=== PATIENT | female | born 1930 | race Caucasian/White ===

== ENCOUNTER 2017-02-27 14:27 | Inpatient (IN) ==
[2017-02-27] MEDS ORDERED: methylPREDNISolone 125 MG/2 ML VIAL IVP ONE (14:55)
[2017-02-27] MEDS ORDERED: Ipratropium/Albuterol Neb 3 ML IH ONE (14:55)
[2017-02-27 15:09] LABS: Basophils % 0.5 %; Eosinophils % 0.2 %; Hematocrit 31.2 % (35.3-44.9); Hemoglobin 10.2 g/dL (11.5-15.4); Immature Granulocytes % 0.3 % (0-4); Lymphocytes # 0.8 K/mcL (0.6-4.6); Lymphocytes % 11.9 %; Mean Corpuscular HGB Conc 32.7 g/dL (31.6-35.5); Mean Corpuscular Hemoglobin 30.6 pg (28.0-33.3); Mean Corpuscular Volume 93.7 fL (83.0-100.0); Mean Platelet Volume 9.6 fL (9.4-12.4); Monocytes # 0.7 K/mcL (0.0-1.3); Monocytes % 10.8 %; Platelet Count 156 K/mcL (140-400); Red Blood Count 3.33 M/mcL (3.82-4.97); Segmented Neutrophils % 76.3 %
[2017-02-27 15:20] LABS: Calcium 8.2 mg/dL (8.6-10.8); Potassium 3.8 mEq/L (3.5-4.5)
--- NOTE | 2017-02-27 15:27 | Emergency Department Note ---
Disposition Clinical Impression: Acute exacerbation of chronic obstructive airways disease, Atypical chest pain , Elevated troponin COPD (chronic obstructive pulmonary disease) Qualifiers: COPD type: unspecified COPD Qualified Code(s): J44.9 - Chronic obstructive pulmonary disease, unspecified Chest pain Qualifiers: Chest pain type: unspecified Qualified Code(s): R07.9 - Chest pain, unspecified Disposition: Admitted As Inpatient Condition: Fair Time of Disposition: 19:29 SOB HPI - General Chief Complaint: ED Shortness of Breath/Dyspnea Stated Complaint: cough CHF Time Seen by Provider: 02/27/17 14:39 Source: patient, family Mode of arrival: ambulatory Limitations: no limitations Nursing Notes Reviewed: Yes Vital Signs Reviewed: Yes - History of Present Illness 86-year-old female presents here to the department from the urgent care for shortness of breath. Patient states this difficulty in breathing started a couple days ago and has slowly increased. She does have history of COPD but is not on home oxygen. She has never had be intubated for this. She does have nebulizers as well as inhalers at home with that she has not been using she has been so weak. Patient states she has had no fevers is during this time of breathing. patient says that she has had a cough and is producing some sputum. Says it is a clear sputum but actually has been a few times of yellow. Patient said she did have one episode where she coughed up blood because after long coughing attack and was only one episode has since gone away. This was a couple days ago.. Patient states that having any chest pain. She does have a cardiac history where she has had multiple cardiac catheters as well as an an atrial fibrillation with a pacemaker. Patient otherwise is having no complaints including nausea or vomiting, pain, headache, neck pain, blurry vision, back pain, abdominal pain, pain or tingling of the arms or legs, generalized numbness. No changes in bowel movements or pain with urination. Patient states she has not been on a long car rides or plane rides she has never had a blood clot has not noticed any swelling in any of her legs. - Related Data Home Medications Medication Instructions Recorded Confirmed Arformoterol Tartrate [Brovana] 15 mcg IH BID 12/13/14 11/04/16 Aspirin Enteric Coated [Aspirin EC] 81 mg PO DAILY 12/13/14 11/04/16 Atorvastatin [Lipitor] 20 mg PO HS 12/13/14 11/04/16 Duloxetine [Cymbalta] 60 mg PO DAILY 12/13/14 11/04/16 Furosemide [Lasix] 20 mg PO DAILY 12/13/14 11/04/16 Insulin ASPART [NovoLOG] 0 units SQ TIDAC 12/13/14 11/04/16 Insulin Glargine,Hum.rec.anlog 37 units SQ HS 12/13/14 11/04/16 [Lantus Solostar] Metoprolol XL (24 HR) Succ [Toprol 50 mg PO DAILY 12/25/14 11/04/16 XL] Budesonide Neb [Pulmicort Neb] 0.5 mg IH BID 05/03/15 11/04/16 Cholecalciferol (Vitamin D3) 1,000 unit PO DAILY 05/03/15 11/04/16 [Vitamin D3] Loratadine [Claritin] 10 mg PO DAILY 05/03/15 11/04/16 Colver-3/Dha/Epa/Fish Oil [Fish Oil 1 cap PO DAILY 05/03/15 11/04/16 1,000 mg Softgel] Omeprazole [PriLOSEC] 40 mg PO DAILY 05/03/15 11/04/16 Latanoprost 1 drop BOTH EYES HS 11/26/15 11/04/16 Saline Nasal [place] [[place] Nasal 1 spray NS Q4H PRN 11/26/15 11/04/16 Norton] Ferrous Sulfate [Iron] 650 mg PO DAILY 01/25/16 11/04/16 Tramadol HCl [Ultram] 50 mg PO TID PRN 04/20/16 11/04/16 Ascorbate Calcium [Vitamin C] 500 mg PO DAILY 11/04/16 11/04/16 Diclofenac Sodium [Voltaren] 1 appl TP QID PRN 11/04/16 11/04/16 Ipratropium/Albuterol Neb [Duoneb] 3 ml IH TID PRN 11/04/16 11/04/16 amLODIPine [Norvasc] 5 mg PO DAILY 11/04/16 11/04/16 Previous Rx's Medication Instructions Recorded Ranolazine [Ranexa] 500 mg PO BID #60 tab.er.12h 11/26/15 Lisinopril 2.5 mg PO DAILY #30 tablet 11/07/16 Lisinopril [Zestril] 2.5 mg PO DAILY tab 11/07/16 Allergies Allergy/AdvReac Type Severity Reaction Status Date / Time isosorbide [From Imdur] Allergy Unknown See Verified 02/27/17 14:36 Comments gabapentin Allergy Hallucinati Verified 02/27/17 14:36 ng Hydralazine Allergy See Verified 02/27/17 14:36 Comments propranolol [From Inderal LA] Allergy Hallucinati Verified 02/27/17 14:36 ng alprazolam [From Xanax] AdvReac See Verified 02/27/17 14:36 Comments fentanyl AdvReac See Verified 02/27/17 14:36 Comments Review of Systems: 10 point review of systems done and negative unless otherwise stated in history of present illness. All systems ED: reviewed and negative except as stated. Review of Systems: As Per HPI Past Medical History - Past Medical History Attestation: Yes The following information was validated with the patient. Medical history: Reports: atrial fibrillation, CHF, coronary artery disease, CVA , diabetes, hyperlipidemia, hypertension, renal disease Surgical history: Reports: angioplasty/stent, carotid endarterectomy, cholecystectomy, pacemaker/AICD, other Psychiatric history: Reports: anxiety - Social History Smoking Status: Never smoker Smokeless Tobacco Status: No Alcohol use: Reports: none Drug use: Reports: none Physical Exam - General Limitations: no limitations General appearance: alert, in no apparent distress - Head Head exam: atraumatic, normocephalic, normal inspection - Eye Eye exam: Present: normal appearance, PERRL, EOMI - ENT ENT exam: normal exam, normal oropharynx, mucous membranes moist - Neck Neck exam: Present: normal inspection, full ROM, trachea midline - Chest Chest inspection: Present: normal inspection, symmetric chest wall rise - Expanded Respiratory Exam Location: wheezes: Left, Right, Upper, Lower, rhonchi: Left, Right, Upper, Lower , decreased breath sounds: Left, Right, Lower - Cardiovascular Cardiovascular exam: Present: regular rate, normal rhythm, normal heart sounds - Abdominal Exam Abdominal exam: Present: soft, Non-Tender, normal bowel sounds. Absent: tenderness, distention, guarding, rebound, rigidity - Extremities Exam Extremities exam: Present: normal inspection, full ROM. Absent: tenderness, pedal edema - Expanded Lower Extremity Exam Neurovascular/Tendon exam: Present: normal capillary refill. Absent: pulse deficit, motor deficit, sensory deficit, tendon deficit - Back Exam Back exam: Present: normal inspection, full ROM. Absent: tenderness, CVA tenderness (R), CVA tenderness (L) - Neurological Exam Neurological exam: Present: alert, oriented X3 - Skin Skin exam: Present: warm, dry, intact, normal color Course Course Narrative: 86-year-old female presents the ED with shortness of breath does have history of COPD. We will not do chest x-rays was done in urgent care. We will get an EKG as well as basic labs including BMP, CBC, lactate. We will give patient IV Solu-Medrol as well as double duo nebs as one DuoNeb was already given a urgent care. Patient is okay with this plan. Most likely disposition is admission due to patient being hypoxic as she was 80% on room air while here and is now on 4 L of oxygen. - Reevaluation(s) Reevaluation #1: Patient reevaluated that she is breathing better at this time. She had an elevated troponin. We did get a second EKG at this time also give her aspirin. Patient took it this plan. Patient also has an elevated BNP but due to her poor renal function we cannot do a CTA. We will talk with the hospitalist about getting a VQ scan. Time: 15:44 Reevaluation #2: Patient reevaluated she is still having a hard time breathing she is actually on 4 L of oxygen and is still only satting in the low 90s. Due to her having history of COPD and increasing work of breathing and worry about hyper-carboxy we felt that patient going on BiPAP would be beneficial. Spoke with patient and family and they both agree. So we will place patient on BiPAP at this time. Time: 16:10 Vital Signs Temperature 97.6 F 02/27/17 14:31 Pulse Rate 96 02/27/17 14:31 Respiratory Rate 26 02/27/17 14:31 Blood Pressure 110/67 02/27/17 14:31 O2 Sat by Pulse Oximetry 90 02/27/17 14:31 Temperature 97.6 F 02/27/17 14:31 Pulse Rate 88 02/27/17 17:19 Respiratory Rate 21 02/27/17 17:19 Blood Pressure 102/50 02/27/17 17:19 O2 Sat by Pulse Oximetry 97 02/27/17 17:19 Oxygen Delivery Oxygen Delivery Bipap Shortness of Breath/Dyspnea - [facility] Narrative Medical decision making narrative: 86-year-old female presents to emergency department complaining of chest pain as well as shortness of breath. She says the chest pain is more a burning sensation. It is worse when she has exertion. Patient does have cardiac history or set multiple stents last one in 1998 last normal stress test was 2013. When she first came in and we treated her as a COPD exacerbation gave her Solu-Medrol and 2 DuoNeb treatments as she already had 1 prior to arrival in urgent care. Chest x-ray is done by urgent care which did not show any acute abnormalities. Her any pulmonary effusions. Patient was hypoxic at 88% on room air when she arrived. Did immediately place her on 4 L of oxygen. She is somewhat hard time breathing that were worried about hyper-carboxy a suicide place patient on BiPAP. Her work of breathing decreased after that. She did really well on this. We did get labs back which showed a normal CBC but patient did have an elevated troponin as well as a BNP. Due to the elevated troponin and BNP we felt that Favio Hobbs was possible she did have one episode of hemoptysis that occurred after a coughing fit but then since went away. Her creatinine was elevated so we are unable to do a CTA of her chest. We ordered a VQ scan. VQ showed low likelihood of there being a pulmonary embolism. We did do 2 EKGs one after the positive troponin and one upon arrival. Multiple face for the exact same showing no acute findings. The elevated troponin could be due to heart strain. We did give patient aspirin and offered her nitroglycerin but patient said because she is not having bad chest pain this time she declined having it. At this time we felt patient needed to be admitted to the hospitalist service for hypoxia, elevated troponin, mild chest pain, COPD exacerbation. Spoke with the patient and she agrees with this plan. Patient is being admitted to the hospital was. I spoke with Nikita Foreman who agreed to admit the patient to their service. Patient is now admitted to their service in stable condition. [facility] 02/27/17 15:57 IMPRESSION: 1. Low probability for pulmonary embolism. 2. Clumped activity in the central airways could be related to poor inspiratory effort and/or airways disease. D/ / Amaury Sutton MD / Amaury Sutton MD Interpreting Provider: Amaury Sutton MD - Medical Records Medical records reviewed: Yes I reviewed the patient's medical records. - Lab Data Lab results reviewed: Yes I reviewed the patient's lab results. Result diagrams: 02/27/17 15:01 02/27/17 15:01 Lab Results 02/27/17 02/27/17 02/27/17 Range/Units 15:01 15:01 15:01 WBC 6.6 (4.3-11.1) K/mcL RBC 3.33 L (3.82-4.97) M/mcL Hgb 10.2 L (11.5-15.4) g/dL Hct 31.2 L (35.3-44.9) % MCV 93.7 (83.0-100.0) fL MCH 30.6 (28.0-33.3) pg MCHC 32.7 (31.6-35.5) g/dL RDW 14.0 (11.5-14.5) % Plt Count 156 (140-400) K/mcL MPV 9.6 (9.4-12.4) fL Immature Gran % 0.3 (0-4) % Seg Neutrophils % 76.3 % Lymphocytes % 11.9 % Monocytes % 10.8 % Eosinophils % 0.2 % Basophils % 0.5 % Neutrophils # 5.0 (1.6-8.9) K/mcL Lymphocytes # 0.8 (0.6-4.6) K/mcL Monocytes # 0.7 (0.0-1.3) K/mcL Eosinophils # 0.0 (0.0-0.6) K/mcL Basophils # 0.0 (0.0-0.2) K/mcL Sodium 132 L (136-145) mEq/L Potassium 3.8 (3.5-4.5) mEq/L Chloride 98 (98-109) mEq/L Carbon Dioxide 24 (19-29) mEq/L BUN 26 H (7-20) mg/dL Creatinine 1.50 H (0.57-1.11) mg/dL Est GFR ( Amer) 40 L (> 60) Est GFR (Non-Af Amer) 33 L (> 60) BUN/Creatinine Ratio 17 (6-26) Glucose 193 H (70-99) mg/dL POC Glucose (58-89) Calculated Osmolality 284 (280-300) Lactic Acid 1.5 (0.5-2.2) mmol/L Calcium 8.2 L (8.6-10.8) mg/dL Troponin I (0-0.03) ng/mL B-Natriuretic Peptide (0-100) pg/mL 02/27/17 02/27/17 02/27/17 Range/Units 15:01 15:01 18:37 WBC (4.3-11.1) K/mcL RBC (3.82-4.97) M/mcL Hgb (11.5-15.4) g/dL Hct (35.3-44.9) % MCV (83.0-100.0) fL MCH (28.0-33.3) pg MCHC (31.6-35.5) g/dL RDW (11.5-14.5) % Plt Count (140-400) K/mcL MPV (9.4-12.4) fL Immature Gran % (0-4) % Seg Neutrophils % % Lymphocytes % % Monocytes % % Eosinophils % % Basophils % % Neutrophils # (1.6-8.9) K/mcL Lymphocytes # (0.6-4.6) K/mcL Monocytes # (0.0-1.3) K/mcL Eosinophils # (0.0-0.6) K/mcL Basophils # (0.0-0.2) K/mcL Sodium (136-145) mEq/L Potassium (3.5-4.5) mEq/L Chloride (98-109) mEq/L Carbon Dioxide (19-29) mEq/L BUN (7-20) mg/dL Creatinine (0.57-1.11) mg/dL Est GFR ( Amer) (> 60) Est GFR (Non-Af Amer) (> 60) BUN/Creatinine Ratio (6-26) Glucose (70-99) mg/dL POC Glucose 242 H (58-89) Calculated Osmolality (280-300) Lactic Acid (0.5-2.2) mmol/L Calcium (8.6-10.8) mg/dL Troponin I 0.09 H* (0-0.03) ng/mL B-Natriuretic Peptide 169 H (0-100) pg/mL - Radiology Data Radiology results reviewed: Yes I reviewed the patient's radiology results. - EKG Data EKG attestation: Yes I reviewed and interpreted this EKG. EKG results narrative: EKG #1 done at 1507 0 myself and attending shows normal sinus rhythm with a first-degree AV block at a rate of 86, ME interval 235, QRS 83, QTC 410 with a normal axis. There is no acute ST changes, no acute T-wave abnormalities, no signs of heart strain or hypertrophy, no signs of any other heart boxes in the first-degree, no signs of WPW/Brugada syndrome. There is no old EKG to compare this time. EKG #2 done at 1605 and reviewed by myself and attending shows normal sinus rhythm at a rate of 90, ME interval 206, QRS 89, QTC 410 with a normal axis. There is no acute ST changes, no acute T-wave abnormalities, no signs of any heart strain or hypertrophy, no signs of any heart block, no signs of WPW/ Brugada syndrome. Attestation Statement - Attestation Attestation: I, Nigel Gutierrez, examined this patient and my medical decision-making was reviewed with the EXCHANGE FLOOR MANAGER/PA/Advanced Practice Nurse/Resident Physician. I agree with the documented findings, disposition and treatment plan as described except to the extent set forth below. 86-year-old female presents emergency Department with concerns of increased dyspnea. Patient does not generally wear oxygen at home however she has required 4 L of oxygen nasal cannula to remain above 92%. Patient reports a cough that is productive of yellow white sputum. Patient denies fever, chest pain, abdominal pain, diarrhea, vomiting. Patient had elevated troponin at 0.09. Initial EKG showed normal sinus rhythm with rate of 86 with first-degree AV block without evidence of STEMI. Repeat EKG showed normal sinus rhythm with rate of 90 with first-degree AV block and again without evidence of STEMI. VQ scan showed low likelihood of PE. Chest x-ray did not show acute infiltrate. Patient is afebrile. Patient placed on BiPAP for control of respiratory distress. She improved significantly with BiPAP. She now felt comfortable to be admitted to the hospital for further care and evaluation of COPD exacerbation versus acute CHF exacerbation. The high probability of a clinically significant, sudden or life threatening deterioration of the cardiovascular and respiratory system(s) required my full and direct attention, intervention and personal management. The aggregate critical care time was 45 minutes. This time is in addition to time spent performing reported procedures but includes the following: x Data Review and interpretation x Patient assessment and monitoring of vital signs x Documentation x Medication orders and management
[2017-02-27] MEDS ORDERED: Aspirin 81 MG TAB.CHEW PO ONE (15:42)
[2017-02-27] MEDS ORDERED: Insulin Regular, Human 100 UNIT/ML SQ ONE (18:51)
[2017-02-27] MEDS ORDERED: Acetaminophen 325 MG TABLET PO PRN (20:31)
[2017-02-27] MEDS ORDERED: *HR* HYDROcodone/Acet 5/325 mg TABLET PO PRN (20:31)
[2017-02-27] MEDS ORDERED: Ondansetron 4 MG/2 ML VIAL IVP PRN (20:31)
[2017-02-27] MEDS ORDERED: Naloxone 0.4 MG/ML INJ IVP PRN (20:31)
[2017-02-27] MEDS ORDERED: Saline Nasal Spray 44 ML BOTTLE NS PRN (20:41)
[2017-02-27] MEDS ORDERED: (Diclofenac Sodium [Voltaren] 1 APPL) TP PRN (20:41)
[2017-02-27] MEDS ORDERED: Dextrose Gel 15 GM PO PRN ×2 (20:45)
[2017-02-27] MEDS ORDERED: *HR* Dextrose 50 % in Water (Syg) 50 ML SYRINGE IVP PRN (20:45)
[2017-02-27] MEDS ORDERED: D5% in Water 1,000 ML IVC PRN (20:45)
--- NOTE | 2017-02-27 20:54 | Internal Med History&Physical ---
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 reports she experiences several times a year. Concern was for possible PE so VQ scan ordered d/t pts. current renal dysfunction. VQ Scan showed low probability for pulmonary embolism and clumped activity in the central airways which could be related to poor inspiratory effort and/or airways disease. Possibility of bronchitis based on pts. hx and current sx. Supplemental O2 with titration and SPO2 monitoring. Continue patient's inhalers. DuoNeb every 4 scheduled. Solu-Medrol 40 mg every 8. Falls/safety precautions. Will treat empirically w/IVPB ceftriaxone 1,000 mg daily for bronchitis coverage. Culturelle BID PO. Pt. discussed w/Dr. Orosco who agrees w/plan of care. Pt. is at high risk for further morbidity based on current respiratory distress and sx , bronchitis, troponin of 0.09, and hx/risk factors. Inpatient. (2) Dyspnea Current visit: Yes Status: Acute Acute SOB and dyspnea r/t current acute exacerbation of COPD w/possible bronchitis based on pts hx of similar sx. Supplemental O2 with titration and SPO2 monitoring. Continue patient's inhalers. DuoNeb every 4 scheduled. Solu- Medrol 40 mg every 8. Falls/safety precautions. Will treat empirically w/IVPB ceftriaxone 1,000 mg daily for bronchitis coverage. Culturelle BID PO. Qualifiers: Dyspnea type: shortness of breath Qualified Code(s): R06.02 - Shortness of breath (3) Atypical chest pain Current visit: Yes Status: Acute Pt. reports acute chest pain that worsens with cough most likely d/t current acute exacerbation of COPD and cough. Pt. denies CP when not coughing. Initial troponin 0.09 which is likely demand ischemia. Will trend trops x2. Continuous cardiac telemetry. Nitroglycerin PRN. Echocardiogram ordered. Will consider cardiology consult if troponins increasing and/or abnormal echocardiogram results. Will begin heparin drip if subsequent troponins are increasing. (4) Weakness Current visit: Yes Status: Acute Acute weakness r/t current SOB, dyspnea, and acute exacerbation of COPD. Falls/ safety precautions. (5) Electrolyte imbalance Current visit: Yes Status: Acute Acute hyponatremia and hypocalcemia on admission. Sodium chloride PO tablet and calcium carbonate 1,000 mg PO QID. Potassium currently 3.8. Monitor f/u labs and correct imbalances as needed. (6) HTN (hypertension) Current visit: Yes Status: Chronic Hx of chronic HTN. Monitor pt. and VS. Continue pts. Norvasc and metoprolol. Qualifiers: Hypertension type: essential hypertension Qualified Code(s): I10 - Essential (primary) hypertension (7) HLD (hyperlipidemia) Current visit: Yes Status: Chronic Hx of chronic HLD. Lipid panel in a.m. labs. Continue patient's Lipitor. Qualifiers: Hyperlipidemia type: pure hypercholesterolemia Qualified Code(s): E78.00 - Pure hypercholesterolemia, unspecified; E78.0 - Pure hypercholesterolemia (8) CHF (congestive heart failure) Current visit: Yes Status: Chronic Hx of chronic diastolic CHF. Stable. Continuous cardiac telemetry. Echocardiogram ordered. Qualifiers: Congestive heart failure type: diastolic Congestive heart failure chronicity: chronic Qualified Code(s): I50.32 - Chronic diastolic (congestive ) heart failure (9) CAD (coronary artery disease) Current visit: Yes Status: Chronic Hx of chronic CAD and angioplasty/stents x2 in 1998. Patient has history of atrial fibrillation, CHF, hypertension, and hyperlipidemia. Continuous cardiac telemetry. Will continue pts. aspirin therapy, Norvasc, Lipitor, metoprolol, and Ranexa. Qualifiers: Coronary Disease-Associated Artery/Lesion type: [place] artery [place] vs. transplanted heart: [place] heart Associated angina: angina presence unspecified Qualified Code(s): I25.10 - Atherosclerotic heart disease of [place] coronary artery without angina pectoris (10) CKD (chronic kidney disease) stage 3, GFR 30-59 ml/min Current visit: Yes Status: Chronic Hx of CKD. Current creatinine 1.5 and GFR 33. Will use IV fluids judiciously avoid nephrotoxins. Monitor f/u labs. (11) Control of atrial fibrillation with pacemaker Current visit: Yes Status: Chronic Hx of atrial fibrillation controlled w/pacemaker. Stable. Last EKG shows pt. in sinus rhythm with sinus arrhythmia and nonspecific T-wave abnormality. Repeat EKG. (12) Diabetes mellitus Current visit: Yes Status: Chronic Hx of chronic diabetes controlled with insulin. Will continue patient's insulin at bedtime and administer low-dose correction sliding scale insulin w/ hypoglycemic protocol. A1c in a.m. labs. BG checks ACHS. Qualifiers: Diabetes mellitus type: type 2 Diabetes mellitus complication status: with unspecified complications Diabetes mellitus long-term insulin use: unspecified long-term insulin use status Qualified Code(s): E11.8 - Type 2 diabetes mellitus with unspecified complications (13) Chronic anemia Current visit: Yes Status: Chronic Hx of chronic anemia. Current Hgb is 10.2 and Hct is 31.2 which is slightly below pts. recent baseline. Pt. denies unusual bleeding. Fecal hemoccult ordered. H/H in a.m. labs. Will continue pts. iron supplementation. Monitor pt. and f/u labs. (14) DVT prophylaxis Current visit: Yes Status: Acute Heparin 5,000 units SQ Q8 for DVT prophylaxis. Monitor pt. for signs of bleeding. Internal Medicine - H&P: HPI Chief complaint: SOB/Dyspnea/Cough Admitted From: Emergency Dept Plans for Post Hospital Care: Home History of present illness: Ms. Cuellar is a 86 year old female with medical hx of fibrillation, CHF, COPD, previous CVA, diabetes controlled with insulin, check HLD, HTN, renal disease, angioplasty/stent x2 in 1998, hx of carotid endartectomy, and pacemaker/AICD presents from the ED w/cheif complaint of SOB, dyspnea, and cough for the past three days. Pt. states that she has not slet in three days d/t cough and reports nausea, vomiting, dizziness, chest and abdominal pain made worse w/ coughing, and weakness as well. Patient denies recent illness, fever, chills, headache, changes in vision, numbness, tingling, diarrhea, constipation, unusual bleeding, pre-syncope, or syncope. Past Med Surg Social Fam HX - Past Medical History Source: patient, old records reviewed, obtained from family Medical history: atrial fibrillation, CHF, coronary artery disease, CVA, diabetes (Insulin-dependent), hyperlipidemia, hypertension, renal disease Psychiatric history: anxiety - Past Surgical History Surgical History: angioplasty/stent (x2), carotid endarterectomy, cholecystectomy, pacemaker/AICD, other - Social History Smoking Status: Never smoker Smokeless Tobacco Status: No Alcohol use: none Drug use: none Current living situation: Home Activity Level: Uses cane/walker Recent Out of Country Travel Within the Last 8 Weeks: No Exposure or Possible Exposure to Illness During Travel: No - Family History Mother Race: Family Member Ethnicity: Non- Living Status: Age at : 62 Cause of : Lung cancer Hx Family Cancer: Yes (Lung) Father Race: Family Member Ethnicity: Non- Living Status: Age at : 85 Cause of : Stroke Hx Family Cardiac Disorders: Yes (Stroke) Hx Family Endocrine Disorder: Yes (DM) Sister Race: Family Member Ethnicity: Non- Living Status: Age at : 55 Cause of : CAD Hx Family Cardiac Disorders: Yes (CAD) Hx Family Cancer: Yes (Breast) Hx Family Endocrine Disorder: Yes (DM) Internal Medicine - H&P: Meds Arformoterol Tartrate [Brovana] 15 mcg IH BID 12/13/14 [History] Aspirin Enteric Coated [Aspirin EC] 81 mg PO DAILY 12/13/14 [History] Atorvastatin [Lipitor] 20 mg PO HS 12/13/14 [History] Duloxetine [Cymbalta] 60 mg PO DAILY 12/13/14 [History] Furosemide [Lasix] 20 mg PO BID 12/13/14 [History] Insulin ASPART [NovoLOG] 0 units SQ TIDAC 12/13/14 [History] Insulin Glargine,Hum.rec.anlog [Lantus Solostar] 37 units SQ HS 12/13/14 [ History] Metoprolol XL (24 HR) Succ [Toprol XL] 50 mg PO DAILY 12/25/14 [History] Budesonide Neb [Pulmicort Neb] 0.5 mg IH BID 05/03/15 [History] Cholecalciferol (Vitamin D3) [Vitamin D3] 1,000 unit PO DAILY 05/03/15 [History] Loratadine [Claritin] 10 mg PO DAILY 05/03/15 [History] [place]-3/Dha/Epa/Fish Oil [Fish Oil 1,000 mg Softgel] 1 cap PO DAILY 05/03/15 [ History] Omeprazole [PriLOSEC] 40 mg PO DAILY 05/03/15 [History] Latanoprost 1 drop BOTH EYES HS 11/26/15 [History] Ranolazine [Ranexa] 500 mg PO BID #60 tab.er.12h 11/26/15 [Rx] Saline Nasal [place] [[place] Nasal [place]] 1 spray NS Q4H PRN 11/26/15 [History] Ferrous Sulfate [Iron] 325 mg PO DAILY 01/25/16 [History] Tramadol HCl [Ultram] 50 mg PO TID PRN 04/20/16 [History] Ascorbate Calcium [Vitamin C] 500 mg PO DAILY 11/04/16 [History] Diclofenac Sodium [Voltaren] 1 appl TP QID PRN 11/04/16 [History] Ipratropium/Albuterol Neb [Duoneb] 3 ml IH TID PRN 11/04/16 [History] amLODIPine [Norvasc] 5 mg PO DAILY 11/04/16 [History] Magnesium Oxide [Magnesium] 400 mg PO DAILY 02/27/17 [History] 3 Allergy/AdvReac Type Severity Reaction Status Date / Time isosorbide [From Imdur] Allergy Unknown See Verified 02/27/17 14:36 Comments gabapentin Allergy Hallucinati Verified 02/27/17 14:36 ng Hydralazine Allergy See Verified 02/27/17 14:36 Comments propranolol [From Inderal LA] Allergy Hallucinati Verified 02/27/17 14:36 ng alprazolam [From Xanax] AdvReac See Verified 02/27/17 14:36 Comments fentanyl AdvReac See Verified 02/27/17 14:36 Comments All Systems PM: A 10-system review of systems was performed and is negative for pertinent findings except as documented above in the HPI. - Constitutional Constitutional: as per HPI, fatigue, weakness, no chills, no fever(s), no night sweats - EENT Eyes: no change in vision, no discharge, no pain, no photophobia Ears: no ear discharge, no ear pain, no tinnitus Nose, mouth and throat: no dysphagia, no nasal discharge, no neck pain, no sore throat - Breasts Breasts: as per HPI - Cardiovascular Cardiovascular ROS IM: as per HPI, chest pain (Made worse w/coughing), dyspnea, dyspnea on exertion, no diaphoresis, no lightheadedness, no palpitations, no syncope - Respiratory Respiratory: as per HPI, cough, dyspnea, dyspnea on exertion, pain with cough - Gastrointestinal Gastrointestinal: nausea, vomiting, no abdominal pain, no diarrhea, no hematemesis, no hematochezia, no melena - Genitourinary Genitourinary: no change in urinary stream, no dysuria, no flank pain, no hematuria Menstruation: as per HPI - Musculoskeletal Musculoskeletal ROS IM: as per HPI, no numbness, no tingling - Integumentary Integumentary IM: no rash, no unusual bruising - Neurological Neurological ROS: as per HPI, dizziness, no confusion, no convulsions, no focal weakness, no numbness, no tingling, no tremor(s) - Psychiatric Psychiatric: as per HPI, anxiety - Endocrine Endocrine IM: as per HPI, fatigue - Hematologic/Lymphatic Hematologic/Lymphatic: no easy bruising - Allergic/Immunologic Allergic/Immunologic: as per HPI - Constitutional Vitals: Temp Pulse Resp BP Pulse Ox 97.5 F L 78 16 114/68 92 02/27/17 20:23 02/27/17 20:23 02/27/17 20:23 02/27/17 20:23 02/27/17 20:23 General appearance: Present: cooperative, mild distress, pleasant, obese, answers questions appropriately - Head Head exam: Present: atraumatic, normocephalic - Eye Eye exam: Present: PERRL, conjuntiva pink, sclera anicteric Pupils: Present: PERRL - ENT ENT exam: Present: normal exam - Neck Neck exam general surgery: Present: normal inspection, supple, trachea midline. Absent: lymphadenopathy - Respiratory Respiratory exam: Present: accessory muscle use, respiratory distress, rhonchi. Absent: rales, wheezes - Cardiovascular Cardiovascular exam: Present: RRR, +S1, +S2. Absent: diastolic murmur, gallop, rubs, systolic murmur - GI/Abdominal GI/Abdominal exam: Present: normal bowel sounds, soft, no peritoneal signs. Absent: distended, tenderness - Rectal Rectal exam: Present: deferred - Additional comments: exam deferred. - Extremities Exam Extremities exam: Present: warm, radial pulses palpable and symmetrical. Absent : calf tenderness, cyanotic, pedal edema - Back Exam Back exam: Present: normal inspection - Neurological Exam Neurological exam: Present: CN II-XII intact, oriented X3, no focal deficits. Absent: pronater drift, facial droop, speech deficit - Psychiatric Psychiatric exam: Present: normal affect, normal mood - Skin Skin exam: Present: dry, intact Internal Med - H&P Results - Labs CBC & Chem 7: 02/27/17 15:01 02/27/17 15:01 - EKG Data EKG shows normal: sinus rhythm - EKG Data EKG comments: 02/27/17 21:02 EKG dated 02/27/17 15:07 shows sinus rhythm with first-degree AV block with occasional supraventricular premature complexes, nonspecific T-wave abnormality , abnormal ECG. EKG dated 02/27/17 16:05 shows sinus rhythm with sinus arrhythmia, nonspecific T -wave abnormality, borderline ECG. - Diagnostic Studies Other Images Additional comments: Impressions EXAMINATION: NUCLEAR MEDICINE VENTILATION PERFUSION SCAN 02/27/2017 TECHNIQUE: 34.7 mCi aerosolized Tc99m DTPA was administered via mask prior to planar imaging of the lungs in multiple projections. Then, 6.4 mCi of Tc99m MAA was administered intravenously prior to planar imaging of the lungs in similar projections. COMPARISON: Chest radiograph 02/27/2017 HISTORY: ORDERING SYSTEM PROVIDED HISTORY: Elevated trop, elevated BNP cant do CTA Worsening shortness of breath over 2 days. Elevated troponin and BNP. Initial evaluation. FINDINGS: PERFUSION: A few patchy small moderate perfusion defects, most prominent in the anterior segment of the left upper lobe. VENTILATION: Ventilation defects matching those seen on perfusion images. Clumped activity in the central airways. Ingested activity in the oral cavity and/or pharynx. CHEST RADIOGRAPH: Interstitial pulmonary edema. Bibasilar atelectasis. Suspicion for trace bilateral effusions. Mild cardiomegaly. Left subclavian dual chamber pacemaker with intact leads. NM/NM pul vent and perfuse IMPRESSION: 1. Low probability for pulmonary embolism. 2. Clumped activity in the central airways could be related to poor inspiratory effort and/or airways disease. D/ / Amaury Sutton MD / Amaury Sutton MD Interpreting Provider: Amaury Sutton MD <Michael Del Cid - Last Filed: 02/27/17 22:52> Date of Encounter: 02/27/17 Internal Medicine - H&P: HPI History of present illness: Ms. Cuellar is a 86 year old female All Systems PM: A 10-system review of systems was performed and is negative for pertinent findings except as documented above in the HPI. - Constitutional Vitals: Temp Pulse Resp BP Pulse Ox 97.5 F L 78 18 114/68 92 02/27/17 20:23 02/27/17 20:23 02/27/17 21:10 02/27/17 20:23 02/27/17 21:10 Internal Med - H&P Results - Labs CBC & Chem 7: 02/27/17 15:01 02/27/17 15:01 Labs: Cardiac Enzymes 02/27/17 Range/Units 21:17 Troponin I 0.06 H* (0-0.03) ng/mL - Attending Attestation I examined this patient and my medical decision-making was reviewed with the Resident Physician. I agree with the documented findings, disposition and treatment plan as described except to the extent set forth below. I have seen and examined the patient. Patient is a 86-year-old female with past medical history of atrial fibrillation, CHF, coronary artery disease, CVA, diabetes, hyperlipidemia, hypertension and COPD. Patient presents to ED complaining of shortness of breath. Initial workup in the ED is significant for slightly elevated troponin likely due to demand ischemia. VQ scan is low probability for PE. Chest x-ray shows probable edema. Patient is being admitted for acute exacerbation of COPD. She will need DuoNeb breathing treatment, IV steroids, O2 via NC and empiric antibiotics. Patient is hard of hearing, and her daughter is present at bedside. Patient and daughter have been explained about her condition and plan of care in detail. They understood and agreed. No unanswered questions. CODE STATUS as per patient and daughter DO NOT RESUSCITATE and DO NOT INTUBATE status. Heart rate 78, blood pressure 114/68, O2 sat 92% on 2 L nasal cannula. Heart S1 and S2 positive. Lungs bilateral good air entry and bilateral wheezing. Abdomen soft nontender.
[2017-02-27] MEDS ORDERED: Insulin LISPRO 300 UNITS/3 ML VIAL SQ SCH (21:00)
[2017-02-27] MEDS: Budesonide Neb 0.5 MG/2 ML IH SCH (21:07)
[2017-02-27] MEDS: Ipratropium/Albuterol Neb 3 ML IH SCH (21:08)
[2017-02-27] MEDS: cefTRIAXone 1,000 MG in Water for inj. (sterile) 10 ML IVPB SCH (21:57)
[2017-02-27] MEDS: GuaiFENesin/Dextromethorphan TABLET PO SCH (21:57)
[2017-02-27] MEDS: Ranolazine 500 MG TAB.ER.12H PO SCH (21:57)
[2017-02-27] MEDS: Furosemide 20 MG TABLET PO SCH (21:57)
[2017-02-27] MEDS ORDERED: Insulin DETEMIR 100 UNIT/ML X5UNITS SQ SCH (22:30)
[2017-02-27] MEDS: MethylPREDNISolone 40 MG/ML VIAL IVP SCH (23:47)
[2017-02-27] MEDS: *HR* Heparin 5,000 UNIT/ML VIAL SQ SCH (23:49)
[2017-02-27] MEDS: Latanoprost 2.5 ML BOTTLE BOTH EYES SCH (23:50)
[2017-02-28] MEDS: Ipratropium/Albuterol Neb 3 ML IH SCH ×7 (00:01→23:40)
[2017-02-28] MEDS: Albuterol 2.5 MG/3 ML NEBULIZER IH SCH ×2 (00:04→10:13)
[2017-02-28 03:17] LABS: Basophils % 0.4 %; Hematocrit 31.1 % (35.3-44.9); Hemoglobin 10.4 g/dL (11.5-15.4); Immature Granulocytes % 0.2 % (0-4); Lymphocytes # 0.2 K/mcL (0.6-4.6); Lymphocytes % 3.9 %; Mean Corpuscular HGB Conc 33.4 g/dL (31.6-35.5); Mean Corpuscular Hemoglobin 30.6 pg (28.0-33.3); Mean Corpuscular Volume 91.5 fL (83.0-100.0); Monocytes # 0.1 K/mcL (0.0-1.3); Monocytes % 1.3 %; Platelet Count 153 K/mcL (140-400); Red Cell Distribution Width 13.7 % (11.5-14.5); Segmented Neutrophils % 94.2 %
[2017-02-28 03:22] LABS: INR 1.1; Prothrombin Time 11.3 Seconds (9.4-12.1)
[2017-02-28 03:24] LABS: Activated Partial Thrombo Time 24.7 Seconds (26.0-36.0)
[2017-02-28 03:25] LABS: Hemoglobin A1C 7.2 %
[2017-02-28 03:31] LABS: Albumin 2.8 g/dL (3.5-5.0); Albumin/Globulin Ratio 0.8 (1.1-2.2); Bilirubin,Total 0.3 mg/dL (0.2-1.2); Chol/HDL Ratio 3.1 (0-4.9); Globulin 3.5 g/dL (2.4-3.5); Magnesium 1.7 mg/dL (1.6-2.6); Potassium 4.2 mEq/L (3.5-4.5); Total Protein 6.3 g/dL (6.0-8.3)
[2017-02-28] MEDS: Furosemide 20 MG TABLET PO SCH (09:27)
[2017-02-28] MEDS: MethylPREDNISolone 40 MG/ML VIAL IVP SCH ×2 (09:27→18:11)
[2017-02-28] MEDS: Cholecalciferol (D-3) 1,000 UNIT TABLET PO SCH (09:27)
[2017-02-28] MEDS: Magnesium Oxide 400 MG TABLET PO SCH (09:27)
[2017-02-28] MEDS: Ranolazine 500 MG TAB.ER.12H PO SCH ×2 (09:27→21:02)
[2017-02-28] MEDS: Loratadine 10 MG TABLET PO SCH (09:27)
[2017-02-28] MEDS: Metoprolol XL (24 HR) Succ 50 MG TAB.ER.24H PO SCH (09:28)
[2017-02-28] MEDS: amLODIPine 5 MG TABLET PO SCH (09:28)
[2017-02-28] MEDS: *HR* Heparin 5,000 UNIT/ML VIAL SQ SCH ×2 (09:28→18:12)
[2017-02-28] MEDS: Aspirin Enteric Coated 81 MG Tablet PO SCH (09:28)
[2017-02-28] MEDS: GuaiFENesin/Dextromethorphan TABLET PO SCH ×2 (09:28→21:02)
[2017-02-28] MEDS: Lactobacillus 1 EACH CAP.SPRINK PO SCH ×2 (09:28→21:02)
[2017-02-28] MEDS: Insulin LISPRO 300 UNITS/3 ML VIAL SQ SCH ×4 (09:28→21:22)
[2017-02-28] MEDS: Budesonide Neb 0.5 MG/2 ML IH SCH ×2 (10:13→20:09)
[2017-02-28] MEDS ORDERED: Albuterol 2.5 MG/3 ML NEBULIZER IH PRN (11:10)
[2017-02-28] MEDS ORDERED: INSULIN HUMAN REGULAR IV ONE (13:32)
[2017-02-28] MEDS ORDERED: SODIUM CHLORIDE 0.9% IV ONE (13:32)
--- NOTE | 2017-02-28 15:39 | Electrocardiograph Report ---
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
--- NOTE | 2017-02-28 15:40 | Electrocardiograph Report ---
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
--- NOTE | 2017-02-28 15:42 | Internal Med Progress Note ---
<Lux Pickering - Last Filed: 02/28/17 15:56> Date of Encounter: 02/28/17 Time of Encounter: 09:45 - Assessment and plan (1) Acute exacerbation of chronic obstructive airways disease Current Visit: Yes Status: Acute Assessment and plan: Patient presented with shortness of breath, dyspnea, cough. VQ scan showed low probability of pulmonary embolism. Chest x-ray demonstrated the presence of pulmonary edema. Plan: -SupplementalO2 via NC, SPO2 monitoring -IV ceftriaxone 1000 mg daily for bronchitis coverage. -Lasix 20 mg IV twice a day, monitor kidney function. (2) Atypical chest pain Current Visit: Yes Status: Acute Assessment and plan: Patient presented with pain that was exacerbated by cough. Likely due to COPD exacerbation. Initial troponin 0.09, likely due to demand ischemia. Troponin trending down; last troponin level was 0.05. Patient complained of some lower sternal chest pain exacerbated by coughing this morning. Plan: -Continuous cardiac telemetry. -Nitroglycerin when necessary. (3) CAD (coronary artery disease) Current Visit: Yes Status: Chronic Assessment and plan: Patient has a known history of chronic CAD and angioplasty/stents 2 in 1998. Known history of atrial fibrillation, CHF, hypertension, hyperlipidemia. Plan: -Aspirin 81 mg -Norvasc 5mg PO daily -Lipitor 20 mg PO HS -Metoprolol 50 mg PO daily -Continuous cardiac telemetry Qualifiers: Coronary Disease-Associated Artery/Lesion type: [place] artery [place] vs. transplanted heart: [place] heart Associated angina: angina presence unspecified Qualified Code(s): I25.10 - Atherosclerotic heart disease of [place] coronary artery without angina pectoris (4) CHF (congestive heart failure) Current Visit: Yes Status: Chronic Assessment and plan: Chest x-ray demonstrated the presence of pulmonary. Lasix 20 mg IV twice a day. Qualifiers: Congestive heart failure type: diastolic Congestive heart failure chronicity: chronic Qualified Code(s): I50.32 - Chronic diastolic (congestive ) heart failure (5) Diabetes mellitus Current Visit: Yes Status: Chronic Assessment and plan: History of chronic diabetes mellitus. Patient normally takes insulin at home. Patient's home insulin was continued; had elevated glucose this morning at 442. Plan: -14 units regular insulin IV. 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 Patient states that she has a mild cough and some mild chest pain on lower sternum. Patient denies having any fever or chills. Glucose elevated today at 442. We will change Solu- Medrol from 40 mg every 8-40 mg every 12. 14 units regular insulin IV. - Constitutional Vitals: Temp Pulse Resp BP Pulse Ox 97.7 F 93 17 130/78 95 02/28/17 11:01 02/28/17 11:01 02/28/17 11:01 02/28/17 11:01 02/28/17 11:01 General appearance: Present: cooperative, mild distress, pleasant, obese, answers questions appropriately - Head Head exam: Present: atraumatic, normocephalic - Eye Eye exam: Present: PERRL, conjuntiva pink, sclera anicteric Pupils: Present: PERRL - Neck Neck exam general surgery: Present: supple, trachea midline. Absent: lymphadenopathy - Respiratory Respiratory exam: Present: decreased breath sounds, prolonged expiratory phase, wheezes. Absent: accessory muscle use, rales, rhonchi - Cardiovascular Cardiovascular exam: Present: +S1, +S2. Absent: diastolic murmur, gallop, rubs , systolic murmur - Skin Skin exam: Present: dry, intact Internal Medicine: Result - Labs CBC & Chem 7: 02/28/17 02:38 02/28/17 02:38 Labs: Short CBC 02/28/17 Range/Units 02:38 WBC 5.4 (4.3-11.1) K/mcL Hgb 10.4 L (11.5-15.4) g/dL Hct 31.1 L (35.3-44.9) % Plt Count 153 (140-400) K/mcL Neutrophils # 5.0 (1.6-8.9) K/mcL BMP 02/28/17 02:38 Sodium 135 L Potassium 4.2 Chloride 101 Carbon Dioxide 23 BUN 33 H Creatinine 1.59 H Glucose 442 H Calcium 8.0 L Cardiac Enzymes 02/27/17 02/28/17 Range/Units 21:17 02:38 Troponin I 0.06 H* 0.05 H* (0-0.03) ng/mL Liver Function 02/28/17 Range/Units 02:38 Total Bilirubin 0.3 (0.2-1.2) mg/dL AST 31 (5-34) Units/L ALT 20 (0-55) Units/L Alkaline Phosphatase 56 (38-126) Units/L Albumin 2.8 L (3.5-5.0) g/dL - ABG Interpretation ABG results: PT/INR, D-dimer PT 11.3 Seconds (9.4-12.1) 02/28/17 02:38 - Impressions Impressions Echocardiogram 02/28/17 20:03 Impressions: LVEF 55%. Mild left ventricular diastolic dysfunction. Probably mild to moderate increased LV wall thickness. Normal right ventricular structure and function. Mild mitral regurgitation. Mild tricuspid regurgitation. No pulmonary hypertension. Left Ventricular Wall Motion: Rest Echo Findings All wall segments showed normal motion. Findings: Study Quality * Technically adequate exam. ECG Findings * Normal sinus rhythm. Left Ventricle * LVEF 55%. * Mild left ventricular diastolic dysfunction. * LV PLAX measurements could not be well obtained - visually appears mild to moderate increase in wall thickness. Right Ventricle * Normal right ventricular structure and function. Left Atrium * Moderate-severely dilated left atrium. Right Atrium * Normal right atrial size. Aortic Valve * No aortic regurgitation. * Trileaflet aortic valve. * Normal aortic valve structure. * No aortic stenosis. Mitral Valve * Normal mitral valve structure. * No mitral stenosis. * Mild mitral annular calcification * Mild mitral regurgitation. Tricuspid Valve * Tricuspid valve not well visualized. * Mild tricuspid regurgitation. * Estimated RA pressure is 3 mmHg. * Estimated RVSP is 28 mmHg. * No pulmonary hypertension. Pulmonic Valve * Pulmonic valve is not well visualized. * No pulmonic stenosis. * No pulmonic regurgitation. Pulmonary Artery * Pulmonary artery not well visualized. Aorta * Not well visualized. Pericardium * There is no pericardial effusion present. Interatrial Septum * No evidence of PFO by color Doppler. IVC * Normal IVC dimensions and inspiratory collapse. Device lead * A device lead was visualized in the right atrium and right ventricle. Consult Discharge Plan - Plan Referrals: Hilario Steele MD [Primary Care Provider] - <Ventura Degroot - Last Filed: 02/28/17 19:48> Date of Encounter: 02/28/17 - Constitutional Vitals: Temp Pulse Resp BP Pulse Ox 97.9 F 82 16 105/61 99 02/28/17 17:01 02/28/17 17:01 02/28/17 17:01 02/28/17 17:01 02/28/17 17:01 Internal Medicine: Result - Labs CBC & Chem 7: 02/28/17 02:38 02/28/17 02:38 Labs: Short CBC 02/28/17 Range/Units 02:38 WBC 5.4 (4.3-11.1) K/mcL Hgb 10.4 L (11.5-15.4) g/dL Hct 31.1 L (35.3-44.9) % Plt Count 153 (140-400) K/mcL Neutrophils # 5.0 (1.6-8.9) K/mcL BMP 02/28/17 02:38 Sodium 135 L Potassium 4.2 Chloride 101 Carbon Dioxide 23 BUN 33 H Creatinine 1.59 H Glucose 442 H Calcium 8.0 L Cardiac Enzymes 02/27/17 02/28/17 Range/Units 21:17 02:38 Troponin I 0.06 H* 0.05 H* (0-0.03) ng/mL Liver Function 02/28/17 Range/Units 02:38 Total Bilirubin 0.3 (0.2-1.2) mg/dL AST 31 (5-34) Units/L ALT 20 (0-55) Units/L Alkaline Phosphatase 56 (38-126) Units/L Albumin 2.8 L (3.5-5.0) g/dL - ABG Interpretation ABG results: PT/INR, D-dimer PT 11.3 Seconds (9.4-12.1) 02/28/17 02:38 - Impressions Impressions Echocardiogram 02/28/17 20:03 Impressions: LVEF 55%. Mild left ventricular diastolic dysfunction. Probably mild to moderate increased LV wall thickness. Normal right ventricular structure and function. Mild mitral regurgitation. Mild tricuspid regurgitation. No pulmonary hypertension. Left Ventricular Wall Motion: Rest Echo Findings All wall segments showed normal motion. Findings: Study Quality * Technically adequate exam. ECG Findings * Normal sinus rhythm. Left Ventricle * LVEF 55%. * Mild left ventricular diastolic dysfunction. * LV PLAX measurements could not be well obtained - visually appears mild to moderate increase in wall thickness. Right Ventricle * Normal right ventricular structure and function. Left Atrium * Moderate-severely dilated left atrium. Right Atrium * Normal right atrial size. Aortic Valve * No aortic regurgitation. * Trileaflet aortic valve. * Normal aortic valve structure. * No aortic stenosis. Mitral Valve * Normal mitral valve structure. * No mitral stenosis. * Mild mitral annular calcification * Mild mitral regurgitation. Tricuspid Valve * Tricuspid valve not well visualized. * Mild tricuspid regurgitation. * Estimated RA pressure is 3 mmHg. * Estimated RVSP is 28 mmHg. * No pulmonary hypertension. Pulmonic Valve * Pulmonic valve is not well visualized. * No pulmonic stenosis. * No pulmonic regurgitation. Pulmonary Artery * Pulmonary artery not well visualized. Aorta * Not well visualized. Pericardium * There is no pericardial effusion present. Interatrial Septum * No evidence of PFO by color Doppler. IVC * Normal IVC dimensions and inspiratory collapse. Device lead * A device lead was visualized in the right atrium and right ventricle. - Attending Attestation I conducted a face to face diagnostic evaluation of this patient and my medical decision-making was reviewed with the Resident Physician, Dr. Lux Pickering. I agree with the documented findings, disposition and treatment plan as described except to the extent set forth below: Patient's blood glucoses over 400. She has not IV steroids. We will give 1 dose of 14 units of IV insulin and recheck blood glucose and 1 hour.
[2017-02-28] MEDS ORDERED: Furosemide 20 MG TABLET PO SCH (17:00)
[2017-02-28] MEDS: Furosemide 20 MG/2 ML VIAL IVP SCH (18:12)
[2017-02-28] MEDS ORDERED: Insulin Human Regular 100 UNIT in 0.9 % Sodium Chloride 100 ML IVC SCH (19:15)
[2017-02-28] MEDS: Insulin DETEMIR 100 UNIT/ML X5UNITS SQ SCH (21:02)
[2017-02-28] MEDS: cefTRIAXone 1,000 MG in Water for inj. (sterile) 10 ML IVPB SCH (21:03)
[2017-02-28] MEDS: Latanoprost 2.5 ML BOTTLE BOTH EYES SCH (21:05)
[2017-03-01] MEDS: *HR* Heparin 5,000 UNIT/ML VIAL SQ SCH ×3 (01:07→17:44)
[2017-03-01] MEDS: Ipratropium/Albuterol Neb 3 ML IH SCH ×6 (03:58→23:52)
[2017-03-01] MEDS: MethylPREDNISolone 40 MG/ML VIAL IVP SCH ×2 (05:33→17:45)
[2017-03-01 06:15] LABS: Hematocrit 30.5 % (35.3-44.9); Hemoglobin 10.1 g/dL (11.5-15.4); Immature Granulocytes % 0.7 % (0-4); Lymphocytes # 0.6 K/mcL (0.6-4.6); Mean Corpuscular HGB Conc 33.1 g/dL (31.6-35.5); Mean Corpuscular Hemoglobin 30.1 pg (28.0-33.3); Mean Platelet Volume 10.3 fL (9.4-12.4); Monocytes # 0.6 K/mcL (0.0-1.3); Monocytes % 4.8 %; Platelet Count 175 K/mcL (140-400); Red Blood Count 3.35 M/mcL (3.82-4.97); Red Cell Distribution Width 13.5 % (11.5-14.5); Segmented Neutrophils % 89.5 %
[2017-03-01 06:16] LABS: Neutrophils # 10.7 K/mcL (1.6-8.9)
[2017-03-01 06:34] LABS: Albumin 2.8 g/dL (3.5-5.0); Albumin/Globulin Ratio 0.9 (1.1-2.2); Bilirubin,Total 0.2 mg/dL (0.2-1.2); Calcium 8.5 mg/dL (8.6-10.8); Globulin 3.2 g/dL (2.4-3.5); Potassium 4.1 mEq/L (3.5-4.5)
[2017-03-01] MEDS: Budesonide Neb 0.5 MG/2 ML IH SCH ×2 (07:31→20:52)
[2017-03-01] MEDS: Aspirin Enteric Coated 81 MG Tablet PO SCH (08:23)
[2017-03-01] MEDS: Metoprolol XL (24 HR) Succ 50 MG TAB.ER.24H PO SCH (08:23)
[2017-03-01] MEDS: Ranolazine 500 MG TAB.ER.12H PO SCH ×2 (08:23→21:47)
[2017-03-01] MEDS: Insulin LISPRO 300 UNITS/3 ML VIAL SQ SCH ×4 (08:24→21:48)
[2017-03-01] MEDS: Furosemide 20 MG/2 ML VIAL IVP SCH ×2 (08:24→17:42)
[2017-03-01] MEDS: Lactobacillus 1 EACH CAP.SPRINK PO SCH ×2 (08:24→21:47)
[2017-03-01] MEDS: amLODIPine 5 MG TABLET PO SCH (08:24)
[2017-03-01] MEDS: Loratadine 10 MG TABLET PO SCH (08:24)
[2017-03-01] MEDS: Cholecalciferol (D-3) 1,000 UNIT TABLET PO SCH (08:24)
[2017-03-01] MEDS: Magnesium Oxide 400 MG TABLET PO SCH (08:38)
[2017-03-01] MEDS: GuaiFENesin/Dextromethorphan TABLET PO SCH ×2 (08:39→21:50)
[2017-03-01] MEDS: Insulin DETEMIR 100 UNIT/ML X5UNITS SQ SCH ×2 (08:40→21:50)
[2017-03-01] MEDS ORDERED: Insulin DETEMIR 100 UNIT/ML X5UNITS SQ ONE (10:43)
--- NOTE | 2017-03-01 12:59 | Internal Med Progress Note ---
Date of Encounter: 03/01/17 Time of Encounter: 08:00 - Assessment and plan (1) Atypical chest pain Current Visit: Yes Status: Acute Assessment and plan: Patient presented with pain that was exacerbated by cough. Likely due to COPD exacerbation. Initial troponin 0.09, likely due to demand ischemia. Troponin trending down; last troponin level was 0.05. -Continuous cardiac telemetry. -Nitroglycerin when necessary. (2) Acute exacerbation of chronic obstructive airways disease Current Visit: Yes Status: Acute Assessment and plan: Patient presented with shortness of breath, dyspnea, cough. VQ scan showed low probability of pulmonary embolism. Chest x-ray demonstrated the presence of pulmonary edema. Plan: -SupplementalO2 via NC, SPO2 monitoring -IV ceftriaxone 1000 mg daily for bronchitis coverage. - IV solumedrol 40 mg Q12 hours (3) HTN (hypertension) Current Visit: Yes Status: Chronic Assessment and plan: BP stable. c/w norvasc, toprol xl Qualifiers: Hypertension type: essential hypertension Qualified Code(s): I10 - Essential (primary) hypertension (4) CHF (congestive heart failure) Current Visit: Yes Status: Chronic Assessment and plan: Recieved IV lasix yesterday. She does not seem to be in volume overload for me. Will check CXR. stop IV lasix with worsening kidney function Qualifiers: Congestive heart failure type: diastolic Congestive heart failure chronicity: chronic Qualified Code(s): I50.32 - Chronic diastolic (congestive ) heart failure (5) CAD (coronary artery disease) Current Visit: Yes Status: Chronic Assessment and plan: Patient has a known history of chronic CAD and angioplasty/stents 2 in 1998. Known history of atrial fibrillation, CHF, hypertension, hyperlipidemia. Plan: -Aspirin 81 mg -Norvasc 5mg PO daily -Lipitor 20 mg PO HS -Metoprolol 50 mg PO daily - Ranexa -Continuous cardiac telemetry Qualifiers: Coronary Disease-Associated Artery/Lesion type: [place] artery [place] vs. transplanted heart: [place] heart Associated angina: angina presence unspecified Qualified Code(s): I25.10 - Atherosclerotic heart disease of [place] coronary artery without angina pectoris (6) Diabetes mellitus Current Visit: Yes Status: Chronic Assessment and plan: Give an extra 10 units of levemir this morning. Increase basal insulin to 30 units BID. c/w SSI. c/w accuchecks. 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 check renal US. avoid nephrotoxins for now. repeat labs in am. Consider nephrology consult if continues to worsen. Creatinin was 1.06 back in October (8) DVT prophylaxis Current Visit: Yes Status: Acute Assessment and plan: heparin SQ - Subjective Interval history: The patient is morning is still on 2 L of oxygen. She says she feels a little bit better. She still has a mild cough. Denies any chest pain. - Constitutional Vitals: Temp Pulse Resp BP Pulse Ox 97.9 F 78 16 120/69 96 03/01/17 12:09 03/01/17 12:09 03/01/17 12:09 03/01/17 12:03/01/17 12:25 General appearance: Present: cooperative, mild distress, pleasant, obese, answers questions appropriately Exam: GEN: NAD CVS: RRR. S1, S2, No m/r/g RESP: diminshed ABD: Soft, NT, ND, +BS EXT: No edema. 2+ DP. No rashes NEURO: Nonfocal Internal Medicine: Result - Labs CBC & Chem 7: 03/01/17 05:11 03/01/17 05:11 Labs: Short CBC 03/01/17 Range/Units 05:11 WBC 12.0 H D (4.3-11.1) K/mcL Hgb 10.1 L (11.5-15.4) g/dL Hct 30.5 L (35.3-44.9) % Plt Count 175 (140-400) K/mcL Neutrophils # 10.7 H (1.6-8.9) K/mcL BMP 03/01/17 05:11 Sodium 136 Potassium 4.1 Chloride 103 Carbon Dioxide 24 BUN 42 H Creatinine 1.67 H Glucose 302 H Calcium 8.5 L Liver Function 03/01/17 Range/Units 05:11 Total Bilirubin 0.2 (0.2-1.2) mg/dL AST 46 H (5-34) Units/L ALT 23 (0-55) Units/L Alkaline Phosphatase 51 (38-126) Units/L Albumin 2.8 L (3.5-5.0) g/dL - ABG Interpretation ABG results: PT/INR, D-dimer PT 11.3 Seconds (9.4-12.1) 02/28/17 02:38 - Impressions Impressions Chest X-Ray 03/01/17 10:55 IMPRESSION: 1. No acute cardiopulmonary disease. 2. Cardiomegaly. D/ / 03/01/2017 11:38:23 Rona Gould MD / [email or web address] Interpreting Provider: Rona Gould MD Consult Discharge Plan - Plan Referrals: Hilario Steele MD [Primary Care Provider] -
[2017-03-01] MEDS: cefTRIAXone 1,000 MG in Water for inj. (sterile) 10 ML IVPB SCH (21:47)
[2017-03-01] MEDS: Latanoprost 2.5 ML BOTTLE BOTH EYES SCH (21:48)
[2017-03-02] MEDS: *HR* Heparin 5,000 UNIT/ML VIAL SQ SCH ×3 (00:34→17:24)
[2017-03-02] MEDS: Ipratropium/Albuterol Neb 3 ML IH SCH ×5 (04:32→20:02)
[2017-03-02 05:56] LABS: Basophils % 0.1 %; Hematocrit 32.4 % (35.3-44.9); Hemoglobin 10.6 g/dL (11.5-15.4); Immature Granulocytes % 1.4 % (0-4); Lymphocytes # 0.7 K/mcL (0.6-4.6); Lymphocytes % 6.5 %; Mean Corpuscular HGB Conc 32.7 g/dL (31.6-35.5); Mean Corpuscular Volume 91.8 fL (83.0-100.0); Mean Platelet Volume 10.2 fL (9.4-12.4); Monocytes # 0.6 K/mcL (0.0-1.3); Monocytes % 5.8 %; Neutrophils # 9.3 K/mcL (1.6-8.9); Platelet Count 188 K/mcL (140-400); Red Blood Count 3.53 M/mcL (3.82-4.97); Red Cell Distribution Width 13.6 % (11.5-14.5); Segmented Neutrophils % 86.2 %
[2017-03-02 06:10] LABS: Albumin 2.7 g/dL (3.5-5.0); Albumin/Globulin Ratio 0.8 (1.1-2.2); Bilirubin,Total 0.3 mg/dL (0.2-1.2); Calcium 8.3 mg/dL (8.6-10.8); Globulin 3.4 g/dL (2.4-3.5); Potassium 3.8 mEq/L (3.5-4.5); Total Protein 6.1 g/dL (6.0-8.3)
[2017-03-02] MEDS: MethylPREDNISolone 40 MG/ML VIAL IVP SCH (06:31)
[2017-03-02] MEDS: Budesonide Neb 0.5 MG/2 ML IH SCH ×2 (07:45→20:02)
[2017-03-02] MEDS: Loratadine 10 MG TABLET PO SCH (10:48)
[2017-03-02] MEDS: Lactobacillus 1 EACH CAP.SPRINK PO SCH ×2 (10:48→20:53)
[2017-03-02] MEDS: amLODIPine 5 MG TABLET PO SCH (10:48)
[2017-03-02] MEDS: Aspirin Enteric Coated 81 MG Tablet PO SCH (10:48)
[2017-03-02] MEDS: GuaiFENesin/Dextromethorphan TABLET PO SCH ×2 (10:48→20:53)
[2017-03-02] MEDS: Cholecalciferol (D-3) 1,000 UNIT TABLET PO SCH (10:48)
[2017-03-02] MEDS: Metoprolol XL (24 HR) Succ 50 MG TAB.ER.24H PO SCH (10:48)
[2017-03-02] MEDS: Insulin LISPRO 300 UNITS/3 ML VIAL SQ SCH ×4 (10:49→21:36)
[2017-03-02] MEDS: Ranolazine 500 MG TAB.ER.12H PO SCH ×2 (10:49→20:53)
[2017-03-02] MEDS: Magnesium Oxide 400 MG TABLET PO SCH (10:49)
[2017-03-02] MEDS: Insulin DETEMIR 100 UNIT/ML X5UNITS SQ SCH ×2 (10:52→20:54)
[2017-03-02] MEDS: predniSONE 20 MG TABLET PO SCH (10:52)
--- NOTE | 2017-03-02 15:25 | Internal Med Progress Note ---
Date of Encounter: 03/02/17 Time of Encounter: 11:35 - Assessment and plan (1) Acute exacerbation of chronic obstructive airways disease Current Visit: Yes Status: Acute Assessment and plan: Clinically getting better. Begin to taper steroids. We will taper steroids. Continue bronchodilators. O2 supplementation. (2) Atypical chest pain Current Visit: Yes Status: Resolved Assessment and plan: Patient not having any chest pain at this time. (3) CAD (coronary artery disease) Current Visit: Yes Status: Chronic Assessment and plan: Continue metoprolol, aspirin and statin. Qualifiers: Coronary Disease-Associated Artery/Lesion type: [place] artery [place] vs. transplanted heart: [place] heart Associated angina: angina presence unspecified Qualified Code(s): I25.10 - Atherosclerotic heart disease of [place] coronary artery without angina pectoris (4) CHF (congestive heart failure) Current Visit: Yes Status: Acute Assessment and plan: Patient treated for acute on chronic congestive heart failure. Symptoms have now improved. Will transition to oral Lasix. Follow renal function closely. Qualifiers: Congestive heart failure type: diastolic Congestive heart failure chronicity: acute on chronic Qualified Code(s): I50.33 - Acute on chronic diastolic (congestive) heart failure (5) CKD (chronic kidney disease) stage 3, GFR 30-59 ml/min Current Visit: Yes Status: Chronic Assessment and plan: With acute kidney injury. Will follow renal function closely. (6) HTN (hypertension) Current Visit: Yes Status: Chronic Qualifiers: Hypertension type: essential hypertension Qualified Code(s): I10 - Essential (primary) hypertension (7) ABEBE (acute kidney injury) Current Visit: Yes Status: Acute Assessment and plan: Creatinine 1.67 today. Stable. Changing Lasix to by mouth. Will follow renal function closely. (8) DVT prophylaxis Current Visit: Yes Status: Acute Assessment and plan: Continue subcutaneous heparin - Subjective Interval history: Patient is awake and alert. Feels better today. Her breathing is much improved. Swelling in her lower extremities has come down - Constitutional Vitals: Temp Pulse Resp BP Pulse Ox 97.6 F 84 22 140/77 90 03/02/17 11:19 03/02/17 11:19 03/02/17 11:19 03/02/17 11:19 03/02/17 11:19 General appearance: Present: cooperative, mild distress, pleasant, obese, answers questions appropriately - Neck Neck exam general surgery: Present: supple, trachea midline. Absent: lymphadenopathy - Respiratory Respiratory exam: Present: CTAB. Absent: accessory muscle use, rales, rhonchi, wheezes - Cardiovascular Cardiovascular exam: Present: RRR, +S1, +S2. Absent: diastolic murmur, gallop, rubs, systolic murmur - GI/Abdominal GI/Abdominal exam: Present: normal bowel sounds, soft, no peritoneal signs. Absent: distended, tenderness - Extremities Exam Extremities exam: Present: warm, radial pulses palpable and symmetrical. Absent : calf tenderness, cyanotic, pedal edema - Neurological Exam Neurological exam: Present: alert, oriented X3, no focal deficits. Absent: facial droop, speech deficit - Skin Skin exam: Present: dry, intact Internal Medicine: Result - Labs CBC & Chem 7: 03/02/17 05:40 03/02/17 05:40 Labs: Short CBC 03/02/17 Range/Units 05:40 WBC 10.8 (4.3-11.1) K/mcL Hgb 10.6 L (11.5-15.4) g/dL Hct 32.4 L (35.3-44.9) % Plt Count 188 (140-400) K/mcL Neutrophils # 9.3 H (1.6-8.9) K/mcL BMP 03/02/17 05:40 Sodium 140 Potassium 3.8 Chloride 103 Carbon Dioxide 24 BUN 44 H Creatinine 1.67 H Glucose 297 H Calcium 8.3 L Liver Function 03/02/17 Range/Units 05:40 Total Bilirubin 0.3 (0.2-1.2) mg/dL AST 43 H (5-34) Units/L ALT 28 (0-55) Units/L Alkaline Phosphatase 52 (38-126) Units/L Albumin 2.7 L (3.5-5.0) g/dL - ABG Interpretation ABG results: PT/INR, D-dimer PT 11.3 Seconds (9.4-12.1) 02/28/17 02:38 Consult Discharge Plan - Plan Referrals: Hilario Steele MD [Primary Care Provider] - 03/09/17 1:00 pm (Please follow up as schedule...)
[2017-03-02] MEDS: cefTRIAXone 1,000 MG in Water for inj. (sterile) 10 ML IVPB SCH (20:52)
[2017-03-02] MEDS: Latanoprost 2.5 ML BOTTLE BOTH EYES SCH (20:54)
[2017-03-03] MEDS: Ipratropium/Albuterol Neb 3 ML IH SCH ×7 (00:42→23:13)
[2017-03-03] MEDS: *HR* Heparin 5,000 UNIT/ML VIAL SQ SCH ×3 (01:06→17:48)
[2017-03-03 07:33] LABS: Basophils % 0.1 %; Hematocrit 32.5 % (35.3-44.9); Hemoglobin 10.6 g/dL (11.5-15.4); Immature Granulocytes % 1.6 % (0-4); Lymphocytes # 1.1 K/mcL (0.6-4.6); Lymphocytes % 12.5 %; Mean Corpuscular HGB Conc 32.6 g/dL (31.6-35.5); Mean Corpuscular Hemoglobin 29.8 pg (28.0-33.3); Mean Corpuscular Volume 91.3 fL (83.0-100.0); Mean Platelet Volume 10.3 fL (9.4-12.4); Monocytes # 0.8 K/mcL (0.0-1.3); Monocytes % 8.7 %; Neutrophils # 6.7 K/mcL (1.6-8.9); Platelet Count 190 K/mcL (140-400); Red Blood Count 3.56 M/mcL (3.82-4.97); Red Cell Distribution Width 13.4 % (11.5-14.5); Segmented Neutrophils % 77.1 %
[2017-03-03 07:46] LABS: Calcium 8.4 mg/dL (8.6-10.8); Potassium 3.8 mEq/L (3.5-4.5)
[2017-03-03] MEDS: Budesonide Neb 0.5 MG/2 ML IH SCH ×2 (07:54→20:21)
[2017-03-03] MEDS: Aspirin Enteric Coated 81 MG Tablet PO SCH (10:48)
[2017-03-03] MEDS: Metoprolol XL (24 HR) Succ 50 MG TAB.ER.24H PO SCH (10:48)
[2017-03-03] MEDS: GuaiFENesin/Dextromethorphan TABLET PO SCH ×2 (10:48→20:43)
[2017-03-03] MEDS: Magnesium Oxide 400 MG TABLET PO SCH (10:49)
[2017-03-03] MEDS: predniSONE 20 MG TABLET PO SCH (10:49)
[2017-03-03] MEDS: Loratadine 10 MG TABLET PO SCH (10:49)
[2017-03-03] MEDS: Cholecalciferol (D-3) 1,000 UNIT TABLET PO SCH (10:49)
[2017-03-03] MEDS: Lactobacillus 1 EACH CAP.SPRINK PO SCH ×2 (10:50→20:44)
[2017-03-03] MEDS: Ranolazine 500 MG TAB.ER.12H PO SCH (10:50)
[2017-03-03] MEDS: amLODIPine 5 MG TABLET PO SCH (10:50)
[2017-03-03] MEDS: Insulin LISPRO 300 UNITS/3 ML VIAL SQ SCH ×3 (12:29→20:43)
[2017-03-03] MEDS ORDERED: amLODIPine 5 MG TABLET PO SCH (16:36)
--- NOTE | 2017-03-03 16:36 | Internal Med Progress Note ---
Date of Encounter: 03/03/17 Time of Encounter: 11:15 - Assessment and plan (1) Acute exacerbation of chronic obstructive airways disease Current Visit: Yes Status: Acute Assessment and plan: Continue current management with oral prednisone and bronchodilators. Clinically getting better. (2) Atypical chest pain Current Visit: Yes Status: Resolved (3) CAD (coronary artery disease) Current Visit: Yes Status: Chronic Assessment and plan: Continue aspirin, statin and beta ash. Patient apparently does not take Ranexa. We will stop this medication. Qualifiers: Coronary Disease-Associated Artery/Lesion type: [place] artery [place] vs. transplanted heart: [place] heart Associated angina: angina presence unspecified Qualified Code(s): I25.10 - Atherosclerotic heart disease of [place] coronary artery without angina pectoris (4) CHF (congestive heart failure) Current Visit: Yes Status: Acute Assessment and plan: Acute symptoms have resolved. Continue oral Lasix Qualifiers: Congestive heart failure type: diastolic Congestive heart failure chronicity: acute on chronic Qualified Code(s): I50.33 - Acute on chronic diastolic (congestive) heart failure (5) CKD (chronic kidney disease) stage 3, GFR 30-59 ml/min Current Visit: Yes Status: Chronic Assessment and plan: Renal function has returned to baseline. (6) HTN (hypertension) Current Visit: Yes Status: Chronic Assessment and plan: Blood pressure is well controlled at this time. Qualifiers: Hypertension type: essential hypertension Qualified Code(s): I10 - Essential (primary) hypertension (7) ABEBE (acute kidney injury) Current Visit: Yes Status: Resolved (8) DVT prophylaxis Current Visit: Yes Status: Acute Assessment and plan: Continue subcutaneous heparin - Subjective Interval history: Patient continues to do well. Denies any new complaints at this time. Her breathing has improved. Lower extremity swelling has also improved. No chest pain. - Constitutional Vitals: Temp Pulse Resp BP Pulse Ox 97.7 F 80 16 135/68 94 03/03/17 11:56 03/03/17 11:56 03/03/17 15:30 03/03/17 11:56 03/03/17 15:30 General appearance: Present: cooperative, pleasant, no acute distress, obese, answers questions appropriately - Respiratory Respiratory exam: Present: CTAB. Absent: accessory muscle use, rales, rhonchi, wheezes - Cardiovascular Cardiovascular exam: Present: RRR, +S1, +S2. Absent: diastolic murmur, gallop, rubs, systolic murmur - GI/Abdominal GI/Abdominal exam: Present: normal bowel sounds, soft, no peritoneal signs. Absent: distended, tenderness - Extremities Exam Extremities exam: Present: warm, radial pulses palpable and symmetrical. Absent : calf tenderness, cyanotic, pedal edema Internal Medicine: Result - Labs CBC & Chem 7: 03/03/17 06:48 03/03/17 06:48 Labs: Short CBC 03/03/17 Range/Units 06:48 WBC 8.7 (4.3-11.1) K/mcL Hgb 10.6 L (11.5-15.4) g/dL Hct 32.5 L (35.3-44.9) % Plt Count 190 (140-400) K/mcL Neutrophils # 6.7 (1.6-8.9) K/mcL BMP 03/03/17 06:48 Sodium 142 Potassium 3.8 Chloride 106 Carbon Dioxide 27 BUN 37 H Creatinine 1.15 H Glucose 90 Calcium 8.4 L - ABG Interpretation ABG results: PT/INR, D-dimer PT 11.3 Seconds (9.4-12.1) 02/28/17 02:38 Consult Discharge Plan - Plan Referrals: Hilario Steele MD [Primary Care Provider] - 03/09/17 1:00 pm (Please follow up as schedule...)
[2017-03-03] MEDS: Insulin DETEMIR 100 UNIT/ML X5UNITS SQ SCH ×2 (17:47→20:43)
[2017-03-03] MEDS: cefTRIAXone 1,000 MG in Water for inj. (sterile) 10 ML IVPB SCH (20:44)
[2017-03-03] MEDS: Latanoprost 2.5 ML BOTTLE BOTH EYES SCH (20:54)
[2017-03-04] MEDS: *HR* Heparin 5,000 UNIT/ML VIAL SQ SCH ×2 (00:44→08:28)
[2017-03-04] MEDS: Ipratropium/Albuterol Neb 3 ML IH SCH ×3 (03:34→11:30)
[2017-03-04] MEDS: Budesonide Neb 0.5 MG/2 ML IH SCH (07:57)
[2017-03-04] MEDS: Insulin LISPRO 300 UNITS/3 ML VIAL SQ SCH ×2 (08:26→12:53)
[2017-03-04] MEDS: predniSONE 20 MG TABLET PO SCH (08:26)
[2017-03-04] MEDS: Lactobacillus 1 EACH CAP.SPRINK PO SCH (08:26)
[2017-03-04] MEDS: Aspirin Enteric Coated 81 MG Tablet PO SCH (08:27)
[2017-03-04] MEDS: Cholecalciferol (D-3) 1,000 UNIT TABLET PO SCH (08:27)
[2017-03-04] MEDS: Loratadine 10 MG TABLET PO SCH (08:27)
[2017-03-04] MEDS: Magnesium Oxide 400 MG TABLET PO SCH (08:27)
[2017-03-04] MEDS: GuaiFENesin/Dextromethorphan TABLET PO SCH (08:34)
[2017-03-04] MEDS: Insulin DETEMIR 100 UNIT/ML X5UNITS SQ SCH (08:38)
[2017-03-04] MEDS ORDERED: Furosemide 40 MG TABLET PO SCH (09:00)
[2017-03-04 12:01] VITALS: BP 138/76
--- NOTE | 2017-03-04 12:22 | Discharge Summary ---
Date of Encounter: 03/04/17 Time of Encounter: 12:16 - Discharge Diagnosis (1) Acute exacerbation of chronic obstructive airways disease Priority: Primary Status: Acute (2) Atypical chest pain Priority: Secondary Status: Resolved (3) CAD (coronary artery disease) Priority: Secondary Status: Chronic Qualifiers: Coronary Disease-Associated Artery/Lesion type: cheesh-na artery Hoh vs. transplanted heart: cheesh-na heart Associated angina: angina presence unspecified Qualified Code(s): I25.10 - Atherosclerotic heart disease of cheesh-na coronary artery without angina pectoris (4) CHF (congestive heart failure) Priority: Secondary Status: Acute Qualifiers: Congestive heart failure type: diastolic Congestive heart failure chronicity: acute on chronic Qualified Code(s): I50.33 - Acute on chronic diastolic (congestive) heart failure (5) CKD (chronic kidney disease) stage 3, GFR 30-59 ml/min Priority: Secondary Status: Chronic (6) HTN (hypertension) Priority: Secondary Status: Chronic Qualifiers: Hypertension type: essential hypertension Qualified Code(s): I10 - Essential (primary) hypertension (7) ABEBE (acute kidney injury) Priority: Secondary Status: Resolved (8) DVT prophylaxis Priority: Secondary Status: Acute - Discharge Medications Prescriptions: Furosemide [Lasix] 40 mg PO DAILY #30 tablet predniSONE [PredniSONE] 10 mg PO DAILY 10 Days tablet Home Medications: Arformoterol Tartrate [Brovana] 15 mcg IH BID 12/13/14 [History] Aspirin Enteric Coated [Aspirin EC] 81 mg PO DAILY 12/13/14 [History] Atorvastatin [Lipitor] 20 mg PO HS 12/13/14 [History] Duloxetine [Cymbalta] 60 mg PO DAILY 12/13/14 [History] Insulin ASPART [NovoLOG] 0 units SQ TIDAC 12/13/14 [History] Insulin Glargine,Hum.rec.anlog [Lantus Solostar] 37 units SQ HS 12/13/14 [ History] Metoprolol XL (24 HR) Succ [Toprol XL] 50 mg PO DAILY 12/25/14 [History] Budesonide Neb [Pulmicort Neb] 0.5 mg IH BID 05/03/15 [History] Cholecalciferol (Vitamin D3) [Vitamin D3] 1,000 unit PO DAILY 05/03/15 [History] Loratadine [Claritin] 10 mg PO DAILY 05/03/15 [History] [place]-3/Dha/Epa/Fish Oil [Fish Oil 1,000 mg Softgel] 1 cap PO DAILY 05/03/15 [ History] Omeprazole [PriLOSEC] 40 mg PO DAILY 05/03/15 [History] Latanoprost 1 drop BOTH EYES HS 11/26/15 [History] Ferrous Sulfate [Iron] 325 mg PO DAILY 01/25/16 [History] Tramadol HCl [Ultram] 50 mg PO TID PRN 04/20/16 [History] Ascorbate Calcium [Vitamin C] 500 mg PO DAILY 11/04/16 [History] Diclofenac Sodium [Voltaren] 1 appl TP QID PRN 11/04/16 [History] Ipratropium/Albuterol Neb [Duoneb] 3 ml IH TID PRN 11/04/16 [History] Magnesium Oxide [Magnesium] 400 mg PO DAILY 02/27/17 [History] Baclofen 20 mg PO Q6H 02/28/17 [History] Furosemide [Lasix] 40 mg PO DAILY #30 tablet 03/04/17 [Rx] amLODIPine [Norvasc] 2.5 mg PO DAILY tablet 03/04/17 [Rx] predniSONE [PredniSONE] 5 mg PO DAILY #0 03/04/17 [Rx] predniSONE [PredniSONE] 10 mg PO DAILY 10 Days tablet 03/04/17 [Rx] Allergies/Adverse Reactions: 3 Allergy/AdvReac Type Severity Reaction Status Date / Time isosorbide [From Imdur] Allergy Unknown See Verified 02/27/17 14:36 Comments gabapentin Allergy Hallucinati Verified 02/27/17 14:36 ng Hydralazine Allergy See Verified 02/27/17 14:36 Comments propranolol [From Inderal LA] Allergy Hallucinati Verified 02/27/17 14:36 ng alprazolam [From Xanax] AdvReac See Verified 02/27/17 14:36 Comments fentanyl AdvReac See Verified 02/27/17 14:36 Comments Procedures/tests Complete & Pending: Procedures Performed prior 72 hours Category Date Time Status retroperitoneal ultrasound - limited [US Exams 03/01/17 13:00 Completed retroperitoneal limited] [US] Routine Date of admission: 02/27/17 20:31 Primary care physician: Hilario Steele MD Discharging clinician: Eulalio Regan Anticipated date of discharge: 03/04/17 - Patient Status Disposition: Transfer SNF Condition: Good Functional capacity at discharge: uses cane/walker Overall status at discharge: patient is progressing back to baseline - Discharge Instructions Instructions: Chest Pain (DC), Chronic Obstructive Pulmonary Disease (DC) Follow Up With: Hilario Steele MD [Primary Care Provider] - 03/09/17 1:00 pm (Please follow up as schedule...) - Diet and Activity Activity: increase activity as tolerated Diet: low fat, low cholesterol, low salt diet, other (Fluid restriction to 1.8L/ 24 hrs) Hospital course: Ms. Cuellar is a 86 year old female patient with a history of atrial fibrillation , congestive heart failure, COPD, diabetes, hypertension and prior CVA who was hospitalized here after presenting to the ER with complaints of cough along with nausea or vomiting chest and abdominal pain which was becoming worse with coughing. She was diagnosed with acute COPD exacerbation and was treated with bronchodilators and intravenous steroids. She was also diagnosed with congestive heart failure and was treated with intravenous Lasix. With these treatment plans, patient's condition improved. Her chest pain PA to be related to her coughing and was pleuritic in nature. It has now improved. Patient's kidney function worsened with the use of intravenous Lasix and so Lasix was held. Her renal function has now returned to baseline and patient may resume taking oral Lasix. She was evaluated by physical therapy and recommended placement of skilled rehabilitation. She has now been accepted to skilled rehabilitation facility and will be discharged today. Patient has completed 5 days of antibiotic therapy for her COPD and does not require any further antibiotics. She will be discharged on a steroid taper. - Time Spent with Patient Total time spent providing and/or coordinating discharge services: Greater than 30 minutes (40 min) - Constitutional Vitals: Temp Pulse Resp BP Pulse Ox 97.6 F 83 16 138/76 90 03/04/17 12:00 03/04/17 12:00 03/04/17 12:00 03/04/17 12:00 03/04/17 12:00 General appearance: Present: cooperative, pleasant, no acute distress, obese, answers questions appropriately - Neck Neck exam general surgery: Present: supple, trachea midline. Absent: lymphadenopathy - Respiratory Respiratory exam: Present: prolonged expiratory phase. Absent: accessory muscle use, rales, rhonchi, wheezes - Cardiovascular Cardiovascular exam: Present: RRR, +S1, +S2. Absent: diastolic murmur, gallop, rubs, systolic murmur - GI/Abdominal GI/Abdominal exam: Present: normal bowel sounds, soft, no peritoneal signs. Absent: distended, tenderness - Extremities Exam Extremities exam: Present: warm, radial pulses palpable and symmetrical. Absent : calf tenderness, cyanotic, pedal edema
--- NOTE | 2017-03-04 12:35 | Physician Discharge Referral ---
[facility] Referral Info Provider in Charge after Transfer: PCP Institutional Level of Care: Skilled - Diagnosis (1) Acute exacerbation of chronic obstructive airways disease Priority: Primary Status: Acute (2) Atypical chest pain Priority: Secondary Status: Resolved (3) CAD (coronary artery disease) Priority: Secondary Status: Chronic (4) CHF (congestive heart failure) Priority: Secondary Status: Acute (5) CKD (chronic kidney disease) stage 3, GFR 30-59 ml/min Priority: Secondary Status: Chronic (6) HTN (hypertension) Priority: Secondary Status: Chronic (7) ABEBE (acute kidney injury) Priority: Secondary Status: Resolved (8) DVT prophylaxis Priority: Secondary Status: Acute Prognosis: Fair Aware of Diagnosis: Patient, Family Aware of Prognosis: Patient, Family - Transfer Medications Prescriptions: Furosemide [Lasix] 40 mg PO DAILY #30 tablet predniSONE [PredniSONE] 10 mg PO DAILY 10 Days tablet Home Medications: Arformoterol Tartrate [Brovana] 15 mcg IH BID 12/13/14 [History] Aspirin Enteric Coated [Aspirin EC] 81 mg PO DAILY 12/13/14 [History] Atorvastatin [Lipitor] 20 mg PO HS 12/13/14 [History] Duloxetine [Cymbalta] 60 mg PO DAILY 12/13/14 [History] Insulin ASPART [NovoLOG] 0 units SQ TIDAC 12/13/14 [History] Insulin Glargine,Hum.rec.anlog [Lantus Solostar] 37 units SQ HS 12/13/14 [ History] Metoprolol XL (24 HR) Succ [Toprol XL] 50 mg PO DAILY 12/25/14 [History] Budesonide Neb [Pulmicort Neb] 0.5 mg IH BID 05/03/15 [History] Cholecalciferol (Vitamin D3) [Vitamin D3] 1,000 unit PO DAILY 05/03/15 [History] Loratadine [Claritin] 10 mg PO DAILY 05/03/15 [History] [place]-3/Dha/Epa/Fish Oil [Fish Oil 1,000 mg Softgel] 1 cap PO DAILY 05/03/15 [ History] Omeprazole [PriLOSEC] 40 mg PO DAILY 05/03/15 [History] Latanoprost 1 drop BOTH EYES HS 11/26/15 [History] Ferrous Sulfate [Iron] 325 mg PO DAILY 01/25/16 [History] Tramadol HCl [Ultram] 50 mg PO TID PRN 04/20/16 [History] Ascorbate Calcium [Vitamin C] 500 mg PO DAILY 11/04/16 [History] Diclofenac Sodium [Voltaren] 1 appl TP QID PRN 11/04/16 [History] Ipratropium/Albuterol Neb [Duoneb] 3 ml IH TID PRN 11/04/16 [History] Magnesium Oxide [Magnesium] 400 mg PO DAILY 02/27/17 [History] Baclofen 20 mg PO Q6H 02/28/17 [History] Furosemide [Lasix] 40 mg PO DAILY #30 tablet 03/04/17 [Rx] amLODIPine [Norvasc] 2.5 mg PO DAILY tablet 03/04/17 [Rx] predniSONE [PredniSONE] 5 mg PO DAILY #0 03/04/17 [Rx] predniSONE [PredniSONE] 10 mg PO DAILY 10 Days tablet 03/04/17 [Rx] Allergies/Adverse Reactions: 3 Allergy/AdvReac Type Severity Reaction Status Date / Time isosorbide [From Imdur] Allergy Unknown See Verified 02/27/17 14:36 Comments gabapentin Allergy Hallucinati Verified 02/27/17 14:36 ng Hydralazine Allergy See Verified 02/27/17 14:36 Comments propranolol [From Inderal LA] Allergy Hallucinati Verified 02/27/17 14:36 ng alprazolam [From Xanax] AdvReac See Verified 02/27/17 14:36 Comments fentanyl AdvReac See Verified 02/27/17 14:36 Comments - Respiratory Orders Smoking Cessation: Smoking cessation has been advised. For more information, call the [place] Tobacco Quit Line at 7-043-GDOG-NOW. - Ancillary Orders May consult with Dentist, Second Chef, Caddymaster PRN - Advance Directives Code Status: DNR-Arrest/Don't Intubate - Mobility Orders Ambulate (per PT) - Rehabiliation Orders Rehab Potential: Good Rehab Orders: Evaluation for Physical Therapy, Evaluation for Occupational Therapy - Diet Orders No Added Salt (DESTINI), Cardiac (Fluid restriction to 1.8L/24 hrs) CERTIFICATION: I certify that the transfer of the above named patient to an Extended Care Facility is necessary for the continuing treatment of the diagnosis listed. The above information is true and accurate reflection of patient's current condition. Confidential - Redisclosure prohibited without a patient's written consent.
[2017-03-04] MEDS ORDERED: Insulin DETEMIR 100 UNIT/ML X5UNITS SQ SCH (21:00)
== END 2017-03-04 15:02 | DRG 190 ==
LOC: 2ANU 14:27 → EMEROO 14:27 → 2ANU 20:00 → SUATTDRO 20:31
PROVIDERS: ADMIT Hospitalist; ATTEND Internal Medicine

== ENCOUNTER 2017-03-07 09:12 | Inpatient (IN) ==
[2017-03-07] MEDS ORDERED: 0.9 % Sodium Chloride 1,000 ML IVC ONE (09:18)
--- NOTE | 2017-03-07 09:20 | Emergency Department Note ---
Disposition Clinical Impression: Hypoxia, Elevated troponin Altered mental status Qualifiers: Altered mental status type: unspecified Qualified Code(s): R41.82 - Altered mental status, unspecified Leukocytosis Qualifiers: Leukocytosis type: unspecified Qualified Code(s): D72.829 - Elevated white blood cell count, unspecified Disposition: Admitted As Inpatient Condition: Fair Referrals: Hilario Steele MD [Primary Care Provider] - Forms: ED Satisfaction Letter Altered Mental Status HPI - General Chief Complaint: ED Altered Mental Status Stated Complaint: AMS Time Seen by Provider: 03/07/17 09:15 Source: family, EMS Mode of arrival: EMS Limitations: altered mental status Nursing Notes Reviewed: Yes Vital Signs Reviewed: Yes - History of Present Illness HPI Narrative: 86-year-old female prior history of congestive heart failure, COPD, CVA, recent admission for pneumonia with discharge to [facility] who presents from said [facility] facility with a chief complaint of altered mental status. Patient is unable to provide history and history is obtained from EMS staff as well as family. They report she was recently placed at the [facility] facility after an inpatient stay for pneumonia. Reports she was at her baseline last on Tuesday evening. States she is usually ambulatory, interactive and alert. Reports that she has had decreased responsiveness since that time. I do not whether she has had fevers at the facility. She does arrive with paperwork confirming she is DNR [facility] DNI. Family states that she has been like this before. They report her stroke was right sided without speech involvement. She has no sequela from her prior infarct. She is usually ambulatory and lives alone at home and is able to take care of herself. Family does report that she was placed on muscle relaxants at the nursing facility every 6 hours and that was stopped yesterday without improvement in her mental status. complaint: altered mental status Onset (ago): day(s) Timing confirmed by: family member, other Consistency of Symptoms: unknown Context: other - Related Data Home Medications Medication Instructions Recorded Confirmed Arformoterol Tartrate [Brovana] 15 mcg IH BID 12/13/14 03/07/17 Aspirin Enteric Coated [Aspirin EC] 81 mg PO DAILY 12/13/14 03/07/17 Atorvastatin [Lipitor] 20 mg PO HS 12/13/14 03/07/17 Duloxetine [Cymbalta] 60 mg PO DAILY 12/13/14 03/07/17 Insulin ASPART [NovoLOG] 0 units SQ TIDAC 12/13/14 03/07/17 Insulin Glargine,Hum.rec.anlog 37 units SQ HS 12/13/14 03/07/17 [Lantus Solostar] Metoprolol XL (24 HR) Succ [Toprol 50 mg PO DAILY 12/25/14 03/07/17 XL] Budesonide Neb [Pulmicort Neb] 0.5 mg IH BID 05/03/15 03/07/17 Cholecalciferol (Vitamin D3) 1,000 unit PO DAILY 05/03/15 03/07/17 [Vitamin D3] Loratadine [Claritin] 10 mg PO DAILY 05/03/15 03/07/17 Hester-3/Dha/Epa/Fish Oil [Fish Oil 1 cap PO DAILY 05/03/15 03/07/17 1,000 mg Softgel] Omeprazole [PriLOSEC] 40 mg PO DAILY 05/03/15 03/07/17 Latanoprost 1 drop BOTH EYES HS 11/26/15 03/07/17 Ferrous Sulfate [Iron] 325 mg PO DAILY 01/25/16 03/07/17 Ascorbate Calcium [Vitamin C] 500 mg PO DAILY 11/04/16 03/07/17 Diclofenac Sodium [Voltaren] 1 appl TP QID PRN 11/04/16 03/07/17 Ipratropium/Albuterol Neb [Duoneb] 3 ml IH TID PRN 11/04/16 03/07/17 Magnesium Oxide [Magnesium] 400 mg PO DAILY 02/27/17 03/07/17 Previous Rx's Medication Instructions Recorded Furosemide [Lasix] 40 mg PO DAILY #30 tablet 03/04/17 amLODIPine [Norvasc] 2.5 mg PO DAILY tablet 03/04/17 predniSONE [PredniSONE] 5 mg PO DAILY #0 03/04/17 predniSONE [PredniSONE] 10 mg PO DAILY 10 Days tablet 03/04/17 Allergies Allergy/AdvReac Type Severity Reaction Status Date / Time isosorbide [From Imdur] Allergy Unknown See Verified 02/27/17 14:36 Comments gabapentin Allergy Hallucinati Verified 02/27/17 14:36 ng Hydralazine Allergy See Verified 02/27/17 14:36 Comments propranolol [From Inderal LA] Allergy Hallucinati Verified 02/27/17 14:36 ng alprazolam [From Xanax] AdvReac See Verified 02/27/17 14:36 Comments fentanyl AdvReac See Verified 02/27/17 14:36 Comments Limitations: ROS unobtainable due to patients medical condition Past Medical History - Past Medical History Attestation: Yes The following information was validated with the patient. Source: obtained from family Medical history: Reports: atrial fibrillation, CHF, coronary artery disease, CVA , diabetes (Insulin-dependent), hyperlipidemia, hypertension, renal disease Surgical history: Reports: angioplasty/stent (x2), carotid endarterectomy, cholecystectomy, pacemaker/AICD, other Psychiatric history: Reports: anxiety - Social History Smoking Status: Never smoker Smokeless Tobacco Status: No Alcohol use: Reports: none Drug use: Reports: none Physical Exam - General Limitations: altered mental status General appearance: alert, other - Head Head exam: atraumatic, normocephalic, normal inspection - Eye Eye exam: Present: normal appearance - ENT ENT exam: normal exam - Neck Neck exam: Present: normal inspection - Chest Chest inspection: Present: normal inspection, symmetric chest wall rise - Respiratory Respiratory exam: Present: other (Diminished breath sounds bilaterally) - Cardiovascular Cardiovascular exam: Present: regular rate, normal rhythm, normal heart sounds - Abdominal Exam Abdominal exam: Present: soft, Non-Tender. Absent: distention, rigidity - Extremities Exam Extremities exam: Present: normal inspection - Expanded Upper Extremity Exam Shoulder exam: Present: normal inspection Arm exam: Present: normal inspection Elbow exam: Present: normal inspection Forearm/Wrist exam: Present: normal inspection Hand exam: Present: normal inspection - Expanded Lower Extremity Exam Hip/Pelvis exam: Present: normal inspection Upper leg exam: Present: normal inspection Knee exam: Present: normal inspection Lower leg exam: Present: normal inspection Ankle exam: Present: normal inspection Foot/toe exam: Present: normal inspection - Neurological Exam Neurological exam: Present: alert, other (Unable to fully assess due to patient compliance and interaction. She is alert and opens her eyes spontaneously. Currently aphasic. Will not follow commands.) - Skin Skin exam: Present: warm Course Course Narrative: Patient seen and examined at time of arrival. She demonstrates hypoxia here at 88% with an appropriate waveform with family reporting no oxygen requirement at the nursing facility aside from as needed. Her heart rate is also greater than 90 and she is tachypneic into the 40s. Patient meet sirs criteria with sepsis as a concern given her recent infection and inpatient treatment. We will obtain a CT scan of her head for altered mental status as well as an EKG, chest x-ray as well as labs including lactate and blood cultures. Given her history of congestive heart failure we will obtain a chest x-ray for evaluation prior to fluid administration as she is currently hemodynamically stable. - Reevaluation(s) Reevaluation #1: Updated family on imaging and labs. Agreeable with being admitted to the hospital. We will discuss with the hospitalist for admission. Reevaluation #2: Updated family on request by hospitalist for CT scan and ABG. Patient is actually more alert at this time and is able to interact. Vital Signs Temperature 98.3 F 03/07/17 09:15 Pulse Rate 88 03/07/17 09:15 Respiratory Rate 44 03/07/17 09:15 Blood Pressure 114/83 03/07/17 09:15 O2 Sat by Pulse Oximetry 92 03/07/17 09:15 Temperature 98.3 F 03/07/17 09:15 Pulse Rate 96 03/07/17 10:30 Respiratory Rate 34 03/07/17 10:30 Blood Pressure 141/93 03/07/17 10:30 O2 Sat by Pulse Oximetry 95 03/07/17 10:30 Oxygen Delivery Oxygen Delivery Oximizer Altered Mental Status - MDM Narrative Medical decision making narrative: 46-year-old female presents to the ER due to altered mental status. Family reports recent hospitalization for CHF as well as COPD and pneumonia. She was sent to [facility] for [facility]. She presented a phasic not following commands. She was also noted to be hypoxic on room air which is not her baseline. Her EKG here demonstrates no acute findings. Chest x-ray was a poor study without respiratory effort. She does have a leukocytosis whether or not this is from her recent steroids or infectious etiology is unclear at this time. Mild elevation of troponin of 0.06 without ischemic findings of her EKG in the setting of renal dysfunction. Given her cough, leukocytosis and recent admission we did cover the patient with healthcare associated pneumonia antibiotics including vancomycin, Zosyn and Levaquin. Case discussed with the hospitalist who requested to have additional testing of the CT scan of her chest as well as ABG performed. At the time of this dictation CT of the chest report is pending. Patient evaluated by the hospitalist service in the emergency department and orders placed. Patient admitted to the hospitalist service for further care and management. - Lab Data Lab results reviewed: Yes I reviewed the patient's lab results. Result diagrams: 03/07/17 09:36 03/07/17 09:36 Lab Results 03/07/17 03/07/17 03/07/17 Range/Units 09:21 09:36 09:36 WBC 15.2 H D (4.3-11.1) K/mcL RBC 4.21 (3.82-4.97) M/mcL Hgb 12.7 D (11.5-15.4) g/dL Hct 38.4 (35.3-44.9) % MCV 91.2 (83.0-100.0) fL MCH 30.2 (28.0-33.3) pg MCHC 33.1 (31.6-35.5) g/dL RDW 13.7 (11.5-14.5) % Plt Count 291 D (140-400) K/mcL MPV 9.8 (9.4-12.4) fL Immature Gran % 1.6 (0-4) % Seg Neutrophils % 70.5 % Lymphocytes % 21.5 % Monocytes % 6.0 % Eosinophils % 0.1 % Basophils % 0.3 % Neutrophils # 10.7 H (1.6-8.9) K/mcL Lymphocytes # 3.3 (0.6-4.6) K/mcL Monocytes # 0.9 (0.0-1.3) K/mcL Eosinophils # 0.0 (0.0-0.6) K/mcL Basophils # 0.1 (0.0-0.2) K/mcL PT 10.6 (9.4-12.1) Seconds INR 1.0 APTT 20.0 L (26.0-36.0) Seconds Sodium (136-145) mEq/L Potassium (3.5-4.5) mEq/L Chloride (98-109) mEq/L Carbon Dioxide (19-29) mEq/L BUN (7-20) mg/dL Creatinine (0.57-1.11) mg/dL Est GFR ( Amer) (> 60) Est GFR (Non-Af Amer) (> 60) BUN/Creatinine Ratio (6-26) Glucose (70-99) mg/dL POC Glucose 154 H (58-89) Calculated Osmolality (280-300) Lactic Acid (0.5-2.2) mmol/L Calcium (8.6-10.8) mg/dL Total Bilirubin (0.2-1.2) mg/dL Direct Bilirubin (0.0-0.5) mg/dL Indirect Bilirubin (0.0-1.2) mg/dL AST (5-34) Units/L ALT (0-55) Units/L Alkaline Phosphatase (38-126) Units/L Ammonia (18-72) mcmol/L Troponin I (0-0.03) ng/mL B-Natriuretic Peptide (0-100) pg/mL Serum Total Protein (6.0-8.3) g/dL Albumin (3.5-5.0) g/dL Globulin (2.4-3.5) g/dL Albumin/Globulin Ratio (1.1-2.2) TSH (0.350-4.840) mcIU/mL Urine Color (Yellow) Urine Clarity (Clear) Urine pH (5.0-8.0) pH Units Ur Specific [place] (1.010-1.025) Urine Protein (Neg-Trace) mg/dL Urine Glucose (UA) (Normal) mg/dL Urine Ketones (Negative) mg/dL Urine Blood (Negative) Urine Nitrite (Negative) Urine Bilirubin (Negative) Urine Urobilinogen (Normal) mg/dL Ur Leukocyte Esterase (Negative) Urine Microscopic RBC (0-3) per hpf Urine Microscopic WBC (0-3) per hpf Ur Squamous Epith Cells (None-Few) per lpf Urine Bacteria (None-Few) per hpf Hyaline Casts (None-Few) per lpf Ur Culture Indicated? (NO) Urine Opiates Screen (Oopsse=285) ng/mL Ur Barbiturates Screen (Veowus=960) ng/mL Ur Phencyclidine Scrn (Cutoff=25) ng/mL Ur Amphetamines Screen (Zrvxgv=4051) ng/mL U Benzodiazepines Scrn (Gsjugc=943) ng/mL Urine Cocaine Screen (Cutoff= 300) ng/mL U Marijuana (THC) Screen (Cutoff = 50) ng/mL 03/07/17 03/07/17 03/07/17 Range/Units 09:36 09:36 09:36 WBC (4.3-11.1) K/mcL RBC (3.82-4.97) M/mcL Hgb (11.5-15.4) g/dL Hct (35.3-44.9) % MCV (83.0-100.0) fL MCH (28.0-33.3) pg MCHC (31.6-35.5) g/dL RDW (11.5-14.5) % Plt Count (140-400) K/mcL MPV (9.4-12.4) fL Immature Gran % (0-4) % Seg Neutrophils % % Lymphocytes % % Monocytes % % Eosinophils % % Basophils % % Neutrophils # (1.6-8.9) K/mcL Lymphocytes # (0.6-4.6) K/mcL Monocytes # (0.0-1.3) K/mcL Eosinophils # (0.0-0.6) K/mcL Basophils # (0.0-0.2) K/mcL PT (9.4-12.1) Seconds INR APTT (26.0-36.0) Seconds Sodium 144 (136-145) mEq/L Potassium 3.4 L (3.5-4.5) mEq/L Chloride 104 (98-109) mEq/L Carbon Dioxide 29 (19-29) mEq/L BUN 36 H (7-20) mg/dL Creatinine 1.33 H (0.57-1.11) mg/dL Est GFR ( Amer) 46 L (> 60) Est GFR (Non-Af Amer) 38 L (> 60) BUN/Creatinine Ratio 27 H (6-26) Glucose 135 H (70-99) mg/dL POC Glucose (58-89) Calculated Osmolality 308 H (280-300) Lactic Acid (0.5-2.2) mmol/L Calcium 9.3 (8.6-10.8) mg/dL Total Bilirubin 0.7 (0.2-1.2) mg/dL Direct Bilirubin 0.3 (0.0-0.5) mg/dL Indirect Bilirubin 0.4 (0.0-1.2) mg/dL AST 19 (5-34) Units/L ALT 31 (0-55) Units/L Alkaline Phosphatase 59 (38-126) Units/L Ammonia 20 (18-72) mcmol/L Troponin I 0.06 H* (0-0.03) ng/mL B-Natriuretic Peptide (0-100) pg/mL Serum Total Protein 7.0 (6.0-8.3) g/dL Albumin 3.1 L (3.5-5.0) g/dL Globulin 3.9 H (2.4-3.5) g/dL Albumin/Globulin Ratio 0.8 L (1.1-2.2) TSH 2.373 (0.350-4.840) mcIU/mL Urine Color (Yellow) Urine Clarity (Clear) Urine pH (5.0-8.0) pH Units Ur Specific [place] (1.010-1.025) Urine Protein (Neg-Trace) mg/dL Urine Glucose (UA) (Normal) mg/dL Urine Ketones (Negative) mg/dL Urine Blood (Negative) Urine Nitrite (Negative) Urine Bilirubin (Negative) Urine Urobilinogen (Normal) mg/dL Ur Leukocyte Esterase (Negative) Urine Microscopic RBC (0-3) per hpf Urine Microscopic WBC (0-3) per hpf Ur Squamous Epith Cells (None-Few) per lpf Urine Bacteria (None-Few) per hpf Hyaline Casts (None-Few) per lpf Ur Culture Indicated? (NO) Urine Opiates Screen (Imqsoe=230) ng/mL Ur Barbiturates Screen (Kxmbpz=291) ng/mL Ur Phencyclidine Scrn (Cutoff=25) ng/mL Ur Amphetamines Screen (Poklwp=0502) ng/mL U Benzodiazepines Scrn (Fuhvjk=529) ng/mL Urine Cocaine Screen (Cutoff= 300) ng/mL U Marijuana (THC) Screen (Cutoff = 50) ng/mL 03/07/17 03/07/17 03/07/17 Range/Units 09:36 09:36 10:10 WBC (4.3-11.1) K/mcL RBC (3.82-4.97) M/mcL Hgb (11.5-15.4) g/dL Hct (35.3-44.9) % MCV (83.0-100.0) fL MCH (28.0-33.3) pg MCHC (31.6-35.5) g/dL RDW (11.5-14.5) % Plt Count (140-400) K/mcL MPV (9.4-12.4) fL Immature Gran % (0-4) % Seg Neutrophils % % Lymphocytes % % Monocytes % % Eosinophils % % Basophils % % Neutrophils # (1.6-8.9) K/mcL Lymphocytes # (0.6-4.6) K/mcL Monocytes # (0.0-1.3) K/mcL Eosinophils # (0.0-0.6) K/mcL Basophils # (0.0-0.2) K/mcL PT (9.4-12.1) Seconds INR APTT (26.0-36.0) Seconds Sodium (136-145) mEq/L Potassium (3.5-4.5) mEq/L Chloride (98-109) mEq/L Carbon Dioxide (19-29) mEq/L BUN (7-20) mg/dL Creatinine (0.57-1.11) mg/dL Est GFR ( Amer) (> 60) Est GFR (Non-Af Amer) (> 60) BUN/Creatinine Ratio (6-26) Glucose (70-99) mg/dL POC Glucose (58-89) Calculated Osmolality (280-300) Lactic Acid 2.0 (0.5-2.2) mmol/L Calcium (8.6-10.8) mg/dL Total Bilirubin (0.2-1.2) mg/dL Direct Bilirubin (0.0-0.5) mg/dL Indirect Bilirubin (0.0-1.2) mg/dL AST (5-34) Units/L ALT (0-55) Units/L Alkaline Phosphatase (38-126) Units/L Ammonia (18-72) mcmol/L Troponin I (0-0.03) ng/mL B-Natriuretic Peptide 68 (0-100) pg/mL Serum Total Protein (6.0-8.3) g/dL Albumin (3.5-5.0) g/dL Globulin (2.4-3.5) g/dL Albumin/Globulin Ratio (1.1-2.2) TSH (0.350-4.840) mcIU/mL Urine Color Yellow (Yellow) Urine Clarity Clear (Clear) Urine pH 6.0 (5.0-8.0) pH Units Ur Specific [place] 1.023 (1.010-1.025) Urine Protein Negative (Neg-Trace) mg/dL Urine Glucose (UA) 250 H (Normal) mg/dL Urine Ketones Negative (Negative) mg/dL Urine Blood Negative (Negative) Urine Nitrite Negative (Negative) Urine Bilirubin Negative (Negative) Urine Urobilinogen Normal (Normal) mg/dL Ur Leukocyte Esterase Trace H (Negative) Urine Microscopic RBC 0-3 (0-3) per hpf Urine Microscopic WBC 5-15 H (0-3) per hpf Ur Squamous Epith Cells Many H (None-Few) per lpf Urine Bacteria None Seen (None-Few) per hpf Hyaline Casts Few (None-Few) per lpf Ur Culture Indicated? NO (NO) Urine Opiates Screen (Iswkes=087) ng/mL Ur Barbiturates Screen (Xwphbu=628) ng/mL Ur Phencyclidine Scrn (Cutoff=25) ng/mL Ur Amphetamines Screen (Ckytwa=5300) ng/mL U Benzodiazepines Scrn (Mvnfty=559) ng/mL Urine Cocaine Screen (Cutoff= 300) ng/mL U Marijuana (THC) Screen (Cutoff = 50) ng/mL 03/07/17 Range/Units 10:10 WBC (4.3-11.1) K/mcL RBC (3.82-4.97) M/mcL Hgb (11.5-15.4) g/dL Hct (35.3-44.9) % MCV (83.0-100.0) fL MCH (28.0-33.3) pg MCHC (31.6-35.5) g/dL RDW (11.5-14.5) % Plt Count (140-400) K/mcL MPV (9.4-12.4) fL Immature Gran % (0-4) % Seg Neutrophils % % Lymphocytes % % Monocytes % % Eosinophils % % Basophils % % Neutrophils # (1.6-8.9) K/mcL Lymphocytes # (0.6-4.6) K/mcL Monocytes # (0.0-1.3) K/mcL Eosinophils # (0.0-0.6) K/mcL Basophils # (0.0-0.2) K/mcL PT (9.4-12.1) Seconds INR APTT (26.0-36.0) Seconds Sodium (136-145) mEq/L Potassium (3.5-4.5) mEq/L Chloride (98-109) mEq/L Carbon Dioxide (19-29) mEq/L BUN (7-20) mg/dL Creatinine (0.57-1.11) mg/dL Est GFR ( Amer) (> 60) Est GFR (Non-Af Amer) (> 60) BUN/Creatinine Ratio (6-26) Glucose (70-99) mg/dL POC Glucose (58-89) Calculated Osmolality (280-300) Lactic Acid (0.5-2.2) mmol/L Calcium (8.6-10.8) mg/dL Total Bilirubin (0.2-1.2) mg/dL Direct Bilirubin (0.0-0.5) mg/dL Indirect Bilirubin (0.0-1.2) mg/dL AST (5-34) Units/L ALT (0-55) Units/L Alkaline Phosphatase (38-126) Units/L Ammonia (18-72) mcmol/L Troponin I (0-0.03) ng/mL B-Natriuretic Peptide (0-100) pg/mL Serum Total Protein (6.0-8.3) g/dL Albumin (3.5-5.0) g/dL Globulin (2.4-3.5) g/dL Albumin/Globulin Ratio (1.1-2.2) TSH (0.350-4.840) mcIU/mL Urine Color (Yellow) Urine Clarity (Clear) Urine pH (5.0-8.0) pH Units Ur Specific [place] (1.010-1.025) Urine Protein (Neg-Trace) mg/dL Urine Glucose (UA) (Normal) mg/dL Urine Ketones (Negative) mg/dL Urine Blood (Negative) Urine Nitrite (Negative) Urine Bilirubin (Negative) Urine Urobilinogen (Normal) mg/dL Ur Leukocyte Esterase (Negative) Urine Microscopic RBC (0-3) per hpf Urine Microscopic WBC (0-3) per hpf Ur Squamous Epith Cells (None-Few) per lpf Urine Bacteria (None-Few) per hpf Hyaline Casts (None-Few) per lpf Ur Culture Indicated? (NO) Urine Opiates Screen Negative (Jcrgtx=114) ng/mL Ur Barbiturates Screen Negative (Ujjipm=013) ng/mL Ur Phencyclidine Scrn Negative (Cutoff=25) ng/mL Ur Amphetamines Screen Negative (Zunbwg=7214) ng/mL U Benzodiazepines Scrn Negative (Gbzzeq=014) ng/mL Urine Cocaine Screen Negative (Cutoff= 300) ng/mL U Marijuana (THC) Screen Negative (Cutoff = 50) ng/mL - Radiology Data Radiology results reviewed: Yes I reviewed the patient's radiology results. Chest X-Ray 03/07/17 09:18 IMPRESSION: 1. Minimal prominence of the central pulmonary vasculature, which may be related to low lung volumes. 2. Minimally enlarged cardiac silhouette. 3. Otherwise, no convincing acute cardiopulmonary abnormality. D/ / Sammy Porter MD / Sammy Porter MD Interpreting Provider: Sammy Porter MD Head CT 03/07/17 09:18 IMPRESSION: No acute intracranial abnormality. Stable chronic small vessel white matter ischemic changes. Remote left basal ganglia lacunar infarcts. D/ / 03/07/2017 10:19:18 Tyrese Maria MD / aron Interpreting Provider: Tyrese Maria MD - EKG Data EKG attestation: Yes I reviewed and interpreted this EKG. EKG results narrative: EKG demonstrates sinus tachycardia with a rate of 100 bpm with PACs. Normal axis. Normal intervals. Normal R-wave progression. No gross ST elevations or depressions. No acute ischemic findings. TPA Checklist - LKW: 3-4.5 hrs Add. Warnings/Precautions Patient/family understanding: The patient/family members have been counseled and understood the risk, benefit , and alternatives of treatment. S.B.A.R. - S.B.A.R. Situation: Demographics, MOA Background: Presenting Complaint, Relevant PMH, Meds, & Allergies Assessment: Vital Signs, Course and respsone to treatment, Exam Concerns, Patient/Family Expectation, Pertinant Lab Results Recommendation: Barrier(s) to disposition, Recommendation based on pending studies, treatments, or consults S.B.A.R. Report Given to: Dr. Hines
[2017-03-07 09:48] LABS: Basophils # 0.1 K/mcL (0.0-0.2); Basophils % 0.3 %; Eosinophils % 0.1 %; Hematocrit 38.4 % (35.3-44.9); Hemoglobin 12.7 g/dL (11.5-15.4); Immature Granulocytes % 1.6 % (0-4); Lymphocytes # 3.3 K/mcL (0.6-4.6); Lymphocytes % 21.5 %; Mean Corpuscular HGB Conc 33.1 g/dL (31.6-35.5); Mean Corpuscular Hemoglobin 30.2 pg (28.0-33.3); Mean Corpuscular Volume 91.2 fL (83.0-100.0); Mean Platelet Volume 9.8 fL (9.4-12.4); Monocytes # 0.9 K/mcL (0.0-1.3); Neutrophils # 10.7 K/mcL (1.6-8.9); Platelet Count 291 K/mcL (140-400); Red Blood Count 4.21 M/mcL (3.82-4.97); Red Cell Distribution Width 13.7 % (11.5-14.5); Segmented Neutrophils % 70.5 %
[2017-03-07 10:03] LABS: Albumin 3.1 g/dL (3.5-5.0); Albumin/Globulin Ratio 0.8 (1.1-2.2); Bilirubin,Direct 0.3 mg/dL (0.0-0.5); Bilirubin,Indirect 0.4 mg/dL (0.0-1.2); Bilirubin,Total 0.7 mg/dL (0.2-1.2); Calcium 9.3 mg/dL (8.6-10.8); Globulin 3.9 g/dL (2.4-3.5); Potassium 3.4 mEq/L (3.5-4.5)
[2017-03-07 10:08] LABS: Prothrombin Time 10.6 Seconds (9.4-12.1)
[2017-03-07 10:24] LABS: Bilirubin,Urine Negative (Negative); Blood,Urine Negative (Negative); Clarity,Urine Clear (Clear); Color,Urine Yellow (Yellow); Glucose,Urine (UA) 250 mg/dL (Normal); Ketones,Urine Negative (Negative); Leukocyte Esterase,Urine Trace (Negative); Nitrite,Urine Negative (Negative); Protein,Urine Negative (Neg-Trace); Specific Gravity,Urine 1.023 (1.010-1.025); Urobilinogen,Urine Normal (Normal)
[2017-03-07 10:24] LABS: Thyroid Stimulating Hormone 2.373 mcIU/mL (0.350-4.840)
[2017-03-07 10:26] LABS: Bacteria,Urine None Seen per hpf (None-Few); Hyaline Casts,Urine Few per lpf (None-Few); RBC,Urine 0-3 per hpf (0-3); Squamous Epithelial Cell,Urine Many per lpf (None-Few)
[2017-03-07 10:31] LABS: Amphetamine Screen,Urine Negative ng/mL (Cutoff=1000); Barbiturate Screen,Urine Negative ng/mL (Cutoff=200); Benzodiazepines Screen,Urine Negative ng/mL (Cutoff=200); Cannabinoid Screen,Urine Negative ng/mL (Cutoff = 50); Cocaine Screen,Urine Negative ng/mL (Cutoff= 300); Opiate Screen,Urine Negative ng/mL (Cutoff=300); Phencyclidine Screen,Urine Negative ng/mL (Cutoff=25)
[2017-03-07] MEDS ORDERED: Piperacillin/Tazobactam 3.375 GM in Water for inj. (sterile) 20 ML IVP ONE (10:46)
[2017-03-07] MEDS ORDERED: Levofloxacin 750 MG/150 ML 750 MG/150 ML BAG IVPB ONE (10:46)
[2017-03-07] MEDS ORDERED: Vancomycin 1,000 MG in D5% in Water 250 ML IVPB ONE (10:46)
--- NOTE | 2017-03-07 10:52 | Emergency Department Note ---
START Narrative - START START: I examined this patient and my medical decision-making was reviewed with the Resident Physician. I agree with the documented findings, disposition and treatment plan as described except to the extent set forth below. 86 yo F who presents with ams pt had recent admission for pneumonia last week. now seems to be worsening where she is altered. having dyspnea and hypoxia. elevated wbc count today with ams ct head neg ua neg will start empiric antibioitcs for hospital acquired infection critical care time of 35 min spent in medical resusication and management
[2017-03-07] MEDS ORDERED: Acetaminophen 325 MG TABLET PO PRN (12:31)
[2017-03-07] MEDS ORDERED: Ondansetron 4 MG/2 ML VIAL IVP PRN (12:31)
[2017-03-07] MEDS ORDERED: Naloxone 0.4 MG/ML INJ IVP PRN (12:31)
[2017-03-07] MEDS ORDERED: (Diclofenac Sodium [Voltaren] 1 APPL) TP PRN (14:02)
[2017-03-07 14:03] LABS: Hemoglobin A1C 7.8 %
[2017-03-07] MEDS ORDERED: Dextrose Gel 15 GM/37.5 ML TUBE PO PRN ×2 (14:05)
[2017-03-07] MEDS ORDERED: D5% in Water 1,000 ML IVC PRN (14:05)
[2017-03-07] MEDS ORDERED: *HR* Dextrose 50 % in Water (Syg) 50 ML SYRINGE IVP PRN (14:05)
--- NOTE | 2017-03-07 14:23 | Internal Med History&Physical ---
<Nikita Foreman - Last Filed: 03/07/17 17:35> Date of Encounter: 03/07/17 Time of Encounter: 11:30 Assessment and Plan (1) Sepsis Current visit: Yes Status: Acute Pt. presents with sepsis criteria of WBC of 15.2, HR of 101, RR of 34, and suspected unresolved pneumonia from previous admission and discharge one week ago. On exam, pts. lungs have bilateral inspiratory and expiratory wheezes in all lobes on auscultation. Blood cultures x2 ordered. U/A not indicative for UTI. HCAP tx d/t recent admission and discharge to SNF. Pt. was given IV fluids in the ED as well as IVPB levaquin, Zosyn, and vancomycin. Will d/c levaquin and administer IV PB Zosyn 3.375 gm Q8 and vancomycin w/pharmacy dosing for infection coverage. Pt. is currently afebrile and lactic acid is 2.0. Will repeat lactic acid. Will adjust abx coverage based on culture results. Continuous cardiac telemetry due to patient's current tachycardia. Supplemental O2 with titration of SPO2 monitoring. DuoNebs every 6 scheduled. Pt. and f/u labs to be monitored closely. Pt. discussed w/Dr. Hines who agrees w/plan of care. Pt. is at high risk for increased infection and further morbidity based on current sepsis criteria, unresolved infection, elevated troponin, AMS, and hx. Inpatient. Qualifiers: Sepsis type: sepsis due to unspecified organism Qualified Code(s): A41.9 - Sepsis, unspecified organism (2) Altered mental status Current visit: Yes Status: Acute Acute AMS that pts. daughter states began at SNF on Tuesday and worsened. Prior to this, daughter states her mother was ambulatory, interactive, alert, living alone at home, and able to take care of herself. D-dimer today is 15, 031. Bilateral venous Dopplers of LEs and VQ scan ordered stat to r/o PE/DVTs. CT of the head/brain today without contrast shows stable chronic small vessel white matter ischemic changes and remote left basal ganglia lacunar infarcts. MRI is not possible d/t pts. pacemaker. Neurology consult ordered. Neuro checks Q1HR. Dysphagia screen. NPO until AMS resolves and dysphagia screen passed. Trejo catheter ordered d/t pts. non-responsive condition. Monitor pt. closely. Qualifiers: Altered mental status type: unspecified Qualified Code(s): R41.82 - Altered mental status, unspecified (3) Elevated d-dimer Current visit: Yes Status: Acute Acutely elevated D-dimer of 15,031 on admission. Pt. has hx of CVA in 1998 and only takes daily aspirin for anti-coagulation. Venous Dopplers of bilateral LEs to r/o DVTs. VQ scan to r/o PE d/t pts. current renal dysfunction. Risks associated w/CTA and dye on pts. renal function discussed w/daughter who wishes to first start w/VQ scan. Pt. on supplemental O2 w/titration, SpO2 monitoring, and continuous cardiac telemetry. (4) Hypokalemia Current visit: Yes Status: Acute Acute hypokalemia w/potassium of 3.4 on admission. IVPB potassium 40 mEq. Monitor f/u labs. Continuous cardiac telemetry. (5) Elevated troponin Current visit: Yes Status: Acute Acutely elevated troponin of 0.06 on admission most likely d/t demand ischemia r /t current tachypnea and tachycardia from infection/sepsis. Pt. is non- responsive verbally and unable to confirm/deny current chest pain. Will trend troponin x2. Continuous cardiac telemetry. (6) History of CVA (cerebrovascular accident) Current visit: Yes Status: Resolved Hx of CVA in 1998. Pts. daughter reports no residual effects of CVA. Resolved. (7) CAD (coronary artery disease) Current visit: Yes Status: Chronic Hx of chronic CAD and angioplasty/stents 2 in 1998. Patient has history of atrial fibrillation, CHF, HTN, and HLD. Continuous cardiac telemetry. Will continue patient's aspirin therapy, Norvasc, Lipitor, metoprolol, and Ranexa. Qualifiers: Coronary Disease-Associated Artery/Lesion type: unspecified vessel or lesion type [place] vs. transplanted heart: [place] heart Associated angina: with unspecified angina Qualified Code(s): I25.119 - Atherosclerotic heart disease of [place] coronary artery with unspecified angina pectoris (8) CKD (chronic kidney disease) stage 3, GFR 30-59 ml/min Current visit: Yes Status: Chronic Hx of CKD. Current creatinine 1.33 and GFR is 38. Will use IV fluids judiciously and avoid nephrotoxins. Monitor follow-up labs. (9) Diabetes mellitus Current visit: Yes Status: Chronic Hx of chronic diabetes controlled w/insulin. Will continue patient's insulin at bedtime and administer low-dose correction sliding scale insulin with hypoglycemic protocol. A1c in a.m. labs. BG checks before meals and at bedtime. Qualifiers: Diabetes mellitus type: type 2 Diabetes mellitus complication status: with unspecified complications Diabetes mellitus detention insulin use: unspecified detention insulin use status Qualified Code(s): E11.8 - Type 2 diabetes mellitus with unspecified complications (10) Diastolic CHF Current visit: Yes Status: Chronic Hx of diastolic CHF. Stable. BNP 58 on admission. Continuous cardiac telemetry. Qualifiers: Congestive heart failure chronicity: chronic Qualified Code(s): I50.32 - Chronic diastolic (congestive) heart failure (11) HLD (hyperlipidemia) Current visit: Yes Status: Chronic Hx of chronic HLD. Lipid panel in a.m. labs. Continue pts. Lipitor. Qualifiers: Hyperlipidemia type: pure hypercholesterolemia Qualified Code(s): E78.00 - Pure hypercholesterolemia, unspecified; E78.0 - Pure hypercholesterolemia (12) HTN (hypertension) Current visit: Yes Status: Chronic Hx of chronic HTN. Monitor pt. and VS. Continue pts. Norvasc and metoprolol. Qualifiers: Hypertension type: essential hypertension Qualified Code(s): I10 - Essential (primary) hypertension (13) DVT prophylaxis Current visit: Yes Status: Acute Bilateral SCDs on LEs for DVT prophylaxis. Internal Medicine - H&P: HPI Chief complaint: AMS Admitted From: Emergency Dept Plans for Post Hospital Care: Transfer Intermediate Facility History of present illness: Ms. Cuellar is a 86 year old female with medical hx of atrial fibrillation, CHF, CAD, CVA in 1998, diabetes with insulin dependency, HLD, HTN, and renal disease presents from the ED with chief complaint of altered mental status. Patient is non-responsive verbally to her daughter provides information and states patient was discharged [facility] last week and sent to SNF on Tuesday from pneumonia dx. Daughter reports her mother was lucid and her normal self on Tuesday but mental status began to change on Tuesday and Tuesday patient was nonresponsive. Daughter states patient is usually ambulatory, interactive, alert, lives alone at home, and is able to care for herself. Daughter denies pt. had fever, chills, nausea, vomiting, chest pain, changes in vision, unusual bleeding, dizziness, pre-syncope, or syncope at SNF. Past Med Surg Social Fam HX - Past Medical History Source: old records reviewed, obtained from family Medical history: atrial fibrillation, CHF, coronary artery disease, CVA, diabetes (Insulin-dependent), hyperlipidemia, hypertension, renal disease Psychiatric history: anxiety - Past Surgical History Surgical History: angioplasty/stent (x2), carotid endarterectomy, cholecystectomy, pacemaker/AICD, other - Social History Smoking Status: Never smoker Smokeless Tobacco Status: No Alcohol use: none Drug use: none Current living situation: Home - Independent Activity Level: Independent ambulation, Uses cane/walker Recent Out of Country Travel Within the Last 8 Weeks: No Exposure or Possible Exposure to Illness During Travel: No - Family History Father Race: Family Member Ethnicity: Non- Living Status: Age at : 85 Cause of : Stroke Hx Family Cardiac Disorders: Yes (Stroke) Hx Family Endocrine Disorder: Yes (DM) Hx Family Neurologic Disorders: Yes (CVA) Sister Race: Family Member Ethnicity: Non- Living Status: Age at : 55 Cause of : CAD Hx Family Cardiac Disorders: Yes (CAD) Hx Family Cancer: Yes (Breast) Hx Family Endocrine Disorder: Yes (DM) Mother Race: Family Member Ethnicity: Non- Living Status: Age at : 62 Cause of : Lung cancer Hx Family Cancer: Yes (Lung) Internal Medicine - H&P: Meds Arformoterol Tartrate [Brovana] 15 mcg IH BID 12/13/14 [History] Aspirin Enteric Coated [Aspirin EC] 81 mg PO DAILY 12/13/14 [History] Atorvastatin [Lipitor] 20 mg PO HS 12/13/14 [History] Duloxetine [Cymbalta] 60 mg PO DAILY 12/13/14 [History] Insulin ASPART [NovoLOG] 0 units SQ TIDAC 12/13/14 [History] Insulin Glargine,Hum.rec.anlog [Lantus Solostar] 37 units SQ HS 12/13/14 [ History] Metoprolol XL (24 HR) Succ [Toprol XL] 50 mg PO DAILY 12/25/14 [History] Budesonide Neb [Pulmicort Neb] 0.5 mg IH BID 05/03/15 [History] Cholecalciferol (Vitamin D3) [Vitamin D3] 1,000 unit PO DAILY 05/03/15 [History] Loratadine [Claritin] 10 mg PO DAILY 05/03/15 [History] Clay-3/Dha/Epa/Fish Oil [Fish Oil 1,000 mg Softgel] 1 cap PO DAILY 05/03/15 [ History] Omeprazole [PriLOSEC] 40 mg PO DAILY 05/03/15 [History] Latanoprost 1 drop BOTH EYES HS 11/26/15 [History] Ferrous Sulfate [Iron] 325 mg PO DAILY 01/25/16 [History] Ascorbate Calcium [Vitamin C] 500 mg PO DAILY 11/04/16 [History] Diclofenac Sodium [Voltaren] 1 appl TP QID PRN 11/04/16 [History] Ipratropium/Albuterol Neb [Duoneb] 3 ml IH TID PRN 11/04/16 [History] Magnesium Oxide [Magnesium] 400 mg PO DAILY 02/27/17 [History] Furosemide [Lasix] 40 mg PO DAILY #30 tablet 03/04/17 [Rx] amLODIPine [Norvasc] 2.5 mg PO DAILY tablet 03/04/17 [Rx] predniSONE [PredniSONE] 5 mg PO DAILY #0 03/04/17 [Rx] predniSONE [PredniSONE] 10 mg PO DAILY 10 Days tablet 03/04/17 [Rx] 3 Allergy/AdvReac Type Severity Reaction Status Date / Time isosorbide [From Imdur] Allergy Unknown See Verified 02/27/17 14:36 Comments gabapentin Allergy Hallucinati Verified 02/27/17 14:36 ng Hydralazine Allergy See Verified 02/27/17 14:36 Comments propranolol [From Inderal LA] Allergy Hallucinati Verified 02/27/17 14:36 ng alprazolam [From Xanax] AdvReac See Verified 02/27/17 14:36 Comments fentanyl AdvReac See Verified 02/27/17 14:36 Comments ROS unobtainable: due to mental status All Systems PM: A 10-system review of systems was performed and is negative for pertinent findings except as documented above in the HPI. - Constitutional Vitals: Temp Pulse Resp BP Pulse Ox 98.3 F 93 31 117/75 94 03/07/17 09:15 03/07/17 13:06 03/07/17 13:06 03/07/17 13:06 03/07/17 13:06 General appearance: Present: A&O X 0 - Head Head exam: Present: atraumatic, normocephalic - Eye Eye exam: Present: PERRL, conjuntiva pink, sclera anicteric Pupils: Present: PERRL - ENT ENT exam: Present: normal exam - Neck Neck exam general surgery: Present: normal inspection, supple, trachea midline - Respiratory Respiratory exam: Present: wheezes (Bilateral inspiratory and expiratory all lobes), tachypnea - Cardiovascular Cardiovascular exam: Present: tachycardia - GI/Abdominal GI/Abdominal exam: Present: normal bowel sounds, soft, no peritoneal signs. Absent: distended, tenderness - Rectal Rectal exam: Present: deferred - Additional comments: exam deferred. - Extremities Exam Extremities exam: Present: warm, radial pulses palpable and symmetrical. Absent : calf tenderness, cyanotic, pedal edema - Neurological Exam Neurological exam: Present: altered - Skin Skin exam: Present: dry, intact Internal Med - H&P Results - Labs CBC & Chem 7: 03/07/17 09:36 03/07/17 09:36 Labs: Short CBC 03/07/17 Range/Units 09:36 WBC 15.2 H D (4.3-11.1) K/mcL Hgb 12.7 D (11.5-15.4) g/dL Hct 38.4 (35.3-44.9) % Plt Count 291 D (140-400) K/mcL Neutrophils # 10.7 H (1.6-8.9) K/mcL BMP 03/07/17 09:36 Sodium 144 Potassium 3.4 L Chloride 104 Carbon Dioxide 29 BUN 36 H Creatinine 1.33 H Glucose 135 H Calcium 9.3 Cardiac Enzymes 03/07/17 Range/Units 09:36 Troponin I 0.06 H* (0-0.03) ng/mL Liver Function 03/07/17 Range/Units 09:36 Total Bilirubin 0.7 (0.2-1.2) mg/dL Direct Bilirubin 0.3 (0.0-0.5) mg/dL AST 19 (5-34) Units/L ALT 31 (0-55) Units/L Alkaline Phosphatase 59 (38-126) Units/L Albumin 3.1 L (3.5-5.0) g/dL Urine 03/07/17 Range/Units 10:10 Urine Color Yellow (Yellow) Urine Clarity Clear (Clear) Urine pH 6.0 (5.0-8.0) pH Units Ur Specific Walker 1.023 (1.010-1.025) Urine Protein Negative (Neg-Trace) mg/dL Urine Glucose (UA) 250 H (Normal) mg/dL - EKG Data EKG shows normal: sinus rhythm Rate: tachycardia - EKG Data Prior EKG available for review: yes Interpretation IM: suggestive of ischemia EKG comments: 03/07/17 14:46 EKG dated 02/27/17 shows sinus rhythm with sinus arrhythmia and nonspecific T- wave abnormality. EKG dated 03/07/17 shows sinus tachycardia with frequent supraventricular premature complexes and moderate T-wave abnormality. Consider lateral ischemia. - Impressions ITS Impressions Chest X-Ray 03/07/17 09:18 IMPRESSION: 1. Minimal prominence of the central pulmonary vasculature, which may be related to low lung volumes. 2. Minimally enlarged cardiac silhouette. 3. Otherwise, no convincing acute cardiopulmonary abnormality. D/ / Sammy Porter MD / Sammy Porter MD Interpreting Provider: Sammy Porter MD Head CT 03/07/17 09:18 IMPRESSION: No acute intracranial abnormality. Stable chronic small vessel white matter ischemic changes. Remote left basal ganglia lacunar infarcts. D/ / 03/07/2017 10:19:18 Tyrese Maria MD / aron Interpreting Provider: Tyrese Maria MD Chest CT 03/07/17 11:09 IMPRESSION: Limited by motion artifacts. Airspace opacities at the bilateral posterior lung bases, may be related to atelectasis versus pneumonia. Incidental 3 mm nonobstructive calculus at the interpolar region of the right kidney. D/ / Doug Mehta MD / Doug Mehta MD Interpreting Provider: Doug Mehta MD - Diagnostic Studies Chest x-ray Additional comments: Impressions Chest X-Ray 03/07/17 09:18 IMPRESSION: 1. Minimal prominence of the central pulmonary vasculature, which may be related to low lung volumes. 2. Minimally enlarged cardiac silhouette. 3. Otherwise, no convincing acute cardiopulmonary abnormality. D/ / Sammy Porter MD / Sammy Porter MD Interpreting Provider: Sammy Porter MD CT scan - head Additional comments: Impressions Head CT 03/07/17 09:18 IMPRESSION: No acute intracranial abnormality. Stable chronic small vessel white matter ischemic changes. Remote left basal ganglia lacunar infarcts. D/ / 03/07/2017 10:19:18 Tyrese Maria MD / aron Interpreting Provider: Tyrese Maria MD CT scan - chest Additional comments: Impressions Chest CT 03/07/17 11:09 IMPRESSION: Limited by motion artifacts. Airspace opacities at the bilateral posterior lung bases, may be related to atelectasis versus pneumonia. Incidental 3 mm nonobstructive calculus at the interpolar region of the right kidney. D/ / Doug Mehta MD / Doug Mehta MD Interpreting Provider: Doug Mehta MD <Cassandra Hines - Last Filed: 03/07/17 18:56> Date of Encounter: 03/07/17 Internal Medicine - H&P: HPI History of present illness: Ms. Cuellar is a 86 year old female All Systems PM: A 10-system review of systems was performed and is negative for pertinent findings except as documented above in the HPI. - Constitutional Vitals: Temp Pulse Resp BP Pulse Ox 99.4 F 89 18 119/75 96 03/07/17 17:27 03/07/17 17:27 03/07/17 17:27 03/07/17 17:27 03/07/17 17:27 Internal Med - H&P Results - Labs CBC & Chem 7: 03/07/17 09:36 03/07/17 09:36
[2017-03-07] MEDS ORDERED: Vancomycin 1,000 MG in D5% in Water 250 ML IVPB SCH (15:00)
[2017-03-07] MEDS ORDERED: Acetaminophen IV 1,000 MG/100 ML INFUS..BTL IVPB ONE (16:15)
--- NOTE | 2017-03-07 17:27 | Electrocardiograph Report ---
[address] [place], [place] [address] Test Date: 2017-03-07 Pat Name: Bouchra Cuellar Department: 104 Room: [id number] Gender: F [employer]ter: : [id number] Requested By: Bart Mendes Order Number: [id number] Reading MD: Niurka Brown Measurements Intervals [place] Rate: 100 P: 52 MO: 189 QRS: -2 QRSD: 95 T: 125 QT: 337 QTc: 394 Interpretive Statements SINUS RHYTHM WITH SUPRAVENTRICULAR PREMATURE COMPLEXES MODERATE T-WAVE ABNORMALITY, CONSIDER LATERAL ISCHEMIA Electronically Signed On 03-07-2017 17:25:54 EST by Niurka Brown
[2017-03-07] MEDS: Insulin LISPRO 300 UNITS/3 ML VIAL SQ SCH ×2 (17:53→21:15)
[2017-03-07] MEDS ORDERED: 0.9 % Sodium Chloride 500 ML ONE (17:57)
[2017-03-07 18:54] LABS: ABG Base Excess 3 mEq/L (-2 to 3); ABG HCO3 26 mEq/L (21-27); ABG Oxygen Saturation 93 % (95-98); ABG PCO2 30 mmHg (35-45); ABG PH 7.53 pH Units (7.32-7.45); ABG PO2 58 mmHg (85-104); ABG TCO2 26 mEq/L (20-26)
[2017-03-07] MEDS: Insulin DETEMIR 100 UNIT/ML X5UNITS SQ SCH (21:16)
[2017-03-07] MEDS: ARFORMOTEROL TARTRATE 15 MCG IH SCH (21:16)
[2017-03-07] MEDS: Latanoprost 2.5 ML BOTTLE BOTH EYES SCH (21:16)
[2017-03-07] MEDS: Budesonide Neb 0.5 MG/2 ML IH SCH (22:21)
[2017-03-08] MEDS ORDERED: Naloxone 0.4 MG/ML INJ IVP PRN (02:04)
[2017-03-08] MEDS: Ipratropium/Albuterol Neb 3 ML IH PRN (02:43)
[2017-03-08] MEDS ORDERED: 0.9 % Sodium Chloride 1,000 ML IVC ONE ×2 (02:50→02:52)
[2017-03-08] MEDS: 0.9 % Sodium Chloride 1,000 ML IVC SCH ×2 (02:53→11:47)
[2017-03-08 04:18] LABS: Basophils % 0.1 %; Eosinophils % 0.1 %; Hematocrit 34.7 % (35.3-44.9); Hemoglobin 11.3 g/dL (11.5-15.4); Immature Granulocytes % 1.4 % (0-4); Lymphocytes # 1.9 K/mcL (0.6-4.6); Lymphocytes % 12.1 %; Mean Corpuscular HGB Conc 32.6 g/dL (31.6-35.5); Mean Corpuscular Hemoglobin 30.5 pg (28.0-33.3); Mean Corpuscular Volume 93.5 fL (83.0-100.0); Mean Platelet Volume 9.7 fL (9.4-12.4); Monocytes # 0.9 K/mcL (0.0-1.3); Monocytes % 5.9 %; Neutrophils # 12.7 K/mcL (1.6-8.9); Nucleated Red Blood Cells 0.1 /100 WBC (0); Platelet Count 175 K/mcL (140-400); Red Blood Count 3.71 M/mcL (3.82-4.97); Red Cell Distribution Width 14.1 % (11.5-14.5); Segmented Neutrophils % 80.4 %
[2017-03-08 04:25] LABS: INR 1.2; Prothrombin Time 12.8 Seconds (9.4-12.1)
[2017-03-08 04:31] LABS: Albumin 2.6 g/dL (3.5-5.0); Albumin/Globulin Ratio 0.9 (1.1-2.2); Bilirubin,Total 0.8 mg/dL (0.2-1.2); Calcium 8.3 mg/dL (8.6-10.8); Chol/HDL Ratio 4.3 (0-4.9); Globulin 2.9 g/dL (2.4-3.5); Potassium 4.1 mEq/L (3.5-4.5)
[2017-03-08 04:32] LABS: Total Protein 5.5 g/dL (6.0-8.3)
[2017-03-08 04:54] LABS: Magnesium 1.6 mg/dL (1.6-2.6)
[2017-03-08] MEDS: Budesonide Neb 0.5 MG/2 ML IH SCH ×2 (08:18→22:06)
[2017-03-08] MEDS: Insulin LISPRO 300 UNITS/3 ML VIAL SQ SCH ×4 (08:19→22:40)
[2017-03-08] MEDS ORDERED: predniSONE 10 MG TABLET PO SCH (09:00)
[2017-03-08] MEDS ORDERED: Piperacillin/Tazobactam 3.375 GM/200 ML BAG IVPB SCH (09:00)
[2017-03-08] MEDS ORDERED: Aspirin Enteric Coated 81 MG Tablet PO SCH (09:00)
[2017-03-08] MEDS ORDERED: predniSONE 5 MG TABLET PO SCH (09:00)
--- NOTE | 2017-03-08 10:44 | Neurology - Consult Note ---
<Syeda Valiente - Last Filed: 03/08/17 13:26> Date of Encounter: 03/08/17 Time of Encounter: 10:37 Assessment and Plan (1) Altered mental status Current Visit: Yes Status: Acute Admitted from SNF, recently discharged last week after treatment for COPD/CHF exacerbation and pneumonia Head CT: small vessel ischemic changes, chronic left basal ganglia and lacunar infarcts, no acute abnormality. Chest CT: opacities in bilateral posterior lung bases: atalectasis vs. pneumonia. MRI head could no be done due to pacemaker. GCS: 11 Of note, patient's daughter states that she had been on warfarin for Afib, but this was recently stopped by PCP due to Anemia. Etiology unclear at this time. possibilities include sepsis vs. ischemic stroke vs. post ictal state..etc. Plan: Etiology likely secondary to sepsis, but will rule out other underlying causes. carotid duplex pending check B12, folate, RPR levels. EEG pending may be worthwhile to repeat CT head in a few days. high likelihood of stroke in setting of paroxysmal Afib- off coumadin Qualifiers: Altered mental status type: unspecified Qualified Code(s): R41.82 - Altered mental status, unspecified (2) Sepsis Current Visit: Yes Status: Acute management per primary team. Qualifiers: Sepsis type: sepsis due to unspecified organism Qualified Code(s): A41.9 - Sepsis, unspecified organism History of Present Illness Chief complaint: altered mental status HPI: Ms. 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 patient arrived to the ED on Tuesday with chief complaint of altered mental status. History was provided by her daughter in law Adia, who was in the room. Patient was recently discharged from the hospital last week after being treated for COPD exacerbation/pneumonia and acute CHF. Afterwards, she was sent to SNF for rehab. Her altered menbtation started on Tuesday. Patient appeared confused and was completely non verbal. On Tuesday, patient was unresponsive and was brought to the emergency room. Per daughter in law, patient is normally ambulatory, fully takes care of herself and lives alone at home. she normally needs no help with ADLs. Family member reports no episodes of bowel or bladder incontinence, no seizure like activity, no facial drooping or slurred speech. There is no history of illicit drug use. Past Med Surg Social Fam HX - Past Medical History Medical history: atrial fibrillation, CHF, coronary artery disease, CVA, diabetes, hyperlipidemia, hypertension, renal disease Psychiatric history: anxiety - Past Surgical History Surgical History: angioplasty/stent, carotid endarterectomy, cholecystectomy, pacemaker/AICD, other - Social History Smoking Status: Never smoker Smokeless Tobacco Status: No Alcohol use: none Drug use: none - Family History Father Race: Family Member Ethnicity: Non- Living Status: Age at : 84 Cause of : CVA Hx Family Cardiac Disorders: Yes Hx Family Endocrine Disorder: Yes Hx Family Neurologic Disorders: Yes Hx Family Medical Disorders: Yes Sister Race: Family Member Ethnicity: Non- Living Status: Age at : 55 Cause of : CAD Hx Family Cardiac Disorders: Yes (CAD) Hx Family Cancer: Yes (Breast) Hx Family Endocrine Disorder: Yes (DM) Mother Race: Family Member Ethnicity: Non- Living Status: Age at : 62 Cause of : Lung cancer Hx Family Cancer: Yes (Lung) Medications and Allergies Arformoterol Tartrate [Brovana] 15 mcg IH BID 12/13/14 [History] Aspirin Enteric Coated [Aspirin EC] 81 mg PO DAILY 12/13/14 [History] Atorvastatin [Lipitor] 20 mg PO HS 12/13/14 [History] Duloxetine [Cymbalta] 60 mg PO DAILY 12/13/14 [History] Insulin ASPART [NovoLOG] 0 units SQ TIDAC 12/13/14 [History] Insulin Glargine,Hum.rec.anlog [Lantus Solostar] 37 units SQ HS 12/13/14 [ History] Metoprolol XL (24 HR) Succ [Toprol XL] 50 mg PO DAILY 12/25/14 [History] Budesonide Neb [Pulmicort Neb] 0.5 mg IH BID 05/03/15 [History] Cholecalciferol (Vitamin D3) [Vitamin D3] 1,000 unit PO DAILY 05/03/15 [History] Loratadine [Claritin] 10 mg PO DAILY 05/03/15 [History] Mingus-3/Dha/Epa/Fish Oil [Fish Oil 1,000 mg Softgel] 1 cap PO DAILY 05/03/15 [ History] Omeprazole [PriLOSEC] 40 mg PO DAILY 05/03/15 [History] Latanoprost 1 drop BOTH EYES HS 11/26/15 [History] Ferrous Sulfate [Iron] 325 mg PO DAILY 01/25/16 [History] Ascorbate Calcium [Vitamin C] 500 mg PO DAILY 11/04/16 [History] Diclofenac Sodium [Voltaren] 1 appl TP QID PRN 11/04/16 [History] Ipratropium/Albuterol Neb [Duoneb] 3 ml IH TID PRN 11/04/16 [History] Magnesium Oxide [Magnesium] 400 mg PO DAILY 02/27/17 [History] Furosemide [Lasix] 40 mg PO DAILY #30 tablet 03/04/17 [Rx] amLODIPine [Norvasc] 2.5 mg PO DAILY tablet 03/04/17 [Rx] predniSONE [PredniSONE] 5 mg PO DAILY #0 03/04/17 [Rx] predniSONE [PredniSONE] 10 mg PO DAILY 10 Days tablet 03/04/17 [Rx] 3 Allergy/AdvReac Type Severity Reaction Status Date / Time isosorbide [From Imdur] Allergy Unknown See Verified 02/27/17 14:36 Comments gabapentin Allergy Hallucinati Verified 02/27/17 14:36 ng Hydralazine Allergy See Verified 02/27/17 14:36 Comments propranolol [From Inderal LA] Allergy Hallucinati Verified 02/27/17 14:36 ng alprazolam [From Xanax] AdvReac See Verified 02/27/17 14:36 Comments fentanyl AdvReac See Verified 02/27/17 14:36 Comments Baclofen AdvReac Unresponsiv Uncoded 03/08/17 11:52 e ROS unobtainable: due to mental status All Systems: A 10-system review of systems was performed and is negative for pertinent findings except as documented above in the HPI. Physical Examination - Vital Signs Vital Signs: Initial Vital Signs Temp Pulse Resp BP Pulse Ox 98.3 F 88 44 114/83 92 03/07/17 09:15 03/07/17 09:15 03/07/17 09:15 03/07/17 09:15 03/07/17 09:15 - Constitutional General appearance: acutely ill, other (non responsive. Alert. does not follow commands. ) - Neurologic Detailed motor examination: other (motor function could not be assessed. ) Mental Status Examination: alert, opens eyes to voice, makes eye contact, grimmacing Cranial nerve examination: PERRL Results - Laboratory Findings CBC and BMP: 03/08/17 04:04 03/08/17 04:04 Abnormal lab findings: Abnormal lab results WBC 15.8 K/mcL (4.3-11.1) H 03/08/17 04:04 RBC 3.71 M/mcL (3.82-4.97) L 03/08/17 04:04 Hgb 11.3 g/dL (11.5-15.4) L 03/08/17 04:04 Hct 34.7 % (35.3-44.9) L 03/08/17 04:04 Neutrophils # 12.7 K/mcL (1.6-8.9) H 03/08/17 04:04 Nucleated RBCs/100 WBC 0.1 /100 WBC (0) H 03/08/17 04:04 PT 12.8 Seconds (9.4-12.1) H 03/08/17 04:04 APTT 20.0 Seconds (26.0-36.0) L 03/07/17 09:36 D-Dimer [id number] ng/mLFEU (0-500) H 03/07/17 15:09 ABG pH 7.53 pH Units (7.32-7.45) H 03/07/17 18:44 ABG pCO2 30 mmHg (35-45) L 03/07/17 18:44 ABG pO2 58 mmHg (85-104) L 03/07/17 18:44 ABG O2 Saturation 93 % (95-98) L 03/07/17 18:44 Chloride 110 mEq/L (98-109) H 03/08/17 04:04 BUN 35 mg/dL (7-20) H 03/08/17 04:04 Creatinine 1.38 mg/dL (0.57-1.11) H 03/08/17 04:04 Est GFR ( Amer) 44 (> 60) L 03/08/17 04:04 Est GFR (Non-Af Amer) 36 (> 60) L 03/08/17 04:04 Glucose 103 mg/dL (70-99) H 03/08/17 04:04 POC Glucose 118 (58-89) H 03/08/17 07:49 Hemoglobin A1c 7.8 % (-5.6) H 03/07/17 13:00 Calcium 8.3 mg/dL (8.6-10.8) L 03/08/17 04:04 Troponin I 0.05 ng/mL (0-0.03) H* 03/07/17 21:27 Serum Total Protein 5.5 g/dL (6.0-8.3) L D 03/08/17 04:04 Albumin 2.6 g/dL (3.5-5.0) L 03/08/17 04:04 Albumin/Globulin Ratio 0.9 (1.1-2.2) L 03/08/17 04:04 Triglycerides 253 mg/dL (< 150) H 03/08/17 04:04 VLDL Cholesterol, Calc 51 mg/dL (< 31) H 03/08/17 04:04 Urine Glucose (UA) 250 mg/dL (Normal) H 03/07/17 10:10 Ur Leukocyte Esterase Trace (Negative) H 03/07/17 10:10 Urine Microscopic WBC 5-15 per hpf (0-3) H 03/07/17 10:10 Ur Squamous Epith Cells Many per lpf (None-Few) H 03/07/17 10:10 Consult Discharge Plan - Plan Referrals: Hilario Steele MD [Primary Care Provider] - <Amaury Millard - Last Filed: 03/08/17 15:48> Date of Encounter: 03/08/17 Assessment and Plan (1) Altered mental status Current Visit: Yes Status: Acute I agree with the assessment as stated above. Her primary concern would be metabolic encephalopathy perhaps associated with sepsis relative to the UTI. However, I am concerned about the possibility of psychogenic factors as her EEG was normal. She is also cognizant enough to not allow her outstretched arm to fall onto her face. If this is indeed due to sepsis I would expect that her mental status should improve as her infection improves. I will reassess her tomorrowI will reevaluate tomorrow. Othe neuro w/u pending. Family reports that this happened a few years again and she improved after several days. I see no evidence if [employer] infection or inflammation. Not compelled to perform LP. Qualifiers: Altered mental status type: unspecified Qualified Code(s): R41.82 - Altered mental status, unspecified History of Present Illness HPI: The chart was reviewed, the patient was seen and examined independently. The case was discussed with Dr. Valiente. I agree with Dr. Valienet' assessment as stated above. CT scan of the head reveals chronic periventricular deep white matter changes. No evidence of neoplasm or hemorrhage are present. I did repeat her EEG and it was normal. ROS unobtainable: due to mental status All Systems: A 10-system review of systems was performed and is negative for pertinent findings except as documented above in the HPI. Physical Examination - Vital Signs Vital Signs: Initial Vital Signs Temp Pulse Resp BP Pulse Ox 98.3 F 88 44 114/83 92 03/07/17 09:15 03/07/17 09:15 03/07/17 09:15 03/07/17 09:15 03/07/17 09:15 - Exam Exam: Neurologic examination finds the following. Mental status- she is awake, she does make eye contact, however she does not follow commands. She will not allow her own arm to fall and strike herself in the face on either side. She does withdraw both feet to noxious stimulation. Cranial nerves-pupils are equal and reactive to light, extraocular motility is intact. There is no facial asymmetry. I am not able to assess her speech is for now she is not speaking. Motor exam-she has normal tone of both upper and lower extremities. She will not allow either outstretched upper extremity to fall and strike herself in the face. She withdrawals either foot to noxious stimuli. There are no involuntary movements or atrophy identified. Sensory exam is difficult to assess completely and is confused patient, however she does withdraw all 4 extremities to noxious stim. DTR's, no long tract signs identified. No Babinski, no clonus. - Constitutional General appearance: acutely ill, other - Neurologic Detailed motor examination: other Results - Laboratory Findings CBC and BMP: 03/08/17 04:04 03/08/17 04:04 Abnormal lab findings: Abnormal lab results WBC 15.8 K/mcL (4.3-11.1) H 03/08/17 04:04 RBC 3.71 M/mcL (3.82-4.97) L 03/08/17 04:04 Hgb 11.3 g/dL (11.5-15.4) L 03/08/17 04:04 Hct 34.7 % (35.3-44.9) L 03/08/17 04:04 Neutrophils # 12.7 K/mcL (1.6-8.9) H 03/08/17 04:04 Nucleated RBCs/100 WBC 0.1 /100 WBC (0) H 03/08/17 04:04 PT 12.8 Seconds (9.4-12.1) H 03/08/17 04:04 APTT 20.0 Seconds (26.0-36.0) L 03/07/17 09:36 D-Dimer [id number] ng/mLFEU (0-500) H 03/07/17 15:09 ABG pH 7.53 pH Units (7.32-7.45) H 03/07/17 18:44 ABG pCO2 30 mmHg (35-45) L 03/07/17 18:44 ABG pO2 58 mmHg (85-104) L 03/07/17 18:44 ABG O2 Saturation 93 % (95-98) L 03/07/17 18:44 Chloride 110 mEq/L (98-109) H 03/08/17 04:04 BUN 35 mg/dL (7-20) H 03/08/17 04:04 Creatinine 1.38 mg/dL (0.57-1.11) H 03/08/17 04:04 Est GFR ( Amer) 44 (> 60) L 03/08/17 04:04 Est GFR (Non-Af Amer) 36 (> 60) L 03/08/17 04:04 Glucose 103 mg/dL (70-99) H 03/08/17 04:04 POC Glucose 118 (58-89) H 03/08/17 07:49 Hemoglobin A1c 7.8 % (-5.6) H 03/07/17 13:00 Calcium 8.3 mg/dL (8.6-10.8) L 03/08/17 04:04 Troponin I 0.05 ng/mL (0-0.03) H* 03/07/17 21:27 Serum Total Protein 5.5 g/dL (6.0-8.3) L D 03/08/17 04:04 Albumin 2.6 g/dL (3.5-5.0) L 03/08/17 04:04 Albumin/Globulin Ratio 0.9 (1.1-2.2) L 03/08/17 04:04 Triglycerides 253 mg/dL (< 150) H 03/08/17 04:04 VLDL Cholesterol, Calc 51 mg/dL (< 31) H 03/08/17 04:04 Urine Glucose (UA) 250 mg/dL (Normal) H 03/07/17 10:10 Ur Leukocyte Esterase Trace (Negative) H 03/07/17 10:10 Urine Microscopic WBC 5-15 per hpf (0-3) H 03/07/17 10:10 Ur Squamous Epith Cells Many per lpf (None-Few) H 03/07/17 10:10
[2017-03-08] MEDS ORDERED: Acetaminophen 650 MG RECTAL SUPP RC PRN (15:06)
[2017-03-08] MEDS ORDERED: *HR* Metoprolol 5 MG/5 ML VIAL IVP PRN (15:08)
--- NOTE | 2017-03-08 15:10 | EEG/EMG/Oth Biometrics Report ---
EEG Procedure Report Date of procedure: 03/08/17 EEG Procedure: Routine EEG Procedure Note: This is a report of a 21 channel bipolar and referential montage EEG recorded on a patient with decreased levels of responsiveness. A posterior dominant rhythm of 10 Hz moderate voltage alpha frequencies identified symmetrically and posterior head regions. This rhythm attenuates symmetrically with eye opening. Hyperventilation is not performed during recording. There is no sleep architecture identified during the study. Photic stimulation is performed and does not produce a driving response. The EKG rhythm strip reveals sinus tachycardia at 104 beats per minute. Impressions: This EEG recording is within normal limits. There is no evidence of epileptiform activity identified during the study. Comment: Sinus tachycardia at 140 bpm's identified. A normal EEG does not preclude the diagnosis of seizure or epilepsy. If the clinical suspicion for seizure activity is high, serial EEGs or perhaps a prolonged recording may increase the yield. Please correlate clinically.
[2017-03-08] MEDS: Loratadine 10 MG TABLET PO SCH (15:40)
[2017-03-08] MEDS: Cholecalciferol (D-3) 1,000 UNIT TABLET PO SCH (15:41)
[2017-03-08] MEDS: Metoprolol XL (24 HR) Succ 50 MG TAB.ER.24H PO SCH (15:41)
[2017-03-08] MEDS: Magnesium Oxide 400 MG TABLET PO SCH (15:41)
[2017-03-08] MEDS: amLODIPine 5 MG TABLET PO SCH (15:41)
[2017-03-08] MEDS: ARFORMOTEROL TARTRATE 15 MCG IH SCH ×2 (15:41→22:33)
[2017-03-08] MEDS ORDERED: Heparin 25,000 UNIT/500 ML D5W 25,000 UNIT/500 ML BAG IVC SCH ×2 (16:00→17:30)
[2017-03-08] MEDS ORDERED: *HR* Heparin 5,000 UNIT/ML VIAL IVP PRN ×2 (17:16)
[2017-03-08] MEDS ORDERED: *HR* Heparin 5,000 UNIT/ML VIAL IVP ONE (17:16)
[2017-03-08 17:53] LABS: INR 1.2; Prothrombin Time 12.5 Seconds (9.4-12.1)
[2017-03-08] MEDS: Vancomycin 1,000 MG in D5% in Water 250 ML IVPB SCH (17:53)
[2017-03-08 17:55] LABS: Activated Partial Thrombo Time 23.3 Seconds (26.0-36.0)
[2017-03-08] MEDS: Piperacillin/Tazobactam 3.375 GM/200 ML BAG IVPB SCH (18:00)
[2017-03-08] MEDS ORDERED: *HR* Heparin 5,000 UNIT/ML VIAL SQ SCH (18:00)
[2017-03-08 18:02] LABS: Hematocrit 33.9 % (35.3-44.9); Mean Corpuscular HGB Conc 32.4 g/dL (31.6-35.5); Mean Corpuscular Hemoglobin 30.6 pg (28.0-33.3); Mean Corpuscular Volume 94.2 fL (83.0-100.0); Mean Platelet Volume 9.9 fL (9.4-12.4); Platelet Count 160 K/mcL (140-400); Red Cell Distribution Width 14.1 % (11.5-14.5)
--- NOTE | 2017-03-08 18:55 | Internal Med Progress Note ---
Date of Encounter: 03/08/17 Time of Encounter: 11:00 - Assessment and plan (1) Confusion Current Visit: No Status: Acute Assessment and plan: -Suspect secondary to medication versus infection -Neurology consulted and appreciate recommendations (2) Pneumonia Current Visit: No Status: Acute Assessment and plan: -Continue treatment with IV vancomycin and IV Zosyn Qualifiers: Pneumonia type: due to unspecified organism Laterality: left Lung location: lower lobe of lung Qualified Code(s): J18.1 - Lobar pneumonia, unspecified organism (3) Elevated d-dimer Current Visit: No Status: Ruled-out Assessment and plan: -Concerns for PE so therapeutic heparin started -Will VQ scan patient when stable/oriented - Subjective Interval history: Patient not responding to questions this morning She is febrile with leukocytosis. Therapeutic heparin started today with concerns for PE - Constitutional Vitals: Temp Pulse Resp BP Pulse Ox 100.1 F H 100 19 162/89 96 03/08/17 18:46 03/08/17 18:46 03/08/17 18:46 03/08/17 18:46 03/08/17 18:46 General appearance: Present: A&O X 0 Internal Medicine: Result - Labs CBC & Chem 7: 03/08/17 17:40 03/08/17 04:04 Labs: Short CBC 03/08/17 03/08/17 Range/Units 04:04 17:40 WBC 15.8 H 16.1 H (4.3-11.1) K/mcL Hgb 11.3 L 11.0 L (11.5-15.4) g/dL Hct 34.7 L 33.9 L (35.3-44.9) % Plt Count 175 160 (140-400) K/mcL Neutrophils # 12.7 H (1.6-8.9) K/mcL BMP 03/08/17 04:04 Sodium 141 Potassium 4.1 Chloride 110 H Carbon Dioxide 20 BUN 35 H Creatinine 1.38 H Glucose 103 H Calcium 8.3 L Cardiac Enzymes 03/07/17 Range/Units 21:27 Troponin I 0.05 H* (0-0.03) ng/mL Liver Function 03/08/17 Range/Units 04:04 Total Bilirubin 0.8 (0.2-1.2) mg/dL AST 17 (5-34) Units/L ALT 19 (0-55) Units/L Alkaline Phosphatase 50 (38-126) Units/L Albumin 2.6 L (3.5-5.0) g/dL - ABG Interpretation ABG results: ABG ABG pH 7.53 pH Units (7.32-7.45) H 03/07/17 18:44 ABG pCO2 30 mmHg (35-45) L 03/07/17 18:44 ABG pO2 58 mmHg (85-104) L 03/07/17 18:44 ABG O2 Saturation 93 % (95-98) L 03/07/17 18:44 PT/INR, D-dimer PT 12.5 Seconds (9.4-12.1) H 03/08/17 17:40 D-Dimer [id number] ng/mLFEU (0-500) H 03/07/17 15:09 Consult Discharge Plan - Plan Referrals: Hilario Steele MD [Primary Care Provider] -
[2017-03-08] MEDS: Insulin DETEMIR 100 UNIT/ML X5UNITS SQ SCH (22:33)
[2017-03-08] MEDS: Latanoprost 2.5 ML BOTTLE BOTH EYES SCH (22:34)
[2017-03-09 00:24] LABS: Basophils % 0.1 %; Eosinophils % 0.1 %; Hematocrit 32.5 % (35.3-44.9); Hemoglobin 10.7 g/dL (11.5-15.4); Immature Granulocytes % 1.4 % (0-4); Lymphocytes # 1.4 K/mcL (0.6-4.6); Lymphocytes % 9.3 %; Mean Corpuscular HGB Conc 32.9 g/dL (31.6-35.5); Mean Corpuscular Hemoglobin 31.3 pg (28.0-33.3); Mean Platelet Volume 9.8 fL (9.4-12.4); Monocytes # 0.6 K/mcL (0.0-1.3); Monocytes % 4.1 %; Neutrophils # 12.6 K/mcL (1.6-8.9); Platelet Count 158 K/mcL (140-400); Red Blood Count 3.42 M/mcL (3.82-4.97); Red Cell Distribution Width 14.1 % (11.5-14.5)
[2017-03-09 00:40] LABS: Albumin 2.9 g/dL (3.5-5.7); Albumin/Globulin Ratio 1.2 (1.1-2.2); Calcium 7.9 mg/dL (8.6-10.3); Globulin 2.4 g/dL (2.4-3.5); Total Protein 5.3 g/dL (6.4-8.9)
[2017-03-09 01:05] LABS: Activated Partial Thrombo Time 140.8 Seconds (26.0-36.0); Heparin anti-factor XA UFH 1.27 IU/mL (0.30-0.70)
[2017-03-09] MEDS: Piperacillin/Tazobactam 3.375 GM/200 ML BAG IVPB SCH ×3 (02:47→17:40)
[2017-03-09 03:50] LABS: Folate 20.4 ng/mL (3.0-16.0)
[2017-03-09] MEDS: Budesonide Neb 0.5 MG/2 ML IH SCH ×2 (08:05→22:13)
[2017-03-09] MEDS: 0.9 % Sodium Chloride 1,000 ML IVC SCH (08:38)
[2017-03-09] MEDS: Insulin LISPRO 300 UNITS/3 ML VIAL SQ SCH ×4 (08:40→20:51)
--- NOTE | 2017-03-09 09:26 | Neurology Progress Note ---
<Syeda Valiente - Last Filed: 03/09/17 15:58> Date of Encounter: 03/09/17 Time of Encounter: 09:24 Assessment and Plan (1) Altered mental status Current Visit: Yes Status: Acute Admitted from SNF, recently discharged last week after treatment for COPD/CHF exacerbation and pneumonia Head CT: small vessel ischemic changes, chronic left basal ganglia and lacunar infarcts, no acute abnormality. Chest CT: opacities in bilateral posterior lung bases: atalectasis vs. pneumonia. MRI head could no be done due to pacemaker. Of note, patient's daughter states that she had been on warfarin for Afib, but this was stopped by PCP due to Anemia. B12: 612, folate 20.4 EEG within normal limits carotid duplex: non stenotic plaque in Right ICA, left side within normal limits. Plan: Etiology likely secondary to sepsis vs. ischemic stroke due to Afib and recent stopping of anticoagulation-patient is significantly improved today, is more verbal, but not fully back to baseline. RPR pending Consult to speech for both swallow eval and speech therapy. Qualifiers: Altered mental status type: unspecified Qualified Code(s): R41.82 - Altered mental status, unspecified (2) Sepsis Current Visit: Yes Status: Acute management per primary team. Qualifiers: Sepsis type: sepsis due to unspecified organism Qualified Code(s): A41.9 - Sepsis, unspecified organism Subjective Principal diagnosis: altered mental status Interval history: 86 F evaluated at bedside. patient is more alert today. she states that she cannot hear well and that her hair is a mess. patient is doing better today compared to yesterday. she is alert and oriented x2, appears in no acute distress Objective - Constitutional Vitals: Temp Pulse Resp BP Pulse Ox 97.6 F 97 18 142/86 96 03/09/17 07:19 03/09/17 07:19 03/09/17 08:07 03/09/17 07:19 03/09/17 08:07 General appearance: Present: disheveled, A&O X 2, no acute distress. Absent: answers questions appropriately - Head Head exam: Present: atraumatic, normocephalic - Eye Eye exam: Present: PERRL Pupils: Present: PERRL - Extremities Exam Extremities exam: Absent: cyanotic, pedal edema, tenderness - Neurological Exam Sensorimotor examination: Absent: seizure, fasciculations, hemiparesis, rigidity Motor Examination: Present: other Sensation intact: Present: intact Reflexes: Patella: 2+, Achilles: 2+ Mental Status Examination: Present: awake, alert, oriented to person, oriented to place, opens eyes to voice, opens eyes to noxious stimulation, makes eye contact, follows simple commands, grimmacing Cranial nerve examination: Present: PERRL Results - Laboratory Findings CBC and BMP: 03/09/17 00:16 03/09/17 00:16 Abnormal lab findings: Abnormal lab results WBC 14.8 K/mcL (4.3-11.1) H 03/09/17 00:16 RBC 3.42 M/mcL (3.82-4.97) L 03/09/17 00:16 Hgb 10.7 g/dL (11.5-15.4) L 03/09/17 00:16 Hct 32.5 % (35.3-44.9) L 03/09/17 00:16 Neutrophils # 12.6 K/mcL (1.6-8.9) H 03/09/17 00:16 Nucleated RBCs/100 WBC 0.1 /100 WBC (0) H 03/08/17 04:04 PT 12.5 Seconds (9.4-12.1) H 03/08/17 17:40 APTT 52.6 Seconds (26.0-36.0) H D 03/09/17 07:45 D-Dimer 27697 ng/mLFEU (0-500) H 03/07/17 15:09 Heparin Anti-Xa, Unfract 1.27 IU/mL (0.30-0.70) H* 03/09/17 00:16 ABG pH 7.53 pH Units (7.32-7.45) H 03/07/17 18:44 ABG pCO2 30 mmHg (35-45) L 03/07/17 18:44 ABG pO2 58 mmHg (85-104) L 03/07/17 18:44 ABG O2 Saturation 93 % (95-98) L 03/07/17 18:44 Chloride 110 mEq/L (98-107) H 03/09/17 00:16 Carbon Dioxide 19 mEq/L (23-29) L 03/09/17 00:16 BUN 28 mg/dL (8-23) H 03/09/17 00:16 Creatinine 1.24 mg/dL (0.60-1.20) H 03/09/17 00:16 Est GFR ( Amer) 50 (> 60) L 03/09/17 00:16 Est GFR (Non-Af Amer) 41 (> 60) L 03/09/17 00:16 Glucose 232 mg/dL (70-105) H 03/09/17 00:16 POC Glucose 217 (58-89) H 03/08/17 20:31 Hemoglobin A1c 7.8 % (-5.6) H 03/07/17 13:00 Calculated Osmolality 301 (280-300) H 03/09/17 00:16 Calcium 7.9 mg/dL (8.6-10.3) L 03/09/17 00:16 AST 12 Units/L (13-39) L 03/09/17 00:16 Troponin I 0.05 ng/mL (0-0.03) H* 03/07/17 21:27 Serum Total Protein 5.3 g/dL (6.4-8.9) L 03/09/17 00:16 Albumin 2.9 g/dL (3.5-5.7) L 03/09/17 00:16 Triglycerides 253 mg/dL (< 150) H 03/08/17 04:04 VLDL Cholesterol, Calc 51 mg/dL (< 31) H 03/08/17 04:04 Folate 20.4 ng/mL (3.0-16.0) H 03/09/17 00:16 Urine Glucose (UA) 250 mg/dL (Normal) H 03/07/17 10:10 Ur Leukocyte Esterase Trace (Negative) H 03/07/17 10:10 Urine Microscopic WBC 5-15 per hpf (0-3) H 03/07/17 10:10 Ur Squamous Epith Cells Many per lpf (None-Few) H 03/07/17 10:10 Consult Discharge Plan - Plan Referrals: Hilario Steele MD [Primary Care Provider] - <Amaury Millard - Last Filed: 03/09/17 17:25> Date of Encounter: 03/09/17 Assessment and Plan (1) Altered mental status Current Visit: Yes Status: Acute I agree with the assessment as stated above. CT scan of the head is pending. May consider repeating EEG in the morning if her mental status remains altered. The waxing and waning nature of her mental status changes points toward a metabolic etiology. Qualifiers: Qualified Code(s): R41.82 - Altered mental status, unspecified Subjective Interval history: Chart reviewed patient was seen and examined independently. Since the above encounter, patient went into A. fib with RVR and was transferred to the intensive care unit. She now has a CPAP mask on, she is awake but not following commands. Her eyes are open. CT scan of the head has been ordered and I will repeat an EEG. Perhaps she is encephalopathic due to underlying infectious process. Her neck is supple. We will check another CT to rule out the possibility of infarcts since she cannot have an MRI. Objective - Constitutional Vitals: Temp Pulse Resp BP Pulse Ox 98.0 F 130 31 105/78 100 03/09/17 17:00 03/09/17 17:00 03/09/17 17:00 03/09/17 17:00 03/09/17 17:00 - Neurological Exam Motor Examination: Present: other (Equal tone of the upper and lower extremities bilaterally. No involuntary movements are identified.) Mental Status Examination: Present: awake, alert, oriented to person, oriented to place, does not follow commands Results - Laboratory Findings CBC and BMP: 03/09/17 00:16 03/09/17 00:16 Abnormal lab findings: Abnormal lab results WBC 14.8 K/mcL (4.3-11.1) H 03/09/17 00:16 RBC 3.42 M/mcL (3.82-4.97) L 03/09/17 00:16 Hgb 10.7 g/dL (11.5-15.4) L 03/09/17 00:16 Hct 32.5 % (35.3-44.9) L 03/09/17 00:16 Neutrophils # 12.6 K/mcL (1.6-8.9) H 03/09/17 00:16 Nucleated RBCs/100 WBC 0.1 /100 WBC (0) H 03/08/17 04:04 PT 12.5 Seconds (9.4-12.1) H 03/08/17 17:40 APTT 85.3 Seconds (26.0-36.0) H D 03/09/17 14:36 D-Dimer 98162 ng/mLFEU (0-500) H 03/07/17 15:09 Heparin Anti-Xa, Unfract 1.27 IU/mL (0.30-0.70) H* 03/09/17 00:16 ABG pCO2 28 mmHg (35-45) L 03/09/17 16:31 ABG pO2 70 mmHg (85-104) L 03/09/17 16:31 ABG HCO3 19 mEq/L (21-27) L 03/09/17 16:31 ABG Base Excess -5 mEq/L (-2 to 3) L 03/09/17 16:31 Chloride 110 mEq/L (98-107) H 03/09/17 00:16 Carbon Dioxide 19 mEq/L (23-29) L 03/09/17 00:16 BUN 28 mg/dL (8-23) H 03/09/17 00:16 Creatinine 1.24 mg/dL (0.60-1.20) H 03/09/17 00:16 Est GFR ( Amer) 50 (> 60) L 03/09/17 00:16 Est GFR (Non-Af Amer) 41 (> 60) L 03/09/17 00:16 Glucose 232 mg/dL (70-105) H 03/09/17 00:16 POC Glucose 281 (58-89) H 03/09/17 16:53 Hemoglobin A1c 7.8 % (-5.6) H 03/07/17 13:00 Calculated Osmolality 301 (280-300) H 03/09/17 00:16 Calcium 7.9 mg/dL (8.6-10.3) L 03/09/17 00:16 AST 12 Units/L (13-39) L 03/09/17 00:16 Troponin I 0.04 ng/mL (< 0.04) H* 03/09/17 15:48 Serum Total Protein 5.3 g/dL (6.4-8.9) L 03/09/17 00:16 Albumin 2.9 g/dL (3.5-5.7) L 03/09/17 00:16 Triglycerides 253 mg/dL (< 150) H 03/08/17 04:04 VLDL Cholesterol, Calc 51 mg/dL (< 31) H 03/08/17 04:04 Folate 20.4 ng/mL (3.0-16.0) H 03/09/17 00:16 Urine Glucose (UA) 250 mg/dL (Normal) H 03/07/17 10:10 Ur Leukocyte Esterase Trace (Negative) H 03/07/17 10:10 Urine Microscopic WBC 5-15 per hpf (0-3) H 03/07/17 10:10 Ur Squamous Epith Cells Many per lpf (None-Few) H 03/07/17 10:10 T.pallidum Ab Interpret POSITIVE (NEGATIVE) A 03/09/17 00:16
[2017-03-09] MEDS ORDERED: 0.9 % Sodium Chloride 1,000 ML IVC SCH (10:30)
[2017-03-09] MEDS: Cholecalciferol (D-3) 1,000 UNIT TABLET PO SCH (13:54)
[2017-03-09] MEDS: amLODIPine 5 MG TABLET PO SCH (13:54)
[2017-03-09] MEDS: Loratadine 10 MG TABLET PO SCH (13:54)
[2017-03-09] MEDS: Magnesium Oxide 400 MG TABLET PO SCH (13:54)
[2017-03-09] MEDS: Metoprolol XL (24 HR) Succ 50 MG TAB.ER.24H PO SCH (13:54)
[2017-03-09] MEDS: ARFORMOTEROL TARTRATE 15 MCG IH SCH (13:55)
[2017-03-09] MEDS ORDERED: 0.9 % Sodium Chloride 500 ML ONE (15:42)
[2017-03-09] MEDS ORDERED: dilTIAZem HCl 100 MG in D5% in Water 50 ML IVC SCH (15:45)
[2017-03-09] MEDS ORDERED: 0.9 % Sodium Chloride 500 ML IVC ONE (15:55)
--- NOTE | 2017-03-09 16:30 | Pulmonology Consult Note ---
<Frank Sahu - Last Filed: 03/09/17 17:56> Date of Encounter: 03/09/17 Time of Encounter: 16:28 Assessment and Plan (1) Atrial fibrillation with RVR Current Visit: Yes Status: Acute Pt with hx of paroxsymal a fib on ASA only per chart review Pt was in NSR earlier today. Pt had a large bowel movement became diaphroetic, had chest pain, and felt weak. Pt went into a fib c RVR. Pt became borderline hypotensive Pt given fluid bolus Pt transferred to the ICU for further management. Pt started on Amiodarone drip Pt started on CPAP to remove fluid over load from lungs Likely went into a fib c rvr 2/2 valsalva + Fluid over load, + Sepsis Repeat trop 0.04 down from 0.05 earlier in admission Plan: Continue amiodarone drip continue CPAP Stop Heparin Drip for possible central line placement. (2) Sepsis Current Visit: Yes Status: Acute Pt met sepsis criteria on admission based on WBC 15.2, tachypnea, AMS Pt with suspected pneumonia based on CT chest CXR 03/07: "1. Minimal prominence of the central pulmonary vasculature, which may be related to low lung volumes. 2. Minimally enlarged cardiac silhouette. 3. Otherwise, no convincing acute cardiopulmonary abnormality." CXR 03/09: No acute disease CT Chest: "Airspace opacities at the bilateral posterior lung bases, may be related to atelectasis versus pneumonia." Got IV vanc, zosyn, levaquin in ED Pt currently on Vanc and Zosyn Plan: Continue Vanc and Zosyn continue to follow cultures continue to monitor Qualifiers: Sepsis type: sepsis due to unspecified organism Qualified Code(s): A41.9 - Sepsis, unspecified organism (3) Pneumonia Current Visit: No Status: Acute Pt with suspected pneumonia based on CT chest CXR 03/07: "1. Minimal prominence of the central pulmonary vasculature, which may be related to low lung volumes. 2. Minimally enlarged cardiac silhouette. 3. Otherwise, no convincing acute cardiopulmonary abnormality." CXR 03/09: No acute disease CT Chest: "Airspace opacities at the bilateral posterior lung bases, may be related to atelectasis versus pneumonia." Got IV vanc, zosyn, levaquin in ED Pt currently on Vanc and Zosyn Plan: Continue Vanc and Zosyn continue to follow cultures continue to monitor Qualifiers: Pneumonia type: due to unspecified organism Laterality: left Lung location: lower lobe of lung Qualified Code(s): J18.1 - Lobar pneumonia, unspecified organism (4) Altered mental status Current Visit: Yes Status: Acute Acute onset of AMS on Tuesday CT of head showed "Stable chronic small vessel white matter ischemic changes. Remote left basal ganglia lacunar infarcts. 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 There is no evidence of epileptiform activity identified during the study." Neurology is on board Would expect acute stroke as cause of intial AMS to have manifested on CT since performed >24hrs after sxs onset for initial AMS Likely 2/2 to Sepsis 2/2 to pneumonia, worsened by a fib c RVR Worsened AMS today likely 2/2 to a fib c rvr Plan: Continue to treat Pneumonia/Sepsis as above Continue to treat A fib c RVR as above Will recheck Non contrast CT head/Brain to rule out bleed/new stroke. Qualifiers: Altered mental status type: unspecified Qualified Code(s): R41.82 - Altered mental status, unspecified (5) Diastolic CHF Current Visit: Yes Status: Chronic Hx of Diastolic CHF BNP 58 Plan: Continue tele Qualifiers: Congestive heart failure chronicity: chronic Qualified Code(s): I50.32 - Chronic diastolic (congestive) heart failure (6) Diabetes mellitus Current Visit: Yes Status: Chronic Hx of Insulin controlled DM A1C:7.8 (8.2 in March, 7.2 a week ago) Plan: Continue home bedtime insulin Continue low dose sliding scale Continue accuchecks Qualifiers: Diabetes mellitus type: type 2 Diabetes mellitus complication status: with unspecified complications Diabetes mellitus alf insulin use: unspecified alf insulin use status Qualified Code(s): E11.8 - Type 2 diabetes mellitus with unspecified complications (7) CKD (chronic kidney disease) stage 3, GFR 30-59 ml/min Current Visit: Yes Status: Chronic Hx of CKD Cr 1.33 on admission, Cr today is 1.24 Baseline Cr is ~ 1.2 Plan: Continue to monitor avoid nephrotoxins where possible careful use of IV fluids (8) HTN (hypertension) Current Visit: Yes Status: Chronic Pt on home Norvasc and Metoprolol Plan: Hold for now due to hypotension 2/2 to afib c RVR Qualifiers: Hypertension type: essential hypertension Qualified Code(s): I10 - Essential (primary) hypertension (9) HLD (hyperlipidemia) Current Visit: Yes Status: Chronic Pt has Hx of HLD Lipid panel: Cholesterol 187, LDL 93, VLDL 51, HDL 43, Triglycerides 253 Plan: Continue pts home lipitor Qualifiers: Hyperlipidemia type: pure hypercholesterolemia Qualified Code(s): E78.00 - Pure hypercholesterolemia, unspecified; E78.0 - Pure hypercholesterolemia (10) CAD (coronary artery disease) Current Visit: No Status: Chronic Hx of CAD with 2 stents, CHF, HTN, HLD Pt on continuous Cardiac tele Plan: Continue home ASA, Norvasc, Lipitor, Meoprolol, and Ranexa Qualifiers: Coronary Disease-Associated Artery/Lesion type: [place] artery [place] vs. transplanted heart: [place] heart Associated angina: angina presence unspecified Qualified Code(s): I25.10 - Atherosclerotic heart disease of [place] coronary artery without angina pectoris (11) Elevated d-dimer Current Visit: Yes Status: Acute D-Dimer 15,031 Pt only only on ASA at home. Pt has prior Hx of Stroke in 1998 with no residual deficits No DVTs on doppler exam, Superficial L lesser saphenous vein Patient started on Heparin Drip for concerns for PE Primary team were waiting for patient to be stable prior to V/Q scan Plan: Stop Heparin Drip initiate SCDs (12) DVT prophylaxis Current Visit: Yes Status: Acute Currently on Heparin Drip Plan: Stop Drip for possible placement of Central Line Initiate SCDs History of Present Illness Consult date: 03/09/17 Reason for consult: pneumonia, other (A fib c RVR, Hypotension) Chief complaint: A fib c RVR, Hypotension, AMS History of present illness: 86 F cPMHx of a fib, dCHF, CAD, HTN, HLD, CKD, DM who presented to the Hospital 03/07 for AMS which began one day prior at SNF(Pt was previously hospitalized at [facility] for COPD exacerbation per family). Patient had negative head CT at that time but was unable to get an MRI due to pacemaker. Patient had normal EEG. Being treated for Sepsis secondary to PNA. Pt on Vanc and Zosyn. Pt also had an elevated d-Dimer of 15,000 and was on a heparin drip. Patient had an episode of a fib c RVR with worsening mental status and hypotension that prompted transfer to the ICU. Heparin drip was d/cd due to concern for need of possible central line. Patient was started on amiodarone drip after amiodarone bolus. Patients mentation and BP have improved. Holding BP meds. Past Med Surg Social Fam HX - Past Medical History Medical history: atrial fibrillation, CHF, coronary artery disease, CVA, diabetes, hyperlipidemia, hypertension, renal disease Psychiatric history: anxiety - Past Surgical History Surgical History: angioplasty/stent, carotid endarterectomy, cholecystectomy, pacemaker/AICD, other - Social History Smoking Status: Never smoker Smokeless Tobacco Status: No Alcohol use: none Drug use: none - Family History Father Race: Family Member Ethnicity: Non- Living Status: Age at : 86 Cause of : CVA Hx Family Cardiac Disorders: Yes Hx Family Endocrine Disorder: Yes Hx Family Neurologic Disorders: Yes Hx Family Medical Disorders: Yes Sister Race: Family Member Ethnicity: Non- Living Status: Age at : 55 Cause of : CAD Hx Family Cardiac Disorders: Yes (CAD) Hx Family Cancer: Yes (Breast) Hx Family Endocrine Disorder: Yes (DM) Mother Race: Family Member Ethnicity: Non- Living Status: Age at : 62 Cause of : Lung cancer Hx Family Cancer: Yes (Lung) Medications and Allergies Arformoterol Tartrate [Brovana] 15 mcg IH BID 12/13/14 [History] Aspirin Enteric Coated [Aspirin EC] 81 mg PO DAILY 12/13/14 [History] Atorvastatin [Lipitor] 20 mg PO HS 12/13/14 [History] Duloxetine [Cymbalta] 60 mg PO DAILY 12/13/14 [History] Insulin ASPART [NovoLOG] 0 units SQ TIDAC 12/13/14 [History] Insulin Glargine,Hum.rec.anlog [Lantus Solostar] 37 units SQ HS 12/13/14 [ History] Metoprolol XL (24 HR) Succ [Toprol XL] 50 mg PO DAILY 12/25/14 [History] Budesonide Neb [Pulmicort Neb] 0.5 mg IH BID 05/03/15 [History] Cholecalciferol (Vitamin D3) [Vitamin D3] 1,000 unit PO DAILY 05/03/15 [History] Loratadine [Claritin] 10 mg PO DAILY 05/03/15 [History] Winifrede-3/Dha/Epa/Fish Oil [Fish Oil 1,000 mg Softgel] 1 cap PO DAILY 05/03/15 [ History] Omeprazole [PriLOSEC] 40 mg PO DAILY 05/03/15 [History] Latanoprost 1 drop BOTH EYES HS 11/26/15 [History] Ferrous Sulfate [Iron] 325 mg PO DAILY 01/25/16 [History] Ascorbate Calcium [Vitamin C] 500 mg PO DAILY 11/04/16 [History] Diclofenac Sodium [Voltaren] 1 appl TP QID PRN 11/04/16 [History] Ipratropium/Albuterol Neb [Duoneb] 3 ml IH TID PRN 11/04/16 [History] Magnesium Oxide [Magnesium] 400 mg PO DAILY 02/27/17 [History] Furosemide [Lasix] 40 mg PO DAILY #30 tablet 03/04/17 [Rx] amLODIPine [Norvasc] 2.5 mg PO DAILY tablet 03/04/17 [Rx] predniSONE [PredniSONE] 5 mg PO DAILY #0 03/04/17 [Rx] predniSONE [PredniSONE] 10 mg PO DAILY 10 Days tablet 03/04/17 [Rx] 3 Allergy/AdvReac Type Severity Reaction Status Date / Time isosorbide [From Imdur] Allergy Unknown See Verified 02/27/17 14:36 Comments gabapentin Allergy Hallucinati Verified 02/27/17 14:36 ng Hydralazine Allergy See Verified 02/27/17 14:36 Comments propranolol [From Inderal LA] Allergy Hallucinati Verified 02/27/17 14:36 ng alprazolam [From Xanax] AdvReac See Verified 02/27/17 14:36 Comments fentanyl AdvReac See Verified 02/27/17 14:36 Comments Baclofen AdvReac Unresponsiv Uncoded 03/08/17 11:52 e All Systems: A 10-system review of systems was performed and is negative for pertinent findings except as documented above in the HPI. Physical Examination Vital Signs: Vital Signs, Last 4 Hours Temp Pulse Resp BP Pulse Ox 03/09/17 16:01 130 22 106/64 97 03/09/17 15:33 97.6 F 102 97 General appearance: lethargic Effort: mildly labored Auscultation: bilateral: rales (Crackles) Cardiovascular: irregular rhythm, other (Tachycardia) Gastrointestinal: normoactive bowel sounds, non-distended Extremities: no cyanosis unable to assess due to mental status Results - Laboratory Findings CBC and BMP: 03/09/17 00:16 03/09/17 00:16 ABG ABG pH 7.53 pH Units (7.32-7.45) H 03/07/17 18:44 ABG pCO2 30 mmHg (35-45) L 03/07/17 18:44 ABG pO2 58 mmHg (85-104) L 03/07/17 18:44 ABG O2 Saturation 93 % (95-98) L 03/07/17 18:44 PT/INR, D-dimer PT 12.5 Seconds (9.4-12.1) H 03/08/17 17:40 D-Dimer 81583 ng/mLFEU (0-500) H 03/07/17 15:09 Abnormal lab findings: Abnormal lab results WBC 14.8 K/mcL (4.3-11.1) H 03/09/17 00:16 RBC 3.42 M/mcL (3.82-4.97) L 03/09/17 00:16 Hgb 10.7 g/dL (11.5-15.4) L 03/09/17 00:16 Hct 32.5 % (35.3-44.9) L 03/09/17 00:16 Neutrophils # 12.6 K/mcL (1.6-8.9) H 03/09/17 00:16 Nucleated RBCs/100 WBC 0.1 /100 WBC (0) H 03/08/17 04:04 PT 12.5 Seconds (9.4-12.1) H 03/08/17 17:40 APTT 85.3 Seconds (26.0-36.0) H D 03/09/17 14:36 D-Dimer 61660 ng/mLFEU (0-500) H 03/07/17 15:09 Heparin Anti-Xa, Unfract 1.27 IU/mL (0.30-0.70) H* 03/09/17 00:16 ABG pH 7.53 pH Units (7.32-7.45) H 03/07/17 18:44 ABG pCO2 30 mmHg (35-45) L 03/07/17 18:44 ABG pO2 58 mmHg (85-104) L 03/07/17 18:44 ABG O2 Saturation 93 % (95-98) L 03/07/17 18:44 Chloride 110 mEq/L (98-107) H 03/09/17 00:16 Carbon Dioxide 19 mEq/L (23-29) L 03/09/17 00:16 BUN 28 mg/dL (8-23) H 03/09/17 00:16 Creatinine 1.24 mg/dL (0.60-1.20) H 03/09/17 00:16 Est GFR ( Amer) 50 (> 60) L 03/09/17 00:16 Est GFR (Non-Af Amer) 41 (> 60) L 03/09/17 00:16 Glucose 232 mg/dL (70-105) H 03/09/17 00:16 POC Glucose 217 (58-89) H 03/08/17 20:31 Hemoglobin A1c 7.8 % (-5.6) H 03/07/17 13:00 Calculated Osmolality 301 (280-300) H 03/09/17 00:16 Calcium 7.9 mg/dL (8.6-10.3) L 03/09/17 00:16 AST 12 Units/L (13-39) L 03/09/17 00:16 Troponin I 0.05 ng/mL (0-0.03) H* 03/07/17 21:27 Serum Total Protein 5.3 g/dL (6.4-8.9) L 03/09/17 00:16 Albumin 2.9 g/dL (3.5-5.7) L 03/09/17 00:16 Triglycerides 253 mg/dL (< 150) H 03/08/17 04:04 VLDL Cholesterol, Calc 51 mg/dL (< 31) H 03/08/17 04:04 Folate 20.4 ng/mL (3.0-16.0) H 03/09/17 00:16 Urine Glucose (UA) 250 mg/dL (Normal) H 03/07/17 10:10 Ur Leukocyte Esterase Trace (Negative) H 03/07/17 10:10 Urine Microscopic WBC 5-15 per hpf (0-3) H 03/07/17 10:10 Ur Squamous Epith Cells Many per lpf (None-Few) H 03/07/17 10:10 T.pallidum Ab Interpret POSITIVE (NEGATIVE) A 03/09/17 00:16 - Microbiology Findings Microbiology Findings: Microbiology, Last 48 Hours 03/08/17 07:29 Streptococcus pneumoniae Antigen (M - Final Urine,[place] 03/08/17 07:29 Legionella Antigen - Final Urine,[place] - Clinical Findings Intake & Output: Intake & Output 03/09/17 03/09/17 03/09/17 07:59 15:59 23:59 Intake Total 624 / 624 249.6 / 249.6 Output Total 450 / 450 Balance 174 / 174 249.6 / 249.6 Weight 83.3 kg 83.3 kg Consult Discharge Plan - Plan Referrals: Hilario Steele MD [Primary Care Provider] - <Thalia Estevez - Last Filed: 03/09/17 19:41> Date of Encounter: 03/09/17 All Systems: A 10-system review of systems was performed and is negative for pertinent findings except as documented above in the HPI. Physical Examination Vital Signs: Vital Signs, Last 4 Hours Temp Pulse Resp BP Pulse Ox 03/09/17 18:12 27 95 03/09/17 18:00 93 25 110/68 95 03/09/17 17:00 98.0 F 130 31 105/78 100 03/09/17 16:46 33 106/64 99 03/09/17 16:01 130 22 106/64 97 03/09/17 15:33 97.6 F 102 97 Results - Laboratory Findings CBC and BMP: 03/09/17 00:16 03/09/17 00:16 ABG ABG pH 7.44 pH Units (7.32-7.45) 03/09/17 16:31 ABG pCO2 28 mmHg (35-45) L 03/09/17 16:31 ABG pO2 70 mmHg (85-104) L 03/09/17 16:31 ABG O2 Saturation 95 % (95-98) 03/09/17 16:31 PT/INR, D-dimer PT 12.5 Seconds (9.4-12.1) H 03/08/17 17:40 D-Dimer 31838 ng/mLFEU (0-500) H 03/07/17 15:09 Abnormal lab findings: Abnormal lab results WBC 14.8 K/mcL (4.3-11.1) H 03/09/17 00:16 RBC 3.42 M/mcL (3.82-4.97) L 03/09/17 00:16 Hgb 10.7 g/dL (11.5-15.4) L 03/09/17 00:16 Hct 32.5 % (35.3-44.9) L 03/09/17 00:16 Neutrophils # 12.6 K/mcL (1.6-8.9) H 03/09/17 00:16 Nucleated RBCs/100 WBC 0.1 /100 WBC (0) H 03/08/17 04:04 PT 12.5 Seconds (9.4-12.1) H 03/08/17 17:40 APTT 85.3 Seconds (26.0-36.0) H D 03/09/17 14:36 D-Dimer 75834 ng/mLFEU (0-500) H 03/07/17 15:09 Heparin Anti-Xa, Unfract 1.27 IU/mL (0.30-0.70) H* 03/09/17 00:16 ABG pCO2 28 mmHg (35-45) L 03/09/17 16:31 ABG pO2 70 mmHg (85-104) L 03/09/17 16:31 ABG HCO3 19 mEq/L (21-27) L 03/09/17 16:31 ABG Base Excess -5 mEq/L (-2 to 3) L 03/09/17 16:31 Chloride 110 mEq/L (98-107) H 03/09/17 00:16 Carbon Dioxide 19 mEq/L (23-29) L 03/09/17 00:16 BUN 28 mg/dL (8-23) H 03/09/17 00:16 Creatinine 1.24 mg/dL (0.60-1.20) H 03/09/17 00:16 Est GFR ( Amer) 50 (> 60) L 03/09/17 00:16 Est GFR (Non-Af Amer) 41 (> 60) L 03/09/17 00:16 Glucose 232 mg/dL (70-105) H 03/09/17 00:16 POC Glucose 281 (58-89) H 03/09/17 16:53 Hemoglobin A1c 7.8 % (-5.6) H 03/07/17 13:00 Calculated Osmolality 301 (280-300) H 03/09/17 00:16 Calcium 7.9 mg/dL (8.6-10.3) L 03/09/17 00:16 AST 12 Units/L (13-39) L 03/09/17 00:16 Troponin I 0.04 ng/mL (< 0.04) H* 03/09/17 15:48 Serum Total Protein 5.3 g/dL (6.4-8.9) L 03/09/17 00:16 Albumin 2.9 g/dL (3.5-5.7) L 03/09/17 00:16 Triglycerides 253 mg/dL (< 150) H 03/08/17 04:04 VLDL Cholesterol, Calc 51 mg/dL (< 31) H 03/08/17 04:04 Folate 20.4 ng/mL (3.0-16.0) H 03/09/17 00:16 Urine Glucose (UA) 250 mg/dL (Normal) H 03/07/17 10:10 Ur Leukocyte Esterase Trace (Negative) H 03/07/17 10:10 Urine Microscopic WBC 5-15 per hpf (0-3) H 03/07/17 10:10 Ur Squamous Epith Cells Many per lpf (None-Few) H 03/07/17 10:10 T.pallidum Ab Interpret POSITIVE (NEGATIVE) A 03/09/17 00:16 - Microbiology Findings Microbiology Findings: Microbiology, Last 48 Hours 03/08/17 07:29 Streptococcus pneumoniae Antigen (M - Final Urine,[place] 03/08/17 07:29 Legionella Antigen - Final Urine,[place] - Clinical Findings Intake & Output: Intake & Output 03/09/17 03/09/17 03/09/17 07:59 15:59 23:59 Intake Total 624 / 624 449.6 / 449.6 Output Total 450 / 450 300 / 300 Balance 174 / 174 449.6 / 449.6 -300 / -300 Weight 83.3 kg 83.3 kg - Attending Attestation I saw the patient with the resident agree with History and Physical exam findings. 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 Neurology following before transferring to ICU there was acute mental status changes concern for any bleed as patient was on therapeutic heparin drip NECK : No JVD appreciated Pulmonary : Patient has hypoxic respiratory failure , patient PH is little alkalotic most likely driven by metabolic acidosis , CXR today increased pulmonary vascular congestion and the CT scan which was done earlier during this admission showed bilateral bibasilar air space disease , will put her on CPAP which will help in getting rid of extravascular lung water since we cannot diurese because of borderline pressures will continue broad spectrum antibiotics.Doubt this is PE will hold off heparin for now .Will get ECHO to look for RV strain , when stable will get V/Q scan atleast will get perfusion imaging . Cardiac : A fib with RVR causing this border line pressure will change cardizem to amiodarone if the rate controlled probably the blood pressure stabilize , now the MAP is greater than 65 if stable will try diuresis Nutrition/GI: Patient is NPO PPI prophylaxis Renal : Labs and output reviewed ID : Cultures to continue with broad spectrum antibiotics to look for other sources will do CT abdomen and pelvis Heme onc : No acute issues Disposition : Remain critically ill Code status:[id number] Family/POA: Daughter and Son Spent 35 minutes of Critical care time in medical decision making to maintain vital organ function.
[2017-03-09 16:34] LABS: ABG Base Excess -5 mEq/L (-2 to 3); ABG HCO3 19 mEq/L (21-27); ABG Oxygen Saturation 95 % (95-98); ABG PCO2 28 mmHg (35-45); ABG PH 7.44 pH Units (7.32-7.45); ABG PO2 70 mmHg (85-104); ABG TCO2 20 mEq/L (20-26)
[2017-03-09] MEDS ORDERED: Amiodarone Premix 150 MG/100 ML BAG IVPB ONE (16:50)
[2017-03-09] MEDS ORDERED: Amiodarone Premix 360 MG/200 ML BAG IVC ONE (16:58)
--- NOTE | 2017-03-09 17:17 | Internal Med Progress Note ---
Date of Encounter: 03/09/17 Time of Encounter: 15:00 - Assessment and plan (1) Hypotension Current Visit: Yes Status: Acute Assessment and plan: After patient had a bowel movement she reported not feeling well and reported of chest pressure. Patient was noted to be hypotensive. Patient was given a total of 1 L bolus which improved her blood pressures Qualifiers: Hypotension type: unspecified hypotension type Qualified Code(s): I95.9 - Hypotension, unspecified (2) Atrial fibrillation with RVR Current Visit: Yes Status: Acute Assessment and plan: After patient had a bowel movement she reported not feeling well and reported of chest pressure. Patient was noted to be hypotensive and developed atrial fibrillation with RVR and stat EKG. Patient was given a bolus of Cardizem and started on Cardizem drip for rate control. (3) Confusion Current Visit: No Status: Acute Assessment and plan: -Suspect secondary to medication versus infection; CVA cannot be ruled out. -Neurology consult with recommendations for EEG which was within normal limits; carotid duplex: non stenotic plaque in Right ICA, left side within normal limits. -Neurology following and appreciate any further recommendations (4) Pneumonia Current Visit: No Status: Acute Assessment and plan: -CT of the chest showed airspace opacities at the bilateral posterior lung bases , may be related to atelectasis versus pneumonia. -Continue treatment with IV vancomycin and IV Zosyn Qualifiers: Pneumonia type: due to unspecified organism Laterality: left Lung location: lower lobe of lung Qualified Code(s): J18.1 - Lobar pneumonia, unspecified organism (5) Elevated d-dimer Current Visit: No Status: Ruled-out Assessment and plan: [place] [id number] [place] -Concerns for PE so therapeutic heparin started -Will VQ scan patient when stable/oriented (6) DVT prophylaxis Current Visit: Yes Status: Acute Assessment and plan: On heparin drip - Subjective Interval history: Patient minimally responded to questions this morning. Since vital signs this morning were stable and leukocytosis did improve but did have a low-grade temp of 100.3 overnight. However, this afternoon was called back to patient's bedside for evaluation due to deterioration of patient's condition. After patient had a bowel movement she reported not feeling well and reported of chest pressure. Patient was noted to be hypotensive and developed atrial fibrillation with RVR and stat EKG. Patient was given a total of 1 L bolus which improved her blood pressures and she was given a bolus of Cardizem and started on Cardizem drip for rate control. She was temporarily placed on BiPAP and then placed back on supplemental oxygen in which she attain good oxygen saturation. Chest x-ray and labs were ordered. Discussed with service liaison representative except the patient in the ICU for closer monitoring. - Constitutional Vitals: Temp Pulse Resp BP Pulse Ox 97.6 F 130 33 106/64 99 03/09/17 15:33 03/09/17 16:01 03/09/17 16:46 03/09/17 16:46 03/09/17 16:46 General appearance: Present: A&O X 0, A&O X 1, severe distress - Respiratory Respiratory exam: Present: rales (Crackles auscultated bilaterally) - Cardiovascular Cardiovascular exam: Present: tachycardia Internal Medicine: Result - Labs CBC & Chem 7: 03/09/17 00:16 03/09/17 00:16 Labs: Short CBC 03/08/17 03/09/17 Range/Units 17:40 00:16 WBC 16.1 H 14.8 H (4.3-11.1) K/mcL Hgb 11.0 L 10.7 L (11.5-15.4) g/dL Hct 33.9 L 32.5 L (35.3-44.9) % Plt Count 160 158 (140-400) K/mcL Neutrophils # 12.6 H (1.6-8.9) K/mcL BMP 03/09/17 00:16 Sodium 139 Potassium 4.0 Chloride 110 H Carbon Dioxide 19 L BUN 28 H Creatinine 1.24 H Glucose 232 H Calcium 7.9 L Cardiac Enzymes 03/09/17 Range/Units 15:48 Troponin I 0.04 H* (< 0.04) ng/mL Liver Function 03/09/17 Range/Units 00:16 Total Bilirubin 1.0 (0.3-1.0) mg/dL AST 12 L (13-39) Units/L ALT 15 (7-52) Units/L Alkaline Phosphatase 47 (34-104) Units/L Albumin 2.9 L (3.5-5.7) g/dL - ABG Interpretation ABG results: ABG ABG pH 7.44 pH Units (7.32-7.45) 12/20/17 16:31 ABG pCO2 28 mmHg (35-45) L 03/09/17 16:31 ABG pO2 70 mmHg (85-104) L 03/09/17 16:31 ABG O2 Saturation 95 % (95-98) 03/09/17 16:31 PT/INR, D-dimer PT 12.5 Seconds (9.4-12.1) H 03/08/17 17:40 D-Dimer 22492 ng/mLFEU (0-500) H 03/07/17 15:09 - Impressions Impressions Chest X-Ray 03/09/17 16:11 IMPRESSION: No acute process. D/ / Oleksandr Koch MD / Oleksandr Koch MD Interpreting Provider: Oleksandr Koch MD Consult Discharge Plan - Plan Referrals: Hilario Steele MD [Primary Care Provider] -
--- NOTE | 2017-03-09 17:30 | Event Note ---
Date of Encounter: 03/09/17 Time of Encounter: 15:00 I spent greater than 30 minutes managing this patient excluding procedures for hypotension requiring fluid resuscitation and atrial fibrillation with RVR requiring IV titrated medication.
[2017-03-09] MEDS: Vancomycin 1,000 MG in D5% in Water 250 ML IVPB SCH (17:37)
[2017-03-09] MEDS: Latanoprost 2.5 ML BOTTLE BOTH EYES SCH (21:53)
[2017-03-09] MEDS: Insulin DETEMIR 100 UNIT/ML X5UNITS SQ SCH (21:55)
[2017-03-09] MEDS: Amiodarone Premix 360 MG/200 ML BAG IVC SCH (23:56)
[2017-03-10] MEDS ORDERED: Albumin 25% 25gram/100mL 25 GM/100 ML IV.SOLN IVPB ONE (00:34)
--- NOTE | 2017-03-10 00:34 | Event Note ---
Date of Encounter: 03/10/17 Time of Encounter: 00:30 I received a call regarding the patient's CT scan abdomen and pelvis, CAT scan reviewed, discussed with surgery team asset protection greeter, recommended to continue IV antibiotic. He will come and evaluate patient next morning. CT scan result shows just possible infected hematoma. Check H&H every 8 hour, close monitoring of H&H, discontinue aspirin, close monitoring of INR. In view of her hypoalbuminemia and hypotension with added albumin
[2017-03-10] MEDS: Piperacillin/Tazobactam 3.375 GM/200 ML BAG IVPB SCH ×3 (02:11→17:46)
[2017-03-10 04:42] LABS: Basophils % 0.1 %; Eosinophils % 0.2 %; Hematocrit 21.1 % (35.3-44.9); Immature Granulocytes % 1.1 % (0-4); Lymphocytes # 1.4 K/mcL (0.6-4.6); Lymphocytes % 10.4 %; Mean Corpuscular HGB Conc 32.2 g/dL (31.6-35.5); Mean Corpuscular Hemoglobin 30.9 pg (28.0-33.3); Mean Corpuscular Volume 95.9 fL (83.0-100.0); Mean Platelet Volume 10.6 fL (9.4-12.4); Monocytes # 0.6 K/mcL (0.0-1.3); Monocytes % 4.7 %; Neutrophils # 11.1 K/mcL (1.6-8.9); Platelet Count 129 K/mcL (140-400); Red Cell Distribution Width 14.1 % (11.5-14.5); Segmented Neutrophils % 83.5 %
[2017-03-10 04:43] LABS: Hematocrit 20.8 % (35.3-44.9); Hemoglobin 6.7 g/dL (11.5-15.4)
[2017-03-10 04:53] LABS: Hemoglobin 6.8 g/dL (11.5-15.4)
[2017-03-10 04:58] LABS: Magnesium 2.1 mg/dL (1.6-2.6); Phosphorous 2.9 mg/dL (2.7-4.5)
[2017-03-10 05:09] LABS: Albumin 2.9 g/dL (3.5-5.7); Albumin/Globulin Ratio 1.5 (1.1-2.2); Bilirubin,Total 0.5 mg/dL (0.3-1.0); Calcium 7.9 mg/dL (8.6-10.3); Potassium 3.7 mEq/L (3.5-5.1); Total Protein 4.9 g/dL (6.4-8.9)
[2017-03-10 05:45] LABS: INR 1.1; Prothrombin Time 12.1 Seconds (9.4-12.1)
[2017-03-10 06:02] LABS: Activated Partial Thrombo Time 21.1 Seconds (26.0-36.0)
[2017-03-10 06:08] LABS: Calcium 7.9 mg/dL (8.6-10.3); Potassium 3.5 mEq/L (3.5-5.1)
[2017-03-10] MEDS ORDERED: 0.9 % Sodium Chloride 250 ML ONE (06:33)
--- NOTE | 2017-03-10 08:05 | Neurology Progress Note ---
Date of Encounter: 03/10/17 Time of Encounter: 08:03 Assessment and Plan (1) Altered mental status Current Visit: Yes Status: Acute Suspect metabolic encephalopathy associated with anemia/sepsis. At this juncture not able to identify a primary neurologic etiology for mental status changes. No evidence of vascular or infectious process involving the brain. No focal or lateralized deficits on her examination. We will follow peripherally. Qualifiers: Altered mental status type: unspecified Qualified Code(s): R41.82 - Altered mental status, unspecified Subjective Principal diagnosis: altered mental status Interval history: Chart was reviewed, the patient was seen and examined. The events of last night are noted. CT scan of the abdomen reveals possible infected hematoma. However clinically from a neurologic perspective she is improved today. She is making eye contact she is following some commands, and she is attempting to speak. She answers some questions appropriately however not all. She is requesting for us to call her daughter Rosibel. Objective - Constitutional Vitals: Temp Pulse Resp BP Pulse Ox 97.0 F L 68 23 120/58 99 03/10/17 07:05 03/10/17 07:05 03/10/17 07:05 03/10/17 07:05 03/10/17 07:05 General appearance: Present: disheveled, A&O X 2, no acute distress. Absent: answers questions appropriately - Neurological Exam Sensorimotor examination: Absent: seizure, fasciculations, hemiparesis, rigidity Motor Examination: Present: other (Equal tone of the upper and lower extremities bilaterally. No involuntary movements are identified.) Sensation intact: Present: intact Mental Status Examination: Present: awake, drowsy, opens eyes to voice, makes eye contact Cranial nerve examination: Present: PERRL, EOMI Results - Laboratory Findings CBC and BMP: 03/10/17 04:20 03/10/17 05:20 Abnormal lab findings: Abnormal lab results WBC 13.2 K/mcL (4.3-11.1) H 03/10/17 04:20 RBC 2.20 M/mcL (3.82-4.97) L 03/10/17 04:20 Hgb 6.8 g/dL (11.5-15.4) L D 03/10/17 04:20 Hct 21.1 % (35.3-44.9) L 03/10/17 04:20 Plt Count 129 K/mcL (140-400) L 03/10/17 04:20 Neutrophils # 11.1 K/mcL (1.6-8.9) H 03/10/17 04:20 Nucleated RBCs/100 WBC 0.1 /100 WBC (0) H 03/08/17 04:04 APTT 21.1 Seconds (26.0-36.0) L D 03/10/17 05:20 D-Dimer [id number] ng/mLFEU (0-500) H 03/07/17 15:09 Heparin Anti-Xa, Unfract 1.27 IU/mL (0.30-0.70) H* 03/09/17 00:16 ABG pCO2 28 mmHg (35-45) L 03/09/17 16:31 ABG pO2 70 mmHg (85-104) L 03/09/17 16:31 ABG HCO3 19 mEq/L (21-27) L 03/09/17 16:31 ABG Base Excess -5 mEq/L (-2 to 3) L 03/09/17 16:31 Chloride 110 mEq/L (98-107) H 03/10/17 05:20 BUN 30 mg/dL (8-23) H 03/10/17 05:20 Creatinine 1.28 mg/dL (0.60-1.20) H 03/10/17 05:20 Est GFR ( Amer) 48 (> 60) L 03/10/17 05:20 Est GFR (Non-Af Amer) 40 (> 60) L 03/10/17 05:20 Glucose 235 mg/dL (70-105) H 03/10/17 05:20 POC Glucose 125 (58-89) H 03/10/17 07:45 Hemoglobin A1c 7.8 % (-5.6) H 03/07/17 13:00 Calculated Osmolality 310 (280-300) H 03/10/17 05:20 Calcium 7.9 mg/dL (8.6-10.3) L 03/10/17 05:20 AST 8 Units/L (13-39) L 03/10/17 04:20 Alkaline Phosphatase 33 Units/L (34-104) L 03/10/17 04:20 Troponin I 0.04 ng/mL (< 0.04) H* 03/09/17 15:48 Serum Total Protein 4.9 g/dL (6.4-8.9) L 03/10/17 04:20 Albumin 2.9 g/dL (3.5-5.7) L 03/10/17 04:20 Globulin 2.0 g/dL (2.4-3.5) L 03/10/17 04:20 Triglycerides 253 mg/dL (< 150) H 03/08/17 04:04 VLDL Cholesterol, Calc 51 mg/dL (< 31) H 03/08/17 04:04 Folate 20.4 ng/mL (3.0-16.0) H 03/09/17 00:16 Urine Glucose (UA) 250 mg/dL (Normal) H 03/07/17 10:10 Ur Leukocyte Esterase Trace (Negative) H 03/07/17 10:10 Urine Microscopic WBC 5-15 per hpf (0-3) H 03/07/17 10:10 Ur Squamous Epith Cells Many per lpf (None-Few) H 03/07/17 10:10 T.pallidum Ab Interpret POSITIVE (NEGATIVE) A 03/09/17 00:16 Consult Discharge Plan - Plan Referrals: Hilario Steele MD [Primary Care Provider] -
[2017-03-10] MEDS: Ipratropium/Albuterol Neb 3 ML IH PRN (08:17)
[2017-03-10] MEDS: Budesonide Neb 0.5 MG/2 ML IH SCH ×2 (08:17→21:35)
[2017-03-10] MEDS: Insulin LISPRO 300 UNITS/3 ML VIAL SQ SCH ×4 (08:36→19:33)
[2017-03-10] MEDS: Loratadine 10 MG TABLET PO SCH (08:37)
[2017-03-10] MEDS: Aspirin 81 MG TAB.CHEW PO SCH (08:37)
[2017-03-10] MEDS: Magnesium Oxide 400 MG TABLET PO SCH (08:38)
[2017-03-10] MEDS: Cholecalciferol (D-3) 1,000 UNIT TABLET PO SCH (08:38)
--- NOTE | 2017-03-10 08:40 | Electrocardiograph Report ---
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
[2017-03-10] MEDS ORDERED: Aminoglycoside Consult 1 EACH MC ONE (10:23)
--- NOTE | 2017-03-10 11:02 | Pulmonology Progress Note ---
<MieshafrancFrank - Last Filed: 03/10/17 11:00> Date of Encounter: 03/10/17 Time of Encounter: 11:01 Assessment and Plan (1) Atrial fibrillation with RVR Current Visit: Yes Status: Acute Pt with hx of paroxsymal a fib on ASA only per chart review Pt was in NSR earlier today. Pt had a large bowel movement became diaphroetic, had chest pain, and felt weak. Pt went into a fib c RVR. Pt became borderline hypotensive Pt given fluid bolus Pt transferred to the ICU for further management. Pt started on Amiodarone drip Pt started on CPAP to remove fluid over load from lungs Likely went into a fib c rvr 2/2 anemia, + valsalva + Fluid over load, + Sepsis Repeat trop 0.04 down from 0.05 earlier in admission Patient currently rate controlled and hemodynamically stable Plan: Continue amiodarone drip transition to PO tomorrow continue CPAP (2) Anemia Current Visit: Yes Status: Acute Acute on chronic anemia. Chronic likely iron deficiency with acute being blood loss Pt's Hgb 6.8 This morning, repeat 6.7 2 Units of PRBC ordered and currently transfusing Normocytic CT abd shows: Rectus abdominus hematoma Secondary to acute blood loss into Rectus abdominus hematoma which spreads into pelvic space Plan: Hold anticoagulation continue to transfuse blood monitor H/H Qualifiers: Anemia type: other cause Other causes of anemia: acute posthemorrhagic Qualified Code(s): D62 - Acute posthemorrhagic anemia (3) Hematoma of rectus sheath Current Visit: Yes Status: Acute CT abd/Pelvis shows: "1. Hyperdense fluid collection within the rectus muscle on the right, presumably a rectus hematoma. Given the patient's history of sepsis, infected hematoma remains in the differential. 2. There is extension of this hematoma into the retropubic space, creating an intrapelvic complex fluid collection measuring up to 9.8 cm. Presumably this represents an additional hematoma. An infected hematoma does remain in the differential." Plan: Continue to hold anticoagulation continue to transfuse PRBCs monitor H/H If patient does not improve consider IR consult to tap hematoma for culture. Qualifiers: Encounter type: initial encounter Qualified Code(s): S30.1XXA - Contusion of abdominal wall, initial encounter (4) Sepsis Current Visit: Yes Status: Acute Pt met sepsis criteria on admission based on WBC 15.2, tachypnea, AMS Pt with suspected pneumonia based on CT chest CXR 03/07: "1. Minimal prominence of the central pulmonary vasculature, which may be related to low lung volumes. 2. Minimally enlarged cardiac silhouette. 3. Otherwise, no convincing acute cardiopulmonary abnormality." CXR 03/09: No acute disease CT Chest: "Airspace opacities at the bilateral posterior lung bases, may be related to atelectasis versus pneumonia." Got IV vanc, zosyn, levaquin in ED Pt currently on Vanc and Zosyn CT abd showed Rectus hematoma that due to sepsis hx cannot rule out infected hematoma. WBCs trending down to 13.2 from 14.8 yesterday, patient's mental status improved. Plan: Continue Vanc and Zosyn continue to follow cultures continue to monitor consider IR consult if patient does not improve or decompensates Qualifiers: Sepsis type: sepsis due to unspecified organism Qualified Code(s): A41.9 - Sepsis, unspecified organism (5) Pneumonia Current Visit: No Status: Acute Pt with suspected pneumonia based on CT chest CXR 03/07: "1. Minimal prominence of the central pulmonary vasculature, which may be related to low lung volumes. 2. Minimally enlarged cardiac silhouette. 3. Otherwise, no convincing acute cardiopulmonary abnormality." CXR 03/09: No acute disease CT Chest: "Airspace opacities at the bilateral posterior lung bases, may be related to atelectasis versus pneumonia." Got IV vanc, zosyn, levaquin in ED Pt currently on Vanc and Zosyn Legionella and s. Pneumonia urine anitgens negative Bcx NGTD Plan: Continue Vanc and Zosyn continue to follow cultures continue to monitor Qualifiers: Pneumonia type: due to unspecified organism Laterality: bilateral Lung location: lower lobe of lung Qualified Code(s): J18.9 - Pneumonia, unspecified organism (6) Altered mental status Current Visit: Yes Status: Acute Acute onset of AMS on Tuesday CT of head showed "Stable chronic small vessel white matter ischemic changes. Remote left basal ganglia lacunar infarcts. 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 There is no evidence of epileptiform activity identified during the study." Neurology is on board Would expect acute stroke as cause of intial AMS to have manifested on CT since performed >24hrs after sxs onset for initial AMS Likely 2/2 to Sepsis 2/2 to pneumonia, worsened by a fib c RVR Worsened AMS yesterday likely 2/2 to a fib c rvr, and anemia repeat CT head showed no acute process Mental status improved today Plan: Continue to treat Pneumonia/Sepsis as above Continue to treat A fib c RVR as above continue to treat anemia Qualifiers: Altered mental status type: unspecified Qualified Code(s): R41.82 - Altered mental status, unspecified (7) Diastolic CHF Current Visit: Yes Status: Chronic Hx of Diastolic CHF BNP 58 Plan: Continue tele Qualifiers: Congestive heart failure chronicity: chronic Qualified Code(s): I50.32 - Chronic diastolic (congestive) heart failure (8) Diabetes mellitus Current Visit: Yes Status: Chronic Hx of Insulin controlled DM A1C:7.8 (8.2 in March, 7.2 a week ago) Plan: Continue home bedtime insulin Continue low dose sliding scale Continue accuchecks Qualifiers: Diabetes mellitus type: type 2 Diabetes mellitus complication status: with unspecified complications Diabetes mellitus penitentiary insulin use: unspecified penitentiary insulin use status Qualified Code(s): E11.8 - Type 2 diabetes mellitus with unspecified complications (9) CKD (chronic kidney disease) stage 3, GFR 30-59 ml/min Current Visit: Yes Status: Chronic Hx of CKD Cr 1.33 on admission, Cr today is 1.28 Baseline Cr is ~ 1.2 Plan: Continue to monitor avoid nephrotoxins where possible careful use of IV fluids (10) HTN (hypertension) Current Visit: Yes Status: Chronic Pt on home Norvasc and Metoprolol Plan: Hold for now due to hypotension 2/2 to afib c RVR Qualifiers: Hypertension type: essential hypertension Qualified Code(s): I10 - Essential (primary) hypertension (11) HLD (hyperlipidemia) Current Visit: Yes Status: Chronic Pt has Hx of HLD Lipid panel: Cholesterol 187, LDL 93, VLDL 51, HDL 43, Triglycerides 253 Plan: Continue pts home lipitor Qualifiers: Hyperlipidemia type: pure hypercholesterolemia Qualified Code(s): E78.00 - Pure hypercholesterolemia, unspecified; E78.0 - Pure hypercholesterolemia (12) CAD (coronary artery disease) Current Visit: No Status: Chronic Hx of CAD with 2 stents, CHF, HTN, HLD Pt on continuous Cardiac tele Pt on home ASA, Norvasc, Lipitor, Meoprolol, and Ranexa Plan: Continue lipitor, metoprolol, and ASA Qualifiers: Coronary Disease-Associated Artery/Lesion type: [place] artery [place] vs. transplanted heart: [place] heart Associated angina: angina presence unspecified Qualified Code(s): I25.10 - Atherosclerotic heart disease of [place] coronary artery without angina pectoris (13) Elevated d-dimer Current Visit: Yes Status: Acute D-Dimer 15,031 Pt only only on ASA at home. Pt has prior Hx of Stroke in 1998 with no residual deficits No DVTs on doppler exam, Superficial L lesser saphenous vein Patient started on Heparin Drip for concerns for PE Primary team were waiting for patient to be stable prior to V/Q scan Heparin Drip stopped Continue to hold due to Anemia, Hematoma Plan: Continue to hold anticoagulation Once stable tomorrow perform V/Q scan (14) DVT prophylaxis Current Visit: Yes Status: Acute SCDS Plan: continue SCDs Subjective Principal diagnosis: altered mental status Interval history: 86 F cPMHx of a fib, dCHF, CAD, HTN, HLD, CKD, DM Transferred to ICU from floor for hypotension, hypoxia 2/2 a fib c RVR. Patient had heparin drip stopped upon transfer. Checked CT abd which showed Rectus hematoma. Pt found to be anemic this morning. Transfusing 2 units PRBC. Patient's mentation and breathing are much improved. Patient is rate controlled on amiodarone drip. Objective PUL Vital signs: Last Vital Signs Temp 98.4 F 03/10/17 10:00 Pulse 68 03/10/17 10:00 Resp 20 03/10/17 10:00 BP 127/62 03/10/17 10:00 Pulse Ox 96 03/10/17 10:00 General appearance: other (improved mentation, verbal, follows commands) Eyes: nonicteric ENT: oropharynx moist Neck: supple Effort: normal Auscultation: left: rales (crackles) Cardiovascular: regular rate and rhythm Gastrointestinal: normoactive bowel sounds Extremities: no cyanosis Results - Laboratory Findings CBC and BMP: 03/10/17 04:20 03/10/17 05:20 ABG ABG pH 7.44 pH Units (7.32-7.45) 03/09/17 16:31 ABG pCO2 28 mmHg (35-45) L 03/09/17 16:31 ABG pO2 70 mmHg (85-104) L 03/09/17 16:31 ABG O2 Saturation 95 % (95-98) 03/09/17 16:31 PT/INR, D-dimer PT 12.1 Seconds (9.4-12.1) 03/10/17 05:20 D-Dimer [id number] ng/mLFEU (0-500) H 03/07/17 15:09 Abnormal lab findings: Abnormal lab results WBC 13.2 K/mcL (4.3-11.1) H 03/10/17 04:20 RBC 2.20 M/mcL (3.82-4.97) L 03/10/17 04:20 Hgb 6.8 g/dL (11.5-15.4) L D 03/10/17 04:20 Hct 21.1 % (35.3-44.9) L 03/10/17 04:20 Plt Count 129 K/mcL (140-400) L 03/10/17 04:20 Neutrophils # 11.1 K/mcL (1.6-8.9) H 03/10/17 04:20 Nucleated RBCs/100 WBC 0.1 /100 WBC (0) H 03/08/17 04:04 APTT 21.1 Seconds (26.0-36.0) L D 03/10/17 05:20 D-Dimer [id number] ng/mLFEU (0-500) H 03/07/17 15:09 Heparin Anti-Xa, Unfract 1.27 IU/mL (0.30-0.70) H* 03/09/17 00:16 ABG pCO2 28 mmHg (35-45) L 03/09/17 16:31 ABG pO2 70 mmHg (85-104) L 03/09/17 16:31 ABG HCO3 19 mEq/L (21-27) L 03/09/17 16:31 ABG Base Excess -5 mEq/L (-2 to 3) L 03/09/17 16:31 Chloride 110 mEq/L (98-107) H 03/10/17 05:20 BUN 30 mg/dL (8-23) H 03/10/17 05:20 Creatinine 1.28 mg/dL (0.60-1.20) H 03/10/17 05:20 Est GFR ( Amer) 48 (> 60) L 03/10/17 05:20 Est GFR (Non-Af Amer) 40 (> 60) L 03/10/17 05:20 Glucose 235 mg/dL (70-105) H 03/10/17 05:20 POC Glucose 125 (58-89) H 03/10/17 07:45 Hemoglobin A1c 7.8 % (-5.6) H 03/07/17 13:00 Calculated Osmolality 310 (280-300) H 03/10/17 05:20 Calcium 7.9 mg/dL (8.6-10.3) L 03/10/17 05:20 AST 8 Units/L (13-39) L 03/10/17 04:20 Alkaline Phosphatase 33 Units/L (34-104) L 03/10/17 04:20 Troponin I 0.04 ng/mL (< 0.04) H* 03/09/17 15:48 Serum Total Protein 4.9 g/dL (6.4-8.9) L 03/10/17 04:20 Albumin 2.9 g/dL (3.5-5.7) L 03/10/17 04:20 Globulin 2.0 g/dL (2.4-3.5) L 03/10/17 04:20 Triglycerides 253 mg/dL (< 150) H 03/08/17 04:04 VLDL Cholesterol, Calc 51 mg/dL (< 31) H 03/08/17 04:04 Folate 20.4 ng/mL (3.0-16.0) H 03/09/17 00:16 Urine Glucose (UA) 250 mg/dL (Normal) H 03/07/17 10:10 Ur Leukocyte Esterase Trace (Negative) H 03/07/17 10:10 Urine Microscopic WBC 5-15 per hpf (0-3) H 03/07/17 10:10 Ur Squamous Epith Cells Many per lpf (None-Few) H 03/07/17 10:10 T.pallidum Ab Interpret POSITIVE (NEGATIVE) A 03/09/17 00:16 - Microbiology Findings Microbiology Findings: Microbiology, Last 48 Hours 03/08/17 07:29 Streptococcus pneumoniae Antigen (M - Final Urine,[place] 03/08/17 07:29 Legionella Antigen - Final Urine,[place] - Clinical Findings Intake & Output: Intake & Output 03/09/17 03/10/17 03/10/17 23:59 07:59 15:59 Intake Total 750 / 750 300 / 300 360 / 360 Output Total 425 / 425 175 / 175 100 / 100 Balance 325 / 325 125 / 125 260 / 260 Weight 79.5 kg Consult Discharge Plan - Plan Referrals: Hilario Steele MD [Primary Care Provider] - <Thalia Estevez - Last Filed: 03/10/17 22:47> Date of Encounter: 03/10/17 Objective PUL Vital signs: Last Vital Signs Temp 99.2 F 03/10/17 19:30 Pulse 75 03/10/17 22:00 Resp 24 03/10/17 22:00 BP 145/71 03/10/17 22:00 Pulse Ox 95 03/10/17 22:00 Results - Laboratory Findings CBC and BMP: 03/10/17 16:27 03/10/17 05:20 ABG ABG pH 7.44 pH Units (7.32-7.45) 03/09/17 16:31 ABG pCO2 28 mmHg (35-45) L 03/09/17 16:31 ABG pO2 70 mmHg (85-104) L 03/09/17 16:31 ABG O2 Saturation 95 % (95-98) 03/09/17 16:31 PT/INR, D-dimer PT 12.1 Seconds (9.4-12.1) 03/10/17 05:20 D-Dimer 52966 ng/mLFEU (0-500) H 03/07/17 15:09 Abnormal lab findings: Abnormal lab results WBC 13.2 K/mcL (4.3-11.1) H 03/10/17 04:20 RBC 2.20 M/mcL (3.82-4.97) L 03/10/17 04:20 Hgb 8.5 g/dL (11.5-15.4) L D 03/10/17 16:27 Hct 26.0 % (35.3-44.9) L 03/10/17 16:27 Plt Count 129 K/mcL (140-400) L 03/10/17 04:20 Neutrophils # 11.1 K/mcL (1.6-8.9) H 03/10/17 04:20 Nucleated RBCs/100 WBC 0.1 /100 WBC (0) H 03/08/17 04:04 APTT 21.1 Seconds (26.0-36.0) L D 03/10/17 05:20 D-Dimer [id number] ng/mLFEU (0-500) H 03/07/17 15:09 Heparin Anti-Xa, Unfract 1.27 IU/mL (0.30-0.70) H* 03/09/17 00:16 ABG pCO2 28 mmHg (35-45) L 03/09/17 16:31 ABG pO2 70 mmHg (85-104) L 03/09/17 16:31 ABG HCO3 19 mEq/L (21-27) L 03/09/17 16:31 ABG Base Excess -5 mEq/L (-2 to 3) L 03/09/17 16:31 Chloride 110 mEq/L (98-107) H 03/10/17 05:20 BUN 30 mg/dL (8-23) H 03/10/17 05:20 Creatinine 1.28 mg/dL (0.60-1.20) H 03/10/17 05:20 Est GFR ( Amer) 48 (> 60) L 03/10/17 05:20 Est GFR (Non-Af Amer) 40 (> 60) L 03/10/17 05:20 Glucose 235 mg/dL (70-105) H 03/10/17 05:20 POC Glucose 124 (58-89) H 03/10/17 19:28 Hemoglobin A1c 7.8 % (-5.6) H 03/07/17 13:00 Calculated Osmolality 310 (280-300) H 03/10/17 05:20 Calcium 7.9 mg/dL (8.6-10.3) L 03/10/17 05:20 AST 8 Units/L (13-39) L 03/10/17 04:20 Alkaline Phosphatase 33 Units/L (34-104) L 03/10/17 04:20 Troponin I 0.04 ng/mL (< 0.04) H* 03/09/17 15:48 Serum Total Protein 4.9 g/dL (6.4-8.9) L 03/10/17 04:20 Albumin 2.9 g/dL (3.5-5.7) L 03/10/17 04:20 Globulin 2.0 g/dL (2.4-3.5) L 03/10/17 04:20 Triglycerides 253 mg/dL (< 150) H 03/08/17 04:04 VLDL Cholesterol, Calc 51 mg/dL (< 31) H 03/08/17 04:04 Folate 20.4 ng/mL (3.0-16.0) H 03/09/17 00:16 Urine Glucose (UA) 250 mg/dL (Normal) H 03/07/17 10:10 Ur Leukocyte Esterase Trace (Negative) H 03/07/17 10:10 Urine Microscopic WBC 5-15 per hpf (0-3) H 03/07/17 10:10 Ur Squamous Epith Cells Many per lpf (None-Few) H 03/07/17 10:10 T.pallidum Ab Interpret POSITIVE (NEGATIVE) A 03/09/17 00:16 - Clinical Findings Intake & Output: Intake & Output 03/10/17 03/10/17 03/10/17 07:59 15:59 23:59 Intake Total 300 / 300 1120 / 1120 250 / 250 Output Total 175 / 175 540 / 540 210 / 210 Balance 125 / 125 580 / 580 40 / 40 Weight 79.5 kg - Attending Attestation I saw the patient with the resident agree with History and Physical exam findings. Labs and Radiology were reviewed Patient is on CPAP for fluid overload PICTURE COPYIST: Patient is sleeping on CPAP but she wakes up had some meaningful conversation during the morning hours much better than yesterday. NECK : No JVD appreciated Pulmonary : Patient has hypoxic respiratory failure , patient V/Q mismatch is due to fluid overload and bibasilar pneumonia /atelectasis will continue CPAP as needed .Low likelihood of PE heparin drip was stopped before the CT abdomen and pelvis Cardiac : A fib with RVR rate controlled with amiodarone still NPO so will transition to beta blockers if she is hemodynamically stable Nutrition/GI: Patient is NPO PPI prophylaxis , CT abdomen and pelvis showed rectal sheath hematoma with extension to the pelvis the hematoma got liquefied concerning for possible infection of the hematoma , Surgery was consulted recommended IR guided drainage , CT guided aspiration was send for microbiological work up Renal : Labs and output reviewed ID : Cultures to continue with broad spectrum antibiotics , CT guided aspiration of rectus sheath hematoma sample sent for gram stain and microbiology Heme onc : No acute issues Disposition : Remain critically ill Code status:[id number] Family/POA: Daughter and Son updated . Spent 35 minutes critical care time in medical decision making in maintaining the vital organ function and prevention of further decline.
[2017-03-10] MEDS: Amiodarone Premix 360 MG/200 ML BAG IVC SCH ×2 (11:09→23:09)
[2017-03-10] MEDS: Pantoprazole 40 MG VIAL IVP SCH (11:11)
--- NOTE | 2017-03-10 12:52 | General Surgery Consult Note ---
Date of Encounter: 03/10/17 Time of Encounter: 12:41 History of Present Illness Consult date: 03/10/17 Requesting physician: Catalino Gonzalez History of present illness: Called to see patient for CT abd/pelvis showing evidence of a right rectus abdominal hematoma measuring up to 8.2 x 2.4 x 12.2 cm. Extension of that hemorrhage into the retropubic space is described creating an intrapelvic collection measuring up to 9.8 x 6.0 x 7.8 cm. There is a fluid fluid level consistent with a hematoma that is beginning to liquefy. Additional findings include marketed mural thickening of the urinary bladder. The radiologist's interpretation describes a hematoma involving the right rectus abdominis with extension into the pelvis however due to a history of sepsis and infected hematoma is mentioned within the differential. I have reviewed the films with [facility] and discussed with Dr Casper Hernandez, Intervention Radiology. Percutaneous placement of a catheter is possible for both decompression as well as cultures. A consult to Interventional Radiology has been placed for this purpose. The patient is extremely hard of hearing, and barely responsive on my presentation the bedside. Medical history includes: Prior CVA, CAD status post angioplasty and stents 2 in 1998; diabetes, atrial fibrillation, CHF, hypertension, hyperlipidemia. Review of records do not indicate anticoagulation however following her admission she was placed on IV heparin when the patient developed RVR in addition to her chronic atrial fibrillation. There is a recorded APTT of 140.8, 03/09/17. The heparin has been discontinued and it appears that The recent CT findings are due to this hypercoagulable state. It does not appear that the patient will require surgical intervention, however , I will follow along with you pending results of the percutaneous drainage completed by Interventional Radiology. Past Med Surg Social Fam HX - Past Medical History Medical history: atrial fibrillation, CHF, coronary artery disease, CVA, diabetes, hyperlipidemia, hypertension, renal disease Psychiatric history: anxiety - Past Surgical History Surgical History: angioplasty/stent, carotid endarterectomy, cholecystectomy, pacemaker/AICD, other - Social History Smoking Status: Never smoker Smokeless Tobacco Status: No Alcohol use: none Drug use: none - Family History Father Race: Family Member Ethnicity: Non- Living Status: Age at : 84 Cause of : CVA Hx Family Cardiac Disorders: Yes Hx Family Endocrine Disorder: Yes Hx Family Neurologic Disorders: Yes Hx Family Medical Disorders: Yes Sister Race: Family Member Ethnicity: Non- Living Status: Age at : 55 Cause of : CAD Hx Family Cardiac Disorders: Yes (CAD) Hx Family Cancer: Yes (Breast) Hx Family Endocrine Disorder: Yes (DM) Mother Race: Family Member Ethnicity: Non- Living Status: Age at : 62 Cause of : Lung cancer Hx Family Cancer: Yes (Lung) Medications and Allergies Arformoterol Tartrate [Brovana] 15 mcg IH BID 12/13/14 [History] Aspirin Enteric Coated [Aspirin EC] 81 mg PO DAILY 12/13/14 [History] Atorvastatin [Lipitor] 20 mg PO HS 12/13/14 [History] Duloxetine [Cymbalta] 60 mg PO DAILY 12/13/14 [History] Insulin ASPART [NovoLOG] 0 units SQ TIDAC 12/13/14 [History] Insulin Glargine,Hum.rec.anlog [Lantus Solostar] 37 units SQ HS 12/13/14 [ History] Metoprolol XL (24 HR) Succ [Toprol XL] 50 mg PO DAILY 12/25/14 [History] Budesonide Neb [Pulmicort Neb] 0.5 mg IH BID 05/03/15 [History] Cholecalciferol (Vitamin D3) [Vitamin D3] 1,000 unit PO DAILY 05/03/15 [History] Loratadine [Claritin] 10 mg PO DAILY 05/03/15 [History] [place]-3/Dha/Epa/Fish Oil [Fish Oil 1,000 mg Softgel] 1 cap PO DAILY 05/03/15 [ History] Omeprazole [PriLOSEC] 40 mg PO DAILY 05/03/15 [History] Latanoprost 1 drop BOTH EYES HS 11/26/15 [History] Ferrous Sulfate [Iron] 325 mg PO DAILY 01/25/16 [History] Ascorbate Calcium [Vitamin C] 500 mg PO DAILY 11/04/16 [History] Diclofenac Sodium [Voltaren] 1 appl TP QID PRN 11/04/16 [History] Ipratropium/Albuterol Neb [Duoneb] 3 ml IH TID PRN 11/04/16 [History] Magnesium Oxide [Magnesium] 400 mg PO DAILY 02/27/17 [History] Furosemide [Lasix] 40 mg PO DAILY #30 tablet 03/04/17 [Rx] amLODIPine [Norvasc] 2.5 mg PO DAILY tablet 03/04/17 [Rx] predniSONE [PredniSONE] 5 mg PO DAILY #0 03/04/17 [Rx] predniSONE [PredniSONE] 10 mg PO DAILY 10 Days tablet 03/04/17 [Rx] 3 Allergy/AdvReac Type Severity Reaction Status Date / Time isosorbide [From Imdur] Allergy Unknown See Verified 02/27/17 14:36 Comments gabapentin Allergy Hallucinati Verified 02/27/17 14:36 ng Hydralazine Allergy See Verified 02/27/17 14:36 Comments propranolol [From Inderal LA] Allergy Hallucinati Verified 02/27/17 14:36 ng alprazolam [From Xanax] AdvReac See Verified 02/27/17 14:36 Comments fentanyl AdvReac See Verified 02/27/17 14:36 Comments Baclofen AdvReac Unresponsiv Uncoded 03/08/17 11:52 e Review of Systems All systems PM: A 10-system review of systems was performed and is negative for pertinent findings except as documented above in the HPI. General Surgery Exam Initial Vital Signs Temp Pulse Resp BP Pulse Ox 98.3 F 88 44 114/83 92 03/07/17 09:15 03/07/17 09:15 03/07/17 09:15 03/07/17 09:15 03/07/17 09:15 Exam Initial Vital Signs Temp Pulse Resp BP Pulse Ox 98.3 F 88 44 114/83 92 03/07/17 09:15 03/07/17 09:15 03/07/17 09:15 03/07/17 09:15 03/07/17 09:15 Results - Labs 03/10/17 04:20 03/10/17 05:20 Abnormal lab results WBC 13.2 K/mcL (4.3-11.1) H 03/10/17 04:20 RBC 2.20 M/mcL (3.82-4.97) L 03/10/17 04:20 Hgb 6.8 g/dL (11.5-15.4) L D 03/10/17 04:20 Hct 21.1 % (35.3-44.9) L 03/10/17 04:20 Plt Count 129 K/mcL (140-400) L 03/10/17 04:20 Neutrophils # 11.1 K/mcL (1.6-8.9) H 03/10/17 04:20 Nucleated RBCs/100 WBC 0.1 /100 WBC (0) H 03/08/17 04:04 APTT 21.1 Seconds (26.0-36.0) L D 03/10/17 05:20 D-Dimer [id number] ng/mLFEU (0-500) H 03/07/17 15:09 Heparin Anti-Xa, Unfract 1.27 IU/mL (0.30-0.70) H* 03/09/17 00:16 ABG pCO2 28 mmHg (35-45) L 03/09/17 16:31 ABG pO2 70 mmHg (85-104) L 03/09/17 16:31 ABG HCO3 19 mEq/L (21-27) L 03/09/17 16:31 ABG Base Excess -5 mEq/L (-2 to 3) L 03/09/17 16:31 Chloride 110 mEq/L (98-107) H 03/10/17 05:20 BUN 30 mg/dL (8-23) H 03/10/17 05:20 Creatinine 1.28 mg/dL (0.60-1.20) H 03/10/17 05:20 Est GFR ( Amer) 48 (> 60) L 03/10/17 05:20 Est GFR (Non-Af Amer) 40 (> 60) L 03/10/17 05:20 Glucose 235 mg/dL (70-105) H 03/10/17 05:20 POC Glucose 112 (58-89) H 03/10/17 11:17 Hemoglobin A1c 7.8 % (-5.6) H 03/07/17 13:00 Calculated Osmolality 310 (280-300) H 03/10/17 05:20 Calcium 7.9 mg/dL (8.6-10.3) L 03/10/17 05:20 AST 8 Units/L (13-39) L 03/10/17 04:20 Alkaline Phosphatase 33 Units/L (34-104) L 03/10/17 04:20 Troponin I 0.04 ng/mL (< 0.04) H* 03/09/17 15:48 Serum Total Protein 4.9 g/dL (6.4-8.9) L 03/10/17 04:20 Albumin 2.9 g/dL (3.5-5.7) L 03/10/17 04:20 Globulin 2.0 g/dL (2.4-3.5) L 03/10/17 04:20 Triglycerides 253 mg/dL (< 150) H 03/08/17 04:04 VLDL Cholesterol, Calc 51 mg/dL (< 31) H 03/08/17 04:04 Folate 20.4 ng/mL (3.0-16.0) H 03/09/17 00:16 Urine Glucose (UA) 250 mg/dL (Normal) H 03/07/17 10:10 Ur Leukocyte Esterase Trace (Negative) H 03/07/17 10:10 Urine Microscopic WBC 5-15 per hpf (0-3) H 03/07/17 10:10 Ur Squamous Epith Cells Many per lpf (None-Few) H 03/07/17 10:10 T.pallidum Ab Interpret POSITIVE (NEGATIVE) A 03/09/17 00:16 Diabetes panel 03/10/17 03/10/17 Range/Units 04:20 05:20 Sodium 143 143 (136-145) mEq/L Potassium 3.7 3.5 (3.5-5.1) mEq/L Chloride 111 H 110 H (98-107) mEq/L Carbon Dioxide 23 24 (23-29) mEq/L BUN 30 H 30 H (8-23) mg/dL Creatinine 1.28 H 1.28 H (0.60-1.20) mg/dL Glucose 230 H 235 H (70-105) mg/dL Calcium 7.9 L 7.9 L (8.6-10.3) mg/dL AST 8 L (13-39) Units/L ALT 10 (7-52) Units/L Alkaline Phosphatase 33 L (34-104) Units/L Albumin 2.9 L (3.5-5.7) g/dL Calcium panel 03/10/17 03/10/17 03/10/17 Range/Units 04:20 04:20 05:20 Calcium 7.9 L 7.9 L (8.6-10.3) mg/dL Phosphorus 2.9 (2.7-4.5) mg/dL Albumin 2.9 L (3.5-5.7) g/dL Pituitary panel 03/10/17 03/10/17 Range/Units 04:20 05:20 Sodium 143 143 (136-145) mEq/L Potassium 3.7 3.5 (3.5-5.1) mEq/L Chloride 111 H 110 H (98-107) mEq/L Carbon Dioxide 23 24 (23-29) mEq/L BUN 30 H 30 H (8-23) mg/dL Creatinine 1.28 H 1.28 H (0.60-1.20) mg/dL Glucose 230 H 235 H (70-105) mg/dL Calcium 7.9 L 7.9 L (8.6-10.3) mg/dL Adrenal panel 03/10/17 03/10/17 Range/Units 04:20 05:20 Sodium 143 143 (136-145) mEq/L Potassium 3.7 3.5 (3.5-5.1) mEq/L Chloride 111 H 110 H (98-107) mEq/L Carbon Dioxide 23 24 (23-29) mEq/L BUN 30 H 30 H (8-23) mg/dL Creatinine 1.28 H 1.28 H (0.60-1.20) mg/dL Glucose 230 H 235 H (70-105) mg/dL Calcium 7.9 L 7.9 L (8.6-10.3) mg/dL Total Bilirubin 0.5 (0.3-1.0) mg/dL AST 8 L (13-39) Units/L ALT 10 (7-52) Units/L Alkaline Phosphatase 33 L (34-104) Units/L Albumin 2.9 L (3.5-5.7) g/dL All other labs normal. Consult Discharge Plan - Plan Referrals: Hilario Steele MD [Primary Care Provider] -
[2017-03-10 16:58] LABS: Hemoglobin 8.5 g/dL (11.5-15.4)
[2017-03-10] MEDS: Vancomycin 1,000 MG in D5% in Water 250 ML IVPB SCH (17:00)
[2017-03-10] MEDS: Insulin DETEMIR 100 UNIT/ML X5UNITS SQ SCH (19:40)
[2017-03-10] MEDS: Latanoprost 2.5 ML BOTTLE BOTH EYES SCH (19:41)
[2017-03-11] MEDS: Piperacillin/Tazobactam 3.375 GM/200 ML BAG IVPB SCH ×3 (00:16→17:16)
[2017-03-11 04:18] LABS: Basophils % 0.1 %; Eosinophils # 0.1 K/mcL (0.0-0.6); Eosinophils % 0.9 %; Hematocrit 23.5 % (35.3-44.9); Hemoglobin 7.8 g/dL (11.5-15.4); Immature Granulocytes % 1.1 % (0-4); Lymphocytes # 1.2 K/mcL (0.6-4.6); Lymphocytes % 11.1 %; Mean Corpuscular HGB Conc 33.2 g/dL (31.6-35.5); Mean Corpuscular Hemoglobin 30.4 pg (28.0-33.3); Mean Corpuscular Volume 91.4 fL (83.0-100.0); Monocytes # 0.8 K/mcL (0.0-1.3); Monocytes % 7.4 %; Neutrophils # 8.8 K/mcL (1.6-8.9); Platelet Count 127 K/mcL (140-400); Red Blood Count 2.57 M/mcL (3.82-4.97); Red Cell Distribution Width 15.8 % (11.5-14.5); Segmented Neutrophils % 79.4 %
[2017-03-11 04:37] LABS: Alanine Aminotransferase 8 Units/L (7-52); Albumin 2.8 g/dL (3.5-5.7); Albumin/Globulin Ratio 1.3 (1.1-2.2); Alkaline Phosphatase 35 Units/L (34-104); Aspartate Amino Transferase 9 Units/L (13-39); BUN/Creatinine Ratio 19 (6-26); Bilirubin,Total 0.7 mg/dL (0.3-1.0); Blood Urea Nitrogen 20 mg/dL (8-23); Calcium 7.9 mg/dL (8.6-10.3); Carbon Dioxide 24 mEq/L (23-29); Chloride 113 mEq/L (98-107); Globulin 2.1 g/dL (2.4-3.5); Glucose 76 mg/dL (70-105); Osmolality,Calculated 295 (280-300); Potassium 3.2 mEq/L (3.5-5.1); Sodium 142 mEq/L (136-145); Total Protein 4.9 g/dL (6.4-8.9); eGFR For African Americans > 60 (> 60); eGFR For Non-African Americans 50 (> 60)
[2017-03-11] MEDS: Insulin LISPRO 300 UNITS/3 ML VIAL SQ SCH ×4 (08:30→22:41)
[2017-03-11 08:44] LABS: INR 1.1; Prothrombin Time 11.6 Seconds (9.4-12.1)
[2017-03-11 08:47] LABS: Activated Partial Thrombo Time 22.9 Seconds (26.0-36.0)
--- NOTE | 2017-03-11 09:00 | Pulmonology Progress Note ---
Date of Encounter: 03/11/17 Time of Encounter: 08:45 Assessment and Plan (1) Altered mental status Current Visit: Yes Status: Acute The altered mental status she had during ICU stay most likely due to acute blood loss anemia , so far neurological work up is negative patient cannot tolerate MRI because of pacemaker. Qualifiers: Altered mental status type: unspecified Qualified Code(s): R41.82 - Altered mental status, unspecified (2) Pneumonia Current Visit: No Status: Acute Will continue the broad spectrum antibiotics will descalate the antibiotics Qualifiers: Pneumonia type: due to unspecified organism Laterality: bilateral Lung location: lower lobe of lung Qualified Code(s): J18.9 - Pneumonia, unspecified organism (3) Hematoma of rectus sheath Current Visit: Yes Status: Acute Patient has a drain , IR put the drain yesterday overnight 200 ml of old blood came out repeat H and H stable coagulation within normal limits Qualifiers: Encounter type: initial encounter Qualified Code(s): S30.1XXA - Contusion of abdominal wall, initial encounter (4) Diastolic CHF Current Visit: Yes Status: Chronic CPAP on and off will hold off diuresis since the background of bleeding if she gets fluid overload can give lasix. Qualifiers: Congestive heart failure chronicity: chronic Qualified Code(s): I50.32 - Chronic diastolic (congestive) heart failure (5) Sepsis Current Visit: Yes Status: Acute Cultures are negative so far , the hematoma from the rectus sheath doesnt have any micro-organisms will continue descalate with antibiotics . Qualifiers: Sepsis type: sepsis due to unspecified organism Qualified Code(s): A41.9 - Sepsis, unspecified organism (6) Atrial fibrillation Current Visit: No Status: Chronic controlled with Amiodarone drip to change to PO amiodarone 200 mg BID Qualifiers: Atrial fibrillation type: paroxysmal Qualified Code(s): I48.0 - Paroxysmal atrial fibrillation Subjective Principal diagnosis: altered mental status Interval history: Patient is more alert today , denies any pulmonary symptoms , her abdominal pain is lot better , no acute events overnight. Objective PUL Vital signs: Last Vital Signs Temp 97.8 F 03/11/17 08:00 Pulse 75 03/11/17 08:08 Resp 20 03/11/17 07:00 BP 128/60 03/11/17 07:00 Pulse Ox 97 03/11/17 07:00 Auscultation: bilateral: other (bilateral bibasilar crackles) Cardiovascular: irregular rhythm other (A X 3 ) Results - Laboratory Findings CBC and BMP: 03/11/17 12:47 03/11/17 04:10 ABG ABG pH 7.44 pH Units (7.32-7.45) 03/09/17 16:31 ABG pCO2 28 mmHg (35-45) L 03/09/17 16:31 ABG pO2 70 mmHg (85-104) L 03/09/17 16:31 ABG O2 Saturation 95 % (95-98) 03/09/17 16:31 PT/INR, D-dimer PT 11.6 Seconds (9.4-12.1) 03/11/17 08:05 D-Dimer [id number] ng/mLFEU (0-500) H 03/07/17 15:09 Abnormal lab findings: Abnormal lab results RBC 2.57 M/mcL (3.82-4.97) L 03/11/17 04:10 Hgb 7.8 g/dL (11.5-15.4) L 03/11/17 04:10 Hct 23.5 % (35.3-44.9) L 03/11/17 04:10 RDW 15.8 % (11.5-14.5) H 03/11/17 04:10 Plt Count 127 K/mcL (140-400) L 03/11/17 04:10 Nucleated RBCs/100 WBC 0.1 /100 WBC (0) H 03/08/17 04:04 APTT 22.9 Seconds (26.0-36.0) L 03/11/17 08:05 D-Dimer [id number] ng/mLFEU (0-500) H 03/07/17 15:09 Heparin Anti-Xa, Unfract 1.27 IU/mL (0.30-0.70) H* 03/09/17 00:16 ABG pCO2 28 mmHg (35-45) L 03/09/17 16:31 ABG pO2 70 mmHg (85-104) L 03/09/17 16:31 ABG HCO3 19 mEq/L (21-27) L 03/09/17 16:31 ABG Base Excess -5 mEq/L (-2 to 3) L 03/09/17 16:31 Potassium 3.2 mEq/L (3.5-5.1) L 03/11/17 04:10 Chloride 113 mEq/L (98-107) H 03/11/17 04:10 Est GFR (Non-Af Amer) 50 (> 60) L 03/11/17 04:10 Hemoglobin A1c 7.8 % (-5.6) H 03/07/17 13:00 Calcium 7.9 mg/dL (8.6-10.3) L 03/11/17 04:10 AST 9 Units/L (13-39) L 03/11/17 04:10 Troponin I 0.04 ng/mL (< 0.04) H* 03/09/17 15:48 Serum Total Protein 4.9 g/dL (6.4-8.9) L 03/11/17 04:10 Albumin 2.8 g/dL (3.5-5.7) L 03/11/17 04:10 Globulin 2.1 g/dL (2.4-3.5) L 03/11/17 04:10 Triglycerides 253 mg/dL (< 150) H 03/08/17 04:04 VLDL Cholesterol, Calc 51 mg/dL (< 31) H 03/08/17 04:04 Folate 20.4 ng/mL (3.0-16.0) H 03/09/17 00:16 Urine Glucose (UA) 250 mg/dL (Normal) H 03/07/17 10:10 Ur Leukocyte Esterase Trace (Negative) H 03/07/17 10:10 Urine Microscopic WBC 5-15 per hpf (0-3) H 03/07/17 10:10 Ur Squamous Epith Cells Many per lpf (None-Few) H 03/07/17 10:10 T.pallidum Ab Interpret POSITIVE (NEGATIVE) A 03/09/17 00:16 - Clinical Findings Intake & Output: Intake & Output 03/10/17 03/11/17 03/11/17 23:59 07:59 15:59 Intake Total 650 / 650 Output Total 250 / 250 180 / 180 205 / 205 Balance 400 / 400 -180 / -180 -205 / -205 Weight 81.9 kg Consult Discharge Plan - Plan Referrals: Hilario Steele MD [Primary Care Provider] -
[2017-03-11] MEDS: Aspirin 81 MG TAB.CHEW PO SCH (09:15)
[2017-03-11] MEDS: Cholecalciferol (D-3) 1,000 UNIT TABLET PO SCH (09:15)
[2017-03-11] MEDS: Loratadine 10 MG TABLET PO SCH (09:15)
[2017-03-11] MEDS: Pantoprazole 40 MG VIAL IVP SCH (09:15)
[2017-03-11] MEDS: Magnesium Oxide 400 MG TABLET PO SCH (09:15)
[2017-03-11] MEDS: Budesonide Neb 0.5 MG/2 ML IH SCH ×2 (09:51→21:26)
[2017-03-11] MEDS: Ipratropium/Albuterol Neb 3 ML IH PRN (09:52)
[2017-03-11] MEDS: Amiodarone Premix 360 MG/200 ML BAG IVC SCH (11:37)
[2017-03-11 12:55] LABS: Hematocrit 25.6 % (35.3-44.9); Hemoglobin 8.5 g/dL (11.5-15.4)
[2017-03-11] MEDS ORDERED: *HR* Amiodarone 200 MG TABLET PO SCH (13:45)
[2017-03-11] MEDS ORDERED: *HR* Metoprolol 5 MG/5 ML VIAL IVP PRN (14:18)
[2017-03-11] MEDS ORDERED: Naloxone 0.4 MG/ML INJ IVP PRN (14:18)
[2017-03-11] MEDS ORDERED: D5% in Water 1,000 ML IVC PRN (14:18)
[2017-03-11] MEDS ORDERED: *HR* Dextrose 50 % in Water (Syg) 50 ML SYRINGE IVP PRN (14:18)
[2017-03-11] MEDS ORDERED: Ondansetron 4 MG/2 ML VIAL IVP PRN (14:18)
[2017-03-11] MEDS ORDERED: Dextrose Gel 15 GM/37.5 ML TUBE PO PRN ×2 (14:18)
[2017-03-11] MEDS ORDERED: Ipratropium/Albuterol Neb 3 ML IH PRN (14:18)
[2017-03-11] MEDS ORDERED: Acetaminophen 650 MG RECTAL SUPP RC PRN (14:18)
[2017-03-11 14:25] LABS: RPR NON REACTIVE (Non Reactive)
[2017-03-11] MEDS ORDERED: Insulin DETEMIR 100 UNIT/ML X5UNITS SQ SCH (21:00)
[2017-03-11] MEDS: *HR* Amiodarone 200 MG TABLET PO SCH (22:14)
[2017-03-11] MEDS: Latanoprost 2.5 ML BOTTLE BOTH EYES SCH (22:42)
[2017-03-11] MEDS: Insulin DETEMIR 100 UNIT/ML X5UNITS SQ SCH (22:43)
[2017-03-12] MEDS: Piperacillin/Tazobactam 3.375 GM/200 ML BAG IVPB SCH ×3 (01:58→19:18)
[2017-03-12 04:05] LABS: Basophils % 0.1 %; Eosinophils # 0.1 K/mcL (0.0-0.6); Eosinophils % 0.8 %; Hematocrit 22.4 % (35.3-44.9); Hemoglobin 7.4 g/dL (11.5-15.4); Immature Granulocytes % 0.7 % (0-4); Immature Platelets 2.6 % (1.1-6.1); Lymphocytes # 1.1 K/mcL (0.6-4.6); Lymphocytes % 12.7 %; Mean Corpuscular Hemoglobin 30.5 pg (28.0-33.3); Mean Corpuscular Volume 92.2 fL (83.0-100.0); Mean Platelet Volume 9.8 fL (9.4-12.4); Monocytes # 0.6 K/mcL (0.0-1.3); Monocytes % 7.1 %; Neutrophils # 6.6 K/mcL (1.6-8.9); Platelet Count 139 K/mcL (140-400); Red Blood Count 2.43 M/mcL (3.82-4.97); Red Cell Distribution Width 15.7 % (11.5-14.5); Segmented Neutrophils % 78.6 %
[2017-03-12 04:26] LABS: Alanine Aminotransferase 8 Units/L (7-52); Albumin 2.7 g/dL (3.5-5.7); Albumin/Globulin Ratio 1.2 (1.1-2.2); Alkaline Phosphatase 34 Units/L (34-104); Aspartate Amino Transferase 8 Units/L (13-39); BUN/Creatinine Ratio 19 (6-26); Bilirubin,Total 0.9 mg/dL (0.3-1.0); Blood Urea Nitrogen 18 mg/dL (8-23); Carbon Dioxide 25 mEq/L (23-29); Chloride 113 mEq/L (98-107); Globulin 2.3 g/dL (2.4-3.5); Glucose 161 mg/dL (70-105); Osmolality,Calculated 301 (280-300); Potassium 3.5 mEq/L (3.5-5.1); Sodium 143 mEq/L (136-145); eGFR For African Americans > 60 (> 60); eGFR For Non-African Americans 56 (> 60)
[2017-03-12] MEDS: Insulin LISPRO 300 UNITS/3 ML VIAL SQ SCH ×4 (09:11→20:59)
[2017-03-12] MEDS: Magnesium Oxide 400 MG TABLET PO SCH (09:22)
[2017-03-12] MEDS: Cholecalciferol (D-3) 1,000 UNIT TABLET PO SCH (09:22)
[2017-03-12] MEDS: *HR* Amiodarone 200 MG TABLET PO SCH ×2 (09:22→20:57)
[2017-03-12] MEDS: Loratadine 10 MG TABLET PO SCH (09:23)
[2017-03-12] MEDS: Aspirin 81 MG TAB.CHEW PO SCH (09:23)
[2017-03-12] MEDS: Pantoprazole 40 MG VIAL IVP SCH (09:23)
[2017-03-12] MEDS: Budesonide Neb 0.5 MG/2 ML IH SCH ×2 (11:21→21:48)
--- NOTE | 2017-03-12 16:35 | Internal Med Progress Note ---
Date of Encounter: 03/12/17 Time of Encounter: 11:00 - Assessment and plan (1) Confusion Current Visit: No Status: Acute Assessment and plan: -Neurological workup has been negative and no further recommendations from neurology. -Sepsis has resolved and infection now controlled as patient's leukocytosis has resolved and no longer with fever -Daughter reports some improvement in cognition but could not appreciate on exam -Continue to monitor. (2) Pneumonia Current Visit: No Status: Acute Assessment and plan: -CT of the chest showed airspace opacities at the bilateral posterior lung bases , may be related to atelectasis versus pneumonia. -Leukocytosis has resolved and patient now afebrile -Continue IV Zosyn Qualifiers: Pneumonia type: due to unspecified organism Laterality: bilateral Lung location: lower lobe of lung Qualified Code(s): J18.9 - Pneumonia, unspecified organism (3) Atrial fibrillation with RVR Current Visit: Yes Status: Acute Assessment and plan: -Heart rate not controlled on amiodarone. -Continue current management. (4) Hematoma of rectus sheath Current Visit: Yes Status: Acute Assessment and plan: -S/p IR placement of drain with over 200 ml of old blood drained Qualifiers: Encounter type: initial encounter Qualified Code(s): S30.1XXA - Contusion of abdominal wall, initial encounter - Subjective Interval history: Daughter who is at patient's bedside reports that patient is slightly improving in her mentation. On examination, could not appreciate improvement in cognitive function. Vital signs are stable and patient's leukocytosis has resolved and is afebrile. - Constitutional Vitals: Temp Pulse Resp BP Pulse Ox 97.6 F 93 14 148/78 98 03/12/17 15:16 03/12/17 15:16 03/12/17 15:16 03/12/17 15:16 03/12/17 15:16 General appearance: Present: A&O X 0, A&O X 1, no acute distress, severe distress - Respiratory Respiratory exam: Present: CTAB. Absent: accessory muscle use, rales, rhonchi, wheezes - Cardiovascular Cardiovascular exam: Present: RRR, +S1, +S2. Absent: diastolic murmur, gallop, rubs, systolic murmur Internal Medicine: Result - Labs CBC & Chem 7: 03/12/17 03:55 03/12/17 03:55 Labs: Short CBC 03/12/17 Range/Units 03:55 WBC 8.4 (4.3-11.1) K/mcL Hgb 7.4 L (11.5-15.4) g/dL Hct 22.4 L (35.3-44.9) % Plt Count 139 L (140-400) K/mcL Neutrophils # 6.6 (1.6-8.9) K/mcL BMP 03/12/17 03:55 Sodium 143 Potassium 3.5 Chloride 113 H Carbon Dioxide 25 BUN 18 Creatinine 0.95 Glucose 161 H Calcium 8.0 L Liver Function 03/12/17 Range/Units 03:55 Total Bilirubin 0.9 (0.3-1.0) mg/dL AST 8 L (13-39) Units/L ALT 8 (7-52) Units/L Alkaline Phosphatase 34 (34-104) Units/L Albumin 2.7 L (3.5-5.7) g/dL - ABG Interpretation ABG results: ABG ABG pH 7.44 pH Units (7.32-7.45) 03/09/17 16:31 ABG pCO2 28 mmHg (35-45) L 03/09/17 16:31 ABG pO2 70 mmHg (85-104) L 03/09/17 16:31 ABG O2 Saturation 95 % (95-98) 03/09/17 16:31 PT/INR, D-dimer PT 11.6 Seconds (9.4-12.1) 03/11/17 08:05 D-Dimer [id number] ng/mLFEU (0-500) H 03/07/17 15:09 Consult Discharge Plan - Plan Referrals: Hilario Steele MD [Primary Care Provider] -
[2017-03-12] MEDS: Insulin DETEMIR 100 UNIT/ML X5UNITS SQ SCH (20:57)
[2017-03-12] MEDS: Latanoprost 2.5 ML BOTTLE BOTH EYES SCH (21:17)
[2017-03-13] MEDS: Piperacillin/Tazobactam 3.375 GM/200 ML BAG IVPB SCH ×3 (02:22→16:37)
[2017-03-13] MEDS: *HR* Amiodarone 200 MG TABLET PO SCH ×2 (09:55→21:30)
[2017-03-13] MEDS: Insulin LISPRO 300 UNITS/3 ML VIAL SQ SCH ×4 (09:55→21:29)
[2017-03-13] MEDS: Magnesium Oxide 400 MG TABLET PO SCH (09:55)
[2017-03-13] MEDS: Cholecalciferol (D-3) 1,000 UNIT TABLET PO SCH (09:55)
[2017-03-13] MEDS: Aspirin 81 MG TAB.CHEW PO SCH (09:55)
[2017-03-13] MEDS: Pantoprazole 40 MG VIAL IVP SCH (09:55)
[2017-03-13] MEDS: Loratadine 10 MG TABLET PO SCH (09:55)
[2017-03-13] MEDS: Budesonide Neb 0.5 MG/2 ML IH SCH ×2 (10:55→22:06)
[2017-03-13] MEDS: Nystatin SUSP 5 ML UD.LIQ BC SCH ×4 (12:17→21:30)
--- NOTE | 2017-03-13 14:15 | Internal Med Progress Note ---
Date of Encounter: 03/13/17 Time of Encounter: 09:00 - Assessment and plan (1) Confusion Current Visit: No Status: Acute Assessment and plan: -The first time since admission, patient is alert and interacting with myself and daughter and requesting food. -Neurological workup has been negative, including EEG, and no further recommendations from neurology. -Sepsis has resolved and infection now controlled as patient's leukocytosis has resolved and no longer with fever -Continue to monitor. (2) Pneumonia Current Visit: No Status: Acute Assessment and plan: -CT of the chest showed airspace opacities at the bilateral posterior lung bases , may be related to atelectasis versus pneumonia. -Leukocytosis has resolved and patient now afebrile -Continue IV Zosyn Qualifiers: Pneumonia type: due to unspecified organism Laterality: bilateral Lung location: lower lobe of lung Qualified Code(s): J18.9 - Pneumonia, unspecified organism (3) Sepsis Current Visit: Yes Status: Resolved Assessment and plan: -Resolved Qualifiers: Sepsis type: sepsis due to unspecified organism Qualified Code(s): A41.9 - Sepsis, unspecified organism (4) Hematoma of rectus sheath Current Visit: Yes Status: Acute Assessment and plan: -S/p IR placement of drain with over 200 ml of old blood drained -There is continuous drainage this morning -Will keep drain in place for now Qualifiers: Encounter type: initial encounter Qualified Code(s): S30.1XXA - Contusion of abdominal wall, initial encounter (5) Atrial fibrillation with RVR Current Visit: Yes Status: Acute Assessment and plan: -Heart rate not controlled on amiodarone. -Continue current management. (6) Anemia Current Visit: Yes Status: Acute Assessment and plan: -Patient with acute on chronic anemia -Continue to monitor hemoglobin Qualifiers: Anemia type: other cause Other causes of anemia: acute posthemorrhagic Qualified Code(s): D62 - Acute posthemorrhagic anemia (7) Diastolic heart failure Current Visit: No Status: Acute Assessment and plan: -Stable; patient euvolemic Qualifiers: Heart failure chronicity: acute Qualified Code(s): I50.31 - Acute diastolic (congestive) heart failure (8) CAD (coronary artery disease) Current Visit: No Status: Chronic Assessment and plan: -Stable; continue beta ash and statin Qualifiers: Coronary Disease-Associated Artery/Lesion type: [place] artery [place] vs. transplanted heart: [place] heart Associated angina: angina presence unspecified Qualified Code(s): I25.10 - Atherosclerotic heart disease of [place] coronary artery without angina pectoris (9) CKD (chronic kidney disease) stage 3, GFR 30-59 ml/min Current Visit: No Status: Chronic Assessment and plan: -Creatinine now within normal limits. -Continue to monitor. (10) Diabetes mellitus Current Visit: Yes Status: Chronic Assessment and plan: -Glucose controlled; continue current management Qualifiers: Diabetes mellitus type: type 2 Diabetes mellitus complication status: with unspecified complications Diabetes mellitus [employer] insulin use: unspecified fci insulin use status Qualified Code(s): E11.8 - Type 2 diabetes mellitus with unspecified complications (11) HTN (hypertension) Current Visit: Yes Status: Chronic Assessment and plan: -Controlled; continue beta ash Qualifiers: Hypertension type: essential hypertension Qualified Code(s): I10 - Essential (primary) hypertension - Subjective Interval history: Patient is alert this morning and talking with daughter and myself on exam. This is the best patient has looked clinically since admission. She is also requesting food - Constitutional Vitals: Temp Pulse Resp BP Pulse Ox 97.9 F 103 18 133/78 97 03/13/17 11:09 03/13/17 11:09 03/13/17 11:09 03/13/17 11:09 03/13/17 11:09 General appearance: Present: A&O X 0, A&O X 1, no acute distress, severe distress - Respiratory Respiratory exam: Present: CTAB. Absent: accessory muscle use, rales, rhonchi, wheezes - Cardiovascular Cardiovascular exam: Present: RRR, +S1, +S2. Absent: diastolic murmur, gallop, rubs, systolic murmur Internal Medicine: Result - Labs CBC & Chem 7: 03/12/17 03:55 03/12/17 03:55 - ABG Interpretation ABG results: ABG ABG pH 7.44 pH Units (7.32-7.45) 03/09/17 16:31 ABG pCO2 28 mmHg (35-45) L 03/09/17 16:31 ABG pO2 70 mmHg (85-104) L 03/09/17 16:31 ABG O2 Saturation 95 % (95-98) 03/09/17 16:31 PT/INR, D-dimer PT 11.6 Seconds (9.4-12.1) 03/11/17 08:05 D-Dimer [id number] ng/mLFEU (0-500) H 03/07/17 15:09 Consult Discharge Plan - Plan Referrals: Hilario Steele MD [Primary Care Provider] -
[2017-03-13] MEDS: Latanoprost 2.5 ML BOTTLE BOTH EYES SCH (21:32)
[2017-03-13] MEDS: Insulin DETEMIR 100 UNIT/ML X5UNITS SQ SCH (21:33)
[2017-03-14] MEDS: Piperacillin/Tazobactam 3.375 GM/200 ML BAG IVPB SCH ×3 (01:03→18:24)
[2017-03-14] MEDS: Acetaminophen 325 MG TABLET PO PRN ×2 (04:32→21:03)
[2017-03-14 04:43] LABS: Basophils % 0.1 %; Eosinophils # 0.1 K/mcL (0.0-0.6); Eosinophils % 0.8 %; Hematocrit 23.4 % (35.3-44.9); Hemoglobin 7.6 g/dL (11.5-15.4); Immature Granulocytes % 0.9 % (0-4); Immature Platelets 2.6 % (1.1-6.1); Lymphocytes # 0.9 K/mcL (0.6-4.6); Mean Corpuscular HGB Conc 32.5 g/dL (31.6-35.5); Mean Corpuscular Hemoglobin 30.3 pg (28.0-33.3); Mean Corpuscular Volume 93.2 fL (83.0-100.0); Mean Platelet Volume 9.9 fL (9.4-12.4); Monocytes # 0.5 K/mcL (0.0-1.3); Monocytes % 5.2 %; Neutrophils # 8.5 K/mcL (1.6-8.9); Platelet Count 184 K/mcL (140-400); Red Blood Count 2.51 M/mcL (3.82-4.97); Red Cell Distribution Width 14.5 % (11.5-14.5)
[2017-03-14 04:54] LABS: BUN/Creatinine Ratio 13 (6-26); Blood Urea Nitrogen 13 mg/dL (8-23); Calcium 8.1 mg/dL (8.6-10.3); Carbon Dioxide 26 mEq/L (23-29); Chloride 109 mEq/L (98-107); Glucose 162 mg/dL (70-105); Osmolality,Calculated 296 (280-300); Potassium 3.4 mEq/L (3.5-5.1); Sodium 141 mEq/L (136-145); eGFR For African Americans > 60 (> 60); eGFR For Non-African Americans 52 (> 60)
[2017-03-14] MEDS: Pantoprazole 40 MG VIAL IVP SCH (09:45)
[2017-03-14] MEDS: Nystatin SUSP 5 ML UD.LIQ BC SCH ×4 (09:45→21:00)
[2017-03-14] MEDS: Cholecalciferol (D-3) 1,000 UNIT TABLET PO SCH (09:45)
[2017-03-14] MEDS: Aspirin 81 MG TAB.CHEW PO SCH (09:46)
[2017-03-14] MEDS: *HR* Amiodarone 200 MG TABLET PO SCH ×2 (09:46→21:03)
[2017-03-14] MEDS: Insulin LISPRO 300 UNITS/3 ML VIAL SQ SCH ×4 (09:46→21:04)
[2017-03-14] MEDS: Magnesium Oxide 400 MG TABLET PO SCH (09:46)
[2017-03-14] MEDS: Loratadine 10 MG TABLET PO SCH (09:46)
[2017-03-14] MEDS: Budesonide Neb 0.5 MG/2 ML IH SCH ×2 (10:30→22:21)
--- NOTE | 2017-03-14 15:51 | Internal Med Progress Note ---
Date of Encounter: 03/14/17 Time of Encounter: 10:00 - Assessment and plan (1) Confusion Current Visit: No Status: Resolved Assessment and plan: -Patient continues to be more alert this morning and interactive. -Neurological workup has been negative, including EEG, and no further recommendations from neurology. -Sepsis has resolved and infection now controlled as patient's leukocytosis has resolved and no longer with fever -Continue to monitor. (2) Pneumonia Current Visit: No Status: Acute Assessment and plan: -CT of the chest showed airspace opacities at the bilateral posterior lung bases , may be related to atelectasis versus pneumonia. -Leukocytosis has resolved and patient now afebrile -Continue IV Zosyn Qualifiers: Pneumonia type: due to unspecified organism Laterality: bilateral Lung location: lower lobe of lung Qualified Code(s): J18.9 - Pneumonia, unspecified organism (3) Sepsis Current Visit: Yes Status: Resolved Assessment and plan: -Resolved Qualifiers: Sepsis type: sepsis due to unspecified organism Qualified Code(s): A41.9 - Sepsis, unspecified organism (4) Hematoma of rectus sheath Current Visit: Yes Status: Acute Assessment and plan: -S/p IR placement of drain with over 200 ml of old blood drained; no growth in fluid cultures -There had been continuous drainage this morning -Will keep drain in place for now Qualifiers: Encounter type: initial encounter Qualified Code(s): S30.1XXA - Contusion of abdominal wall, initial encounter (5) Atrial fibrillation with RVR Current Visit: Yes Status: Acute Assessment and plan: -Heart rate not controlled on amiodarone. -Continue current management. (6) Anemia Current Visit: Yes Status: Acute Assessment and plan: -Patient with acute on chronic anemia -Continue to monitor hemoglobin Qualifiers: Anemia type: other cause Other causes of anemia: acute posthemorrhagic Qualified Code(s): D62 - Acute posthemorrhagic anemia (7) Diastolic heart failure Current Visit: No Status: Acute Assessment and plan: -Stable; patient euvolemic Qualifiers: Heart failure chronicity: acute Qualified Code(s): I50.31 - Acute diastolic (congestive) heart failure (8) CAD (coronary artery disease) Current Visit: No Status: Chronic Assessment and plan: -Stable; continue beta ash and statin Qualifiers: Coronary Disease-Associated Artery/Lesion type: [place] artery [place] vs. transplanted heart: [place] heart Associated angina: angina presence unspecified Qualified Code(s): I25.10 - Atherosclerotic heart disease of [place] coronary artery without angina pectoris (9) CKD (chronic kidney disease) stage 3, GFR 30-59 ml/min Current Visit: No Status: Chronic Assessment and plan: -Creatinine now within normal limits. -Continue to monitor. 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 Continue current management with IV Zosyn for PNA; sepsis has resolved Will likely need physical therapy for evaluation for placement at SNF for rehabilitation - Constitutional Vitals: Temp Pulse Resp BP Pulse Ox 98.3 F 97 14 150/79 92 03/14/17 14:58 03/14/17 14:58 03/14/17 14:58 03/14/17 14:58 03/14/17 14:58 General appearance: Present: A&O X 0, A&O X 1, A&O X 3, no acute distress, severe distress - Respiratory Respiratory exam: Present: CTAB. Absent: accessory muscle use, rales, rhonchi, wheezes Internal Medicine: Result - Labs CBC & Chem 7: 03/14/17 04:13 03/14/17 04:13 Labs: Short CBC 03/14/17 Range/Units 04:13 WBC 10.1 (4.3-11.1) K/mcL Hgb 7.6 L (11.5-15.4) g/dL Hct 23.4 L (35.3-44.9) % Plt Count 184 (140-400) K/mcL Neutrophils # 8.5 (1.6-8.9) K/mcL BMP 03/14/17 04:13 Sodium 141 Potassium 3.4 L Chloride 109 H Carbon Dioxide 26 BUN 13 Creatinine 1.01 Glucose 162 H Calcium 8.1 L - ABG Interpretation ABG results: ABG ABG pH 7.44 pH Units (7.32-7.45) 03/09/17 16:31 ABG pCO2 28 mmHg (35-45) L 03/09/17 16:31 ABG pO2 70 mmHg (85-104) L 03/09/17 16:31 ABG O2 Saturation 95 % (95-98) 03/09/17 16:31 PT/INR, D-dimer PT 11.6 Seconds (9.4-12.1) 03/11/17 08:05 D-Dimer [id number] ng/mLFEU (0-500) H 03/07/17 15:09 Consult Discharge Plan - Plan Referrals: Hilario Steele MD [Primary Care Provider] -
[2017-03-14] MEDS ORDERED: Ipratropium/Albuterol Neb 3 ML IH ONE (18:09)
[2017-03-14] MEDS ORDERED: *HR* Morphine 2 MG/ML SYRINGE IVP PRN (20:05)
[2017-03-14] MEDS ORDERED: Nitroglycerin 0.4 MG TAB.SUBL SL PRN (20:05)
[2017-03-14 20:59] LABS: Basophils % 0.1 %; Eosinophils % 0.4 %; Hematocrit 25.3 % (35.3-44.9); Hemoglobin 8.2 g/dL (11.5-15.4); Immature Granulocytes % 0.7 % (0-4); Immature Platelets 2.6 % (1.1-6.1); Lymphocytes % 8.9 %; Mean Corpuscular HGB Conc 32.4 g/dL (31.6-35.5); Mean Corpuscular Hemoglobin 30.5 pg (28.0-33.3); Mean Corpuscular Volume 94.1 fL (83.0-100.0); Mean Platelet Volume 9.7 fL (9.4-12.4); Monocytes # 0.4 K/mcL (0.0-1.3); Monocytes % 3.8 %; Neutrophils # 9.4 K/mcL (1.6-8.9); Platelet Count 215 K/mcL (140-400); Red Blood Count 2.69 M/mcL (3.82-4.97); Red Cell Distribution Width 14.6 % (11.5-14.5); Segmented Neutrophils % 86.1 %
[2017-03-14] MEDS: Insulin DETEMIR 100 UNIT/ML X5UNITS SQ SCH (21:03)
[2017-03-14] MEDS: Latanoprost 2.5 ML BOTTLE BOTH EYES SCH (21:04)
[2017-03-14 21:12] LABS: BUN/Creatinine Ratio 14 (6-26); Blood Urea Nitrogen 14 mg/dL (8-23); Calcium 8.3 mg/dL (8.6-10.3); Carbon Dioxide 25 mEq/L (23-29); Chloride 107 mEq/L (98-107); Glucose 191 mg/dL (70-105); Osmolality,Calculated 294 (280-300); Potassium 3.2 mEq/L (3.5-5.1); Sodium 139 mEq/L (136-145); eGFR For African Americans > 60 (> 60); eGFR For Non-African Americans 54 (> 60)
[2017-03-14 21:42] LABS: ABG Base Excess 1 mEq/L (-2 to 3); ABG HCO3 24 mEq/L (21-27); ABG Oxygen Saturation 95 % (95-98); ABG PCO2 32 mmHg (35-45); ABG PH 7.48 pH Units (7.32-7.45); ABG PO2 68 mmHg (85-104); ABG TCO2 25 mEq/L (20-26)
[2017-03-15] MEDS: Piperacillin/Tazobactam 3.375 GM/200 ML BAG IVPB SCH ×3 (01:58→17:56)
[2017-03-15] MEDS: Nystatin SUSP 5 ML UD.LIQ BC SCH ×4 (08:49→20:38)
[2017-03-15] MEDS: Loratadine 10 MG TABLET PO SCH (08:49)
[2017-03-15] MEDS: Insulin LISPRO 300 UNITS/3 ML VIAL SQ SCH ×4 (08:49→20:39)
[2017-03-15] MEDS: Pantoprazole 40 MG VIAL IVP SCH (08:49)
[2017-03-15] MEDS: Cholecalciferol (D-3) 1,000 UNIT TABLET PO SCH (08:49)
[2017-03-15] MEDS: *HR* Amiodarone 200 MG TABLET PO SCH ×2 (08:50→20:37)
[2017-03-15] MEDS: Magnesium Oxide 400 MG TABLET PO SCH (08:50)
[2017-03-15] MEDS: Aspirin 81 MG TAB.CHEW PO SCH (08:50)
[2017-03-15 09:11] LABS: RPR NON REACTIVE (Non Reactive)
[2017-03-15] MEDS: Budesonide Neb 0.5 MG/2 ML IH SCH ×2 (11:21→21:38)
--- NOTE | 2017-03-15 16:36 | Internal Med Progress Note ---
Date of Encounter: 03/15/17 Time of Encounter: 16:32 - Assessment and plan (1) Sepsis Current Visit: Yes Status: Resolved Assessment and plan: still has low grade temp added Vanco to current abx Zosyn cont close monitoring no need of IV fluids Qualifiers: Sepsis type: sepsis due to unspecified organism Qualified Code(s): A41.9 - Sepsis, unspecified organism (2) Pneumonia Current Visit: No Status: Acute Assessment and plan: CT of the chest showed airspace opacities at the bilateral posterior lung bases , may be related to atelectasis versus pneumonia mostly bacterial PNA + also possible aspiration PNA too Still having fever spikes cont Zosyn and added Vancomycin high risk for aspiration may get benefit with video swallow eval..will talk to Speech Qualifiers: Pneumonia type: due to unspecified organism Laterality: bilateral Lung location: lower lobe of lung Qualified Code(s): J18.9 - Pneumonia, unspecified organism (3) Acute respiratory failure with hypoxia Current Visit: Yes Status: Acute Assessment and plan: due to pneumonia cont O2 + Bronchodilators ordered chest PT Also started her on low dose steroids (4) Diastolic CHF Current Visit: Yes Status: Chronic Assessment and plan: not in exacerbation resumed home meds Qualifiers: Congestive heart failure chronicity: chronic Qualified Code(s): I50.32 - Chronic diastolic (congestive) heart failure (5) Altered mental status Current Visit: Yes Status: Acute Assessment and plan: acute delirium due to acute toxic encephaloapthy cont close monitoring cont broad spec abx Qualifiers: Altered mental status type: unspecified Qualified Code(s): R41.82 - Altered mental status, unspecified (6) Atrial fibrillation with RVR Current Visit: Yes Status: Acute Assessment and plan: fairly controlled cont Amiodarone also resumed home med Metoprolol (7) Hematoma of rectus sheath Current Visit: Yes Status: Acute Assessment and plan: -S/p IR placement of drain with over 200 ml of old blood drained; no growth in fluid cultures Qualifiers: Encounter type: initial encounter Qualified Code(s): S30.1XXA - Contusion of abdominal wall, initial encounter - Subjective Interval history: Ms. Cuellar is a 86 year old female with medical hx of atrial fibrillation, CHF, CAD, CVA in 1998, diabetes with insulin dependency, HLD, and HTN admitted here for acute delirium / AMS and sepsis with pneumonia. Pt was admitted in the hospital and started her on empirical abx zosyn. She ia alert, awake and oriented to self today. still looks lethargic and disoriented. Talked to pt's son at bed side. - Constitutional Vitals: Temp Pulse Resp BP Pulse Ox 98.3 F 101 20 147/74 93 03/15/17 15:48 03/15/17 15:48 03/15/17 15:48 03/15/17 15:48 03/15/17 15:48 General appearance: Present: A&O X 1, no acute distress - Head Head exam: Present: atraumatic, normal inspection - Neck Neck exam general surgery: Present: supple - Respiratory Respiratory exam: Present: decreased breath sounds, rales (mild), rhonchi (++), wheezes (moderate). Absent: respiratory distress - Cardiovascular Cardiovascular exam: Present: +S1, +S2, tachycardia. Absent: systolic murmur - GI/Abdominal GI/Abdominal exam: Present: normal bowel sounds, soft. Absent: rebound, rigid, tenderness - Extremities Exam Extremities exam: Present: pedal edema (+). Absent: calf tenderness, tenderness - Back Exam Back exam: Absent: CVA tenderness (L), CVA tenderness (R) - Neurological Exam Neurological exam: Present: alert, altered - Psychiatric Psychiatric exam: Present: depressed Internal Medicine: Result - Labs CBC & Chem 7: 03/14/17 20:47 03/14/17 20:47 Labs: Short CBC 03/14/17 Range/Units 20:47 WBC 10.9 (4.3-11.1) K/mcL Hgb 8.2 L (11.5-15.4) g/dL Hct 25.3 L (35.3-44.9) % Plt Count 215 (140-400) K/mcL Neutrophils # 9.4 H (1.6-8.9) K/mcL BMP 03/14/17 20:47 Sodium 139 Potassium 3.2 L Chloride 107 Carbon Dioxide 25 BUN 14 Creatinine 0.98 Glucose 191 H Calcium 8.3 L Cardiac Enzymes 03/14/17 Range/Units 20:47 Troponin I 0.03 (< 0.04) ng/mL - ABG Interpretation ABG results: ABG ABG pH 7.48 pH Units (7.32-7.45) H 03/14/17 21:20 ABG pCO2 32 mmHg (35-45) L 03/14/17 21:20 ABG pO2 68 mmHg (85-104) L 03/14/17 21:20 ABG O2 Saturation 95 % (95-98) 03/14/17 21:20 PT/INR, D-dimer PT 11.6 Seconds (9.4-12.1) 03/11/17 08:05 D-Dimer [id number] ng/mLFEU (0-500) H 03/07/17 15:09 - Impressions Impressions Chest X-Ray 03/14/17 20:04 IMPRESSION: No acute process. D/ / Gamaliel Santana MD / Gamaliel Santana MD Interpreting Provider: Gamaliel Santana MD Consult Discharge Plan - Plan Referrals: Hilario Steele MD [Primary Care Provider] -
[2017-03-15] MEDS: MethylPREDNISolone 40 MG/ML VIAL IVP SCH (17:57)
[2017-03-15] MEDS ORDERED: Vancomycin 1,250 MG in D5% in Water 250 ML IVPB SCH (19:00)
[2017-03-15] MEDS: Insulin DETEMIR 100 UNIT/ML X5UNITS SQ SCH (20:36)
[2017-03-15] MEDS: Latanoprost 2.5 ML BOTTLE BOTH EYES SCH (20:39)
[2017-03-16] MEDS: Piperacillin/Tazobactam 3.375 GM/200 ML BAG IVPB SCH ×2 (01:01→12:00)
[2017-03-16] MEDS: MethylPREDNISolone 40 MG/ML VIAL IVP SCH (05:35)
[2017-03-16 06:31] LABS: Basophils % 0.1 %; Hematocrit 25.2 % (35.3-44.9); Hemoglobin 8.1 g/dL (11.5-15.4); Immature Granulocytes % 0.5 % (0-4); Lymphocytes # 0.5 K/mcL (0.6-4.6); Lymphocytes % 5.4 %; Mean Corpuscular HGB Conc 32.1 g/dL (31.6-35.5); Mean Corpuscular Hemoglobin 29.8 pg (28.0-33.3); Mean Corpuscular Volume 92.6 fL (83.0-100.0); Mean Platelet Volume 9.4 fL (9.4-12.4); Monocytes # 0.1 K/mcL (0.0-1.3); Monocytes % 0.8 %; Neutrophils # 8.6 K/mcL (1.6-8.9); Platelet Count 212 K/mcL (140-400); Red Blood Count 2.72 M/mcL (3.82-4.97); Red Cell Distribution Width 14.4 % (11.5-14.5); Segmented Neutrophils % 93.2 %
[2017-03-16 06:42] LABS: BUN/Creatinine Ratio 19 (6-26); Blood Urea Nitrogen 19 mg/dL (8-23); Calcium 8.2 mg/dL (8.6-10.3); Carbon Dioxide 26 mEq/L (23-29); Chloride 107 mEq/L (98-107); Glucose 289 mg/dL (70-105); Osmolality,Calculated 301 (280-300); Potassium 3.9 mEq/L (3.5-5.1); Sodium 139 mEq/L (136-145); eGFR For African Americans > 60 (> 60); eGFR For Non-African Americans 53 (> 60)
[2017-03-16] MEDS: Budesonide Neb 0.5 MG/2 ML IH SCH ×2 (07:55→20:20)
[2017-03-16] MEDS: Insulin LISPRO 300 UNITS/3 ML VIAL SQ SCH ×4 (09:30→21:21)
[2017-03-16] MEDS: Nystatin SUSP 5 ML UD.LIQ BC SCH ×4 (10:16→21:23)
[2017-03-16] MEDS: *HR* Amiodarone 200 MG TABLET PO SCH ×2 (10:16→21:23)
[2017-03-16] MEDS: Pantoprazole 40 MG VIAL IVP SCH (10:16)
[2017-03-16] MEDS: Magnesium Oxide 400 MG TABLET PO SCH (10:16)
[2017-03-16] MEDS: Cholecalciferol (D-3) 1,000 UNIT TABLET PO SCH (10:17)
[2017-03-16] MEDS: Aspirin 81 MG TAB.CHEW PO SCH (10:17)
[2017-03-16] MEDS: Loratadine 10 MG TABLET PO SCH (10:17)
[2017-03-16 12:29] LABS: Procalcitonin 0.08 ng/mL (<=0.10)
--- NOTE | 2017-03-16 16:24 | Internal Med Progress Note ---
Date of Encounter: 03/16/17 Time of Encounter: 16:22 - Assessment and plan (1) Sepsis Current Visit: Yes Status: Resolved Assessment and plan: Improving no fever since y/d morning switched to PO Augmentin WBC trended down to normal cont close monitoring no need of IV fluids Qualifiers: Sepsis type: sepsis due to unspecified organism Qualified Code(s): A41.9 - Sepsis, unspecified organism (2) Pneumonia Current Visit: No Status: Acute Assessment and plan: CT of the chest showed airspace opacities at the bilateral posterior lung bases , may be related to atelectasis versus pneumonia mostly bacterial PNA + also possible aspiration PNA too improving.. no fever spike since y/d switched to PO Augmentin today high risk for aspiration may get benefit with video swallow eval..will talk to Speech Qualifiers: Pneumonia type: due to unspecified organism Laterality: bilateral Lung location: lower lobe of lung Qualified Code(s): J18.9 - Pneumonia, unspecified organism (3) Acute respiratory failure with hypoxia Current Visit: Yes Status: Acute Assessment and plan: due to pneumonia cont O2 + Bronchodilators ordered chest PT switched to PO steroids (4) Diastolic CHF Current Visit: Yes Status: Chronic Assessment and plan: not in exacerbation resumed home meds Qualifiers: Congestive heart failure chronicity: chronic Qualified Code(s): I50.32 - Chronic diastolic (congestive) heart failure (5) Altered mental status Current Visit: Yes Status: Acute Assessment and plan: acute delirium due to acute toxic encephaloapthy cont close monitoring cont broad spec abx Qualifiers: Altered mental status type: unspecified Qualified Code(s): R41.82 - Altered mental status, unspecified (6) Atrial fibrillation with RVR Current Visit: Yes Status: Acute Assessment and plan: well controlled on Amiodarone and home dose of Metoprolol (7) Hematoma of rectus sheath Current Visit: Yes Status: Acute Assessment and plan: S/p placement of ROLAND drain by IR; no growth in fluid cultures Talked to surgeon Dr. Colón to remove ROLAND drain cath in AM stable Hb @ 8.1 Qualifiers: Encounter type: initial encounter Qualified Code(s): S30.1XXA - Contusion of abdominal wall, initial encounter - Subjective Interval history: Ms. Cuellar is a 86 year old female with medical hx of atrial fibrillation, CHF, CAD, CVA in 1998, diabetes with insulin dependency, HLD, and HTN admitted here for acute delirium / AMS and sepsis with pneumonia. Pt was admitted in the hospital and started her on empirical abx zosyn. She ia alert, awake and oriented to place and person. still looks lethargic and weak. Talked to pt's son at bed side and explained to him about current care - Constitutional Vitals: Temp Pulse Resp BP Pulse Ox 98.6 F 74 14 139/75 96 03/16/17 15:44 03/16/17 15:44 03/16/17 15:44 03/16/17 15:44 03/16/17 15:44 General appearance: Present: A&O X 3, no acute distress, answers questions appropriately - Head Head exam: Present: atraumatic, normal inspection - Neck Neck exam general surgery: Present: supple - Respiratory Respiratory exam: Present: decreased breath sounds, rhonchi (mild rhonchi. ), wheezes (mild). Absent: rales, respiratory distress - Cardiovascular Cardiovascular exam: Present: RRR, +S1, +S2. Absent: tachycardia - GI/Abdominal GI/Abdominal exam: Present: normal bowel sounds, soft. Absent: rebound, rigid, tenderness Additional comments: ROLAND drainage tube + rectal sheath hematoma drainage cath - Extremities Exam Extremities exam: Absent: calf tenderness, pedal edema, tenderness - Back Exam Back exam: Absent: CVA tenderness (L), CVA tenderness (R) - Neurological Exam Neurological exam: Present: alert, oriented X3 - Psychiatric Psychiatric exam: Present: depressed Internal Medicine: Result - Labs CBC & Chem 7: 03/16/17 06:13 03/16/17 06:13 Labs: Short CBC 03/16/17 Range/Units 06:13 WBC 9.2 (4.3-11.1) K/mcL Hgb 8.1 L (11.5-15.4) g/dL Hct 25.2 L (35.3-44.9) % Plt Count 212 (140-400) K/mcL Neutrophils # 8.6 (1.6-8.9) K/mcL BMP 03/16/17 06:13 Sodium 139 Potassium 3.9 Chloride 107 Carbon Dioxide 26 BUN 19 Creatinine 0.99 Glucose 289 H Calcium 8.2 L - ABG Interpretation ABG results: ABG ABG pH 7.48 pH Units (7.32-7.45) H 03/14/17 21:20 ABG pCO2 32 mmHg (35-45) L 03/14/17 21:20 ABG pO2 68 mmHg (85-104) L 03/14/17 21:20 ABG O2 Saturation 95 % (95-98) 03/14/17 21:20 PT/INR, D-dimer PT 11.6 Seconds (9.4-12.1) 03/11/17 08:05 D-Dimer [id number] ng/mLFEU (0-500) H 03/07/17 15:09 Consult Discharge Plan - Plan Referrals: Hilario Steele MD [Primary Care Provider] -
[2017-03-16] MEDS: Insulin DETEMIR 100 UNIT/ML X5UNITS SQ SCH (21:21)
[2017-03-16] MEDS: Latanoprost 2.5 ML BOTTLE BOTH EYES SCH (21:23)
[2017-03-17] MEDS: Aspirin 81 MG TAB.CHEW PO SCH (07:56)
[2017-03-17] MEDS: Nystatin SUSP 5 ML UD.LIQ BC SCH ×4 (07:56→20:34)
[2017-03-17] MEDS: Loratadine 10 MG TABLET PO SCH (07:57)
[2017-03-17] MEDS: Cholecalciferol (D-3) 1,000 UNIT TABLET PO SCH (07:57)
[2017-03-17] MEDS: *HR* Amiodarone 200 MG TABLET PO SCH ×2 (07:57→20:34)
[2017-03-17] MEDS: Insulin LISPRO 300 UNITS/3 ML VIAL SQ SCH ×4 (07:57→18:08)
[2017-03-17] MEDS: Magnesium Oxide 400 MG TABLET PO SCH (07:57)
[2017-03-17] MEDS ORDERED: predniSONE 20 MG TABLET PO SCH ×2 (09:00→13:17)
[2017-03-17] MEDS: Budesonide Neb 0.5 MG/2 ML IH SCH ×2 (10:21→22:17)
[2017-03-17] MEDS ORDERED: Aminoglycoside Consult 1 EACH MC ONE (10:46)
[2017-03-17] MEDS ORDERED: Furosemide 20 MG/2 ML VIAL IVP ONE ×2 (11:32→11:36)
[2017-03-17 11:46] LABS: Mycoplasma pneumoniae IgG 0.02 U/L (<=0.09)
--- NOTE | 2017-03-17 12:56 | General Surgery Progress Note ---
Date of Encounter: 03/17/17 Time of Encounter: 12:46 Subjective Narrative: Called by Dr Mejia to remove percutaneously placed drain by Interventional Radiology. The drain was placed to evacuate a rectus sheath hematoma that had extended into the pelvis. Drainage has diminished. The patient 's medical status has improved. The drain has been removed without difficulty. A small amount dark, non clotting blood drained from the anterior abd wall as the drain was removed. A dry, sterile gauze dressing was placed. The patient tolerated removal of the drain well. RECOMMENDATIONS: continue medical management. no surgical intervention anticipated Objective Vital Signs - Last 8 Hours Temp Pulse Resp BP Pulse Ox 03/17/17 10:32 98.2 F 72 18 142/80 98 03/17/17 10:23 16 99 03/17/17 06:46 97.6 F 75 20 134/79 97 Intake and Output 03/16/17 03/17/17 03/17/17 23:59 07:59 15:59 Intake Total 500 / 500 240 / 240 Output Total 400 / 400 508 / 508 Balance 100 / 100 -508 / -508 240 / 240 Intake: IV Fluids 200 / 200 Zosyn Premix 3.375 GM/200 ML 3. 200 / 200 375 gm In 200 ml @ 50 mls/hr IVPB Q8H [facility] Rx#:[id number] Oral 300 / 300 240 / 240 Output: Catheter 400 / 400 500 / 500 Urethral (Trejo) 0 / 0 500 / 500 Wound Drainage 0 / 0 8 / 8 Right Lower Abdomen 0 / 0 8 / 8 Other: Meal Dinner Breakfast Percent of Meal Consumed 95% 90% # Urine Diapers 1 Weight 85.9 kg Blood Glucose* 398 276 216 Patient Weight 03/17/17 23:59 Weight 85.9 kg - Labs 03/16/17 06:13 03/16/17 06:13 Consult Discharge Plan - Plan Referrals: Hilario Steele MD [Primary Care Provider] -
[2017-03-17] MEDS ORDERED: *HR* Dextrose 50 % in Water (Syg) 50 ML SYRINGE IVP PRN (13:15)
[2017-03-17] MEDS ORDERED: Dextrose Gel 15 GM/37.5 ML TUBE PO PRN ×2 (13:15)
[2017-03-17] MEDS ORDERED: D5% in Water 1,000 ML IVC PRN (13:15)
--- NOTE | 2017-03-17 15:55 | Internal Med Progress Note ---
Date of Encounter: 03/17/17 Time of Encounter: 14:00 - Assessment and plan (1) Sepsis Current Visit: Yes Status: Resolved Assessment and plan: Improving no fever since last 2 days Cont PO Augmentin 2 more days WBC trended down to normal cont close monitoring Qualifiers: Sepsis type: sepsis due to unspecified organism Qualified Code(s): A41.9 - Sepsis, unspecified organism (2) Pneumonia Current Visit: No Status: Acute Assessment and plan: CT of the chest showed airspace opacities at the bilateral posterior lung bases , may be related to atelectasis versus pneumonia mostly bacterial PNA + also possible aspiration PNA too improving.. no fever spike since last 2 days Cont PO Augmentin high risk for aspiration Qualifiers: Pneumonia type: due to unspecified organism Laterality: bilateral Lung location: lower lobe of lung Qualified Code(s): J18.9 - Pneumonia, unspecified organism (3) Acute respiratory failure with hypoxia Current Visit: Yes Status: Acute Assessment and plan: due to pneumonia - noticed some vascular congestion too cont O2 + Bronchodilators Requested for chest PT switched to PO steroids started her on IV Lasix (4) Diastolic CHF Current Visit: Yes Status: Chronic Assessment and plan: seems to be in mild exacerbation started on gentle diuresis with Lasix Cont other home meds Qualifiers: Congestive heart failure chronicity: chronic Qualified Code(s): I50.32 - Chronic diastolic (congestive) heart failure (5) Altered mental status Current Visit: Yes Status: Acute Assessment and plan: acute delirium due to acute toxic encephaloapthy improved cont close monitoring Qualifiers: Altered mental status type: unspecified Qualified Code(s): R41.82 - Altered mental status, unspecified (6) Atrial fibrillation with RVR Current Visit: Yes Status: Acute Assessment and plan: well controlled on Amiodarone and home dose of Metoprolol not a candidate for anti coag due to recent rectus sheath hematoma..high risk for bleeding (7) Hematoma of rectus sheath Current Visit: Yes Status: Acute Assessment and plan: S/p placement of ROLAND drain by IR; no growth in fluid cultures Talked to surgeon Dr. Colón to remove ROLAND drain cath in AM stable Hb @ 8.1 Qualifiers: Encounter type: initial encounter Qualified Code(s): S30.1XXA - Contusion of abdominal wall, initial encounter - Subjective Interval history: Ms. Cuellar is a 86 year old female with medical hx of atrial fibrillation, CHF, CAD, CVA in 1998, diabetes with insulin dependency, HLD, and HTN admitted here for acute delirium / AMS and sepsis with pneumonia. Pt was admitted in the hospital and started her on empirical abx zosyn. Later pt developed A fib with RVR and placed her on heparin, which lead to anemia with rectal sheath hematoma. So heparin got disocntinued and pt did go for IR drainage of rectus sheath hematoma. Today she ia alert, awake and oriented to place and person. still looks lethargic and weak. Still on 4 lit O2 and does have SOB / HCAMBERS. - Constitutional Vitals: Temp Pulse Resp BP Pulse Ox 97.5 F L 83 18 151/72 99 03/17/17 15:09 03/17/17 15:09 03/17/17 15:09 03/17/17 15:09 03/17/17 15:09 General appearance: Present: A&O X 3, no acute distress, answers questions appropriately - Head Head exam: Present: atraumatic, normal inspection - Neck Neck exam general surgery: Present: supple - Respiratory Respiratory exam: Present: decreased breath sounds, rales (++), rhonchi (mild), wheezes (mild). Absent: respiratory distress - Cardiovascular Cardiovascular exam: Present: irregular rhythm, +S1, +S2. Absent: tachycardia - GI/Abdominal GI/Abdominal exam: Present: normal bowel sounds, soft. Absent: rebound, rigid, tenderness Additional comments: ROLAND drainage tube removed from abterior abdomen wall.. Dressing + - Extremities Exam Extremities exam: Present: pedal edema. Absent: calf tenderness, tenderness - Back Exam Back exam: Absent: CVA tenderness (L), CVA tenderness (R) - Neurological Exam Neurological exam: Present: alert, oriented X3 - Psychiatric Psychiatric exam: Present: depressed Internal Medicine: Result - Labs CBC & Chem 7: 03/16/17 06:13 03/16/17 06:13 - ABG Interpretation ABG results: ABG ABG pH 7.48 pH Units (7.32-7.45) H 03/14/17 21:20 ABG pCO2 32 mmHg (35-45) L 03/14/17 21:20 ABG pO2 68 mmHg (85-104) L 03/14/17 21:20 ABG O2 Saturation 95 % (95-98) 03/14/17 21:20 PT/INR, D-dimer PT 11.6 Seconds (9.4-12.1) 03/11/17 08:05 D-Dimer [id number] ng/mLFEU (0-500) H 03/07/17 15:09 Consult Discharge Plan - Plan Referrals: Hilario Steele MD [Primary Care Provider] -
[2017-03-17] MEDS: Insulin DETEMIR 100 UNIT/ML X5UNITS SQ SCH (20:34)
[2017-03-17] MEDS: Furosemide 20 MG/2 ML VIAL IVP SCH (20:34)
[2017-03-17] MEDS: Latanoprost 2.5 ML BOTTLE BOTH EYES SCH (20:36)
[2017-03-17] MEDS ORDERED: Insulin LISPRO 300 UNITS/3 ML VIAL SQ SCH (21:00)
[2017-03-18 05:41] LABS: BUN/Creatinine Ratio 28 (6-26); Blood Urea Nitrogen 29 mg/dL (8-23); Calcium 8.2 mg/dL (8.6-10.3); Carbon Dioxide 26 mEq/L (23-29); Chloride 102 mEq/L (98-107); Glucose 264 mg/dL (70-105); Magnesium 1.7 mg/dL (1.6-2.6); Osmolality,Calculated 299 (280-300); Sodium 137 mEq/L (136-145); eGFR For African Americans > 60 (> 60); eGFR For Non-African Americans 50 (> 60)
[2017-03-18] MEDS: Nystatin SUSP 5 ML UD.LIQ BC SCH ×2 (07:41→12:29)
[2017-03-18] MEDS: Cholecalciferol (D-3) 1,000 UNIT TABLET PO SCH (07:42)
[2017-03-18] MEDS: Magnesium Oxide 400 MG TABLET PO SCH (07:42)
[2017-03-18] MEDS: *HR* Amiodarone 200 MG TABLET PO SCH (07:43)
[2017-03-18] MEDS: Loratadine 10 MG TABLET PO SCH (07:43)
[2017-03-18] MEDS: Aspirin 81 MG TAB.CHEW PO SCH (07:43)
[2017-03-18] MEDS: Insulin LISPRO 300 UNITS/3 ML VIAL SQ SCH ×2 (07:46→12:29)
[2017-03-18] MEDS: Insulin DETEMIR 100 UNIT/ML X5UNITS SQ SCH ×2 (07:46→09:09)
[2017-03-18] MEDS: Furosemide 20 MG/2 ML VIAL IVP SCH (07:46)
[2017-03-18 11:09] VITALS: BP 132/74
[2017-03-18] MEDS: Budesonide Neb 0.5 MG/2 ML IH SCH (11:14)
--- NOTE | 2017-03-18 11:48 | Discharge Summary ---
Date of Encounter: 03/18/17 Time of Encounter: 11:00 - Discharge Diagnosis (1) Sepsis Priority: Primary Status: Resolved Qualifiers: Sepsis type: sepsis due to unspecified organism Qualified Code(s): A41.9 - Sepsis, unspecified organism (2) Pneumonia Priority: Primary Status: Acute Qualifiers: Pneumonia type: due to unspecified organism Laterality: bilateral Lung location: lower lobe of lung Qualified Code(s): J18.9 - Pneumonia, unspecified organism (3) Acute respiratory failure with hypoxia Priority: Primary Status: Acute (4) Diastolic CHF Priority: Secondary Status: Chronic Qualifiers: Congestive heart failure chronicity: chronic Qualified Code(s): I50.32 - Chronic diastolic (congestive) heart failure (5) Altered mental status Priority: Secondary Status: Acute Qualifiers: Altered mental status type: unspecified Qualified Code(s): R41.82 - Altered mental status, unspecified (6) Atrial fibrillation with RVR Priority: Secondary Status: Acute (7) Hematoma of rectus sheath Priority: Secondary Status: Acute Qualifiers: Encounter type: initial encounter Qualified Code(s): S30.1XXA - Contusion of abdominal wall, initial encounter - Discharge Medications Home Medications: Arformoterol Tartrate [Brovana] 15 mcg IH BID 12/13/14 [History] Aspirin Enteric Coated [Aspirin EC] 81 mg PO DAILY 12/13/14 [History] Atorvastatin [Lipitor] 20 mg PO HS 12/13/14 [History] Duloxetine [Cymbalta] 60 mg PO DAILY 12/13/14 [History] Insulin ASPART [NovoLOG] 0 units SQ TIDAC 12/13/14 [History] Insulin Glargine,Hum.rec.anlog [Lantus Solostar] 37 units SQ 12/13/14 [ History] Metoprolol XL (24 HR) Succ [Toprol XL] 50 mg PO DAILY 12/25/14 [History] Budesonide Neb [Pulmicort Neb] 0.5 mg IH BID 05/03/15 [History] Cholecalciferol (Vitamin D3) [Vitamin D3] 1,000 unit PO DAILY 05/03/15 [History] Loratadine [Claritin] 10 mg PO DAILY 05/03/15 [History] [place]-3/Dha/Epa/Fish Oil [Fish Oil 1,000 mg Softgel] 1 cap PO DAILY 05/03/15 [ History] Omeprazole [PriLOSEC] 40 mg PO DAILY 05/03/15 [History] Latanoprost 1 drop BOTH EYES HS 11/26/15 [History] Ascorbate Calcium [Vitamin C] 500 mg PO DAILY 11/04/16 [History] Ipratropium/Albuterol Neb [Duoneb] 3 ml IH TID PRN 11/04/16 [History] Magnesium Oxide [Magnesium] 400 mg PO DAILY 02/27/17 [History] Furosemide [Lasix] 40 mg PO DAILY #30 tablet 03/04/17 [Rx] Amiodarone [Cordarone] 200 mg PO BID tablet 03/18/17 [Rx] Ferrous Sulfate [Iron] 325 mg PO BID #0 03/18/17 [Rx] GuaiFENesin ER [Mucinex] 600 mg PO BID PRN tbbp.12hr 03/18/17 [Rx] predniSONE [PredniSONE] 5 mg PO DAILY #0 03/18/17 [Rx] predniSONE [PredniSONE] 30 mg PO DAILY tablet 03/18/17 [Rx] Allergies/Adverse Reactions: 3 Allergy/AdvReac Type Severity Reaction Status Date / Time isosorbide [From Imdur] Allergy Unknown See Verified 02/27/17 14:36 Comments gabapentin Allergy Hallucinati Verified 02/27/17 14:36 ng Hydralazine Allergy See Verified 02/27/17 14:36 Comments propranolol [From Inderal LA] Allergy Hallucinati Verified 02/27/17 14:36 ng alprazolam [From Xanax] AdvReac See Verified 02/27/17 14:36 Comments fentanyl AdvReac See Verified 02/27/17 14:36 Comments Baclofen AdvReac Unresponsiv Uncoded 03/08/17 11:52 e Date of admission: 03/07/17 18:49 Primary care physician: Hilario Steele MD Consults: 03/08/17 15:22 Consult to Interpret Exam [CONS] Routine Consulting Provider: Amaury Millard Consult to Interpret Exam: Interpret EEG 03/09/17 09:24 Consult to Speech Therapy [CONS] Routine Comment: Evaluate, develop and implement POC Reason for Consult: needs speech therapy and swallow eval. Call Completed: No 03/09/17 17:52 Consult to Invasive Line Access Team [CONS] Routine Reason for Consult: limited vascular access Line Type: EPIV 03/09/17 17:53 Consult to Invasive Line Access Team [CONS] Routine Reason for Consult: limited vascular access Line Type: EPIV 03/10/17 00:24 Consult to Surgery [CONS] Routine Consulting Provider: Chava Colón Reason for Consult: intrapelvic complex fluid collection measuring up to 9.8 cm.possible infected hematoma , sepsis Time Notified: 00:29 Call Completed: Yes 03/11/17 09:24 Consult to Critical Care [CONS] Routine Consulting Provider: [facility] [place] Reason for Consult: A.FIB RVR, CHANGE IN MENTAL STATUS, HYPOTENSION. Call Completed: Yes - Patient Status Disposition: Transfer SNF Condition: Good Overall status at discharge: patient is back to baseline - Discharge Instructions Follow Up With: Hilario Steele MD [Primary Care Provider] - - Diet and Activity Activity: as per physical therapy, increase activity as tolerated Diet: low salt diet Hospital course: Ms. Cuellar is a 86 year old female with medical hx of atrial fibrillation, CHF, CAD, CVA in 1998, diabetes with insulin dependency, HLD, and HTN admitted here for acute delirium / AMS and sepsis with pneumonia. Pt was admitted in the hospital and started her on empirical abx zosyn. Later pt developed A fib with RVR and placed her on heparin, which lead to anemia with rectal sheath hematoma. So heparin got discontinued and pt did go for IR drainage of rectus sheath hematoma. Pt was evaluated by surgeon, who recommend to consult IR for drainage. She did received 2 U PRBC and Hb stayed stable around @ 8.1 She did have IR drainage with ROLAND drainage tube, which got removed 2 days ago. Pt has been doing well progressively. pt finished her 10 days of abx course for her pneumonia. So will d/c her back to SNF today in stable condition with tapering steroids and PO diuretics. Talked to the pt's family at bed side and explained to them about discharge instructions y/d itself. - Time Spent with Patient Total time spent providing and/or coordinating discharge services: Greater than 30 minutes (Spent 45 minutes on this patient's discharge summary due to complex medical problems and patient needed a lot of education regarding discharge instructions) - Constitutional Vitals: Temp Pulse Resp BP Pulse Ox 97.8 F 76 14 132/74 96 03/18/17 11:07 03/18/17 11:07 03/18/17 11:07 03/18/17 11:07 03/18/17 11:07 General appearance: Present: A&O X 3, no acute distress, answers questions appropriately - Head Head exam: Present: atraumatic, normal inspection - Neck Neck exam general surgery: Present: supple - Respiratory Respiratory exam: Present: decreased breath sounds, wheezes (mild). Absent: rales, respiratory distress, rhonchi - Cardiovascular Cardiovascular exam: Present: irregular rhythm, +S1, +S2. Absent: tachycardia - GI/Abdominal GI/Abdominal exam: Present: normal bowel sounds, soft. Absent: rebound, rigid, tenderness - Extremities Exam Extremities exam: Present: pedal edema (trace). Absent: calf tenderness, tenderness - Back Exam Back exam: Absent: CVA tenderness (L), CVA tenderness (R) - Neurological Exam Neurological exam: Present: alert, oriented X3 - Psychiatric Psychiatric exam: Present: normal affect, normal mood
--- NOTE | 2017-03-18 11:50 | Physician Discharge Referral ---
ExtendedCare Referral Info Transfer To: F Provider in Charge after Transfer: PCP Institutional Level of Care: Skilled - Diagnosis (1) Sepsis Status: Resolved (2) Pneumonia Status: Acute (3) Acute respiratory failure with hypoxia Status: Acute (4) Diastolic CHF Status: Chronic (5) Altered mental status Status: Acute (6) Atrial fibrillation with RVR Status: Acute (7) Hematoma of rectus sheath Status: Acute - Transfer Medications Home Medications: Arformoterol Tartrate [Brovana] 15 mcg IH BID 12/13/14 [History] Aspirin Enteric Coated [Aspirin EC] 81 mg PO DAILY 12/13/14 [History] Atorvastatin [Lipitor] 20 mg PO HS 12/13/14 [History] Duloxetine [Cymbalta] 60 mg PO DAILY 12/13/14 [History] Insulin ASPART [NovoLOG] 0 units SQ TIDAC 12/13/14 [History] Insulin Glargine,Hum.rec.anlog [Lantus Solostar] 37 units SQ HS 12/13/14 [ History] Metoprolol XL (24 HR) Succ [Toprol XL] 50 mg PO DAILY 12/25/14 [History] Budesonide Neb [Pulmicort Neb] 0.5 mg IH BID 05/03/15 [History] Cholecalciferol (Vitamin D3) [Vitamin D3] 1,000 unit PO DAILY 05/03/15 [History] Loratadine [Claritin] 10 mg PO DAILY 05/03/15 [History] [place]-3/Dha/Epa/Fish Oil [Fish Oil 1,000 mg Softgel] 1 cap PO DAILY 05/03/15 [ History] Omeprazole [PriLOSEC] 40 mg PO DAILY 05/03/15 [History] Latanoprost 1 drop BOTH EYES HS 11/26/15 [History] Ascorbate Calcium [Vitamin C] 500 mg PO DAILY 11/04/16 [History] Ipratropium/Albuterol Neb [Duoneb] 3 ml IH TID PRN 11/04/16 [History] Magnesium Oxide [Magnesium] 400 mg PO DAILY 02/27/17 [History] Furosemide [Lasix] 40 mg PO DAILY #30 tablet 03/04/17 [Rx] Amiodarone [Cordarone] 200 mg PO BID tablet 03/18/17 [Rx] Ferrous Sulfate [Iron] 325 mg PO BID #0 03/18/17 [Rx] GuaiFENesin ER [Mucinex] 600 mg PO BID PRN tbbp.12hr 03/18/17 [Rx] predniSONE [PredniSONE] 5 mg PO DAILY #0 03/18/17 [Rx] predniSONE [PredniSONE] 30 mg PO DAILY tablet 03/18/17 [Rx] Allergies/Adverse Reactions: 3 Allergy/AdvReac Type Severity Reaction Status Date / Time isosorbide [From Imdur] Allergy Unknown See Verified 02/27/17 14:36 Comments gabapentin Allergy Hallucinati Verified 02/27/17 14:36 ng Hydralazine Allergy See Verified 02/27/17 14:36 Comments propranolol [From Inderal LA] Allergy Hallucinati Verified 02/27/17 14:36 ng alprazolam [From Xanax] AdvReac See Verified 02/27/17 14:36 Comments fentanyl AdvReac See Verified 02/27/17 14:36 Comments Baclofen AdvReac Unresponsiv Uncoded 03/08/17 11:52 e - Respiratory Orders Smoking Cessation: Smoking cessation has been advised. For more information, call the [place] Tobacco Quit Line at 7-154-VPTB-NOW. CERTIFICATION: I certify that the transfer of the above named patient to an Extended Care Facility is necessary for the continuing treatment of the diagnosis listed. The above information is true and accurate reflection of patient's current condition. Confidential - Redisclosure prohibited without a patient's written consent.
[2017-03-18] MEDS ORDERED: FLUARIX QUAD 2017-18 36MOS UP/PF 0.5 ML SYRINGE IM ONE (12:16)
[2017-03-18] MEDS ORDERED: Furosemide 20 MG/2 ML VIAL IVP SCH (17:00)
--- NOTE | 2017-03-19 11:57 | Electrocardiograph Report ---
[address] [address] Test Date: 2017-03-14 Pat Name: Bouchra Cuellar Department: 111 Room: 2NE30 Gender: F Client Care Representative: [facility] : 1930 Requested By: Jose A Watson Order Number: [id number] Reading MD: Niurka Brown Measurements Intervals [place] Rate: 106 P: 53 MA: 241 QRS: -8 QRSD: 86 T: 111 QT: 310 QTc: 372 Interpretive Statements NORMAL SINUS RHYTHM VENTRICULAR PACING Electronically Signed On 03-19-2017 11:55:42 EST by Niurka Brown
== END 2017-03-18 13:50 | DRG 871 ==
LOC: EMEROO 09:12 → 2NENU 09:12 → SUATTDRO 18:49 → ICNU 03-09 17:02 → 2NENU 03-11 19:13
PROVIDERS: ADMIT Nurse Practitioner Family; ATTEND Hospitalist
PROC: IRDRAIN (2017-03-10 13:00)

== ENCOUNTER 2017-06-29 15:21 | Inpatient (IN) ==
--- NOTE | 2017-06-29 15:41 | Emergency Department Note ---
Disposition Clinical Impression: COPD (chronic obstructive pulmonary disease), Dyspnea Disposition: Admitted As Inpatient Condition: Good General Adult HPI - General Chief complaint: ED Shortness of Breath/Dyspnea Stated complaint: dyspnea, hyperglycemia, sent from cardiology Time Seen by Provider: 06/29/17 15:39 Source: patient, family Limitations: no limitations - History of Present Illness Pain Scale: 5 - Related Data Home Medications Medication Instructions Recorded Confirmed Arformoterol Tartrate [Brovana] 15 mcg IH BID 12/13/14 06/29/17 Aspirin Enteric Coated [Aspirin EC] 81 mg PO DAILY 12/13/14 06/29/17 Atorvastatin [Lipitor] 20 mg PO HS 12/13/14 06/29/17 Duloxetine [Cymbalta] 60 mg PO DAILY 12/13/14 06/29/17 Insulin ASPART [NovoLOG] 0 units SQ TIDAC 12/13/14 06/29/17 Insulin Glargine,Hum.rec.anlog 37 units SQ HS 12/13/14 06/29/17 [Lantus Solostar] Budesonide Neb [Pulmicort Neb] 0.5 mg IH BID 05/03/15 06/29/17 Cholecalciferol (Vitamin D3) 1,000 unit PO DAILY 05/03/15 06/29/17 [Vitamin D3] Loratadine [Claritin] 10 mg PO DAILY 05/03/15 06/29/17 [place]-3/Dha/Epa/Fish Oil [Fish Oil 1 cap PO DAILY 05/03/15 06/29/17 1,000 mg Softgel] Omeprazole [PriLOSEC] 40 mg PO DAILY 05/03/15 06/29/17 Latanoprost 1 drop BOTH EYES HS 11/26/15 06/29/17 Ascorbate Calcium [Vitamin C] 500 mg PO DAILY 11/04/16 06/29/17 Ipratropium/Albuterol Neb [Duoneb] 3 ml IH TID PRN 11/04/16 06/29/17 Magnesium Oxide [Magnesium] 400 mg PO DAILY 02/27/17 06/29/17 Amlodipine Besylate 2.5 mg PO DAILY 06/29/17 06/29/17 Diclofenac Sodium [Voltaren] 1 appl TP DAILY PRN 06/29/17 06/29/17 Levothyroxine [Synthroid] 25 mcg PO DAILY 06/29/17 06/29/17 Levothyroxine [Synthroid] 25 mcg PO DAILY 06/29/17 06/29/17 Tramadol HCl [Ultram] 50 mg PO TID PRN 06/29/17 06/29/17 predniSONE [PredniSONE] 5 mg PO DAILY 06/29/17 06/29/17 predniSONE [PredniSONE] 5 mg PO DAILY 06/29/17 06/29/17 Previous Rx's Medication Instructions Recorded Furosemide [Lasix] 40 mg PO DAILY #30 tablet 03/04/17 Ferrous Sulfate [Iron] 325 mg PO BID #0 03/18/17 Allergies Allergy/AdvReac Type Severity Reaction Status Date / Time isosorbide [From Imdur] Allergy Unknown See Verified 02/27/17 14:36 Comments gabapentin Allergy Hallucinati Verified 02/27/17 14:36 ng Hydralazine Allergy See Verified 02/27/17 14:36 Comments propranolol [From Inderal LA] Allergy Hallucinati Verified 02/27/17 14:36 ng alprazolam [From Xanax] AdvReac See Verified 02/27/17 14:36 Comments fentanyl AdvReac See Verified 02/27/17 14:36 Comments Baclofen AdvReac Unresponsiv Uncoded 03/08/17 11:52 e Past Medical History - Past Medical History Medical history: Reports: atrial fibrillation, CHF, coronary artery disease, CVA , diabetes, hyperlipidemia, hypertension, renal disease Surgical history: Reports: angioplasty/stent, carotid endarterectomy, cholecystectomy, pacemaker/AICD, other Psychiatric history: Reports: anxiety - Social History Smoking Status: Never smoker Smokeless Tobacco Status: No Alcohol use: Reports: none Drug use: Reports: none Physical Exam - General Limitations: no limitations General appearance: alert Course Vital Signs Temperature 97.8 F 06/29/17 15:22 Pulse Rate 70 06/29/17 15:22 Respiratory Rate 20 06/29/17 15:22 Blood Pressure 116/72 06/29/17 15:22 O2 Sat by Pulse Oximetry 98 06/29/17 15:22 Temperature 97.5 F L 06/29/17 20:50 Pulse Rate 68 06/29/17 20:50 Respiratory Rate 19 06/29/17 20:50 Blood Pressure 123/71 06/29/17 20:50 O2 Sat by Pulse Oximetry 94 06/29/17 20:50 Oxygen Delivery Oxygen Delivery Nasal Cannula Medical Decision Making - Lab Data Result diagrams: 06/29/17 15:55 06/29/17 15:55 Lab Results 06/29/17 06/29/17 06/29/17 Range/Units 15:55 15:55 15:55 WBC 9.1 (4.3-11.1) K/mcL RBC 4.00 (3.82-4.97) M/mcL Hgb 12.1 (11.5-15.4) g/dL Hct 36.4 (35.3-44.9) % MCV 91.0 (83.0-100.0) fL MCH 30.3 (28.0-33.3) pg MCHC 33.2 (31.6-35.5) g/dL RDW 14.3 (11.5-14.5) % Plt Count 200 (140-400) K/mcL MPV 10.1 (9.4-12.4) fL Immature Gran % 0.4 (0-4) % Seg Neutrophils % 79.3 % Lymphocytes % 13.7 % Monocytes % 5.5 % Eosinophils % 0.9 % Basophils % 0.2 % Neutrophils # 7.2 (1.6-8.9) K/mcL Lymphocytes # 1.2 (0.6-4.6) K/mcL Monocytes # 0.5 (0.0-1.3) K/mcL Eosinophils # 0.1 (0.0-0.6) K/mcL Basophils # 0.0 (0.0-0.2) K/mcL PT (9.4-12.1) Seconds INR APTT (26.0-36.0) Seconds VBG pH (7.32-7.42) pH Units VBG pCO2 (41-51) mmHg VBG pO2 (25-50) mmHg VBG HCO3 (21-27) mEq/L Sodium 135 L (136-145) mEq/L Potassium 4.0 (3.5-5.1) mEq/L Chloride 97 L (98-107) mEq/L Carbon Dioxide 27 (23-29) mEq/L BUN 33 H (8-23) mg/dL Creatinine 1.50 H (0.60-1.20) mg/dL Est GFR ( Amer) 40 L (> 60) Est GFR (Non-Af Amer) 33 L (> 60) BUN/Creatinine Ratio 22 (6-26) Glucose 440 H (70-105) mg/dL Calculated Osmolality 306 H (280-300) Lactic Acid 4.0 H* (0.5-2.2) mmol/L Calcium 9.3 (8.6-10.3) mg/dL Total Bilirubin 0.4 (0.3-1.0) mg/dL Direct Bilirubin 0.1 (0.0-0.2) mg/dL Indirect Bilirubin 0.3 (0.0-1.2) mg/dL AST 14 (13-39) Units/L ALT 14 (7-52) Units/L Alkaline Phosphatase 66 (34-104) Units/L Troponin I < 0.03 (< 0.04) ng/mL B-Natriuretic Peptide (Less than 100) pg/mL Serum Total Protein 6.5 (6.4-8.9) g/dL Albumin 4.0 (3.5-5.7) g/dL Globulin 2.5 (2.4-3.5) g/dL Albumin/Globulin Ratio 1.6 (1.1-2.2) Beta-Hydroxybutyric Acd (0.02-0.27) mmol/L Urine Color (Yellow) Urine Clarity (Clear) Urine pH (5.0-8.0) pH Units Ur Specific [place] (1.010-1.025) Urine Protein (Neg-Trace) mg/dL Urine Glucose (UA) (Normal) mg/dL Urine Ketones (Negative) mg/dL Urine Blood (Negative) Urine Nitrite (Negative) Urine Bilirubin (Negative) Urine Urobilinogen (Normal) mg/dL Ur Leukocyte Esterase (Negative) Ur Culture Indicated? (NO) 06/29/17 06/29/17 06/29/17 Range/Units 15:55 15:55 15:55 WBC (4.3-11.1) K/mcL RBC (3.82-4.97) M/mcL Hgb (11.5-15.4) g/dL Hct (35.3-44.9) % MCV (83.0-100.0) fL MCH (28.0-33.3) pg MCHC (31.6-35.5) g/dL RDW (11.5-14.5) % Plt Count (140-400) K/mcL MPV (9.4-12.4) fL Immature Gran % (0-4) % Seg Neutrophils % % Lymphocytes % % Monocytes % % Eosinophils % % Basophils % % Neutrophils # (1.6-8.9) K/mcL Lymphocytes # (0.6-4.6) K/mcL Monocytes # (0.0-1.3) K/mcL Eosinophils # (0.0-0.6) K/mcL Basophils # (0.0-0.2) K/mcL PT 10.9 (9.4-12.1) Seconds INR 1.0 APTT 24.1 L (26.0-36.0) Seconds VBG pH (7.32-7.42) pH Units VBG pCO2 (41-51) mmHg VBG pO2 (25-50) mmHg VBG HCO3 (21-27) mEq/L Sodium (136-145) mEq/L Potassium (3.5-5.1) mEq/L Chloride (98-107) mEq/L Carbon Dioxide (23-29) mEq/L BUN (8-23) mg/dL Creatinine (0.60-1.20) mg/dL Est GFR ( Amer) (> 60) Est GFR (Non-Af Amer) (> 60) BUN/Creatinine Ratio (6-26) Glucose (70-105) mg/dL Calculated Osmolality (280-300) Lactic Acid (0.5-2.2) mmol/L Calcium (8.6-10.3) mg/dL Total Bilirubin (0.3-1.0) mg/dL Direct Bilirubin (0.0-0.2) mg/dL Indirect Bilirubin (0.0-1.2) mg/dL AST (13-39) Units/L ALT (7-52) Units/L Alkaline Phosphatase (34-104) Units/L Troponin I (< 0.04) ng/mL B-Natriuretic Peptide 60 (Less than 100) pg/mL Serum Total Protein (6.4-8.9) g/dL Albumin (3.5-5.7) g/dL Globulin (2.4-3.5) g/dL Albumin/Globulin Ratio (1.1-2.2) Beta-Hydroxybutyric Acd 0.22 (0.02-0.27) mmol/L Urine Color (Yellow) Urine Clarity (Clear) Urine pH (5.0-8.0) pH Units Ur Specific [place] (1.010-1.025) Urine Protein (Neg-Trace) mg/dL Urine Glucose (UA) (Normal) mg/dL Urine Ketones (Negative) mg/dL Urine Blood (Negative) Urine Nitrite (Negative) Urine Bilirubin (Negative) Urine Urobilinogen (Normal) mg/dL Ur Leukocyte Esterase (Negative) Ur Culture Indicated? (NO) 06/29/17 06/29/17 06/29/17 Range/Units 16:08 16:40 18:01 WBC (4.3-11.1) K/mcL RBC (3.82-4.97) M/mcL Hgb (11.5-15.4) g/dL Hct (35.3-44.9) % MCV (83.0-100.0) fL MCH (28.0-33.3) pg MCHC (31.6-35.5) g/dL RDW (11.5-14.5) % Plt Count (140-400) K/mcL MPV (9.4-12.4) fL Immature Gran % (0-4) % Seg Neutrophils % % Lymphocytes % % Monocytes % % Eosinophils % % Basophils % % Neutrophils # (1.6-8.9) K/mcL Lymphocytes # (0.6-4.6) K/mcL Monocytes # (0.0-1.3) K/mcL Eosinophils # (0.0-0.6) K/mcL Basophils # (0.0-0.2) K/mcL PT (9.4-12.1) Seconds INR APTT (26.0-36.0) Seconds VBG pH 7.44 H (7.32-7.42) pH Units VBG pCO2 39 L (41-51) mmHg VBG pO2 34 (25-50) mmHg VBG HCO3 26 (21-27) mEq/L Sodium (136-145) mEq/L Potassium (3.5-5.1) mEq/L Chloride (98-107) mEq/L Carbon Dioxide (23-29) mEq/L BUN (8-23) mg/dL Creatinine (0.60-1.20) mg/dL Est GFR ( Amer) (> 60) Est GFR (Non-Af Amer) (> 60) BUN/Creatinine Ratio (6-26) Glucose (70-105) mg/dL Calculated Osmolality (280-300) Lactic Acid 1.6 (0.5-2.2) mmol/L Calcium (8.6-10.3) mg/dL Total Bilirubin (0.3-1.0) mg/dL Direct Bilirubin (0.0-0.2) mg/dL Indirect Bilirubin (0.0-1.2) mg/dL AST (13-39) Units/L ALT (7-52) Units/L Alkaline Phosphatase (34-104) Units/L Troponin I (< 0.04) ng/mL B-Natriuretic Peptide (Less than 100) pg/mL Serum Total Protein (6.4-8.9) g/dL Albumin (3.5-5.7) g/dL Globulin (2.4-3.5) g/dL Albumin/Globulin Ratio (1.1-2.2) Beta-Hydroxybutyric Acd (0.02-0.27) mmol/L Urine Color Yellow (Yellow) Urine Clarity Clear (Clear) Urine pH 6.0 (5.0-8.0) pH Units Ur Specific [place] 1.028 H (1.010-1.025) Urine Protein Negative (Neg-Trace) mg/dL Urine Glucose (UA) >=1000 H (Normal) mg/dL Urine Ketones Negative (Negative) mg/dL Urine Blood Negative (Negative) Urine Nitrite Negative (Negative) Urine Bilirubin Negative (Negative) Urine Urobilinogen Normal (Normal) mg/dL Ur Leukocyte Esterase Negative (Negative) Ur Culture Indicated? NO (NO) Attestation Statement - Attestation Attestation: I examined this patient and my medical decision-making was reviewed with the Resident Physician. I agree with the documented findings, disposition and treatment plan as described except to the extent set forth below. [id number] time provided Patient arrives visibly dyspneic. She is able to speak but does appear tachypneic and dyspneic with mild pursed lip breathing. Patient evaluated in conjunction with the resident physician Dr. Arcos 19:44: The patient remains tachypneic but not hypoxic. I have reviewed her workup dated February 2017 and see that she had a ventilation perfusion scan at that time with a low probability for a PE. I have a low suspicion that her symptoms are due to a PE at this time
[2017-06-29 16:04] LABS: Basophils % 0.2 %; Eosinophils # 0.1 K/mcL (0.0-0.6); Eosinophils % 0.9 %; Hematocrit 36.4 % (35.3-44.9); Hemoglobin 12.1 g/dL (11.5-15.4); Immature Granulocytes % 0.4 % (0-4); Lymphocytes # 1.2 K/mcL (0.6-4.6); Lymphocytes % 13.7 %; Mean Corpuscular HGB Conc 33.2 g/dL (31.6-35.5); Mean Corpuscular Hemoglobin 30.3 pg (28.0-33.3); Mean Platelet Volume 10.1 fL (9.4-12.4); Monocytes # 0.5 K/mcL (0.0-1.3); Monocytes % 5.5 %; Neutrophils # 7.2 K/mcL (1.6-8.9); Platelet Count 200 K/mcL (140-400); Red Cell Distribution Width 14.3 % (11.5-14.5); Segmented Neutrophils % 79.3 %
[2017-06-29 16:11] LABS: VBG HCO3 26 mEq/L (21-27); VBG PCO2 39 mmHg (41-51); VBG PH 7.44 pH Units (7.32-7.42); VBG PO2 34 mmHg (25-50)
[2017-06-29 16:24] LABS: Prothrombin Time 10.9 Seconds (9.4-12.1)
[2017-06-29 16:26] LABS: Activated Partial Thrombo Time 24.1 Seconds (26.0-36.0)
[2017-06-29 16:32] LABS: Alanine Aminotransferase 14 Units/L (7-52); Albumin/Globulin Ratio 1.6 (1.1-2.2); Alkaline Phosphatase 66 Units/L (34-104); Aspartate Amino Transferase 14 Units/L (13-39); BUN/Creatinine Ratio 22 (6-26); Bilirubin,Direct 0.1 mg/dL (0.0-0.2); Bilirubin,Indirect 0.3 mg/dL (0.0-1.2); Bilirubin,Total 0.4 mg/dL (0.3-1.0); Blood Urea Nitrogen 33 mg/dL (8-23); Calcium 9.3 mg/dL (8.6-10.3); Carbon Dioxide 27 mEq/L (23-29); Chloride 97 mEq/L (98-107); Globulin 2.5 g/dL (2.4-3.5); Glucose 440 mg/dL (70-105); Osmolality,Calculated 306 (280-300); Sodium 135 mEq/L (136-145); Total Protein 6.5 g/dL (6.4-8.9); Troponin I < 0.03 ng/mL (< 0.04); eGFR For African Americans 40 (> 60); eGFR For Non-African Americans 33 (> 60)
[2017-06-29 16:57] LABS: Bilirubin,Urine Negative (Negative); Blood,Urine Negative (Negative); Clarity,Urine Clear (Clear); Color,Urine Yellow (Yellow); Glucose,Urine (UA) >=1000 mg/dL (Normal); Ketones,Urine Negative (Negative); Leukocyte Esterase,Urine Negative (Negative); Nitrite,Urine Negative (Negative); Protein,Urine Negative (Neg-Trace); Specific Gravity,Urine 1.028 (1.010-1.025); Urobilinogen,Urine Normal (Normal)
[2017-06-29] MEDS ORDERED: Ipratropium/Albuterol Neb 3 ML IH ONE (17:23)
[2017-06-29] MEDS ORDERED: Insulin Human Regular 10 UNIT in 0.9 % Sodium Chloride 10 ML IV ONE (17:54)
[2017-06-29] MEDS ORDERED: Levofloxacin 500 MG/100 ML 500 MG/100 ML BAG IVPB ONE (19:06)
--- NOTE | 2017-06-29 20:21 | Emergency Department Note ---
Disposition Clinical Impression: COPD (chronic obstructive pulmonary disease), Dyspnea Disposition: Admitted As Inpatient Condition: Good General Adult HPI - General Chief complaint: ED Shortness of Breath/Dyspnea Stated complaint: dyspnea, hyperglycemia, sent from cardiology Time Seen by Provider: 06/29/17 15:39 Source: patient, family Mode of arrival: ambulatory Limitations: no limitations Nursing Notes Reviewed: Yes Vital Signs Reviewed: Yes - History of Present Illness HPI Narrative: Patient presenting the ED with the chief complaint of hyperglycemia and shortness of breath. Patient reports that she just does not feel well. She said a mild cough recently. Denies any fever. States that she feels quite anxious because she has had a lot going on. She does not history of COPD and did have a DuoNeb prior to coming in, which she states helped a little bit. She is complaining of some epigastric discomfort. She denies any vomiting but does state she had some diarrhea yesterday. No rashes. She is just concerned because she does not a significant history of CHF, COPD and CAD. Pain Scale: 0 - Related Data Home Medications Medication Instructions Recorded Confirmed Arformoterol Tartrate [Brovana] 15 mcg IH BID 12/13/14 06/29/17 Aspirin Enteric Coated [Aspirin EC] 81 mg PO DAILY 12/13/14 06/29/17 Atorvastatin [Lipitor] 20 mg PO HS 12/13/14 06/29/17 Duloxetine [Cymbalta] 60 mg PO DAILY 12/13/14 06/29/17 Insulin ASPART [NovoLOG] 0 units SQ TIDAC 12/13/14 06/29/17 Insulin Glargine,Hum.rec.anlog 37 units SQ 12/13/14 06/29/17 [Lantus Solostar] Budesonide Neb [Pulmicort Neb] 0.5 mg IH BID 05/03/15 06/29/17 Cholecalciferol (Vitamin D3) 1,000 unit PO DAILY 05/03/15 06/29/17 [Vitamin D3] Loratadine [Claritin] 10 mg PO DAILY 05/03/15 06/29/17 [place]-3/Dha/Epa/Fish Oil [Fish Oil 1 cap PO DAILY 05/03/15 06/29/17 1,000 mg Softgel] Omeprazole [PriLOSEC] 40 mg PO DAILY 05/03/15 06/29/17 Latanoprost 1 drop BOTH EYES HS 11/26/15 06/29/17 Ascorbate Calcium [Vitamin C] 500 mg PO DAILY 11/04/16 06/29/17 Ipratropium/Albuterol Neb [Duoneb] 3 ml IH TID PRN 11/04/16 06/29/17 Magnesium Oxide [Magnesium] 400 mg PO DAILY 02/27/17 06/29/17 Amlodipine Besylate 2.5 mg PO DAILY 06/29/17 06/29/17 Diclofenac Sodium [Voltaren] 1 appl TP DAILY PRN 06/29/17 06/29/17 Levothyroxine [Synthroid] 25 mcg PO DAILY 06/29/17 06/29/17 Levothyroxine [Synthroid] 25 mcg PO DAILY 06/29/17 06/29/17 Tramadol HCl [Ultram] 50 mg PO TID PRN 06/29/17 06/29/17 predniSONE [PredniSONE] 5 mg PO DAILY 06/29/17 06/29/17 predniSONE [PredniSONE] 5 mg PO DAILY 06/29/17 06/29/17 Previous Rx's Medication Instructions Recorded Furosemide [Lasix] 40 mg PO DAILY #30 tablet 03/04/17 Ferrous Sulfate [Iron] 325 mg PO BID #0 03/18/17 Allergies Allergy/AdvReac Type Severity Reaction Status Date / Time isosorbide [From Imdur] Allergy Unknown See Verified 02/27/17 14:36 Comments gabapentin Allergy Hallucinati Verified 02/27/17 14:36 ng Hydralazine Allergy See Verified 02/27/17 14:36 Comments propranolol [From Inderal LA] Allergy Hallucinati Verified 02/27/17 14:36 ng alprazolam [From Xanax] AdvReac See Verified 02/27/17 14:36 Comments fentanyl AdvReac See Verified 02/27/17 14:36 Comments Baclofen AdvReac Unresponsiv Uncoded 03/08/17 11:52 e Review of Systems: As reviewed in the HPI. All other systems reviewed are negative or normal. Past Medical History - Past Medical History Attestation: Yes The following information was validated with the patient. Source: patient, old records reviewed Medical history: Reports: atrial fibrillation, CHF, coronary artery disease, CVA , diabetes, hyperlipidemia, hypertension, renal disease Surgical history: Reports: angioplasty/stent, carotid endarterectomy, cholecystectomy, pacemaker/AICD, other Psychiatric history: Reports: anxiety - Social History Smoking Status: Never smoker Smokeless Tobacco Status: No Alcohol use: Reports: none Drug use: Reports: none Physical Exam - General Limitations: no limitations General appearance: alert, anxious - Head Head exam: atraumatic, normocephalic, normal inspection - Chest Chest inspection: Present: normal inspection, symmetric chest wall rise - Respiratory Respiratory exam: Present: respiratory distress (tachypnea), wheezes (end exp ) . Absent: normal lung sounds bilaterally - Cardiovascular Cardiovascular exam: Present: regular rate, normal rhythm - Abdominal Exam Abdominal exam: Present: soft, Non-Tender. Absent: tenderness, distention, guarding, rebound, rigidity - Extremities Exam Extremities exam: Present: normal inspection, full ROM, pedal edema. Absent: tenderness - Neurological Exam Neurological exam: Present: alert, oriented X3 - Psychiatric Psychiatric exam: Present: anxious - Skin Skin exam: Present: warm, dry, intact, normal color Course Course Narrative: Patient presenting with dyspnea and abdominal pain. has significant comorbidities. Workup started and will likely admit. - Reevaluation(s) Reevaluation #1: Labs are back and are relatively unremarkable with no clear source of infection. Patient's family thinks that she could be anxious due to some issues at home, but patient still reports that she just does not feel well. Her lactic acid came back elevated, although we have no clear source for this. I spoke with the hospitalist for admission. He did accept the patient but wanted to get a CT of her abdomen and pelvis prior to being admitted. Reevaluation #2: CT is back and is relatively unremarkable. patient will be admitted Vital Signs Temperature 97.8 F 06/29/17 15:22 Pulse Rate 70 06/29/17 15:22 Respiratory Rate 20 06/29/17 15:22 Blood Pressure 116/72 06/29/17 15:22 O2 Sat by Pulse Oximetry 98 06/29/17 15:22 Temperature 97.8 F 06/29/17 15:22 Pulse Rate 101 06/29/17 19:23 Respiratory Rate 18 06/29/17 20:08 Blood Pressure 137/78 06/29/17 20:08 O2 Sat by Pulse Oximetry 96 06/29/17 19:23 Oxygen Delivery Oxygen Delivery Nasal Cannula Medical Decision Making - Medical Records Medical records reviewed: Yes I reviewed the patient's medical records. - Lab Data Lab results reviewed: Yes I reviewed the patient's lab results. Result diagrams: 06/29/17 15:55 06/29/17 15:55 Lab Results 06/29/17 06/29/17 06/29/17 Range/Units 15:55 15:55 15:55 WBC 9.1 (4.3-11.1) K/mcL RBC 4.00 (3.82-4.97) M/mcL Hgb 12.1 (11.5-15.4) g/dL Hct 36.4 (35.3-44.9) % MCV 91.0 (83.0-100.0) fL MCH 30.3 (28.0-33.3) pg MCHC 33.2 (31.6-35.5) g/dL RDW 14.3 (11.5-14.5) % Plt Count 200 (140-400) K/mcL MPV 10.1 (9.4-12.4) fL Immature Gran % 0.4 (0-4) % Seg Neutrophils % 79.3 % Lymphocytes % 13.7 % Monocytes % 5.5 % Eosinophils % 0.9 % Basophils % 0.2 % Neutrophils # 7.2 (1.6-8.9) K/mcL Lymphocytes # 1.2 (0.6-4.6) K/mcL Monocytes # 0.5 (0.0-1.3) K/mcL Eosinophils # 0.1 (0.0-0.6) K/mcL Basophils # 0.0 (0.0-0.2) K/mcL PT (9.4-12.1) Seconds INR APTT (26.0-36.0) Seconds VBG pH (7.32-7.42) pH Units VBG pCO2 (41-51) mmHg VBG pO2 (25-50) mmHg VBG HCO3 (21-27) mEq/L Sodium 135 L (136-145) mEq/L Potassium 4.0 (3.5-5.1) mEq/L Chloride 97 L (98-107) mEq/L Carbon Dioxide 27 (23-29) mEq/L BUN 33 H (8-23) mg/dL Creatinine 1.50 H (0.60-1.20) mg/dL Est GFR ( Amer) 40 L (> 60) Est GFR (Non-Af Amer) 33 L (> 60) BUN/Creatinine Ratio 22 (6-26) Glucose 440 H (70-105) mg/dL Calculated Osmolality 306 H (280-300) Lactic Acid 4.0 H* (0.5-2.2) mmol/L Calcium 9.3 (8.6-10.3) mg/dL Total Bilirubin 0.4 (0.3-1.0) mg/dL Direct Bilirubin 0.1 (0.0-0.2) mg/dL Indirect Bilirubin 0.3 (0.0-1.2) mg/dL AST 14 (13-39) Units/L ALT 14 (7-52) Units/L Alkaline Phosphatase 66 (34-104) Units/L Troponin I < 0.03 (< 0.04) ng/mL B-Natriuretic Peptide (Less than 100) pg/mL Serum Total Protein 6.5 (6.4-8.9) g/dL Albumin 4.0 (3.5-5.7) g/dL Globulin 2.5 (2.4-3.5) g/dL Albumin/Globulin Ratio 1.6 (1.1-2.2) Beta-Hydroxybutyric Acd (0.02-0.27) mmol/L Urine Color (Yellow) Urine Clarity (Clear) Urine pH (5.0-8.0) pH Units Ur Specific [place] (1.010-1.025) Urine Protein (Neg-Trace) mg/dL Urine Glucose (UA) (Normal) mg/dL Urine Ketones (Negative) mg/dL Urine Blood (Negative) Urine Nitrite (Negative) Urine Bilirubin (Negative) Urine Urobilinogen (Normal) mg/dL Ur Leukocyte Esterase (Negative) Ur Culture Indicated? (NO) 06/29/17 06/29/17 06/29/17 Range/Units 15:55 15:55 15:55 WBC (4.3-11.1) K/mcL RBC (3.82-4.97) M/mcL Hgb (11.5-15.4) g/dL Hct (35.3-44.9) % MCV (83.0-100.0) fL MCH (28.0-33.3) pg MCHC (31.6-35.5) g/dL RDW (11.5-14.5) % Plt Count (140-400) K/mcL MPV (9.4-12.4) fL Immature Gran % (0-4) % Seg Neutrophils % % Lymphocytes % % Monocytes % % Eosinophils % % Basophils % % Neutrophils # (1.6-8.9) K/mcL Lymphocytes # (0.6-4.6) K/mcL Monocytes # (0.0-1.3) K/mcL Eosinophils # (0.0-0.6) K/mcL Basophils # (0.0-0.2) K/mcL PT 10.9 (9.4-12.1) Seconds INR 1.0 APTT 24.1 L (26.0-36.0) Seconds VBG pH (7.32-7.42) pH Units VBG pCO2 (41-51) mmHg VBG pO2 (25-50) mmHg VBG HCO3 (21-27) mEq/L Sodium (136-145) mEq/L Potassium (3.5-5.1) mEq/L Chloride (98-107) mEq/L Carbon Dioxide (23-29) mEq/L BUN (8-23) mg/dL Creatinine (0.60-1.20) mg/dL Est GFR ( Amer) (> 60) Est GFR (Non-Af Amer) (> 60) BUN/Creatinine Ratio (6-26) Glucose (70-105) mg/dL Calculated Osmolality (280-300) Lactic Acid (0.5-2.2) mmol/L Calcium (8.6-10.3) mg/dL Total Bilirubin (0.3-1.0) mg/dL Direct Bilirubin (0.0-0.2) mg/dL Indirect Bilirubin (0.0-1.2) mg/dL AST (13-39) Units/L ALT (7-52) Units/L Alkaline Phosphatase (34-104) Units/L Troponin I (< 0.04) ng/mL B-Natriuretic Peptide 60 (Less than 100) pg/mL Serum Total Protein (6.4-8.9) g/dL Albumin (3.5-5.7) g/dL Globulin (2.4-3.5) g/dL Albumin/Globulin Ratio (1.1-2.2) Beta-Hydroxybutyric Acd 0.22 (0.02-0.27) mmol/L Urine Color (Yellow) Urine Clarity (Clear) Urine pH (5.0-8.0) pH Units Ur Specific [place] (1.010-1.025) Urine Protein (Neg-Trace) mg/dL Urine Glucose (UA) (Normal) mg/dL Urine Ketones (Negative) mg/dL Urine Blood (Negative) Urine Nitrite (Negative) Urine Bilirubin (Negative) Urine Urobilinogen (Normal) mg/dL Ur Leukocyte Esterase (Negative) Ur Culture Indicated? (NO) 06/29/17 06/29/17 06/29/17 Range/Units 16:08 16:40 18:01 WBC (4.3-11.1) K/mcL RBC (3.82-4.97) M/mcL Hgb (11.5-15.4) g/dL Hct (35.3-44.9) % MCV (83.0-100.0) fL MCH (28.0-33.3) pg MCHC (31.6-35.5) g/dL RDW (11.5-14.5) % Plt Count (140-400) K/mcL MPV (9.4-12.4) fL Immature Gran % (0-4) % Seg Neutrophils % % Lymphocytes % % Monocytes % % Eosinophils % % Basophils % % Neutrophils # (1.6-8.9) K/mcL Lymphocytes # (0.6-4.6) K/mcL Monocytes # (0.0-1.3) K/mcL Eosinophils # (0.0-0.6) K/mcL Basophils # (0.0-0.2) K/mcL PT (9.4-12.1) Seconds INR APTT (26.0-36.0) Seconds VBG pH 7.44 H (7.32-7.42) pH Units VBG pCO2 39 L (41-51) mmHg VBG pO2 34 (25-50) mmHg VBG HCO3 26 (21-27) mEq/L Sodium (136-145) mEq/L Potassium (3.5-5.1) mEq/L Chloride (98-107) mEq/L Carbon Dioxide (23-29) mEq/L BUN (8-23) mg/dL Creatinine (0.60-1.20) mg/dL Est GFR ( Amer) (> 60) Est GFR (Non-Af Amer) (> 60) BUN/Creatinine Ratio (6-26) Glucose (70-105) mg/dL Calculated Osmolality (280-300) Lactic Acid 1.6 (0.5-2.2) mmol/L Calcium (8.6-10.3) mg/dL Total Bilirubin (0.3-1.0) mg/dL Direct Bilirubin (0.0-0.2) mg/dL Indirect Bilirubin (0.0-1.2) mg/dL AST (13-39) Units/L ALT (7-52) Units/L Alkaline Phosphatase (34-104) Units/L Troponin I (< 0.04) ng/mL B-Natriuretic Peptide (Less than 100) pg/mL Serum Total Protein (6.4-8.9) g/dL Albumin (3.5-5.7) g/dL Globulin (2.4-3.5) g/dL Albumin/Globulin Ratio (1.1-2.2) Beta-Hydroxybutyric Acd (0.02-0.27) mmol/L Urine Color Yellow (Yellow) Urine Clarity Clear (Clear) Urine pH 6.0 (5.0-8.0) pH Units Ur Specific [place] 1.028 H (1.010-1.025) Urine Protein Negative (Neg-Trace) mg/dL Urine Glucose (UA) >=1000 H (Normal) mg/dL Urine Ketones Negative (Negative) mg/dL Urine Blood Negative (Negative) Urine Nitrite Negative (Negative) Urine Bilirubin Negative (Negative) Urine Urobilinogen Normal (Normal) mg/dL Ur Leukocyte Esterase Negative (Negative) Ur Culture Indicated? NO (NO) - Radiology Data Radiology results reviewed: Yes I reviewed the patient's radiology results. - EKG Data EKG #1 EKG attestation: Yes I reviewed and interpreted this EKG. EKG results narrative: Sinus rhythm with first-degree AV block, rate 71, OH interval 241, QRS 92, QTC 433, no acute ischemic changes
[2017-06-29] MEDS ORDERED: Naloxone 0.4 MG/ML INJ IVP PRN (20:52)
[2017-06-29] MEDS ORDERED: D5% in Water 1,000 ML IVC PRN (20:52)
[2017-06-29] MEDS ORDERED: *HR* Dextrose 50 % in Water (Syg) 50 ML SYRINGE IVP PRN (20:52)
[2017-06-29] MEDS ORDERED: Dextrose Gel 15 GM/37.5 ML TUBE PO PRN ×2 (20:52)
[2017-06-29] MEDS ORDERED: traMADol 50 MG TABLET PO PRN (21:01)
[2017-06-29] MEDS ORDERED: Albuterol 2.5 MG/3 ML NEBULIZER IH PRN (21:01)
[2017-06-29] MEDS: Insulin DETEMIR 100 UNIT/ML X5UNITS SQ SCH (22:14)
[2017-06-29] MEDS: 0.9 % Sodium Chloride 1,000 ML IVC SCH (22:14)
--- NOTE | 2017-06-29 22:31 | Internal Med History&Physical ---
Date of Encounter: 06/29/17 Time of Encounter: 20:30 Internal Medicine - H&P: HPI Chief complaint: cough, SOB Admitted From: Emergency Dept Plans for Post Hospital Care: Home History of present illness: Ms. Cuellar is a 86 year old female who presents with several day history of cough, shortness of breath, wheezing, weakness, and malaise. She was seeing her technical services manager today in routine follow-up and was sent from the office to the ER for concerns of respiratory distress and hypoxemia. In the ER, she was given some DuoNeb aerosols and antibiotics for suspected COPD exacerbation. Additionally, she received some insulin for hyperglycemia. She had initial lactate of 4, but a repeat level lilliam few hours later was normal 1.6 -- despite not receiving any IV fluids and/or blood cultures for possible sepsis. Because of her lactate, suspected COPD flareup, and malaise, she was admitted to hospitalist service. Upon my assessment of the patient, she has some labored breathing, appears anxious, and has some mild hypoxemia. Her perfusion is adequate and blood pressure is stable. I am not convinced she is septic, but on exam, she appears to have a left lower lobe pneumonia despite a negative chest x-ray. Patient and her daughter confirm that she has been coughing productive and purulent sputum for the last few days. She has had no fevers but she reports chills and some night sweats. She had one episode of diarrhea but no vomiting. She denies any muscle aches or body aches. She does complain of significant fatigue and weakness, however. She is on chronic steroids, and I suspect she might have some adrenal insufficiency given her acute illness. Past Med Surg Social Fam HX - Past Medical History Attestation: Yes The following information was validated with the patient. Source: patient, old records reviewed, obtained from family Medical history: atrial fibrillation, CHF, coronary artery disease, CVA, diabetes, hyperlipidemia, hypertension, renal disease Psychiatric history: anxiety - Past Surgical History Surgical History: angioplasty/stent, carotid endarterectomy, cholecystectomy, pacemaker/AICD - Social History Smoking Status: Never smoker Smokeless Tobacco Status: No Alcohol use: none Drug use: none Current living situation: Home - Independent Activity Level: Independent ambulation Recent Out of Country Travel Within the Last 8 Weeks: No - Family History Father Family Member Ethnicity: Non- Living Status: Hx Family Cardiac Disorders: Yes Hx Family Endocrine Disorder: Yes Hx Family Neurologic Disorders: Yes Sister Family Member Ethnicity: Non- Living Status: Hx Family Cardiac Disorders: Yes (CAD) Hx Family Cancer: Yes (Breast) Hx Family Endocrine Disorder: Yes (DM) Mother Family Member Ethnicity: Non- Living Status: Hx Family Cancer: Yes (Lung) Internal Medicine - H&P: Meds Arformoterol Tartrate [Brovana] 15 mcg IH BID 12/13/14 [History] Aspirin Enteric Coated [Aspirin EC] 81 mg PO DAILY 12/13/14 [History] Atorvastatin [Lipitor] 20 mg PO HS 12/13/14 [History] Duloxetine [Cymbalta] 60 mg PO DAILY 12/13/14 [History] Insulin ASPART [NovoLOG] 0 units SQ TIDAC 12/13/14 [History] Insulin Glargine,Hum.rec.anlog [Lantus Solostar] 37 units SQ HS 12/13/14 [ History] Budesonide Neb [Pulmicort Neb] 0.5 mg IH BID 05/03/15 [History] Cholecalciferol (Vitamin D3) [Vitamin D3] 1,000 unit PO DAILY 05/03/15 [History] Loratadine [Claritin] 10 mg PO DAILY 05/03/15 [History] [place]-3/Dha/Epa/Fish Oil [Fish Oil 1,000 mg Softgel] 1 cap PO DAILY 05/03/15 [ History] Omeprazole [PriLOSEC] 40 mg PO DAILY 05/03/15 [History] Latanoprost 1 drop BOTH EYES HS 11/26/15 [History] Ascorbate Calcium [Vitamin C] 500 mg PO DAILY 11/04/16 [History] Ipratropium/Albuterol Neb [Duoneb] 3 ml IH TID PRN 11/04/16 [History] Magnesium Oxide [Magnesium] 400 mg PO DAILY 02/27/17 [History] Furosemide [Lasix] 40 mg PO DAILY #30 tablet 03/04/17 [Rx] Ferrous Sulfate [Iron] 325 mg PO BID #0 03/18/17 [Rx] Amlodipine Besylate 2.5 mg PO DAILY 06/29/17 [History] Diclofenac Sodium [Voltaren] 1 appl TP DAILY PRN 06/29/17 [History] Levothyroxine [Synthroid] 25 mcg PO DAILY 06/29/17 [History] Levothyroxine [Synthroid] 25 mcg PO DAILY 06/29/17 [History] Tramadol HCl [Ultram] 50 mg PO TID PRN 06/29/17 [History] predniSONE [PredniSONE] 5 mg PO DAILY 06/29/17 [History] predniSONE [PredniSONE] 5 mg PO DAILY 06/29/17 [History] 3 Allergy/AdvReac Type Severity Reaction Status Date / Time isosorbide [From Imdur] Allergy Unknown See Verified 02/27/17 14:36 Comments gabapentin Allergy Hallucinati Verified 02/27/17 14:36 ng Hydralazine Allergy See Verified 02/27/17 14:36 Comments propranolol [From Inderal LA] Allergy Hallucinati Verified 02/27/17 14:36 ng alprazolam [From Xanax] AdvReac See Verified 02/27/17 14:36 Comments fentanyl AdvReac See Verified 02/27/17 14:36 Comments Baclofen AdvReac Unresponsiv Uncoded 03/08/17 11:52 e - Constitutional Constitutional: chills, malaise, night sweats, weakness, no fever(s) - EENT Eyes: no blurry vision, no change in vision Ears: no ear pain, no tinnitus Nose, mouth and throat: nasal congestion, no nasal discharge, no sinus pain, no sinus pressure, no sore throat - Cardiovascular Cardiovascular ROS IM: dyspnea, dyspnea on exertion, no chest pain, no edema, no palpitations, no paroxysmal nocturnal dyspnea, no syncope - Respiratory Respiratory: cough, dyspnea, dyspnea on exertion, wheezing, chest congestion, excessive phlegm production, change in phlegm color, pain with cough, no hemoptysis - Gastrointestinal Gastrointestinal: abdominal pain (epigastric -- chronic), diarrhea (once), no hematemesis, no hematochezia, no melena, no nausea, no vomiting - Genitourinary Genitourinary: no dysuria, no flank pain, no hematuria - Musculoskeletal Musculoskeletal ROS IM: arthralgias, muscle weakness, no back pain, no muscle cramps, no myalgias - Integumentary Integumentary IM: no rash, no jaundice - Neurological Neurological ROS: no dizziness, no focal weakness, no frequent falls, no headache(s) - Psychiatric Psychiatric: anxiety, no depression - Endocrine Endocrine IM: no polydipsia, no polyuria - Hematologic/Lymphatic Hematologic/Lymphatic: no easy bruising, no lymphadenopathy - Allergic/Immunologic Allergic/Immunologic: no wheezing, no GI upset with certain foods - Constitutional Vitals: Temp Pulse Resp BP Pulse Ox 97.5 F L 68 19 123/71 94 06/29/17 20:50 06/29/17 20:50 06/29/17 20:50 06/29/17 20:50 06/29/17 20:50 General appearance: Present: cooperative, mild distress (anxious and short of breath), A&O X 3, pleasant, answers questions appropriately - Head Head exam: Present: atraumatic, normal inspection - Eye Eye exam: Present: EOMI, normal appearance, PERRL. Absent: scleral icterus Pupils: Present: normal accommodation - ENT ENT exam: Present: mucous membranes dry, normal exam, normal oropharynx - Neck Neck exam general surgery: Present: full ROM, supple. Absent: lymphadenopathy, tenderness, nuchal rigidity, thyromegaly - Respiratory Respiratory exam: Present: prolonged expiratory phase, rales (left base -- + egophony), respiratory distress (mild). Absent: chest wall tenderness, rhonchi , wheezes - Cardiovascular Cardiovascular exam: Present: distant heart sounds, RRR, +S1, +S2. Absent: diastolic murmur, JVD, systolic murmur - GI/Abdominal GI/Abdominal exam: Present: normal bowel sounds, soft, tenderness (mild epigastric), no peritoneal signs. Absent: guarding, hepatomegaly, mass, rebound , splenomegaly - Extremities Exam Extremities exam: Present: full ROM, normal capillary refill, warm, radial pulses palpable and symmetrical. Absent: calf tenderness, joint swelling, pedal edema, tenderness - Back Exam Back exam: Absent: CVA tenderness (L), CVA tenderness (R) - Neurological Exam Neurological exam: Present: alert, CN II-XII intact, oriented X3, no focal deficits - Psychiatric Psychiatric exam: Present: anxious. Absent: depressed - Skin Skin exam: Present: dry, warm. Absent: rash Internal Med - H&P Results - Labs CBC & Chem 7: 06/29/17 15:55 06/29/17 15:55 - EKG Data -: EKG Interpreted by Myself - EKG Data Prior EKG available for review: no EKG comments: 06/29/17 22:41 Sinus rhythm; no acute changes - Diagnostic Studies Chest x-ray Status: image reviewed by me (negative) - Assessment and plan (1) Pneumonia Current Visit: Yes Status: Suspected Assessment and plan: 1. Will order blood cultures, repeat lactate by morning, and IV antibiotics for suspected pneumonia based upon history and exam. 2. Oxygen as needed for support. 3. Will schedule aerosols as needed. Qualifiers: Pneumonia type: due to unspecified organism Laterality: left Lung location: lower lobe of lung Qualified Code(s): J18.1 - Lobar pneumonia, unspecified organism (2) Adrenal insufficiency Current Visit: Yes Status: Suspected Assessment and plan: 1. Will give IV Solumedrol for COPD and chronic steroid use in the setting of an acute illness. 2. Monitor hemodynamics and adjust med, IV fluids as needed. 3. Monitor on telemetry. (3) COPD (chronic obstructive pulmonary disease) Current Visit: Yes Status: Chronic Assessment and plan: 1. Continue scheduled and PRN aerosols. 2. IV steroids as above. 3. Oxygen as needed for support. 4. No active wheezing; symptoms likely due to pneumonia. Qualifiers: COPD type: unspecified COPD Qualified Code(s): J44.9 - Chronic obstructive pulmonary disease, unspecified (4) IDDM (insulin dependent diabetes mellitus) Current Visit: Yes Status: Chronic Assessment and plan: 1. Continue basal insulin and SSI. 2. Adjust dosing as needed. (5) DVT prophylaxis Current Visit: Yes Status: Acute Assessment and plan: 1. Heparin SQ.
[2017-06-29] MEDS: Ipratropium/Albuterol Neb 3 ML IH SCH (23:00)
[2017-06-29] MEDS: Acetaminophen 325 MG TABLET PO PRN (23:49)
[2017-06-30] MEDS: Ipratropium/Albuterol Neb 3 ML IH SCH ×4 (03:37→22:05)
[2017-06-30] MEDS: *HR* Heparin 5,000 UNIT/ML VIAL SQ SCH ×2 (05:39→17:15)
[2017-06-30] MEDS: MethylPREDNISolone 40 MG/ML VIAL IVP SCH ×2 (05:39→17:15)
[2017-06-30 07:26] LABS: Basophils % 0.4 %; Eosinophils # 0.1 K/mcL (0.0-0.6); Hematocrit 35.1 % (35.3-44.9); Hemoglobin 11.6 g/dL (11.5-15.4); Immature Granulocytes % 0.5 % (0-4); Lymphocytes # 1.8 K/mcL (0.6-4.6); Lymphocytes % 21.7 %; Mean Corpuscular Volume 90.7 fL (83.0-100.0); Mean Platelet Volume 9.6 fL (9.4-12.4); Monocytes # 0.4 K/mcL (0.0-1.3); Monocytes % 4.8 %; Platelet Count 200 K/mcL (140-400); Red Blood Count 3.87 M/mcL (3.82-4.97); Red Cell Distribution Width 14.5 % (11.5-14.5); Segmented Neutrophils % 71.6 %
[2017-06-30 07:47] LABS: Albumin 3.6 g/dL (3.5-5.7); Albumin/Globulin Ratio 1.4 (1.1-2.2); Bilirubin,Total 0.4 mg/dL (0.3-1.0); Calcium 8.9 mg/dL (8.6-10.3); Globulin 2.6 g/dL (2.4-3.5); Magnesium 1.9 mg/dL (1.6-2.6); Potassium 4.1 mEq/L (3.5-5.1); Total Protein 6.2 g/dL (6.4-8.9)
[2017-06-30] MEDS ORDERED: (Fish Oil 1,000 Mg Softgel) PO SCH (09:00)
[2017-06-30] MEDS ORDERED: Levothyroxine 25 MCG TABLET PO SCH (09:00)
[2017-06-30 09:11] LABS: Estimated Average Glucose 209 mg/dl; Hemoglobin A1C 8.9 %
[2017-06-30] MEDS: Budesonide Neb 0.5 MG/2 ML IH SCH ×2 (09:56→22:05)
[2017-06-30] MEDS ORDERED: Albuterol 2.5 MG/3 ML NEBULIZER IH SCH (10:00)
[2017-06-30] MEDS: Ascorbic Acid 500 MG TABLET PO SCH (10:35)
[2017-06-30] MEDS: Cholecalciferol (D-3) 1,000 UNIT TABLET PO SCH (10:35)
[2017-06-30] MEDS: Magnesium Oxide 400 MG TABLET PO SCH (10:36)
[2017-06-30] MEDS: Aspirin Enteric Coated 81 MG Tablet PO SCH (10:36)
[2017-06-30] MEDS: Loratadine 10 MG TABLET PO SCH (10:36)
[2017-06-30] MEDS: Insulin LISPRO 300 UNITS/3 ML VIAL SQ SCH ×5 (10:37→20:45)
[2017-06-30] MEDS: Insulin DETEMIR 100 UNIT/ML X5UNITS SQ SCH ×2 (10:40→20:45)
[2017-06-30] MEDS ORDERED: traMADol 50 MG TABLET PO PRN (11:19)
[2017-06-30] MEDS: amLODIPine 5 MG TABLET PO SCH (12:51)
--- NOTE | 2017-06-30 16:01 | Internal Med Progress Note ---
Date of Encounter: 06/30/17 Time of Encounter: 13:15 - Assessment and plan (1) Pneumonia Current Visit: Yes Status: Suspected Assessment and plan: Continue IV Levaquin Systemic steroids O2 supplementation f/u respiratory infection panel Qualifiers: Pneumonia type: due to unspecified organism Laterality: left Lung location: lower lobe of lung Qualified Code(s): J18.1 - Lobar pneumonia, unspecified organism (2) Adrenal insufficiency Current Visit: Yes Status: Chronic Assessment and plan: continue IV solumedrol (3) COPD (chronic obstructive pulmonary disease) Current Visit: Yes Status: Chronic Assessment and plan: continue systemic steroids, bronchodilator support O2 supplementation monitor O2 sat, goal O2 sat: 88-92% IV levaquin titrate off O2 therapy as tolerated, RN informed closely monitor respiratory status f/u respiratory infection panel Qualifiers: COPD type: unspecified COPD Qualified Code(s): J44.9 - Chronic obstructive pulmonary disease, unspecified (4) IDDM (insulin dependent diabetes mellitus) Current Visit: Yes Status: Chronic Assessment and plan: started home basal insulin sliding scale insulin coverage as needed monitor FS and BG ADA diet (5) DVT prophylaxis Current Visit: Yes Status: Acute Assessment and plan: heparin SQ - Time Spent With Patient Total time spent is greater than 50% in coordination of care (as documented) at patient's floor/unit and/or counseling patient: - Subjective Interval history: Patient seen and examined at bedside. Reports of improvement in her breathing from previous day. Continuous to remain O2 dependent and is not on home oxygen. - Constitutional Vitals: Temp Pulse Resp BP Pulse Ox 98.0 F 87 28 109/57 98 06/30/17 15:35 06/30/17 15:35 06/30/17 15:35 06/30/17 15:35 06/30/17 15:35 General appearance: Present: cooperative, A&O X 3, pleasant, no acute distress, obese, answers questions appropriately - Head Head exam: Present: atraumatic, normocephalic - Eye Eye exam: Present: conjuntiva pink, sclera anicteric - Respiratory Respiratory exam: Absent: respiratory distress (diffuse rhonchi), wheezes - Cardiovascular Cardiovascular exam: Present: RRR, +S1, +S2. Absent: diastolic murmur, gallop, rubs, systolic murmur - GI/Abdominal GI/Abdominal exam: Present: normal bowel sounds, soft, no peritoneal signs. Absent: distended, tenderness - Extremities Exam Extremities exam: Present: warm, radial pulses palpable and symmetrical. Absent : calf tenderness, pedal edema, tenderness - Neurological Exam Neurological exam: Present: oriented X3 Internal Medicine: Result - Labs CBC & Chem 7: 06/30/17 07:11 06/30/17 07:11 Labs: Short CBC 06/30/17 Range/Units 07:11 WBC 8.4 (4.3-11.1) K/mcL Hgb 11.6 (11.5-15.4) g/dL Hct 35.1 L (35.3-44.9) % Plt Count 200 (140-400) K/mcL Neutrophils # 6.0 (1.6-8.9) K/mcL BMP 06/30/17 07:11 Sodium 141 Potassium 4.1 Chloride 104 Carbon Dioxide 30 H BUN 28 H Creatinine 1.37 H Glucose 219 H Calcium 8.9 Liver Function 06/30/17 Range/Units 07:11 Total Bilirubin 0.4 (0.3-1.0) mg/dL AST 12 L (13-39) Units/L ALT 12 (7-52) Units/L Alkaline Phosphatase 56 (34-104) Units/L Albumin 3.6 (3.5-5.7) g/dL - ABG Interpretation ABG results: PT/INR, D-dimer PT 10.9 Seconds (9.4-12.1) 06/29/17 15:55 Consult Discharge Plan - Plan Referrals: Hilario Steele MD [Primary Care Provider] -
--- NOTE | 2017-06-30 17:05 | Electrocardiograph Report ---
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
[2017-06-30] MEDS: Acetaminophen 325 MG TABLET PO PRN (17:15)
[2017-06-30] MEDS: 0.9 % Sodium Chloride 1,000 ML IVC SCH (17:20)
[2017-06-30] MEDS: Latanoprost 2.5 ML BOTTLE BOTH EYES SCH (20:45)
[2017-06-30] MEDS ORDERED: Insulin LISPRO 300 UNITS/3 ML VIAL SQ SCH (21:00)
[2017-06-30 21:50] LABS: Adenovirus Not Detected (Not Detect); Bordetella Pertussis Not Detected (Not Detect); Chlamydophila pneumoniae Not Detected (Not Detect); Coronavirus 229E Not Detected (Not Detect); Coronavirus HKU1 Not Detected (Not Detect); Coronavirus NL63 Not Detected (Not Detect); Coronavirus OC43 Not Detected (Not Detect); Human Metapneumovirus Not Detected (Not Detect); Human Rhinovirus/Enterovirus Not Detected (Not Detect); Influenza A Subtype 2009 H1 Not Detected (Not Detect); Influenza A Untypeable Not Detected (Not Detect); Influenza B Not Detected (Not Detect); Mycoplasma pneumoniae Not Detected (Not Detect); Parainfluenza Virus 1 Not Detected (Not Detect); Parainfluenza Virus 2 Not Detected (Not Detect); Parainfluenza Virus 3 Not Detected (Not Detect); Parainfluenza Virus 4 Not Detected (Not Detect); Respiratory Syncytial Virus Not Detected (Not Detect)
[2017-07-01] MEDS: Ipratropium/Albuterol Neb 3 ML IH SCH ×4 (03:57→22:14)
[2017-07-01 05:59] LABS: Basophils % 0.2 %; Hematocrit 33.6 % (35.3-44.9); Immature Granulocytes % 0.7 % (0-4); Lymphocytes % 8.1 %; Mean Corpuscular HGB Conc 32.7 g/dL (31.6-35.5); Mean Corpuscular Hemoglobin 29.5 pg (28.0-33.3); Mean Corpuscular Volume 90.1 fL (83.0-100.0); Mean Platelet Volume 10.7 fL (9.4-12.4); Monocytes # 0.4 K/mcL (0.0-1.3); Neutrophils # 11.2 K/mcL (1.6-8.9); Platelet Count 204 K/mcL (140-400); Red Blood Count 3.73 M/mcL (3.82-4.97); Red Cell Distribution Width 14.5 % (11.5-14.5)
[2017-07-01] MEDS: *HR* Heparin 5,000 UNIT/ML VIAL SQ SCH ×2 (06:07→17:21)
[2017-07-01] MEDS: MethylPREDNISolone 40 MG/ML VIAL IVP SCH ×2 (06:07→17:18)
[2017-07-01 06:19] LABS: Magnesium 1.9 mg/dL (1.6-2.6); Phosphorous 3.6 mg/dL (2.7-4.5); Potassium 4.8 mEq/L (3.5-5.1)
[2017-07-01] MEDS: Ascorbic Acid 500 MG TABLET PO SCH (08:01)
[2017-07-01] MEDS: Aspirin Enteric Coated 81 MG Tablet PO SCH (08:01)
[2017-07-01] MEDS: Magnesium Oxide 400 MG TABLET PO SCH (08:01)
[2017-07-01] MEDS: Cholecalciferol (D-3) 1,000 UNIT TABLET PO SCH (08:02)
[2017-07-01] MEDS: Levothyroxine 25 MCG TABLET PO SCH (08:02)
[2017-07-01] MEDS: Loratadine 10 MG TABLET PO SCH (08:02)
[2017-07-01] MEDS: amLODIPine 5 MG TABLET PO SCH (08:02)
[2017-07-01] MEDS: Insulin LISPRO 300 UNITS/3 ML VIAL SQ SCH ×4 (08:03→22:03)
[2017-07-01] MEDS: Insulin DETEMIR 100 UNIT/ML X5UNITS SQ SCH ×2 (08:08→22:02)
[2017-07-01] MEDS: Budesonide Neb 0.5 MG/2 ML IH SCH ×2 (10:21→22:14)
--- NOTE | 2017-07-01 12:41 | Internal Med Progress Note ---
Date of Encounter: 07/01/17 Time of Encounter: 12:39 - Assessment and plan (1) COPD (chronic obstructive pulmonary disease) Current Visit: Yes Status: Chronic Assessment and plan: The patient is an acute exacerbation. We will continue IV Solu-Medrol 40 mg twice a day today and switch to oral tomorrow. Continue O2 supports. Continue nebs. Continue Levaquin. Wean down oxygen as tolerated. Qualifiers: COPD type: unspecified COPD Qualified Code(s): J44.9 - Chronic obstructive pulmonary disease, unspecified (2) Pneumonia Current Visit: Yes Status: Suspected Assessment and plan: No real evidence of pneumonia. Patient has leukocytosis now due to being on steroids. Afebrile. Cultures have been negative. We will continue Levaquin. O2 support. Nebs. Qualifiers: Pneumonia type: due to unspecified organism Laterality: left Lung location: lower lobe of lung Qualified Code(s): J18.1 - Lobar pneumonia, unspecified organism (3) BAEBE (acute kidney injury) Current Visit: No Status: Resolved Assessment and plan: We will start gentle hydration. Check labs in the morning. Avoid nephrotoxins. (4) Adrenal insufficiency Current Visit: Yes Status: Chronic Assessment and plan: continue IV solumedrol. We will have to discharge on a taper up until she gets to 5 mg of prednisone which she is on chronically. (5) IDDM (insulin dependent diabetes mellitus) Current Visit: Yes Status: Chronic Assessment and plan: Poor glycemic control due to being on steroids. We will add 20 extra Levemir this morning. She is on 20 twice a day. Continue sliding scale. (6) Lactic acidosis Current Visit: Yes Status: Acute Assessment and plan: resolved (7) DVT prophylaxis Current Visit: Yes Status: Acute Assessment and plan: heparin SQ - Time Spent With Patient Total time spent is greater than 50% in coordination of care (as documented) at patient's floor/unit and/or counseling patient: - Subjective Interval history: Patient was seen and examined. No acute events. Afebrile. Remains on 2 L nasal cannula oxygen. Not oxygen dependent at home. Admitted initially with COPD exacerbation and is also being treated for suspected pneumonia. Chest x- ray is negative. - Constitutional Vitals: Temp Pulse Resp BP Pulse Ox 97.7 F 85 19 124/61 97 07/01/17 11:04 07/01/17 11:04 07/01/17 11:04 07/01/17 11:04 07/01/17 11:04 General appearance: Present: cooperative, A&O X 3, pleasant, no acute distress, obese, answers questions appropriately Exam: GEN: NAD CVS: RRR. S1, S2, No m/r/g RESP: Diminished. ABD: Soft, NT, ND, +BS EXT: No edema. 2+ DP. No rashes NEURO: Nonfocal Internal Medicine: Result - Labs CBC & Chem 7: 07/01/17 05:13 07/01/17 05:13 Labs: Short CBC 07/01/17 Range/Units 05:13 WBC 12.7 H D (4.3-11.1) K/mcL Hgb 11.0 L (11.5-15.4) g/dL Hct 33.6 L (35.3-44.9) % Plt Count 204 (140-400) K/mcL Neutrophils # 11.2 H (1.6-8.9) K/mcL BMP 07/01/17 05:13 Sodium 135 L Potassium 4.8 Chloride 102 Carbon Dioxide 24 BUN 33 H Creatinine 1.37 H Glucose 387 H Calcium 9.0 - ABG Interpretation ABG results: PT/INR, D-dimer PT 10.9 Seconds (9.4-12.1) 06/29/17 15:55 Consult Discharge Plan - Plan Referrals: Hilario Steele MD [Primary Care Provider] -
[2017-07-01] MEDS ORDERED: Insulin DETEMIR 100 UNIT/ML X5UNITS SQ ONE (12:43)
[2017-07-01] MEDS ORDERED: 0.9 % Sodium Chloride 1,000 ML IVC SCH (12:45)
[2017-07-01] MEDS: Levofloxacin 750 MG/150 ML 750 MG/150 ML BAG IVPB SCH (17:22)
[2017-07-01] MEDS: Acetaminophen 325 MG TABLET PO PRN (19:57)
[2017-07-01] MEDS: Latanoprost 2.5 ML BOTTLE BOTH EYES SCH (22:02)
[2017-07-02] MEDS: Ipratropium/Albuterol Neb 3 ML IH SCH ×4 (03:25→21:20)
[2017-07-02] MEDS: *HR* Heparin 5,000 UNIT/ML VIAL SQ SCH ×2 (05:48→17:00)
[2017-07-02] MEDS: MethylPREDNISolone 40 MG/ML VIAL IVP SCH ×2 (05:49→17:00)
[2017-07-02 06:04] LABS: Basophils % 0.1 %; Hematocrit 32.4 % (35.3-44.9); Hemoglobin 10.8 g/dL (11.5-15.4); Immature Granulocytes % 1.1 % (0-4); Lymphocytes # 0.8 K/mcL (0.6-4.6); Lymphocytes % 5.8 %; Mean Corpuscular HGB Conc 33.3 g/dL (31.6-35.5); Mean Corpuscular Hemoglobin 30.1 pg (28.0-33.3); Mean Corpuscular Volume 90.3 fL (83.0-100.0); Monocytes # 0.4 K/mcL (0.0-1.3); Monocytes % 3.3 %; Neutrophils # 11.8 K/mcL (1.6-8.9); Platelet Count 203 K/mcL (140-400); Red Blood Count 3.59 M/mcL (3.82-4.97); Red Cell Distribution Width 14.4 % (11.5-14.5); Segmented Neutrophils % 89.7 %
[2017-07-02 06:27] LABS: Calcium 8.8 mg/dL (8.6-10.3); Magnesium 1.9 mg/dL (1.6-2.6); Potassium 4.6 mEq/L (3.5-5.1)
[2017-07-02] MEDS: Magnesium Oxide 400 MG TABLET PO SCH (08:05)
[2017-07-02] MEDS: Cholecalciferol (D-3) 1,000 UNIT TABLET PO SCH (08:05)
[2017-07-02] MEDS: amLODIPine 5 MG TABLET PO SCH (08:06)
[2017-07-02] MEDS: Aspirin Enteric Coated 81 MG Tablet PO SCH (08:06)
[2017-07-02] MEDS: Loratadine 10 MG TABLET PO SCH (08:06)
[2017-07-02] MEDS: Ascorbic Acid 500 MG TABLET PO SCH (08:06)
[2017-07-02] MEDS: Levothyroxine 25 MCG TABLET PO SCH (08:06)
[2017-07-02] MEDS: Insulin LISPRO 300 UNITS/3 ML VIAL SQ SCH ×4 (08:06→20:37)
--- NOTE | 2017-07-02 10:20 | Internal Med Progress Note ---
Date of Encounter: 07/02/17 Time of Encounter: 10:18 - Assessment and plan (1) Goals of care, counseling/discussion Current Visit: Yes Status: Acute Assessment and plan: Needs PT/OT eval. Lives alone and seems weak to go back on her own. Possibly needs placement (2) COPD (chronic obstructive pulmonary disease) Current Visit: Yes Status: Chronic Assessment and plan: The patient is an acute exacerbation. Switch to oral prednisone Continue O2 supports as needed. Continue nebs. Continue Levaquin. Qualifiers: COPD type: unspecified COPD Qualified Code(s): J44.9 - Chronic obstructive pulmonary disease, unspecified (3) Pneumonia Current Visit: Yes Status: Suspected Assessment and plan: No real evidence of pneumonia. Patient has leukocytosis now due to being on steroids. Afebrile. Cultures have been negative. We will continue Levaquin. O2 support. Nebs. Qualifiers: Pneumonia type: due to unspecified organism Laterality: left Lung location: lower lobe of lung Qualified Code(s): J18.1 - Lobar pneumonia, unspecified organism (4) ABEBE (acute kidney injury) Current Visit: No Status: Resolved Assessment and plan: Improved with some IV hydration. (5) Adrenal insufficiency Current Visit: Yes Status: Chronic Assessment and plan: continue IV solumedrol. We will have to discharge on a taper up until she gets to 5 mg of prednisone which she is on chronically. (6) IDDM (insulin dependent diabetes mellitus) Current Visit: Yes Status: Chronic Assessment and plan: Poor glycemic control due to being on steroids. We will add 20 extra Levemir this morning. She is on 20 twice a day. Continue sliding scale. (7) Lactic acidosis Current Visit: Yes Status: Acute Assessment and plan: resolved (8) DVT prophylaxis Current Visit: Yes Status: Acute Assessment and plan: heparin SQ - Time Spent With Patient Total time spent is greater than 50% in coordination of care (as documented) at patient's floor/unit and/or counseling patient: - Subjective Interval history: Patient was seen and examined. No acute events. Afebrile. Feels well. On RA. Not oxygen dependent at home. Admitted initially with COPD exacerbation and is also being treated for suspected pneumonia. Chest x-ray is negative. - Constitutional Vitals: Temp Pulse Resp BP Pulse Ox 97.6 F 78 19 114/71 95 07/02/17 06:51 07/02/17 06:51 07/02/17 06:51 07/02/17 06:51 07/02/17 06:51 General appearance: Present: cooperative, A&O X 3, pleasant, no acute distress, obese, answers questions appropriately Exam: GEN: NAD CVS: RRR. S1, S2, No m/r/g RESP: Diminished. ABD: Soft, NT, ND, +BS EXT: No edema. 2+ DP. No rashes NEURO: Nonfocal Internal Medicine: Result - Labs CBC & Chem 7: 07/02/17 05:42 07/02/17 05:42 Labs: Short CBC 07/02/17 Range/Units 05:42 WBC 13.2 H (4.3-11.1) K/mcL Hgb 10.8 L (11.5-15.4) g/dL Hct 32.4 L (35.3-44.9) % Plt Count 203 (140-400) K/mcL Neutrophils # 11.8 H (1.6-8.9) K/mcL BMP 07/02/17 05:42 Sodium 136 Potassium 4.6 Chloride 105 Carbon Dioxide 22 L BUN 34 H Creatinine 1.29 H Glucose 358 H Calcium 8.8 - ABG Interpretation ABG results: PT/INR, D-dimer PT 10.9 Seconds (9.4-12.1) 06/29/17 15:55 Consult Discharge Plan - Plan Referrals: Hilario Steele MD [Primary Care Provider] -
[2017-07-02] MEDS: Budesonide Neb 0.5 MG/2 ML IH SCH ×2 (10:30→21:20)
[2017-07-02] MEDS: Insulin DETEMIR 100 UNIT/ML X5UNITS SQ SCH ×2 (12:39→20:37)
[2017-07-02] MEDS: Latanoprost 2.5 ML BOTTLE BOTH EYES SCH (20:37)
[2017-07-03] MEDS: Ipratropium/Albuterol Neb 3 ML IH SCH ×4 (03:47→22:35)
[2017-07-03] MEDS: MethylPREDNISolone 40 MG/ML VIAL IVP SCH (06:18)
[2017-07-03] MEDS: *HR* Heparin 5,000 UNIT/ML VIAL SQ SCH ×2 (06:18→16:36)
[2017-07-03] MEDS: Levothyroxine 25 MCG TABLET PO SCH (06:19)
[2017-07-03] MEDS: amLODIPine 5 MG TABLET PO SCH (07:55)
[2017-07-03] MEDS: Aspirin Enteric Coated 81 MG Tablet PO SCH (07:56)
[2017-07-03] MEDS: Loratadine 10 MG TABLET PO SCH (07:56)
[2017-07-03] MEDS: Insulin LISPRO 300 UNITS/3 ML VIAL SQ SCH ×6 (07:56→22:10)
[2017-07-03] MEDS: Ascorbic Acid 500 MG TABLET PO SCH (07:56)
[2017-07-03] MEDS: Magnesium Oxide 400 MG TABLET PO SCH (07:56)
[2017-07-03] MEDS: Cholecalciferol (D-3) 1,000 UNIT TABLET PO SCH (07:56)
[2017-07-03] MEDS: Insulin DETEMIR 100 UNIT/ML X5UNITS SQ SCH ×2 (07:57→22:10)
--- NOTE | 2017-07-03 10:13 | Internal Med Progress Note ---
Date of Encounter: 07/03/17 Time of Encounter: 10:10 - Assessment and plan (1) Goals of care, counseling/discussion Current Visit: Yes Status: Acute Assessment and plan: Needs PT/OT eval. Lives alone and seems weak to go back on her own. Possibly needs placement (2) COPD (chronic obstructive pulmonary disease) Current Visit: Yes Status: Chronic Assessment and plan: The patient is in an acute exacerbation. c/w current oral prednisone dose and wean down tomorrow. Continue O2 supports as needed. Continue nebs. Continue Levaquin. total 5 days of abx. Qualifiers: COPD type: unspecified COPD Qualified Code(s): J44.9 - Chronic obstructive pulmonary disease, unspecified (3) Pneumonia Current Visit: Yes Status: Suspected Assessment and plan: No real evidence of pneumonia. Patient has leukocytosis now due to being on steroids. Afebrile. Cultures have been negative. We will continue Levaquin. O2 support. Nebs. Qualifiers: Pneumonia type: due to unspecified organism Laterality: left Lung location: lower lobe of lung Qualified Code(s): J18.1 - Lobar pneumonia, unspecified organism (4) ABEBE (acute kidney injury) Current Visit: No Status: Resolved Assessment and plan: Improved with some IV hydration. f/u on labs today (5) Adrenal insufficiency Current Visit: Yes Status: Chronic (6) IDDM (insulin dependent diabetes mellitus) Current Visit: Yes Status: Chronic Assessment and plan: Poor glycemic control due to being on steroids. increase levemir to 40 units BID. Add 6 units humalog for prandial coverage. Continue sliding scale. (7) Lactic acidosis Current Visit: Yes Status: Acute Assessment and plan: resolved (8) DVT prophylaxis Current Visit: Yes Status: Acute Assessment and plan: heparin SQ - Time Spent With Patient Total time spent is greater than 50% in coordination of care (as documented) at patient's floor/unit and/or counseling patient: - Subjective Interval history: Patient was seen and examined. No acute events. Afebrile. Feels well. On RA. Not oxygen dependent at home. Needs placement. Admitted initially with COPD exacerbation and is also being treated for suspected pneumonia. Chest x-ray is negative. - Constitutional Vitals: Temp Pulse Resp BP Pulse Ox 98.1 F 73 18 136/66 92 07/03/17 06:43 07/03/17 06:43 07/03/17 06:43 07/03/17 06:43 07/03/17 06:43 General appearance: Present: cooperative, A&O X 3, pleasant, no acute distress, obese, answers questions appropriately Exam: GEN: NAD CVS: RRR. S1, S2, No m/r/g RESP: Diminished. ABD: Soft, NT, ND, +BS EXT: No edema. 2+ DP. No rashes NEURO: Nonfocal Internal Medicine: Result - Labs CBC & Chem 7: 07/02/17 05:42 07/02/17 05:42 - ABG Interpretation ABG results: PT/INR, D-dimer PT 10.9 Seconds (9.4-12.1) 06/29/17 15:55 Consult Discharge Plan - Plan Referrals: Hilario Steele MD [Primary Care Provider] -
[2017-07-03] MEDS ORDERED: Insulin DETEMIR 100 UNIT/ML X5UNITS SQ ONE (10:14)
[2017-07-03 10:56] LABS: Basophils % 0.1 %; Hematocrit 34.5 % (35.3-44.9); Hemoglobin 11.4 g/dL (11.5-15.4); Immature Granulocytes % 2.1 % (0-4); Lymphocytes # 0.7 K/mcL (0.6-4.6); Lymphocytes % 6.2 %; Mean Corpuscular Hemoglobin 29.8 pg (28.0-33.3); Mean Corpuscular Volume 90.1 fL (83.0-100.0); Mean Platelet Volume 10.3 fL (9.4-12.4); Monocytes # 0.4 K/mcL (0.0-1.3); Monocytes % 3.8 %; Neutrophils # 9.7 K/mcL (1.6-8.9); Nucleated Red Blood Cells 0.2 /100 WBC (0); Platelet Count 217 K/mcL (140-400); Red Blood Count 3.83 M/mcL (3.82-4.97); Red Cell Distribution Width 14.6 % (11.5-14.5); Segmented Neutrophils % 87.8 %
[2017-07-03] MEDS: Budesonide Neb 0.5 MG/2 ML IH SCH ×2 (11:04→22:35)
[2017-07-03 11:15] LABS: Potassium 4.3 mEq/L (3.5-5.1)
[2017-07-03] MEDS ORDERED: 0.9 % Sodium Chloride 500 ML IVC ONE (13:25)
[2017-07-03] MEDS: Levofloxacin 750 MG/150 ML 750 MG/150 ML BAG IVPB SCH (16:35)
--- NOTE | 2017-07-03 18:46 | Event Note ---
Date of Encounter: 07/03/17 Time of Encounter: 18:45 Patient had runs of V-tach (16 runs). Mag and K normal. Will ask cardiology to evaluate tomorrow. Hemodynamically stable. c/w tele
[2017-07-03] MEDS: Sennosides/Docusate Sodium TABLET PO SCH (19:16)
[2017-07-03] MEDS: Latanoprost 2.5 ML BOTTLE BOTH EYES SCH (22:12)
[2017-07-04] MEDS: Ipratropium/Albuterol Neb 3 ML IH SCH ×4 (03:23→21:17)
[2017-07-04 05:16] LABS: Basophils % 0.3 %; Hemoglobin 11.3 g/dL (11.5-15.4); Immature Granulocytes % 2.1 % (0-4); Lymphocytes # 1.5 K/mcL (0.6-4.6); Lymphocytes % 14.7 %; Mean Corpuscular HGB Conc 33.2 g/dL (31.6-35.5); Mean Corpuscular Hemoglobin 29.9 pg (28.0-33.3); Mean Corpuscular Volume 89.9 fL (83.0-100.0); Mean Platelet Volume 10.5 fL (9.4-12.4); Monocytes # 1.1 K/mcL (0.0-1.3); Monocytes % 10.3 %; Neutrophils # 7.6 K/mcL (1.6-8.9); Nucleated Red Blood Cells 0.2 /100 WBC (0); Platelet Count 198 K/mcL (140-400); Red Blood Count 3.78 M/mcL (3.82-4.97); Red Cell Distribution Width 14.4 % (11.5-14.5); Segmented Neutrophils % 72.6 %
[2017-07-04 05:34] LABS: Calcium 8.6 mg/dL (8.6-10.3); Magnesium 1.9 mg/dL (1.6-2.6); Potassium 3.9 mEq/L (3.5-5.1)
[2017-07-04 05:49] LABS: Thyroid Stimulating Hormone 13.071 mcIU/mL (0.340-5.600)
[2017-07-04] MEDS: Levothyroxine 25 MCG TABLET PO SCH (06:35)
[2017-07-04] MEDS: *HR* Heparin 5,000 UNIT/ML VIAL SQ SCH ×2 (06:35→17:19)
--- NOTE | 2017-07-04 08:23 | Internal Med Progress Note ---
Date of Encounter: 07/04/17 Time of Encounter: 08:21 - Assessment and plan (1) Goals of care, counseling/discussion Current Visit: Yes Status: Acute Assessment and plan: Needs PT/OT darshanaal. Lives alone and seems weak to go back on her own. Possibly needs placement (2) Ventricular tachycardia Current Visit: Yes Status: Acute Assessment and plan: Had runs of V-tach yesterday reportedly. I am unable to see that on strips. otherwise stable. Will ask cardiology to see. Tachycardic now seems to be in afib. Will get an EKG. Per documentations patient has h/o afib. She is very hard of hearing and is unable to provide me much history of it. Seen by cardiology before. TSH is elevated. Check thyroid panel. replete electrolytes as needed. (3) COPD (chronic obstructive pulmonary disease) Current Visit: Yes Status: Chronic Assessment and plan: The patient is in an acute exacerbation. c/w current oral prednisone dose 40 mg. Continue O2 supports as needed. Continue nebs. Continue Levaquin. total 5 days of abx. Qualifiers: COPD type: unspecified COPD Qualified Code(s): J44.9 - Chronic obstructive pulmonary disease, unspecified (4) Pneumonia Current Visit: Yes Status: Suspected Assessment and plan: No real evidence of pneumonia. Patient had leukocytosis due to being on steroids but now resolved. Afebrile. Cultures have been negative. We will continue Levaquin. O2 support. Nebs. Qualifiers: Pneumonia type: due to unspecified organism Laterality: left Lung location: lower lobe of lung Qualified Code(s): J18.1 - Lobar pneumonia, unspecified organism (5) ABEBE (acute kidney injury) Current Visit: No Status: Resolved Assessment and plan: Improved with some IV hydration. (6) Adrenal insufficiency Current Visit: Yes Status: Chronic Assessment and plan: continue IV solumedrol. We will have to discharge on a taper up until she gets to 5 mg of prednisone which she is on chronically. (7) IDDM (insulin dependent diabetes mellitus) Current Visit: Yes Status: Chronic Assessment and plan: Poor glycemic control due to being on steroids. increase levemir to 40 units BID. Add 6 units humalog for prandial coverage. Continue sliding scale. (8) Lactic acidosis Current Visit: Yes Status: Acute Assessment and plan: resolved (9) Hypothyroidism Current Visit: Yes Status: Acute Assessment and plan: TSH is elevated. Increase thyroid pill to 50 mcg. check thyroid panel. Qualifiers: Hypothyroidism type: unspecified Qualified Code(s): E03.9 - Hypothyroidism , unspecified (10) DVT prophylaxis Current Visit: Yes Status: Acute Assessment and plan: heparin SQ - Time Spent With Patient Total time spent is greater than 50% in coordination of care (as documented) at patient's floor/unit and/or counseling patient: - Subjective Interval history: Patient was seen and examined. tachycardic this morning. yesterday had runs of V-tach. otherwise stable. Afebrile. Feels well. On RA. Not oxygen dependent at home. Needs placement. Admitted initially with COPD exacerbation and is also being treated for suspected pneumonia. Chest x-ray is negative. - Constitutional Vitals: Temp Pulse Resp BP Pulse Ox 97.6 F 78 20 152/84 95 07/04/17 06:42 07/04/17 06:42 07/04/17 06:42 07/04/17 06:42 07/04/17 06:42 General appearance: Present: cooperative, A&O X 3, pleasant, no acute distress, obese, answers questions appropriately Exam: GEN: NAD CVS:tachycardic. S1, S2, No m/r/g RESP: Diminished. ABD: Soft, NT, ND, +BS EXT: No edema. 2+ DP. No rashes NEURO: Nonfocal Internal Medicine: Result - Labs CBC & Chem 7: 07/04/17 04:18 07/04/17 04:18 Labs: Short CBC 07/03/17 07/04/17 Range/Units 10:31 04:18 WBC 11.0 10.4 (4.3-11.1) K/mcL Hgb 11.4 L 11.3 L (11.5-15.4) g/dL Hct 34.5 L 34.0 L (35.3-44.9) % Plt Count 217 198 (140-400) K/mcL Neutrophils # 9.7 H 7.6 (1.6-8.9) K/mcL BMP 07/03/17 07/04/17 10:31 04:18 Sodium 136 139 Potassium 4.3 3.9 Chloride 103 106 Carbon Dioxide 23 26 BUN 32 H 32 H Creatinine 1.42 H 1.29 H Glucose 406 H 192 H Calcium 9.0 8.6 - ABG Interpretation ABG results: PT/INR, D-dimer PT 10.9 Seconds (9.4-12.1) 06/29/17 15:55 Consult Discharge Plan - Plan Referrals: Hilario Steele MD [Primary Care Provider] -
[2017-07-04] MEDS ORDERED: Levothyroxine 25 MCG TABLET PO ONE (08:25)
[2017-07-04] MEDS: predniSONE 20 MG TABLET PO SCH (08:40)
[2017-07-04] MEDS: Sennosides/Docusate Sodium TABLET PO SCH ×2 (08:40→21:07)
[2017-07-04] MEDS: Cholecalciferol (D-3) 1,000 UNIT TABLET PO SCH (08:41)
[2017-07-04] MEDS: Magnesium Oxide 400 MG TABLET PO SCH (08:41)
[2017-07-04] MEDS: Ascorbic Acid 500 MG TABLET PO SCH (08:41)
[2017-07-04] MEDS: Aspirin Enteric Coated 81 MG Tablet PO SCH (08:41)
[2017-07-04] MEDS: Loratadine 10 MG TABLET PO SCH (08:41)
[2017-07-04] MEDS: amLODIPine 5 MG TABLET PO SCH (08:41)
[2017-07-04] MEDS: Insulin LISPRO 300 UNITS/3 ML VIAL SQ SCH ×7 (08:42→21:09)
[2017-07-04] MEDS: Insulin DETEMIR 100 UNIT/ML X5UNITS SQ SCH ×2 (08:49→21:07)
[2017-07-04] MEDS: Metoprolol XL (24 HR) Succ 25 MG TAB.ER.24H PO SCH (09:50)
[2017-07-04] MEDS: Budesonide Neb 0.5 MG/2 ML IH SCH ×2 (10:27→21:17)
[2017-07-04 10:30] LABS: Triiodothyronine (T3) Free 2.02 pg/mL (2.50-3.90)
[2017-07-04 10:34] LABS: Triiodothyronine (T3) Total 0.37 ng/mL (0.87-1.78)
--- NOTE | 2017-07-04 11:19 | Cardiology Consult Note ---
<Ynes Causey - Last Filed: 07/04/17 11:32> Date of Encounter: 07/04/17 Time of Encounter: 09:45 Assessment and Plan (1) COPD (chronic obstructive pulmonary disease) Current Visit: Yes Status: Chronic Per cardiology: -Admitted with COPD exacerbation. -Reports breathing is worse today. -Management per primary service. Qualifiers: COPD type: unspecified COPD Qualified Code(s): J44.9 - Chronic obstructive pulmonary disease, unspecified (2) Atrial fibrillation with RVR Current Visit: No Status: Acute Per cardiology: -Known history of a.fib, on beta ash in outpatient setting. -Of note, appears patient was not receiving beta ash while inpatient. -Now a.fib RVR HR 110s. Reports fluttering. -Last TTE 02/2017 with LVEF preserved. -Of note, TSH 13.071-management per primary service. -[id number] score 8 (age, gender, CHF, CVA, HTN, CAD). Not on anticoagulation due to patient's refusal. Patient educated on greatly increased risk of CVA/ embolic event without anticoagulation, patient states understanding -Will resume toprol 25mg daily. -Will start cardizem drip. -Will continue to monitor. (3) Pacemaker Current Visit: Yes Status: Chronic Per cardiology: -KNown pacemaker. -Telemetry reviewed with noted paced rhythm, no VT appreciated. -Will have pacemaker interrogated per [facility] device rep. Discussion w patient/family: The assessment and plan as outlined above was discussed with the patient who expressed understanding and agreement. All questions were answered. Thank you for involving us in the care of your patient. Please call with any questions. Discussed and reviewed with . History of Present Illness Consult date: 07/03/17 Requesting physician: Carolyn Matthews Consult reason: vt Chief complaint: shortness of breath History of present illness: Ms. 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 Patient presented to [facility] with complaints of increased shortness of breath. Cardiology was consulted for abnormal heart rhythm. Patient reports breathing is worse today. Reports she feels fluttering in her chest. Past Med Surg Social Fam HX - Past Medical History Attestation: Yes The following information was validated with the patient. Source: patient, old records reviewed Medical history: atrial fibrillation, CHF, coronary artery disease, CVA, diabetes, fibromyalgia, GERD, hyperlipidemia, hypertension, renal disease Psychiatric history: anxiety - Past Surgical History Surgical History: angioplasty/stent, carotid endarterectomy, cholecystectomy, pacemaker/AICD - Social History Smoking Status: Never smoker Smokeless Tobacco Status: No Alcohol use: none Drug use: none - Family History Father Family Member Ethnicity: Non- Living Status: Hx Family Cardiac Disorders: Yes Hx Family Endocrine Disorder: Yes Hx Family Neurologic Disorders: Yes Sister Family Member Ethnicity: Non- Living Status: Hx Family Cardiac Disorders: Yes (CAD) Hx Family Cancer: Yes (Breast) Hx Family Endocrine Disorder: Yes (DM) Mother Family Member Ethnicity: Non- Living Status: Hx Family Cancer: Yes (Lung) Medications and Allergies Arformoterol Tartrate [Brovana] 15 mcg IH BID 12/13/14 [History] Aspirin Enteric Coated [Aspirin EC] 81 mg PO DAILY 12/13/14 [History] Atorvastatin [Lipitor] 20 mg PO HS 12/13/14 [History] Duloxetine [Cymbalta] 60 mg PO DAILY 12/13/14 [History] Insulin ASPART [NovoLOG] 0 units SQ TIDAC 12/13/14 [History] Insulin Glargine,Hum.rec.anlog [Lantus Solostar] 37 units SQ HS 12/13/14 [ History] Budesonide Neb [Pulmicort Neb] 0.5 mg IH BID 05/03/15 [History] Cholecalciferol (Vitamin D3) [Vitamin D3] 1,000 unit PO DAILY 05/03/15 [History] Loratadine [Claritin] 10 mg PO DAILY 05/03/15 [History] [place]-3/Dha/Epa/Fish Oil [Fish Oil 1,000 mg Softgel] 1 cap PO DAILY 05/03/15 [ History] Omeprazole [PriLOSEC] 40 mg PO DAILY 05/03/15 [History] Latanoprost 1 drop BOTH EYES HS 11/26/15 [History] Ascorbate Calcium [Vitamin C] 500 mg PO DAILY 11/04/16 [History] Ipratropium/Albuterol Neb [Duoneb] 3 ml IH TID PRN 11/04/16 [History] Magnesium Oxide [Magnesium] 400 mg PO DAILY 02/27/17 [History] Furosemide [Lasix] 40 mg PO DAILY #30 tablet 03/04/17 [Rx] Ferrous Sulfate [Iron] 325 mg PO BID #0 03/18/17 [Rx] Amlodipine Besylate 2.5 mg PO DAILY 06/29/17 [History] Diclofenac Sodium [Voltaren] 1 appl TP DAILY PRN 06/29/17 [History] Levothyroxine [Synthroid] 25 mcg PO DAILY 06/29/17 [History] Levothyroxine [Synthroid] 25 mcg PO DAILY 06/29/17 [History] Tramadol HCl [Ultram] 50 mg PO TID PRN 06/29/17 [History] predniSONE [PredniSONE] 5 mg PO DAILY 06/29/17 [History] predniSONE [PredniSONE] 5 mg PO DAILY 06/29/17 [History] 3 Allergy/AdvReac Type Severity Reaction Status Date / Time isosorbide [From Imdur] Allergy Unknown See Verified 02/27/17 14:36 Comments gabapentin Allergy Hallucinati Verified 02/27/17 14:36 ng Hydralazine Allergy See Verified 02/27/17 14:36 Comments propranolol [From Inderal LA] Allergy Hallucinati Verified 02/27/17 14:36 ng alprazolam [From Xanax] AdvReac See Verified 02/27/17 14:36 Comments fentanyl AdvReac See Verified 02/27/17 14:36 Comments Baclofen AdvReac Unresponsiv Uncoded 03/08/17 11:52 e All Systems Review: The remainder of the systems were reviewed and are negative - Cardiovascular Cardiovascular: as per HPI, dyspnea at rest, dyspnea on exertion, palpitations Physical Examination Vital Signs Temperature 97.8 F 06/29/17 15:22 Pulse Rate 70 06/29/17 15:22 Respiratory Rate 20 06/29/17 15:22 Blood Pressure 116/72 06/29/17 15:22 O2 Sat by Pulse Oximetry 98 06/29/17 15:22 Temperature 97.6 F 07/04/17 06:42 Pulse Rate 78 07/04/17 06:42 Respiratory Rate 20 07/04/17 06:42 Blood Pressure 152/84 07/04/17 06:42 O2 Sat by Pulse Oximetry 95 07/04/17 06:42 Oxygen Delivery Oxygen Delivery Nasal Cannula General: Conversant, No Apparent Distress HEENT: Atraumatic, Normocephaly, Mucus Membranes Moist Neck: No JVD, Normal carotid pulses Cardiac: Normal S1 and S2, No Murmur, Other (Irregularly irregular ) Lungs: Other (Lung sounds diminished to bilateral lung bases. ) Neuro: Alert and responsive, No focal deficits noted Abdomen: Soft, Non-Tender Skin: No rashes noted on visualized skin Musculoskeletal: No Chest Wall Tenderness Extremities: No Clubbing, No Cyanosis, No Edema, Normal Pulses Results 07/04/17 04:18 07/04/17 04:18 Lab Results Active Medications Acetaminophen (Tylenol) 650 mg PO Q6H PRN PRN Reason: Mild Pain/Fever Stop: 12/29/17 20:53 Last Admin: 07/01/17 19:57 Dose: 650 mg Albuterol Sulfate (Proventil Neb) 2.5 mg IH Q2H PRN; Protocol PRN Reason: Shortness Of Breath/Wheezing Stop: 12/29/17 21:02 Albuterol/Ipratropium (Duoneb) 3 ml IH [id number] NASIR Stop: 12/29/17 22:01 Last Admin: 07/04/17 10:27 Dose: 3 ml Amlodipine Besylate (Norvasc) 2.5 mg PO DAILY NASIR Stop: 12/30/17 09:01 Last Admin: 07/04/17 08:41 Dose: 2.5 mg Ascorbic Acid (Vitamin C) 500 mg PO DAILY NASIR Stop: 12/30/17 09:01 Last Admin: 07/04/17 08:41 Dose: 500 mg Aspirin (Aspirin Ec) 81 mg PO DAILY NASIR Stop: 12/30/17 09:01 Last Admin: 07/04/17 08:41 Dose: 81 mg Atorvastatin Calcium (Lipitor) 20 mg PO HS NASIR Stop: 12/30/17 21:01 Last Admin: 07/03/17 19:16 Dose: 20 mg Budesonide (Pulmicort Neb) 0.5 mg IH BIDRESP NASIR Stop: 12/30/17 10:01 Last Admin: 07/04/17 10:27 Dose: 0.5 mg Dextrose/Water (Dextrose 50% (Syg)) 25 ml IVP AD PRN PRN Reason: Hypoglycemia Stop: 12/29/17 20:53 Duloxetine HCl (Cymbalta) 60 mg PO DAILY [facility] Stop: 12/30/17 09:01 Last Admin: 07/04/17 08:41 Dose: 60 mg Ferrous Sulfate (Ferrous Sulfate) 325 mg PO BIDWM [facility] Stop: 01/03/18 17:01 Glucagon (Glucagen) 1 mg IM ONCE PRN PRN Reason: Hypoglycemia Stop: 12/29/17 20:53 Glucose (Gluctose) 15 gm PO ONCE PRN PRN Reason: Hypoglycemia Stop: 12/29/17 20:53 Glucose (Gluctose) 30 gm PO ONCE PRN PRN Reason: Hypoglycemia Stop: 12/29/17 20:53 Heparin Sodium (Porcine) (Heparin) 5,000 unit SQ Q12HR [facility] Stop: 12/30/17 06:01 Last Admin: 07/04/17 06:35 Dose: 5,000 unit Dextrose (Dextrose 5%) 1,000 mls @ 100 mls/hr IVC .Q10H PRN PRN Reason: HYPOGLYCEMIA Stop: 12/29/17 20:53 Diltiazem HCl 125 mg/ Sodium (Chloride) 125 mls @ 5 mls/hr IVC .Q24H NASIR; 5 MG/ HR PRN Reason: Protocol Stop: 01/03/18 11:16 Insulin Detemir (Levemir) 40 unit SQ BID [facility] Stop: 01/02/18 21:01 Last Admin: 07/04/17 08:49 Dose: 40 unit Insulin Human Lispro (Humalog) 0 units SQ HS [facility] PRN Reason: Protocol Stop: 12/30/17 21:01 Last Admin: 07/03/17 22:10 Dose: 7 units Insulin Human Lispro (Humalog) 0 units SQ TIDAC [facility] PRN Reason: Protocol Stop: 12/30/17 07:31 Last Admin: 07/04/17 08:42 Dose: Not Given Insulin Human Lispro (Humalog) 6 units 0.08 units/kg (6 units) SQ TIDWM [facility] Stop: 01/02/18 12:01 Last Admin: 07/04/17 08:44 Dose: 6 units Latanoprost (Xalatan) 1 drop BOTH EYES [facility] Stop: 12/30/17 21:01 Last Admin: 07/03/17 22:12 Dose: 1 drop Levofloxacin (Levaquin) 750 mg PO Q48H [facility] Stop: 01/04/18 18:01 Levothyroxine Sodium (Synthroid) 50 mcg PO DAILY@0730 [facility] Stop: 01/03/18 08:25 Loratadine (Claritin) 10 mg PO DAILY [facility] PRN Reason: Protocol Stop: 12/30/17 09:01 Last Admin: 07/04/17 08:41 Dose: 10 mg Magnesium Oxide (Mag-Ox) 400 mg PO DAILY NASIR Stop: 12/30/17 09:01 Last Admin: 07/04/17 08:41 Dose: 400 mg Metoprolol Succinate (Toprol Xl) 25 mg PO DAILY [facility] Stop: 01/03/18 09:16 Last Admin: 07/04/17 09:50 Dose: 25 mg Naloxone HCl (Narcan) 0.4 mg IVP Q2MIN PRN PRN Reason: SEE COMMENTS Stop: 12/29/17 20:53 Omeprazole (Prilosec) 40 mg PO DAILY [facility] PRN Reason: Protocol Stop: 12/30/17 09:01 Last Admin: 07/04/17 08:41 Dose: 40 mg Polyethylene Glycol (Miralax) 17 gm PO DAILY [facility] Stop: 01/02/18 18:46 Last Admin: 07/04/17 08:42 Dose: 17 gm Prednisone (Prednisone) 40 mg PO DAILY [facility] Stop: 01/03/18 09:01 Last Admin: 07/04/17 08:40 Dose: 40 mg Senna/Docusate Sodium (Senna Plus) 2 each PO BID [facility] PRN Reason: Protocol Stop: 01/02/18 21:01 Last Admin: 07/04/17 08:40 Dose: 2 each Tramadol HCl (Ultram) 50 mg PO TID PRN PRN Reason: Moderate to Severe Pain Stop: 12/29/17 21:02 Last Admin: 06/30/17 15:45 Dose: 50 mg Vitamin D (Vitamin D) 1,000 unit PO DAILY [facility] Stop: 12/30/17 09:01 Last Admin: 07/04/17 08:41 Dose: 1,000 unit Laboratory Tests 07/03/17 07/04/17 07/04/17 10:31 04:18 04:18 Hgb 11.3 L Potassium 3.9 Creatinine 1.42 H 1.29 H Magnesium 1.9 - Imaging and Cardiology Chest Xray: report reviewed Echo: report reviewed - EKG Interpretation EKG results cardiology: personally reviewed (ECG with SR, HR 80.), other ( Telemetry reviewed with 88, SR. Now, a.fib RVR HR 110s.) Consult Discharge Plan - Plan Referrals: Hilario Steele MD [Primary Care Provider] - <Niurka Brown - Last Filed: 07/04/17 12:13> Date of Encounter: 07/04/17 - Attending Attestation I examined this patient and my medical decision-making was reviewed with the DIRECTOR ORANGE. I agree with the documented findings, disposition and treatment plan as described. Ms. Cuellar presents with COPD exacerbation complicated by AF RVR (known AFIB). Beta ash was held upon admission. Recommend restarting BB. Heart rates are improved at this time. Primary service also concerned about NSVT - telemetry reviewed demonstrating paced rhythm, artifact without NSVT. Will await pacer interrogation report. Of note, patient has declined anticoagulation. Assessment and Plan Discussion w patient/family: The assessment and plan as outlined above was discussed with the patient and/or family members who expressed understanding and agreement. All questions were answered. Thank you for involving us in the care of your patient. Please call with any questions. History of Present Illness History of present illness: Ms. Cuellar is a 86 year old female All Systems Review: The remainder of the systems were reviewed and are negative Physical Examination Vital Signs, Last 4 Hours Temp Pulse Resp BP Pulse Ox 07/04/17 11:51 97.4 F L 80 18 148/82 95 Results 07/04/17 04:18 07/04/17 04:18 Lab Results 07/04/17 07/04/17 07/04/17 04:18 04:18 04:18 WBC 10.4 Hgb 11.3 L Hct 34.0 L Plt Count 198 Sodium 139 Potassium 3.9 Chloride 106 Carbon Dioxide 26 BUN 32 H Creatinine 1.29 H Glucose 192 H Calcium 8.6 Magnesium 1.9 TSH 13.071 H
[2017-07-04] MEDS ORDERED: 0.9 % Sodium Chloride 500 ML ONE (12:00)
[2017-07-04] MEDS: Latanoprost 2.5 ML BOTTLE BOTH EYES SCH (21:08)
[2017-07-05] MEDS: Ipratropium/Albuterol Neb 3 ML IH SCH ×4 (03:47→21:40)
[2017-07-05] MEDS: *HR* Heparin 5,000 UNIT/ML VIAL SQ SCH ×2 (05:35→17:16)
[2017-07-05 06:18] LABS: Basophils % 0.3 %; Eosinophils % 0.1 %; Hematocrit 35.7 % (35.3-44.9); Immature Granulocytes % 2.1 % (0-4); Lymphocytes # 1.5 K/mcL (0.6-4.6); Lymphocytes % 11.4 %; Mean Corpuscular HGB Conc 33.6 g/dL (31.6-35.5); Mean Corpuscular Hemoglobin 30.3 pg (28.0-33.3); Mean Corpuscular Volume 90.2 fL (83.0-100.0); Monocytes # 0.9 K/mcL (0.0-1.3); Monocytes % 6.6 %; Neutrophils # 10.3 K/mcL (1.6-8.9); Nucleated Red Blood Cells 0.2 /100 WBC (0); Platelet Count 192 K/mcL (140-400); Red Blood Count 3.96 M/mcL (3.82-4.97); Red Cell Distribution Width 14.8 % (11.5-14.5); Segmented Neutrophils % 79.5 %
[2017-07-05 06:40] LABS: Calcium 8.4 mg/dL (8.6-10.3); Magnesium 1.9 mg/dL (1.6-2.6); Potassium 3.9 mEq/L (3.5-5.1)
[2017-07-05] MEDS ORDERED: Insulin LISPRO 300 UNITS/3 ML VIAL SQ SCH (08:13)
[2017-07-05] MEDS: Aspirin Enteric Coated 81 MG Tablet PO SCH (08:24)
[2017-07-05] MEDS: predniSONE 20 MG TABLET PO SCH ×2 (08:24→10:01)
[2017-07-05] MEDS: Cholecalciferol (D-3) 1,000 UNIT TABLET PO SCH (08:25)
[2017-07-05] MEDS: Loratadine 10 MG TABLET PO SCH (08:25)
[2017-07-05] MEDS: Magnesium Oxide 400 MG TABLET PO SCH (08:25)
[2017-07-05] MEDS: Sennosides/Docusate Sodium TABLET PO SCH ×2 (08:28→20:38)
[2017-07-05] MEDS: Ascorbic Acid 500 MG TABLET PO SCH (08:28)
[2017-07-05] MEDS: Levothyroxine 25 MCG TABLET PO SCH (08:28)
[2017-07-05] MEDS: Metoprolol XL (24 HR) Succ 25 MG TAB.ER.24H PO SCH (08:28)
[2017-07-05] MEDS: Insulin LISPRO 300 UNITS/3 ML VIAL SQ SCH ×4 (08:32→17:17)
[2017-07-05] MEDS: Insulin DETEMIR 100 UNIT/ML X5UNITS SQ SCH ×2 (08:51→20:37)
--- NOTE | 2017-07-05 08:58 | Internal Med Progress Note ---
Date of Encounter: 07/05/17 Time of Encounter: 08:57 - Assessment and plan (1) Goals of care, counseling/discussion Current Visit: Yes Status: Acute Assessment and plan: Needs PT/OT emeka. Lives alone and seems weak to go back on her own. Possibly needs placement (2) Ventricular tachycardia Current Visit: Yes Status: Acute Assessment and plan: Had runs of V-tach yesterday reportedly. I am unable to see that on strips. otherwise stable. Will ask cardiology to see. Tachycardic was afib. Appreciate cardiology's help. replete electrolytes as needed. Increased sythroid (3) Atrial fibrillation Current Visit: No Status: Chronic Assessment and plan: As above. Patient does not want anticoag Qualifiers: Atrial fibrillation type: paroxysmal Qualified Code(s): I48.0 - Paroxysmal atrial fibrillation (4) COPD (chronic obstructive pulmonary disease) Current Visit: Yes Status: Chronic Assessment and plan: The patient is in an acute exacerbation. c/w current oral prednisone but decrease to 30 mg. Continue O2 supports as needed. Continue nebs. Continue Levaquin. Had 5 days abx. will stop. Qualifiers: COPD type: unspecified COPD Qualified Code(s): J44.9 - Chronic obstructive pulmonary disease, unspecified (5) Pneumonia Current Visit: Yes Status: Suspected Assessment and plan: No real evidence of pneumonia. Patient had leukocytosis due to being on steroids but now resolved. Afebrile. Cultures have been negative. finished 6 days of abx. O2 support. Nebs. Qualifiers: Pneumonia type: due to unspecified organism Laterality: left Lung location: lower lobe of lung Qualified Code(s): J18.1 - Lobar pneumonia, unspecified organism (6) ABEBE (acute kidney injury) Current Visit: No Status: Resolved Assessment and plan: Improved with some IV hydration. (7) Adrenal insufficiency Current Visit: Yes Status: Chronic Assessment and plan: continue IV solumedrol. We will have to discharge on a taper up until she gets to 5 mg of prednisone which she is on chronically. (8) IDDM (insulin dependent diabetes mellitus) Current Visit: Yes Status: Chronic Assessment and plan: Poor glycemic control due to being on steroids. increased levemir to 40 units BID yesterday. Added 6 units humalog for prandial coverage yesterday. Will go to previous insulin home regimen as her glucose is now coming down with decreasing sterodis. Continue sliding scale. (9) Lactic acidosis Current Visit: Yes Status: Acute Assessment and plan: resolved (10) Hypothyroidism Current Visit: Yes Status: Acute Assessment and plan: TSH is elevated. Increased thyroid med to 50 mcg. Qualifiers: Hypothyroidism type: unspecified Qualified Code(s): E03.9 - Hypothyroidism , unspecified (11) DVT prophylaxis Current Visit: Yes Status: Acute Assessment and plan: heparin SQ - Time Spent With Patient Total time spent is greater than 50% in coordination of care (as documented) at patient's floor/unit and/or counseling patient: - Subjective Interval history: Patient was seen and examined. afib resolved on cardizem drip. otherwise stable. Afebrile. Feels well. On 2L. Not oxygen dependent at home. Needs placement. Admitted initially with COPD exacerbation and is also being treated for suspected pneumonia. Chest x-ray is negative. - Constitutional Vitals: Temp Pulse Resp BP Pulse Ox 98.5 F 81 18 105/63 95 07/05/17 06:43 07/05/17 06:43 07/05/17 06:43 07/05/17 06:43 07/05/17 06:43 General appearance: Present: cooperative, A&O X 3, pleasant, no acute distress, obese, answers questions appropriately Exam: GEN: NAD CVS:tachycardic. S1, S2, No m/r/g RESP: Diminished. ABD: Soft, NT, ND, +BS EXT: No edema. 2+ DP. No rashes NEURO: Nonfocal Internal Medicine: Result - Labs CBC & Chem 7: 07/05/17 05:57 07/05/17 05:57 Labs: Short CBC 07/05/17 Range/Units 05:57 WBC 13.0 H (4.3-11.1) K/mcL Hgb 12.0 (11.5-15.4) g/dL Hct 35.7 (35.3-44.9) % Plt Count 192 (140-400) K/mcL Neutrophils # 10.3 H (1.6-8.9) K/mcL BMP 07/05/17 05:57 Sodium 139 Potassium 3.9 Chloride 107 Carbon Dioxide 24 BUN 33 H Creatinine 1.21 H Glucose 126 H Calcium 8.4 L - ABG Interpretation ABG results: PT/INR, D-dimer PT 10.9 Seconds (9.4-12.1) 06/29/17 15:55 Consult Discharge Plan - Plan Referrals: Hilario Steele MD [Primary Care Provider] -
--- NOTE | 2017-07-05 09:37 | Electrocardiograph Report ---
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
--- NOTE | 2017-07-05 09:38 | Electrocardiograph Report ---
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
--- NOTE | 2017-07-05 10:08 | Cardiology Progress Note ---
Date of Encounter: 07/05/17 Time of Encounter: 09:00 Assessment and Plan (1) COPD (chronic obstructive pulmonary disease) Current Visit: Yes Status: Chronic Per cardiology: -Admitted with COPD exacerbation. -Reports breathing is improved today. -Management per primary service. Qualifiers: COPD type: unspecified COPD Qualified Code(s): J44.9 - Chronic obstructive pulmonary disease, unspecified (2) Atrial fibrillation with RVR Current Visit: No Status: Acute Per cardiology: -Known history of a.fib, on beta ash in outpatient setting. -Of note, appears patient was not receiving beta ash while inpatient. -Currently on cardizem drip at 12.5mg/hour. -Average HR previous 12 hours noted to be 82, a.fib. -Last TTE 02/2017 with LVEF preserved. -Of note, TSH 13.071-management per primary service. -HExca4ymkt score 8 (age, gender, CHF, CVA, HTN, CAD). Not on anticoagulation due to patient's refusal. Patient educated on greatly increased risk of CVA/ embolic event without anticoagulation, patient states understanding -Now rate controlled, will start cardizem CD 300mg daily, first dose now. Recommend weaning cardizem drip to off 2 hours after oral cardizem given. -Cardiology will sign off and will follow in outpatient setting. (3) Pacemaker Current Visit: Yes Status: Chronic Per cardiology: -KNown pacemaker. -Telemetry reviewed with noted paced rhythm, no VT appreciated. -Device checked per [facility] pacemaker rep with no evidence of VT, normal functioning pacemaker. Discussion w patient/family: The assessment and plan as outlined above was discussed with the patient who expressed understanding and agreement. All questions were answered. Thank you for involving us in the care of your patient. Please call with any questions. Discussed and reviewed with . Subjective Principal diagnosis: COPD Interval history: Patient reports shortness of breath is improved. Denies palpitations or fluttering today. Objective Vital Signs, Last 4 Hours Temp Pulse Resp BP Pulse Ox 07/05/17 06:43 98.5 F 81 18 105/63 95 General: Conversant, No Apparent Distress HEENT: Atraumatic, Normocephaly, Mucus Membranes Moist Neck: No JVD, Normal carotid pulses Cardiac: Normal S1 and S2, No Murmur, Other (Irregularly irregular) Lungs: Other (Inspiratory wheezes noted. ) Neuro: Alert and responsive, No focal deficits noted Abdomen: Soft, Non-Tender Skin: No rashes noted on visualized skin Musculoskeletal: No Chest Wall Tenderness Extremities: No Clubbing, No Cyanosis, No Edema, Normal Pulses Results 07/05/17 05:57 07/05/17 05:57 Lab Results Active Medications Acetaminophen (Tylenol) 650 mg PO Q6H PRN PRN Reason: Mild Pain/Fever Stop: 12/29/17 20:53 Last Admin: 07/01/17 19:57 Dose: 650 mg Albuterol Sulfate (Proventil Neb) 2.5 mg IH Q2H PRN; Protocol PRN Reason: Shortness Of Breath/Wheezing Stop: 12/29/17 21:02 Albuterol/Ipratropium (Duoneb) 3 ml IH [id number] NASIR Stop: 12/29/17 22:01 Last Admin: 07/05/17 03:47 Dose: Not Given Ascorbic Acid (Vitamin C) 500 mg PO DAILY NASIR Stop: 12/30/17 09:01 Last Admin: 07/05/17 08:28 Dose: 500 mg Aspirin (Aspirin Ec) 81 mg PO DAILY NASIR Stop: 12/30/17 09:01 Last Admin: 07/05/17 08:24 Dose: 81 mg Atorvastatin Calcium (Lipitor) 20 mg PO HS NASIR Stop: 12/30/17 21:01 Last Admin: 07/04/17 21:07 Dose: 20 mg Budesonide (Pulmicort Neb) 0.5 mg IH BIDRESP NASIR Stop: 12/30/17 10:01 Last Admin: 07/04/17 21:17 Dose: 0.5 mg Dextrose/Water (Dextrose 50% (Syg)) 25 ml IVP AD PRN PRN Reason: Hypoglycemia Stop: 12/29/17 20:53 Diltiazem HCl (Cardizem Cd) 300 mg PO DAILY NASIR Stop: 01/04/18 10:01 Duloxetine HCl (Cymbalta) 60 mg PO DAILY NASIR Stop: 12/30/17 09:01 Last Admin: 07/05/17 08:25 Dose: 60 mg Ferrous Sulfate (Ferrous Sulfate) 325 mg PO BIDWM NASIR Stop: 01/03/18 17:01 Last Admin: 07/05/17 08:24 Dose: 325 mg Glucagon (Glucagen) 1 mg IM ONCE PRN PRN Reason: Hypoglycemia Stop: 12/29/17 20:53 Glucose (Gluctose) 15 gm PO ONCE PRN PRN Reason: Hypoglycemia Stop: 12/29/17 20:53 Glucose (Gluctose) 30 gm PO ONCE PRN PRN Reason: Hypoglycemia Stop: 12/29/17 20:53 Heparin Sodium (Porcine) (Heparin) 5,000 unit SQ Q12HR [facility] Stop: 12/30/17 06:01 Last Admin: 07/05/17 05:35 Dose: 5,000 unit Dextrose (Dextrose 5%) 1,000 mls @ 100 mls/hr IVC .Q10H PRN PRN Reason: HYPOGLYCEMIA Stop: 12/29/17 20:53 Diltiazem HCl 125 mg/ Sodium (Chloride) 125 mls @ 5 mls/hr IVC .Q24H NASIR; 5 MG/ HR PRN Reason: Protocol Stop: 01/03/18 11:16 Last Titration: 07/05/17 08:37 Dose: 12.5 mg/hr, 12.5 mls/hr Insulin Detemir (Levemir) 20 unit SQ BID [facility] Stop: 01/04/18 08:16 Last Admin: 07/05/17 08:51 Dose: 20 unit Insulin Human Lispro (Humalog) 0 units SQ TIDAC [facility] PRN Reason: Protocol Stop: 12/30/17 07:31 Insulin Human Lispro (Humalog) 0 units SQ HS [facility] PRN Reason: Protocol Stop: 12/30/17 21:01 Latanoprost (Xalatan) 1 drop BOTH EYES HS [facility] Stop: 12/30/17 21:01 Last Admin: 07/04/17 21:08 Dose: 1 drop Levothyroxine Sodium (Synthroid) 50 mcg PO DAILY@0730 [facility] Stop: 01/03/18 08:25 Last Admin: 07/05/17 08:28 Dose: 50 mcg Loratadine (Claritin) 10 mg PO DAILY [facility] PRN Reason: Protocol Stop: 12/30/17 09:01 Last Admin: 07/05/17 08:25 Dose: 10 mg Magnesium Oxide (Mag-Ox) 400 mg PO DAILY [facility] Stop: 12/30/17 09:01 Last Admin: 07/05/17 08:25 Dose: 400 mg Metoprolol Succinate (Toprol Xl) 25 mg PO DAILY [facility] Stop: 01/03/18 09:16 Last Admin: 07/05/17 08:28 Dose: 25 mg Naloxone HCl (Narcan) 0.4 mg IVP Q2MIN PRN PRN Reason: SEE COMMENTS Stop: 12/29/17 20:53 Omeprazole (Prilosec) 40 mg PO DAILY NASIR PRN Reason: Protocol Stop: 12/30/17 09:01 Last Admin: 07/05/17 08:25 Dose: 40 mg Polyethylene Glycol (Miralax) 17 gm PO DAILY NASIR Stop: 01/02/18 18:46 Last Admin: 07/05/17 08:29 Dose: Not Given Prednisone (Prednisone) 30 mg PO DAILY [facility] Stop: 01/04/18 08:56 Last Admin: 07/05/17 10:01 Dose: Not Given Senna/Docusate Sodium (Senna Plus) 2 each PO BID [facility]IR PRN Reason: Protocol Stop: 01/02/18 21:01 Last Admin: 07/05/17 08:28 Dose: 2 each Tramadol HCl (Ultram) 50 mg PO TID PRN PRN Reason: Moderate to Severe Pain Stop: 12/29/17 21:02 Last Admin: 06/30/17 15:45 Dose: 50 mg Vitamin D (Vitamin D) 1,000 unit PO DAILY [facility] Stop: 12/30/17 09:01 Last Admin: 07/05/17 08:25 Dose: 1,000 unit Laboratory Tests 07/05/17 07/05/17 05:57 05:57 WBC 13.0 H Hgb 12.0 Potassium 3.9 Creatinine 1.21 H Magnesium 1.9 - Imaging and Cardiology Chest Xray: report reviewed Echo: report reviewed - EKG Interpretation EKG results cardiology: other (Telemetry reviewed with average HR previous 12 hours noted to be 82, a.fib.) Consult Discharge Plan - Plan Referrals: Hilario Steele MD [Primary Care Provider] -
[2017-07-05] MEDS: Budesonide Neb 0.5 MG/2 ML IH SCH ×2 (10:53→21:41)
[2017-07-05] MEDS: Diltiazem CD (24hr) 300 MG CAPSULE PO SCH (12:47)
[2017-07-05] MEDS ORDERED: levoFLOXacin 750 MG TABLET PO SCH (18:00)
[2017-07-05] MEDS: Latanoprost 2.5 ML BOTTLE BOTH EYES SCH (20:37)
[2017-07-06] MEDS: Ipratropium/Albuterol Neb 3 ML IH SCH ×2 (03:26→10:31)
[2017-07-06] MEDS: Acetaminophen 325 MG TABLET PO PRN (03:49)
[2017-07-06] MEDS: *HR* Heparin 5,000 UNIT/ML VIAL SQ SCH (05:26)
[2017-07-06 06:56] LABS: Basophils # 0.1 K/mcL (0.0-0.2); Basophils % 0.4 %; Eosinophils # 0.1 K/mcL (0.0-0.6); Eosinophils % 0.8 %; Hematocrit 35.7 % (35.3-44.9); Hemoglobin 11.9 g/dL (11.5-15.4); Immature Granulocytes % 2.5 % (0-4); Lymphocytes # 1.7 K/mcL (0.6-4.6); Lymphocytes % 13.7 %; Mean Corpuscular HGB Conc 33.3 g/dL (31.6-35.5); Mean Corpuscular Volume 89.9 fL (83.0-100.0); Mean Platelet Volume 9.9 fL (9.4-12.4); Monocytes # 0.8 K/mcL (0.0-1.3); Monocytes % 6.4 %; Neutrophils # 9.2 K/mcL (1.6-8.9); Platelet Count 189 K/mcL (140-400); Red Blood Count 3.97 M/mcL (3.82-4.97); Red Cell Distribution Width 14.9 % (11.5-14.5); Segmented Neutrophils % 76.2 %
[2017-07-06] MEDS: Levothyroxine 25 MCG TABLET PO SCH (07:16)
[2017-07-06 07:30] LABS: Calcium 8.6 mg/dL (8.6-10.3); Magnesium 1.9 mg/dL (1.6-2.6); Potassium 4.2 mEq/L (3.5-5.1)
[2017-07-06] MEDS: Sennosides/Docusate Sodium TABLET PO SCH (07:53)
[2017-07-06] MEDS: Metoprolol XL (24 HR) Succ 25 MG TAB.ER.24H PO SCH (07:54)
[2017-07-06] MEDS: Loratadine 10 MG TABLET PO SCH (07:54)
[2017-07-06] MEDS: predniSONE 20 MG TABLET PO SCH (07:54)
[2017-07-06] MEDS: Magnesium Oxide 400 MG TABLET PO SCH (07:54)
[2017-07-06] MEDS: Aspirin Enteric Coated 81 MG Tablet PO SCH (07:54)
[2017-07-06] MEDS: Ascorbic Acid 500 MG TABLET PO SCH (07:55)
[2017-07-06] MEDS: Insulin LISPRO 300 UNITS/3 ML VIAL SQ SCH ×2 (07:55→11:49)
[2017-07-06] MEDS: Cholecalciferol (D-3) 1,000 UNIT TABLET PO SCH (07:55)
[2017-07-06] MEDS: Insulin DETEMIR 100 UNIT/ML X5UNITS SQ SCH (07:56)
[2017-07-06] MEDS: Diltiazem CD (24hr) 300 MG CAPSULE PO SCH (07:56)
[2017-07-06] MEDS: Budesonide Neb 0.5 MG/2 ML IH SCH (10:31)
[2017-07-06 10:33] VITALS: BP 132/74
--- NOTE | 2017-07-06 11:12 | Discharge Summary ---
- NOTES TO OUTPATIENT PROVIDER Notes to Outpatient Provider: Patient is being discharged on a prednisone taper till she gets to 5 mg daily which she was on before admission for adrenal insufficiency Date of Encounter: 07/06/17 Time of Encounter: 11:10 - Discharge Diagnosis (1) Atrial fibrillation Priority: Primary Status: Chronic Qualifiers: Atrial fibrillation type: paroxysmal Qualified Code(s): I48.0 - Paroxysmal atrial fibrillation (2) COPD (chronic obstructive pulmonary disease) Priority: Primary Status: Chronic Qualifiers: COPD type: unspecified COPD Qualified Code(s): J44.9 - Chronic obstructive pulmonary disease, unspecified (3) Pneumonia Priority: Primary Status: Suspected Qualifiers: Pneumonia type: due to unspecified organism Laterality: left Lung location: lower lobe of lung Qualified Code(s): J18.1 - Lobar pneumonia, unspecified organism (4) ABEBE (acute kidney injury) Priority: Primary Status: Resolved (5) Adrenal insufficiency Priority: Secondary Status: Chronic (6) IDDM (insulin dependent diabetes mellitus) Priority: Secondary Status: Chronic (7) Lactic acidosis Priority: Primary Status: Acute (8) Hypothyroidism Priority: Secondary Status: Acute Qualifiers: Hypothyroidism type: unspecified Qualified Code(s): E03.9 - Hypothyroidism , unspecified Hospital course: Ms. Cuellar is a 86 year old female who presents with several day history of cough, shortness of breath, wheezing, weakness, and malaise. She was seeing her cell lead in routine follow-up and was sent from the office to the ER for concerns of respiratory distress and hypoxemia. In the ER, she was given some DuoNeb aerosols and antibiotics for suspected COPD exacerbation. Additionally, she received some insulin for hyperglycemia. She had initial lactate of 4, but a repeat level was normal 1.6 despite not receiving any IV fluids. She was admitted for COPD exacerbation from suspected pneumonia. She was on IV steroids and nebs. Received 5 days of levaquin and I stopped them after that as she had no clinical or radiological evidence for pneumonia. Her stay was complicated by Afib with RVR and needed a cardizem drip. Cardiology saw and she refused anticoagulation. Oral cardizem was started after that and also Toprol XL. she was noted to have elevated TSH as well while on synthroid and I increased Synthroid to 50 mcg daily from 25 mcg. She was started on a tapering dose of prednisone. She is to be tapered till she gets to her chronic prednisone use of 5 mg which she was on prior to admission for adrenal insufficiency. She was discharge to SNF on 07/06. - Time Spent with Patient Total time spent providing and/or coordinating discharge services: Greater than 30 minutes - Discharge Medications Prescriptions: Diltiazem CD (24hr) [Cardizem CD] 300 mg PO DAILY #30 cap.er.24h Levothyroxine [Synthroid] 50 mcg PO DAILY@0730 #30 tablet Metoprolol XL (24 HR) Succ [Toprol Xl] 25 mg PO DAILY #30 tab.er.24h predniSONE [PredniSONE] 5 mg PO TAPER #30 tablet Home Medications: Arformoterol Tartrate [Brovana] 15 mcg IH BID 12/13/14 [History] Aspirin Enteric Coated [Aspirin EC] 81 mg PO DAILY 12/13/14 [History] Atorvastatin [Lipitor] 20 mg PO HS 12/13/14 [History] Duloxetine [Cymbalta] 60 mg PO DAILY 12/13/14 [History] Insulin ASPART [NovoLOG] 0 units SQ TIDAC 12/13/14 [History] Insulin Glargine,Hum.rec.anlog [Lantus Solostar] 37 units SQ HS 12/13/14 [ History] Budesonide Neb [Pulmicort Neb] 0.5 mg IH BID 05/03/15 [History] Cholecalciferol (Vitamin D3) [Vitamin D3] 1,000 unit PO DAILY 05/03/15 [History] Loratadine [Claritin] 10 mg PO DAILY 05/03/15 [History] [place]-3/Dha/Epa/Fish Oil [Fish Oil 1,000 mg Softgel] 1 cap PO DAILY 05/03/15 [ History] Omeprazole [PriLOSEC] 40 mg PO DAILY 05/03/15 [History] Latanoprost 1 drop BOTH EYES HS 11/26/15 [History] Ascorbate Calcium [Vitamin C] 500 mg PO DAILY 11/04/16 [History] Ipratropium/Albuterol Neb [Duoneb] 3 ml IH TID PRN 11/04/16 [History] Magnesium Oxide [Magnesium] 400 mg PO DAILY 02/27/17 [History] Furosemide [Lasix] 40 mg PO DAILY #30 tablet 03/04/17 [Rx] Ferrous Sulfate [Iron] 325 mg PO BID #0 03/18/17 [Rx] Amlodipine Besylate 2.5 mg PO DAILY 06/29/17 [History] Diclofenac Sodium [Voltaren] 1 appl TP DAILY PRN 06/29/17 [History] Tramadol HCl [Ultram] 50 mg PO TID PRN 06/29/17 [History] predniSONE [PredniSONE] 5 mg PO DAILY 06/29/17 [History] Diltiazem CD (24hr) [Cardizem CD] 300 mg PO DAILY #30 cap.er.24h 07/06/17 [Rx] Levothyroxine [Synthroid] 50 mcg PO DAILY@0730 #30 tablet 07/06/17 [Rx] Metoprolol XL (24 HR) Succ [Toprol Xl] 25 mg PO DAILY #30 tab.er.24h 07/06/17 [ Rx] predniSONE [PredniSONE] 5 mg PO TAPER #30 tablet 07/06/17 [Rx] Allergies/Adverse Reactions: 3 Allergy/AdvReac Type Severity Reaction Status Date / Time isosorbide [From Imdur] Allergy Unknown See Verified 02/27/17 14:36 Comments gabapentin Allergy Hallucinati Verified 02/27/17 14:36 ng Hydralazine Allergy See Verified 02/27/17 14:36 Comments propranolol [From Inderal LA] Allergy Hallucinati Verified 02/27/17 14:36 ng alprazolam [From Xanax] AdvReac See Verified 02/27/17 14:36 Comments fentanyl AdvReac See Verified 02/27/17 14:36 Comments Baclofen AdvReac Unresponsiv Uncoded 03/08/17 11:52 e Date of admission: 06/29/17 20:52 Primary care physician: Hilario Steele MD Consults: 07/01/17 12:50 Consult to Occupational Therapy [CONS] Routine Comment: Evaluate, develop and implement POC Reason for Consult: therapy/placement needs Does patient have active BEDREST order?: No Is patient medically & hemodynamically stable?: Yes 07/03/17 18:42 Consult to Cardiology [CONS] Routine Comment: Consulting Provider: Cardiology [place] Reason for Consult: Vtach runs Call Completed: No 07/06/17 08:31 Consult to Physical Therapy [CONS] Routine Comment: Evaluate, develop and implement POC Reason for Consult: eval for ecf Does patient have active BEDREST order?: No Is patient medically & hemodynamically stable?: Yes - Constitutional Vitals: Temp Pulse Resp BP Pulse Ox 98.0 F 88 18 132/74 99 07/06/17 10:32 07/06/17 10:32 07/06/17 10:32 07/06/17 10:32 07/06/17 10:32 General appearance: Present: cooperative, A&O X 3, pleasant, no acute distress, obese, answers questions appropriately Exam: GEN: NAD CVS:tachycardic. S1, S2, No m/r/g RESP: Diminished. ABD: Soft, NT, ND, +BS EXT: No edema. 2+ DP. No rashes NEURO: Nonfocal - Patient Status Disposition: Transfer SNF Condition: Good Overall status at discharge: patient is progressing back to baseline - Discharge Instructions Instructions: Atrial Fibrillation (DC), Hypothyroidism (DC), Dyspnea (GEN), Pneumonia (DC) Follow Up With: Hilario Steele MD [Primary Care Provider] - - Diet and Activity Activity: increase activity as tolerated Diet: diabetic diet, low salt diet
--- NOTE | 2017-07-06 11:13 | Physician Discharge Referral ---
ExtendedCare Referral Info Institutional Level of Care: Skilled - Diagnosis (1) Atrial fibrillation Priority: Primary Status: Chronic (2) COPD (chronic obstructive pulmonary disease) Priority: Primary Status: Chronic (3) Pneumonia Priority: Primary Status: Suspected (4) ABEBE (acute kidney injury) Priority: Primary Status: Resolved (5) Adrenal insufficiency Priority: Secondary Status: Chronic (6) IDDM (insulin dependent diabetes mellitus) Priority: Secondary Status: Chronic (7) Lactic acidosis Priority: Primary Status: Acute (8) Hypothyroidism Priority: Secondary Status: Acute - Transfer Medications Prescriptions: Diltiazem CD (24hr) [Cardizem CD] 300 mg PO DAILY #30 cap.er.24h Levothyroxine [Synthroid] 50 mcg PO DAILY@0730 #30 tablet Metoprolol XL (24 HR) Succ [Toprol Xl] 25 mg PO DAILY #30 tab.er.24h predniSONE [PredniSONE] 5 mg PO TAPER #30 tablet Home Medications: Arformoterol Tartrate [Brovana] 15 mcg IH BID 12/13/14 [History] Aspirin Enteric Coated [Aspirin EC] 81 mg PO DAILY 12/13/14 [History] Atorvastatin [Lipitor] 20 mg PO HS 12/13/14 [History] Duloxetine [Cymbalta] 60 mg PO DAILY 12/13/14 [History] Insulin ASPART [NovoLOG] 0 units SQ TIDAC 12/13/14 [History] Insulin Glargine,Hum.rec.anlog [Lantus Solostar] 37 units SQ HS 12/13/14 [ History] Budesonide Neb [Pulmicort Neb] 0.5 mg IH BID 05/03/15 [History] Cholecalciferol (Vitamin D3) [Vitamin D3] 1,000 unit PO DAILY 05/03/15 [History] Loratadine [Claritin] 10 mg PO DAILY 05/03/15 [History] [place]-3/Dha/Epa/Fish Oil [Fish Oil 1,000 mg Softgel] 1 cap PO DAILY 05/03/15 [ History] Omeprazole [PriLOSEC] 40 mg PO DAILY 05/03/15 [History] Latanoprost 1 drop BOTH EYES HS 11/26/15 [History] Ascorbate Calcium [Vitamin C] 500 mg PO DAILY 11/04/16 [History] Ipratropium/Albuterol Neb [Duoneb] 3 ml IH TID PRN 11/04/16 [History] Magnesium Oxide [Magnesium] 400 mg PO DAILY 02/27/17 [History] Furosemide [Lasix] 40 mg PO DAILY #30 tablet 03/04/17 [Rx] Ferrous Sulfate [Iron] 325 mg PO BID #0 03/18/17 [Rx] Amlodipine Besylate 2.5 mg PO DAILY 06/29/17 [History] Diclofenac Sodium [Voltaren] 1 appl TP DAILY PRN 06/29/17 [History] Tramadol HCl [Ultram] 50 mg PO TID PRN 06/29/17 [History] predniSONE [PredniSONE] 5 mg PO DAILY 06/29/17 [History] Diltiazem CD (24hr) [Cardizem CD] 300 mg PO DAILY #30 cap.er.24h 07/06/17 [Rx] Levothyroxine [Synthroid] 50 mcg PO DAILY@0730 #30 tablet 07/06/17 [Rx] Metoprolol XL (24 HR) Succ [Toprol Xl] 25 mg PO DAILY #30 tab.er.24h 07/06/17 [ Rx] predniSONE [PredniSONE] 5 mg PO TAPER #30 tablet 07/06/17 [Rx] Allergies/Adverse Reactions: 3 Allergy/AdvReac Type Severity Reaction Status Date / Time isosorbide [From Imdur] Allergy Unknown See Verified 02/27/17 14:36 Comments gabapentin Allergy Hallucinati Verified 02/27/17 14:36 ng Hydralazine Allergy See Verified 02/27/17 14:36 Comments propranolol [From Inderal LA] Allergy Hallucinati Verified 02/27/17 14:36 ng alprazolam [From Xanax] AdvReac See Verified 02/27/17 14:36 Comments fentanyl AdvReac See Verified 02/27/17 14:36 Comments Baclofen AdvReac Unresponsiv Uncoded 03/08/17 11:52 e - Respiratory Orders Smoking Cessation: Smoking cessation has been advised. For more information, call the [place] Tobacco Quit Line at 6-669-AIXR-NOW. - Treatments List/Other: Patient is being discharged on a prednisone taper till she gets to 5 mg daily which she was on before admission for adrenal insufficiency - Diet Orders Cardiac (cardiac/diabetic diet) CERTIFICATION: I certify that the transfer of the above named patient to an Extended Care Facility is necessary for the continuing treatment of the diagnosis listed. The above information is true and accurate reflection of patient's current condition. Confidential - Redisclosure prohibited without a patient's written consent.
--- NOTE | 2017-07-08 11:52 | Electrocardiograph Report ---
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
== END 2017-07-06 14:53 | DRG 190 ==
LOC: 2ANU 15:21 → EMEROO 15:21 → 2ANU 20:11
PROVIDERS: ADMIT Internal Medicine; ATTEND Internal Medicine

== ENCOUNTER 2019-10-11 12:07 | Inpatient (IN) ==
[2019-10-11 12:38] LABS: Bilirubin,Urine Negative (Negative); Blood,Urine Negative (Negative); Clarity,Urine Clear (Clear); Color,Urine Light-Yellow (Yellow); Glucose,Urine (UA) 300 mg/dL (Normal); Ketones,Urine Negative (Negative); Leukocyte Esterase,Urine Trace (Negative); Mucus,Urine Few per lpf (None-Few); Nitrite,Urine Negative (Negative); Protein,Urine Negative (Neg-Trace); RBC,Urine 0-3 per hpf (0-3); Specific Gravity,Urine 1.016 (1.010-1.025); Squamous Epithelial Cell,Urine Few per hpf (None-Few); Urobilinogen,Urine Normal (Normal); WBC,Urine 0-3 per hpf (0-3)
[2019-10-11 12:58] LABS: Basophils % 0.5 %; Eosinophils # 0.1 K/mcL (0.0-0.6); Hematocrit 37.8 % (35.3-44.9); Hemoglobin 12.3 g/dL (11.5-15.4); Immature Granulocytes % 0.5 % (0-4); Lymphocytes # 1.8 K/mcL (0.6-4.6); Lymphocytes % 20.7 %; Mean Corpuscular HGB Conc 32.5 g/dL (31.6-35.5); Mean Corpuscular Hemoglobin 30.9 pg (28.0-33.3); Mean Platelet Volume 9.7 fL (9.4-12.4); Monocytes # 0.7 K/mcL (0.0-1.3); Monocytes % 7.3 %; Neutrophils # 6.2 K/mcL (1.6-8.9); Platelet Count 197 K/mcL (140-400); Red Blood Count 3.98 M/mcL (3.82-4.97); Red Cell Distribution Width 12.8 % (11.5-14.5); White Blood Count 8.9 K/mcL (4.3-11.1)
[2019-10-11 13:15] LABS: Prothrombin Time 11.8 Seconds (9.4-12.1)
[2019-10-11 13:17] LABS: Activated Partial Thrombo Time 25.2 Seconds (26.0-36.0)
[2019-10-11 13:18] LABS: Amphetamine Screen,Urine Negative ng/mL (Cutoff=1000); Barbiturate Screen,Urine Negative ng/mL (Cutoff=200); Benzodiazepines Screen,Urine Negative ng/mL (Cutoff=200); Cannabinoid Screen,Urine Negative ng/mL (Cutoff = 50); Cocaine Screen,Urine Negative ng/mL (Cutoff= 300); Opiate Screen,Urine Positive ng/mL (Cutoff=300); Phencyclidine Screen,Urine Negative ng/mL (Cutoff=25)
[2019-10-11 13:19] LABS: Alanine Aminotransferase 11 Units/L (7-52); Albumin 3.9 g/dL (3.5-5.7); Albumin/Globulin Ratio 1.7 (1.1-2.2); Alkaline Phosphatase 56 Units/L (34-104); Aspartate Amino Transferase 11 Units/L (13-39); BUN/Creatinine Ratio 20 (6-26); Bilirubin,Direct 0.1 mg/dL (0.0-0.2); Bilirubin,Indirect 0.4 mg/dL (0.0-1.0); Bilirubin,Total 0.5 mg/dL (0.3-1.0); Blood Urea Nitrogen 25 mg/dL (8-23); Calcium 8.9 mg/dL (8.6-10.3); Carbon Dioxide 30 mEq/L (23-29); Chloride 104 mEq/L (98-107); Creatine Kinase 59 Units/L (30-223); Ethanol < 10 mg/dL (Less than 10); Globulin 2.3 g/dL (2.4-3.5); Glucose 179 mg/dL (70-105); Osmolality,Calculated 301 (280-300); Potassium 3.6 mEq/L (3.5-5.1); Sodium 141 mEq/L (136-145); Total Protein 6.2 g/dL (6.4-8.9); Troponin I 0.03 ng/mL (< 0.04); eGFR For African Americans 51 (> 60); eGFR For Non-African Americans 42 (> 60)
[2019-10-11 13:33] LABS: Thyroid Stimulating Hormone 3.157 mcIU/mL (0.340-5.600)
[2019-10-11] MEDS ORDERED: Azithromycin 500 MG in 0.9 % Sodium Chloride 250 ML IVPB ONE (15:02)
[2019-10-11] MEDS ORDERED: cefTRIAXone 1,000 MG in Water for inj. (sterile) 10 ML IVP ONE (15:02)
[2019-10-11] MEDS ORDERED: D5% in Water 1,000 ML IVC PRN (15:46)
[2019-10-11] MEDS ORDERED: Ondansetron 4 MG/2 ML VIAL IVP PRN (15:46)
[2019-10-11] MEDS ORDERED: Dextrose Gel 15 GM/37.5 ML TUBE PO PRN ×2 (15:46)
[2019-10-11] MEDS ORDERED: *HR* Dextrose 50 % in Water (Vial) 50 ML VIAL IVP PRN (15:46)
[2019-10-11] MEDS ORDERED: Naloxone 0.4 MG/ML INJ IVP PRN (15:46)
[2019-10-11 18:17] LABS: VBG HCO3 30 mEq/L (21-27); VBG PCO2 49 mmHg (41-51); VBG PH 7.39 pH Units (7.32-7.42); VBG PO2 89 mmHg (25-50)
[2019-10-11] MEDS: *HR* Heparin 5,000 UNIT/ML VIAL SQ SCH (18:45)
[2019-10-11] MEDS: Insulin DETEMIR 100 UNIT/ML X5UNITS SQ SCH (21:06)
[2019-10-11] MEDS: Budesonide Neb 0.5 MG/2 ML IH SCH (21:54)
[2019-10-11] MEDS: Insulin LISPRO 300 UNITS/3 ML VIAL SQ SCH (22:28)
[2019-10-12 00:53] LABS: Basophils % 0.5 %; Eosinophils # 0.1 K/mcL (0.0-0.6); Eosinophils % 1.1 %; Hematocrit 36.1 % (35.3-44.9); Immature Granulocytes % 0.4 % (0-4); Lymphocytes # 1.5 K/mcL (0.6-4.6); Lymphocytes % 18.3 %; Mean Corpuscular HGB Conc 33.2 g/dL (31.6-35.5); Mean Corpuscular Hemoglobin 31.7 pg (28.0-33.3); Mean Corpuscular Volume 95.3 fL (83.0-100.0); Mean Platelet Volume 9.9 fL (9.4-12.4); Monocytes # 0.7 K/mcL (0.0-1.3); Monocytes % 8.6 %; Neutrophils # 5.7 K/mcL (1.6-8.9); Platelet Count 178 K/mcL (140-400); Red Blood Count 3.79 M/mcL (3.82-4.97); Red Cell Distribution Width 12.9 % (11.5-14.5); Segmented Neutrophils % 71.1 %; White Blood Count 8.1 K/mcL (4.3-11.1)
[2019-10-12 01:04] LABS: Calcium 8.8 mg/dL (8.6-10.3); Magnesium 1.8 mg/dL (1.6-2.6); Potassium 4.1 mEq/L (3.5-5.1)
[2019-10-12] MEDS: *HR* Heparin 5,000 UNIT/ML VIAL SQ SCH ×2 (06:07→16:56)
[2019-10-12] MEDS: Magnesium Oxide 400 MG TABLET PO SCH (08:56)
[2019-10-12] MEDS: Metoprolol XL (24 HR) Succ 25 MG TAB.ER.24H PO SCH (08:56)
[2019-10-12] MEDS: Aspirin Enteric Coated 81 MG Tablet PO SCH (08:56)
[2019-10-12] MEDS: Ascorbic Acid 500 MG TABLET PO SCH (08:56)
[2019-10-12] MEDS: Furosemide 40 MG TABLET PO SCH (08:56)
[2019-10-12] MEDS: Cholecalciferol (D-3) 1,000 UNIT (25MCG) TABLET PO SCH (08:57)
[2019-10-12] MEDS ORDERED: NON-FORMULARY MEDICATION 1 EACH EACH (Omega-3/Dha/Epa/Fish Oil [Fish Oil 1,000 Mg Softgel] PO SCH (09:00)
[2019-10-12] MEDS: Insulin LISPRO 300 UNITS/3 ML VIAL SQ SCH ×3 (09:01→16:57)
[2019-10-12] MEDS: Budesonide Neb 0.5 MG/2 ML IH SCH ×2 (09:40→21:10)
[2019-10-12] MEDS: predniSONE 5 MG TABLET PO SCH (12:25)
[2019-10-12] MEDS: DilTIAZem CD (24hr) 300 MG CAP.ER.24H PO SCH (12:25)
[2019-10-12] MEDS ORDERED: ARFORMOTEROL TARTRATE 15 MCG IH SCH (21:00)
[2019-10-12] MEDS: Albuterol 2.5 MG/3 ML NEBULIZER IH SCH (21:10)
[2019-10-12] MEDS: Insulin DETEMIR 100 UNIT/ML X5UNITS SQ SCH (21:32)
[2019-10-12] MEDS: Latanoprost 2.5 ML BOTTLE BOTH EYES SCH (21:32)
[2019-10-13] MEDS: *HR* Heparin 5,000 UNIT/ML VIAL SQ SCH ×2 (04:59→17:06)
[2019-10-13] MEDS: Cholecalciferol (D-3) 1,000 UNIT (25MCG) TABLET PO SCH (08:30)
[2019-10-13] MEDS: Aspirin Enteric Coated 81 MG Tablet PO SCH (08:30)
[2019-10-13] MEDS: predniSONE 5 MG TABLET PO SCH (08:30)
[2019-10-13] MEDS: Metoprolol XL (24 HR) Succ 25 MG TAB.ER.24H PO SCH (08:30)
[2019-10-13] MEDS: Insulin LISPRO 300 UNITS/3 ML VIAL SQ SCH ×3 (08:30→17:07)
[2019-10-13] MEDS: Ascorbic Acid 500 MG TABLET PO SCH (08:30)
[2019-10-13] MEDS: Furosemide 40 MG TABLET PO SCH (08:31)
[2019-10-13] MEDS: DilTIAZem CD (24hr) 300 MG CAP.ER.24H PO SCH (08:31)
[2019-10-13] MEDS: Magnesium Oxide 400 MG TABLET PO SCH (08:31)
[2019-10-13] MEDS: Albuterol 2.5 MG/3 ML NEBULIZER IH SCH ×2 (11:48→21:41)
[2019-10-13] MEDS: Budesonide Neb 0.5 MG/2 ML IH SCH ×2 (11:49→21:41)
[2019-10-13] MEDS: Insulin DETEMIR 100 UNIT/ML X5UNITS SQ SCH (21:24)
[2019-10-13] MEDS: Latanoprost 2.5 ML BOTTLE BOTH EYES SCH (21:41)
[2019-10-14] MEDS: *HR* Heparin 5,000 UNIT/ML VIAL SQ SCH ×2 (06:23→16:51)
[2019-10-14] MEDS: Insulin LISPRO 300 UNITS/3 ML VIAL SQ SCH ×5 (08:09→16:51)
[2019-10-14] MEDS: Metoprolol XL (24 HR) Succ 25 MG TAB.ER.24H PO SCH (08:13)
[2019-10-14] MEDS: Magnesium Oxide 400 MG TABLET PO SCH (08:13)
[2019-10-14] MEDS: Cholecalciferol (D-3) 1,000 UNIT (25MCG) TABLET PO SCH (08:13)
[2019-10-14] MEDS: Aspirin Enteric Coated 81 MG Tablet PO SCH (08:13)
[2019-10-14] MEDS: predniSONE 5 MG TABLET PO SCH (08:13)
[2019-10-14] MEDS: DilTIAZem CD (24hr) 300 MG CAP.ER.24H PO SCH (08:13)
[2019-10-14] MEDS: Furosemide 40 MG TABLET PO SCH (08:13)
[2019-10-14] MEDS: Ascorbic Acid 500 MG TABLET PO SCH (08:13)
[2019-10-14] MEDS: Albuterol 2.5 MG/3 ML NEBULIZER IH SCH ×2 (10:36→21:07)
[2019-10-14] MEDS: Budesonide Neb 0.5 MG/2 ML IH SCH ×2 (10:36→21:07)
[2019-10-14] MEDS: Insulin DETEMIR 100 UNIT/ML X5UNITS SQ SCH ×2 (11:20→22:40)
[2019-10-14] MEDS: polyethylene glycoL 3350 17 GM POWD.PACK PO SCH (11:20)
[2019-10-14] MEDS: Latanoprost 2.5 ML BOTTLE BOTH EYES SCH (22:40)
[2019-10-15 02:12] LABS: Basophils % 0.4 %; Eosinophils # 0.2 K/mcL (0.0-0.6); Eosinophils % 2.3 %; Hematocrit 34.3 % (35.3-44.9); Immature Granulocytes % 0.8 % (0-4); Lymphocytes # 1.5 K/mcL (0.6-4.6); Lymphocytes % 18.8 %; Mean Corpuscular HGB Conc 32.1 g/dL (31.6-35.5); Mean Corpuscular Hemoglobin 30.2 pg (28.0-33.3); Mean Corpuscular Volume 94.2 fL (83.0-100.0); Mean Platelet Volume 10.1 fL (9.4-12.4); Monocytes # 0.5 K/mcL (0.0-1.3); Monocytes % 6.9 %; Neutrophils # 5.6 K/mcL (1.6-8.9); Platelet Count 189 K/mcL (140-400); Red Blood Count 3.64 M/mcL (3.82-4.97); Red Cell Distribution Width 12.9 % (11.5-14.5); Segmented Neutrophils % 70.8 %; White Blood Count 7.9 K/mcL (4.3-11.1)
[2019-10-15 02:29] LABS: Calcium 8.9 mg/dL (8.6-10.3); Potassium 4.2 mEq/L (3.5-5.1)
[2019-10-15] MEDS: *HR* Heparin 5,000 UNIT/ML VIAL SQ SCH ×2 (06:34→16:36)
[2019-10-15] MEDS ORDERED: 0.9 % Sodium Chloride 1,000 ML IVC SCH (07:30)
[2019-10-15] MEDS: Budesonide Neb 0.5 MG/2 ML IH SCH (07:38)
[2019-10-15] MEDS: Albuterol 2.5 MG/3 ML NEBULIZER IH SCH (07:38)
[2019-10-15] MEDS: Ascorbic Acid 500 MG TABLET PO SCH (08:22)
[2019-10-15] MEDS: Magnesium Oxide 400 MG TABLET PO SCH (08:22)
[2019-10-15] MEDS: Aspirin Enteric Coated 81 MG Tablet PO SCH (08:22)
[2019-10-15] MEDS: Cholecalciferol (D-3) 1,000 UNIT (25MCG) TABLET PO SCH (08:23)
[2019-10-15] MEDS: predniSONE 5 MG TABLET PO SCH (08:23)
[2019-10-15] MEDS: Metoprolol XL (24 HR) Succ 25 MG TAB.ER.24H PO SCH (08:23)
[2019-10-15] MEDS: DilTIAZem CD (24hr) 300 MG CAP.ER.24H PO SCH (08:23)
[2019-10-15] MEDS: polyethylene glycoL 3350 17 GM POWD.PACK PO SCH (08:23)
[2019-10-15] MEDS: Furosemide 40 MG TABLET PO SCH (08:23)
[2019-10-15] MEDS: Insulin LISPRO 300 UNITS/3 ML VIAL SQ SCH ×6 (08:24→16:36)
[2019-10-15] MEDS: Insulin DETEMIR 100 UNIT/ML X5UNITS SQ SCH (08:26)
[2019-10-15 15:39] VITALS: BP 124/64
== END 2019-10-15 17:57 | DRG 948 ==
LOC: EMEROOARM 12:07 → 2ANU 12:07 → SUATTDRO 16:46 → 2ANU 17:55
PROVIDERS: ADMIT Internal Medicine; ATTEND Internal Medicine

== ENCOUNTER 2020-02-02 04:41 | Inpatient (IN) ==
[2020-02-02] MEDS ORDERED: Ipratropium/Albuterol Neb 3 ML IH ONE (04:56)
[2020-02-02] MEDS ORDERED: methylPREDNISolone 125 MG/2 ML VIAL IVP ONE (04:56)
[2020-02-02] MEDS: DilTIAZem 50 MG/50 ML IV.SOLN IVC SCH ×5 (05:04→21:20)
[2020-02-02] MEDS ORDERED: Vancomycin 1,250 MG/262.5 ML IV.SOLN IVPB ONE (05:16)
[2020-02-02] MEDS ORDERED: Azithromycin 500 MG in 0.9 % Sodium Chloride 250 ML IVPB ONE (05:17)
[2020-02-02] MEDS ORDERED: Piperacillin/Tazobactam 3.375 GM in 0.9 % Sodium Chloride Mini Bag 100 ML IVPB ONE (05:17)
[2020-02-02 05:18] LABS: Basophils # 0.1 K/mcL (0.0-0.2); Basophils % 0.4 %; Eosinophils # 0.1 K/mcL (0.0-0.6); Eosinophils % 0.6 %; Hematocrit 40.8 % (35.3-44.9); Immature Granulocytes % 0.8 % (0-4); Lymphocytes # 1.8 K/mcL (0.6-4.6); Lymphocytes % 13.9 %; Mean Corpuscular HGB Conc 31.9 g/dL (31.6-35.5); Mean Corpuscular Hemoglobin 30.5 pg (28.0-33.3); Mean Corpuscular Volume 95.8 fL (83.0-100.0); Mean Platelet Volume 9.8 fL (9.4-12.4); Monocytes # 1.1 K/mcL (0.0-1.3); Monocytes % 8.1 %; Neutrophils # 10.1 K/mcL (1.6-8.9); Platelet Count 204 K/mcL (140-400); Red Blood Count 4.26 M/mcL (3.82-4.97); Red Cell Distribution Width 13.7 % (11.5-14.5); Segmented Neutrophils % 76.2 %; White Blood Count 13.2 K/mcL (4.3-11.1)
[2020-02-02 05:21] LABS: VBG HCO3 28 mEq/L (21-27); VBG PCO2 49 mmHg (41-51); VBG PH 7.37 pH Units (7.32-7.42); VBG PO2 37 mmHg (25-50)
[2020-02-02 05:27] LABS: INR 0.9
[2020-02-02 05:29] LABS: Activated Partial Thrombo Time 22.7 Seconds (26.0-36.0)
[2020-02-02 05:38] LABS: Albumin 3.8 g/dL (3.5-5.7); Albumin/Globulin Ratio 1.7 (1.1-2.2); Bilirubin,Direct 0.1 mg/dL (0.0-0.2); Bilirubin,Indirect 0.2 mg/dL (0.0-1.0); Bilirubin,Total 0.3 mg/dL (0.3-1.0); Calcium 9.2 mg/dL (8.6-10.3); Globulin 2.3 g/dL (2.4-3.5); Magnesium 1.8 mg/dL (1.6-2.6); Potassium 3.5 mEq/L (3.5-5.1); Total Protein 6.1 g/dL (6.4-8.9); Troponin I 0.03 ng/mL (< 0.04)
[2020-02-02] MEDS ORDERED: 0.9 % Sodium Chloride 1,000 ML IVC ONE (06:33)
[2020-02-02 06:43] LABS: Bacteria,Urine Few per hpf (None-Few); Bilirubin,Urine Negative (Negative); Blood,Urine Negative (Negative); Clarity,Urine Clear (Clear); Color,Urine Light-Yellow (Yellow); Glucose,Urine (UA) Normal (Normal); Ketones,Urine Negative (Negative); Leukocyte Esterase,Urine Large (Negative); Nitrite,Urine Negative (Negative); PH,Urine 5.5 pH Units (5.0-8.0); Protein,Urine Negative (Neg-Trace); RBC,Urine 0-3 per hpf (0-3); Specific Gravity,Urine 1.007 (1.010-1.025); Urobilinogen,Urine Normal (Normal); WBC,Urine 30-50 per hpf (0-3)
[2020-02-02 08:08] LABS: Adenovirus Not Detected (Not Detect); Coronavirus 229E Not Detected (Not Detect); Coronavirus HKU1 Not Detected (Not Detect); Coronavirus NL63 Not Detected (Not Detect); Coronavirus OC43 Not Detected (Not Detect)
[2020-02-02] MEDS ORDERED: Naloxone 0.4 MG/ML INJ IVP PRN (08:08)
[2020-02-02] MEDS ORDERED: Ondansetron 4 MG/2 ML VIAL IVP PRN (08:08)
[2020-02-02 08:09] LABS: Bordetella Pertussis Not Detected (Not Detect); Chlamydophila pneumoniae Not Detected (Not Detect); Human Metapneumovirus Not Detected (Not Detect); Human Rhinovirus/Enterovirus Not Detected (Not Detect); Influenza A Subtype 2009 H1 Not Detected (Not Detect); Influenza B Not Detected (Not Detect); Mycoplasma pneumoniae Not Detected (Not Detect); Parainfluenza Virus 1 Not Detected (Not Detect); Parainfluenza Virus 2 Not Detected (Not Detect); Parainfluenza Virus 3 Not Detected (Not Detect); Parainfluenza Virus 4 Not Detected (Not Detect); Respiratory Syncytial Virus Not Detected (Not Detect); SARS-CoV-2 Not Detected (Not Detect)
[2020-02-02] MEDS ORDERED: Dextrose Gel 15 GM/37.5 ML TUBE PO PRN ×4 (08:37→11:56)
[2020-02-02] MEDS ORDERED: *HR* Dextrose 50 % in Water (Vial) 50 ML VIAL IVP PRN ×2 (08:37→11:56)
[2020-02-02] MEDS ORDERED: D5% in Water 1,000 ML IVC PRN ×2 (08:37→11:56)
[2020-02-02] MEDS ORDERED: D5% in 0.9% NACL 1,000 ML IVC SCH (09:00)
[2020-02-02] MEDS ORDERED: *HR* Digoxin 0.5 MG/2 ML AMPUL IVP ONE (09:39)
[2020-02-02] MEDS: Ipratropium 1 PUFF INHALER IH SCH ×3 (11:30→20:41)
[2020-02-02] MEDS ORDERED: Insulin LISPRO 300 UNITS/3 ML VIAL SQ SCH (11:30)
[2020-02-02] MEDS: Insulin LISPRO 300 UNITS/3 ML VIAL SQ SCH ×3 (12:36→21:18)
[2020-02-02] MEDS: MethylPREDNISolone 40 MG/ML VIAL IVP SCH ×2 (15:54→23:22)
[2020-02-02] MEDS: *HR* Heparin 5,000 UNIT/ML VIAL SQ SCH (16:53)
[2020-02-02] MEDS: Budesonide Neb 0.5 MG/2 ML IH SCH (20:43)
[2020-02-02] MEDS: Latanoprost 2.5 ML BOTTLE BOTH EYES SCH (21:19)
[2020-02-03] MEDS: Ipratropium 1 PUFF INHALER IH SCH ×6 (00:14→20:37)
[2020-02-03] MEDS: DilTIAZem 50 MG/50 ML IV.SOLN IVC SCH ×2 (03:02→08:42)
[2020-02-03] MEDS: *HR* Heparin 5,000 UNIT/ML VIAL SQ SCH ×2 (06:55→17:08)
[2020-02-03 07:28] LABS: Basophils % 0.1 %; Hematocrit 33.3 % (35.3-44.9); Immature Granulocytes % 1.2 % (0-4); Lymphocytes # 0.9 K/mcL (0.6-4.6); Lymphocytes % 6.4 %; Mean Corpuscular HGB Conc 31.5 g/dL (31.6-35.5); Mean Corpuscular Hemoglobin 30.8 pg (28.0-33.3); Mean Corpuscular Volume 97.7 fL (83.0-100.0); Mean Platelet Volume 10.4 fL (9.4-12.4); Monocytes # 0.2 K/mcL (0.0-1.3); Monocytes % 1.3 %; Neutrophils # 12.5 K/mcL (1.6-8.9); Platelet Count 195 K/mcL (140-400); Red Blood Count 3.41 M/mcL (3.82-4.97); Red Cell Distribution Width 13.8 % (11.5-14.5); White Blood Count 13.8 K/mcL (4.3-11.1)
[2020-02-03 07:29] LABS: Hemoglobin 10.5 g/dL (11.5-15.4)
[2020-02-03] MEDS: Budesonide Neb 0.5 MG/2 ML IH SCH ×2 (07:39→20:37)
[2020-02-03] MEDS: Magnesium Oxide 400 MG TABLET PO SCH (07:53)
[2020-02-03] MEDS: Metoprolol XL (24 HR) Succ 50 MG TAB.ER.24H PO SCH (07:53)
[2020-02-03] MEDS: Aspirin Enteric Coated 81 MG Tablet PO SCH (07:53)
[2020-02-03] MEDS: MethylPREDNISolone 40 MG/ML VIAL IVP SCH (07:54)
[2020-02-03] MEDS: cefTRIAXone 1,000 MG in Water for inj. (sterile) 10 ML IVP SCH (07:59)
[2020-02-03] MEDS: Azithromycin 500 MG in 0.9 % Sodium Chloride 250 ML IVPB SCH (08:03)
[2020-02-03] MEDS: Insulin LISPRO 300 UNITS/3 ML VIAL SQ SCH ×6 (08:17→20:57)
[2020-02-03] MEDS: DilTIAZem CD (24hr) 300 MG CAP.ER.24H PO SCH (08:25)
[2020-02-03 11:07] LABS: Magnesium 1.7 mg/dL (1.6-2.6); Potassium 4.4 mEq/L (3.5-5.1); Troponin I 0.09 ng/mL (< 0.04)
[2020-02-03] MEDS ORDERED: Perflutren Lipid Microsphere 1.3 ML in 0.9 % Sodium Chloride 8.7 ML IVP PRN (12:46)
[2020-02-03] MEDS: Latanoprost 2.5 ML BOTTLE BOTH EYES SCH (20:53)
[2020-02-03] MEDS: Insulin DETEMIR 100 UNIT/ML X5UNITS SQ SCH (20:55)
[2020-02-04] MEDS: Ipratropium 1 PUFF INHALER IH SCH ×7 (00:16→21:58)
[2020-02-04] MEDS: *HR* Heparin 5,000 UNIT/ML VIAL SQ SCH ×2 (05:43→16:45)
[2020-02-04 06:42] LABS: Basophils % 0.1 %; Hematocrit 30.3 % (35.3-44.9); Hemoglobin 9.6 g/dL (11.5-15.4); Lymphocytes # 0.9 K/mcL (0.6-4.6); Mean Corpuscular HGB Conc 31.7 g/dL (31.6-35.5); Mean Corpuscular Hemoglobin 30.8 pg (28.0-33.3); Mean Corpuscular Volume 97.1 fL (83.0-100.0); Mean Platelet Volume 9.8 fL (9.4-12.4); Monocytes # 0.7 K/mcL (0.0-1.3); Monocytes % 4.4 %; Neutrophils # 13.5 K/mcL (1.6-8.9); Platelet Count 194 K/mcL (140-400); Red Blood Count 3.12 M/mcL (3.82-4.97); Red Cell Distribution Width 14.1 % (11.5-14.5); Segmented Neutrophils % 87.5 %; White Blood Count 15.4 K/mcL (4.3-11.1)
[2020-02-04 06:57] LABS: Calcium 8.4 mg/dL (8.6-10.3); Potassium 4.8 mEq/L (3.5-5.1)
[2020-02-04] MEDS: Budesonide Neb 0.5 MG/2 ML IH SCH ×2 (07:49→21:38)
[2020-02-04 08:16] LABS: Estimated Average Glucose 206 mg/dl
[2020-02-04] MEDS: Metoprolol XL (24 HR) Succ 50 MG TAB.ER.24H PO SCH (08:25)
[2020-02-04] MEDS: Azithromycin 500 MG in 0.9 % Sodium Chloride 250 ML IVPB SCH (08:26)
[2020-02-04] MEDS: Magnesium Oxide 400 MG TABLET PO SCH (08:26)
[2020-02-04] MEDS: Aspirin Enteric Coated 81 MG Tablet PO SCH (08:26)
[2020-02-04] MEDS: DilTIAZem CD (24hr) 300 MG CAP.ER.24H PO SCH (08:26)
[2020-02-04] MEDS: cefTRIAXone 1,000 MG in Water for inj. (sterile) 10 ML IVP SCH (08:27)
[2020-02-04] MEDS: MethylPREDNISolone 40 MG/ML VIAL IVP SCH (08:27)
[2020-02-04] MEDS: Insulin LISPRO 300 UNITS/3 ML VIAL SQ SCH ×7 (08:28→21:41)
[2020-02-04 09:03] LABS: Hematocrit 32.4 % (35.3-44.9); Hemoglobin 10.3 g/dL (11.5-15.4)
[2020-02-04] MEDS ORDERED: Ipratropium/Albuterol Neb 3 ML IH PRN (09:55)
[2020-02-04] MEDS: Ipratropium/Albuterol Neb 3 ML IH SCH ×3 (11:22→21:38)
[2020-02-04] MEDS: Furosemide 40 MG TABLET PO SCH (12:06)
[2020-02-04] MEDS: Insulin DETEMIR 100 UNIT/ML X5UNITS SQ SCH (21:41)
[2020-02-04] MEDS: Latanoprost 2.5 ML BOTTLE BOTH EYES SCH (21:42)
[2020-02-05 02:42] LABS: Basophils % 0.1 %; Hematocrit 31.4 % (35.3-44.9); Lymphocytes # 0.6 K/mcL (0.6-4.6); Lymphocytes % 5.1 %; Mean Corpuscular HGB Conc 31.8 g/dL (31.6-35.5); Mean Corpuscular Volume 97.2 fL (83.0-100.0); Mean Platelet Volume 9.8 fL (9.4-12.4); Monocytes # 0.5 K/mcL (0.0-1.3); Monocytes % 4.2 %; Neutrophils # 10.6 K/mcL (1.6-8.9); Platelet Count 191 K/mcL (140-400); Red Blood Count 3.23 M/mcL (3.82-4.97); Red Cell Distribution Width 13.8 % (11.5-14.5); Segmented Neutrophils % 86.6 %; White Blood Count 12.2 K/mcL (4.3-11.1)
[2020-02-05 02:59] LABS: Calcium 8.4 mg/dL (8.6-10.3); Potassium 4.4 mEq/L (3.5-5.1)
[2020-02-05] MEDS: Ipratropium 1 PUFF INHALER IH SCH ×3 (03:00→11:24)
[2020-02-05] MEDS: Ipratropium/Albuterol Neb 3 ML IH SCH ×3 (03:09→15:21)
[2020-02-05] MEDS: *HR* Heparin 5,000 UNIT/ML VIAL SQ SCH (05:27)
[2020-02-05] MEDS: Insulin LISPRO 300 UNITS/3 ML VIAL SQ SCH ×6 (08:38→17:12)
[2020-02-05] MEDS: DilTIAZem CD (24hr) 300 MG CAP.ER.24H PO SCH (08:41)
[2020-02-05] MEDS: Aspirin Enteric Coated 81 MG Tablet PO SCH (08:41)
[2020-02-05] MEDS: cefTRIAXone 1,000 MG in Water for inj. (sterile) 10 ML IVP SCH (08:42)
[2020-02-05] MEDS: Furosemide 40 MG TABLET PO SCH (08:42)
[2020-02-05] MEDS: Magnesium Oxide 400 MG TABLET PO SCH (08:42)
[2020-02-05] MEDS: MethylPREDNISolone 40 MG/ML VIAL IVP SCH (08:45)
[2020-02-05] MEDS: Metoprolol XL (24 HR) Succ 50 MG TAB.ER.24H PO SCH (08:45)
[2020-02-05] MEDS: Azithromycin 500 MG in 0.9 % Sodium Chloride 250 ML IVPB SCH (08:46)
[2020-02-05] MEDS: Budesonide Neb 0.5 MG/2 ML IH SCH (09:55)
[2020-02-05 16:10] VITALS: BP 122/50
[2020-02-05] MEDS ORDERED: FLU Vac QV 20-21 (6Month+)/PF 0.5 ML SYRINGE IM ONE (17:24)
== END 2020-02-05 17:44 | disposition home or self-care (01) | DRG 871 ==
LOC: EMEROOARM 04:41 → 2NNU 04:41 → SUATTDRO 08:37 → 2NNU 09:34 → 2ANU 02-04 19:58
PROVIDERS: ADMIT Internal Medicine; ATTEND Internal Medicine

== ENCOUNTER 2021-01-15 13:08 | Inpatient (IN) ==
[2021-01-15] MEDS ORDERED: 0.9 % Sodium Chloride 500 ML IVC ONE ×2 (13:17→15:03)
[2021-01-15 13:31] LABS: Basophils % 0.2 %; Eosinophils % 0.2 %; Hematocrit 36.2 % (35.3-44.9); Hemoglobin 11.6 g/dL (11.5-15.4); Immature Granulocytes % 3.1 % (0-4); Lymphocytes % 6.6 %; Mean Corpuscular Hemoglobin 31.2 pg (28.0-33.3); Mean Corpuscular Volume 97.3 fL (83.0-100.0); Monocytes # 0.8 K/mcL (0.0-1.3); Monocytes % 5.6 %; Neutrophils # 12.4 K/mcL (1.6-8.9); Platelet Count 142 K/mcL (140-400); Red Blood Count 3.72 M/mcL (3.82-4.97); Red Cell Distribution Width 14.6 % (11.5-14.5); Segmented Neutrophils % 84.3 %; White Blood Count 14.7 K/mcL (4.3-11.1)
[2021-01-15 13:35] LABS: VBG HCO3 27 mEq/L (21-27); VBG PCO2 44 mmHg (41-51); VBG PO2 36 mmHg (25-50)
[2021-01-15 14:00] LABS: Albumin 3.8 g/dL (3.5-5.7); Albumin/Globulin Ratio 1.5 (1.1-2.2); Bilirubin,Total 0.7 mg/dL (0.3-1.0); Calcium 8.8 mg/dL (8.6-10.3); Globulin 2.6 g/dL (2.4-3.5); Potassium 4.2 mEq/L (3.5-5.1); Total Protein 6.4 g/dL (6.4-8.9); Troponin I 0.03 ng/mL (< 0.04)
[2021-01-15 14:52] LABS: Bilirubin,Urine Negative (Negative); Blood,Urine Negative (Negative); Clarity,Urine Clear (Clear); Color,Urine Yellow (Yellow); Glucose,Urine (UA) >=1000 mg/dL (Normal); Hyaline Casts,Urine Few per lpf (None Seen); Ketones,Urine Negative (Negative); Leukocyte Esterase,Urine Negative (Negative); Mucus,Urine Few per lpf (None-Few); Nitrite,Urine Negative (Negative); Protein,Urine Negative (Neg-Trace); Specific Gravity,Urine 1.011 (1.010-1.025); Squamous Epithelial Cell,Urine Few per hpf (None-Few); Urobilinogen,Urine Normal (Normal); WBC,Urine 0-3 per hpf (0-3)
[2021-01-15] MEDS ORDERED: Insulin Regular, Human 100 UNIT/ML SUBQ ONE (15:04)
[2021-01-15 15:36] LABS: Amphetamine Screen,Urine Negative ng/mL (Cutoff=1000); Barbiturate Screen,Urine Negative ng/mL (Cutoff=200); Benzodiazepines Screen,Urine Negative ng/mL (Cutoff=200); Cannabinoid Screen,Urine Negative ng/mL (Cutoff = 50); Cocaine Screen,Urine Negative ng/mL (Cutoff= 300); Opiate Screen,Urine Negative ng/mL (Cutoff=300); Phencyclidine Screen,Urine Negative ng/mL (Cutoff=25)
[2021-01-15 15:49] LABS: Thyroid Stimulating Hormone 0.883 mcIU/mL (0.340-5.600)
[2021-01-15] MEDS ORDERED: Ondansetron 4 MG/2 ML VIAL IVP PRN (15:54)
[2021-01-15] MEDS ORDERED: MOM Conc 10 ML UD.LIQ PO PRN (15:54)
[2021-01-15] MEDS ORDERED: Naloxone 0.4 MG/ML INJ IVP PRN (15:54)
[2021-01-15] MEDS ORDERED: Acetaminophen 325 MG TABLET PO PRN (15:54)
[2021-01-15] MEDS ORDERED: Dextrose Gel 15 GM/37.5 ML TUBE PO PRN ×2 (16:00)
[2021-01-15] MEDS ORDERED: D5% in Water 1,000 ML IVC PRN (16:00)
[2021-01-15] MEDS ORDERED: *HR* Dextrose 50 % in Water (Syg) 50 ML SYRINGE IVP PRN (16:00)
[2021-01-15] MEDS ORDERED: Perflutren Lipid Microsphere 1.3 ML in 0.9 % Sodium Chloride 8.7 ML IVP PRN (16:02)
[2021-01-15] MEDS: Levalbuterol Neb 0.63 MG/3 ML IH SCH ×2 (16:11→22:25)
[2021-01-15 19:29] LABS: Adenovirus Not Detected (Not Detect); Bordetella Pertussis Not Detected (Not Detect); Chlamydophila pneumoniae Not Detected (Not Detect); Coronavirus 229E Not Detected (Not Detect); Coronavirus HKU1 Not Detected (Not Detect); Coronavirus NL63 Not Detected (Not Detect); Coronavirus OC43 Not Detected (Not Detect); Human Metapneumovirus Not Detected (Not Detect); Human Rhinovirus/Enterovirus Not Detected (Not Detect); Influenza A Subtype 2009 H1 Not Detected (Not Detect); Influenza B Not Detected (Not Detect); Mycoplasma pneumoniae Not Detected (Not Detect); Parainfluenza Virus 1 Not Detected (Not Detect); Parainfluenza Virus 2 Not Detected (Not Detect); Parainfluenza Virus 3 Not Detected (Not Detect); Parainfluenza Virus 4 Not Detected (Not Detect); Respiratory Syncytial Virus Not Detected (Not Detect); SARS-CoV-2 Not Detected (Not Detect)
[2021-01-15] MEDS ORDERED: NON-FORMULARY MEDICATION 1 EACH EACH (Insulin Glargine,Hum.Rec.Anlog [Lantus Solostar] 100 SQ SCH (21:00)
[2021-01-15] MEDS ORDERED: Cefdinir 300 MG CAPSULE PO SCH (21:00)
[2021-01-15] MEDS: Melatonin 3 MG TABLET PO PRN (21:01)
[2021-01-15] MEDS: Insulin DETEMIR 100 UNIT/ML X5UNITS SUBQ SCH (21:02)
[2021-01-15] MEDS: Insulin LISPRO 300 UNITS/3 ML VIAL SUBQ SCH (21:02)
[2021-01-15] MEDS: Budesonide Neb 0.5 MG/2 ML IH SCH (22:25)
[2021-01-16 02:12] LABS: Basophils % 0.2 %
[2021-01-16 02:14] LABS: Eosinophils % 0.2 %; Hematocrit 31.9 % (35.3-44.9); Hemoglobin 10.3 g/dL (11.5-15.4); Immature Granulocytes % 1.7 % (0-4); Immature Platelets 7.9 % (1.1-6.1); Lymphocytes # 1.7 K/mcL (0.6-4.6); Lymphocytes % 16.7 %; Mean Corpuscular HGB Conc 32.3 g/dL (31.6-35.5); Mean Corpuscular Hemoglobin 30.9 pg (28.0-33.3); Mean Corpuscular Volume 95.8 fL (83.0-100.0); Monocytes # 0.8 K/mcL (0.0-1.3); Monocytes % 7.2 %; Neutrophils # 7.7 K/mcL (1.6-8.9); Platelet Count 142 K/mcL (140-400); Red Blood Count 3.33 M/mcL (3.82-4.97); Red Cell Distribution Width 14.5 % (11.5-14.5); White Blood Count 10.4 K/mcL (4.3-11.1)
[2021-01-16 02:27] LABS: Calcium 8.3 mg/dL (8.6-10.3); Potassium 3.7 mEq/L (3.5-5.1)
[2021-01-16] MEDS: Levalbuterol Neb 0.63 MG/3 ML IH SCH ×4 (04:15→20:05)
[2021-01-16] MEDS: Insulin LISPRO 300 UNITS/3 ML VIAL SUBQ SCH ×7 (06:51→20:55)
[2021-01-16] MEDS: DilTIAZem CD (24hr) 300 MG CAP.ER.24H PO SCH (09:26)
[2021-01-16] MEDS: Cefdinir 300 MG CAPSULE PO SCH (09:27)
[2021-01-16] MEDS: Magnesium Oxide 400 MG TABLET PO SCH (09:27)
[2021-01-16] MEDS: Metoprolol XL (24 HR) Succ 50 MG TAB.ER.24H PO SCH (09:27)
[2021-01-16] MEDS: Aspirin Enteric Coated 81 MG Tablet PO SCH (09:27)
[2021-01-16] MEDS: predniSONE 5 MG TABLET PO SCH (09:27)
[2021-01-16] MEDS: Budesonide Neb 0.5 MG/2 ML IH SCH ×2 (10:12→20:05)
[2021-01-16 10:59] LABS: Estimated Average Glucose 214 mg/dl; Hemoglobin A1C 9.1 %
[2021-01-16] MEDS: Insulin DETEMIR 100 UNIT/ML X5UNITS SUBQ SCH (20:56)
[2021-01-16] MEDS: Melatonin 3 MG TABLET PO PRN (20:56)
[2021-01-17] MEDS: Levalbuterol Neb 0.63 MG/3 ML IH SCH ×2 (03:36→09:47)
[2021-01-17 05:10] LABS: Basophils % 0.2 %; Eosinophils # 0.1 K/mcL (0.0-0.6); Hematocrit 31.3 % (35.3-44.9); Immature Granulocytes % 1.1 % (0-4); Immature Platelets 8.1 % (1.1-6.1); Lymphocytes # 2.1 K/mcL (0.6-4.6); Lymphocytes % 26.3 %; Mean Corpuscular HGB Conc 31.9 g/dL (31.6-35.5); Mean Corpuscular Hemoglobin 30.9 pg (28.0-33.3); Mean Corpuscular Volume 96.6 fL (83.0-100.0); Monocytes # 0.7 K/mcL (0.0-1.3); Monocytes % 8.6 %; Neutrophils # 5.1 K/mcL (1.6-8.9); Platelet Count 129 K/mcL (140-400); Red Blood Count 3.24 M/mcL (3.82-4.97); Red Cell Distribution Width 14.9 % (11.5-14.5); Segmented Neutrophils % 62.8 %; White Blood Count 8.1 K/mcL (4.3-11.1)
[2021-01-17 05:28] LABS: Calcium 8.5 mg/dL (8.6-10.3); Potassium 3.7 mEq/L (3.5-5.1)
[2021-01-17] MEDS: Insulin LISPRO 300 UNITS/3 ML VIAL SUBQ SCH ×2 (07:09→08:39)
[2021-01-17] MEDS: Cefdinir 300 MG CAPSULE PO SCH (08:31)
[2021-01-17] MEDS: Aspirin Enteric Coated 81 MG Tablet PO SCH (08:32)
[2021-01-17] MEDS: Metoprolol XL (24 HR) Succ 50 MG TAB.ER.24H PO SCH (08:32)
[2021-01-17] MEDS: predniSONE 5 MG TABLET PO SCH (08:32)
[2021-01-17] MEDS: Magnesium Oxide 400 MG TABLET PO SCH (08:32)
[2021-01-17] MEDS: DilTIAZem CD (24hr) 300 MG CAP.ER.24H PO SCH (08:32)
[2021-01-17] MEDS ORDERED: Furosemide 40 MG TABLET PO SCH (09:00)
[2021-01-17] MEDS: Budesonide Neb 0.5 MG/2 ML IH SCH (09:47)
[2021-01-17 10:53] VITALS: BP 113/68; PULSE 84; TEMP 97.5; O2SAT 97
== END 2021-01-17 12:59 | disposition home or self-care (01) | DRG 637 ==
LOC: 3BNU 13:08 → EMEROOARM 13:08 → SUATTDRO 15:37 → 3BNU 16:09
PROVIDERS: ADMIT Family Medicine; ATTEND Internal Medicine

== ENCOUNTER 2021-03-25 14:37 | Inpatient (IN) ==
[2021-03-25] MEDS ORDERED: Isovue-370 500 ML BOTTLE IVP ONE (14:49)
[2021-03-25 14:57] LABS: ABG Base Excess 0 mEq/L (-2 to 3); ABG HCO3 24 mEq/L (21-27); ABG Oxygen Saturation 98 % (95-98); ABG PCO2 35 mmHg (35-45); ABG PH 7.44 pH Units (7.32-7.45); ABG PO2 93 mmHg (85-104); ABG TCO2 25 mEq/L (20-26)
[2021-03-25 15:16] LABS: Basophils % 0.2 %
[2021-03-25 15:27] LABS: Prothrombin Time 10.9 Seconds (9.4-12.1)
[2021-03-25 15:31] LABS: Red Cell Distribution Width 16.2 % (11.5-14.5)
[2021-03-25 15:32] LABS: Hematocrit 33.4 % (35.3-44.9); Hemoglobin 10.9 g/dL (11.5-15.4); Immature Granulocytes % 3.5 % (0-4); Immature Platelets 10.6 % (1.1-6.1); Lymphocytes % 14.2 %; Mean Corpuscular HGB Conc 32.6 g/dL (31.6-35.5); Mean Corpuscular Hemoglobin 29.8 pg (28.0-33.3); Mean Corpuscular Volume 91.3 fL (83.0-100.0); Mean Platelet Volume 12.3 fL (9.4-12.4); Red Blood Count 3.66 M/mcL (3.82-4.97); Segmented Neutrophils % 76.2 %; White Blood Count 4.6 K/mcL (4.3-11.1)
[2021-03-25 15:33] LABS: Lymphocytes # 0.7 K/mcL (0.6-4.6); Monocytes # 0.3 K/mcL (0.0-1.3); Monocytes % 5.9 %; Neutrophils # 3.5 K/mcL (1.6-8.9)
[2021-03-25 15:41] LABS: Alanine Aminotransferase 17 Units/L (7-52); Albumin 3.5 g/dL (3.5-5.7); Albumin/Globulin Ratio 1.4 (1.1-2.2); Alkaline Phosphatase 39 Units/L (34-104); Aspartate Amino Transferase 39 Units/L (13-39); BUN/Creatinine Ratio 18 (6-26); Bilirubin,Direct 0.1 mg/dL (0.0-0.2); Bilirubin,Indirect 0.4 mg/dL (0.0-1.0); Bilirubin,Total 0.5 mg/dL (0.3-1.0); Blood Urea Nitrogen 24 mg/dL (8-23); C-Reactive Protein 30 mg/L (Less than 10); Calcium 8.4 mg/dL (8.6-10.3); Carbon Dioxide 25 mEq/L (23-29); Chloride 102 mEq/L (98-107); Creatine Kinase 188 Units/L (30-223); Ethanol < 10 mg/dL (Less than 10); Globulin 2.5 g/dL (2.4-3.5); Glucose 229 mg/dL (70-105); Lactate Dehydrogenase 339 Units/L (140-271); Magnesium 1.6 mg/dL (1.6-2.6); Osmolality,Calculated 289 (280-300); Phosphorous 2.9 mg/dL (2.7-4.5); Potassium 3.9 mEq/L (3.5-5.1); Sodium 134 mEq/L (136-145); Troponin I 0.05 ng/mL (< 0.04); eGFR For African Americans 45 (> 60); eGFR For Non-African Americans 37 (> 60)
[2021-03-25 15:47] LABS: Platelet Count 70 K/mcL (140-400)
[2021-03-25 15:53] LABS: Thyroid Stimulating Hormone 1.419 mcIU/mL (0.340-5.600)
[2021-03-25 15:54] LABS: Ferritin 1325 ng/mL (10-120)
[2021-03-25] MEDS ORDERED: Azithromycin 500 MG in 0.9 % Sodium Chloride 250 ML IVPB ONE (15:58)
[2021-03-25] MEDS ORDERED: cefTRIAXone 1,000 MG in 0.9 % Sodium Chloride Mini Bag 100 ML IVPB ONE (15:58)
[2021-03-25 16:31] LABS: Bilirubin,Urine Negative (Negative); Blood,Urine Negative (Negative); Clarity,Urine Clear (Clear); Color,Urine Yellow (Yellow); Glucose,Urine (UA) 30 mg/dL (Normal); Hyaline Casts,Urine Few per lpf (None Seen); Ketones,Urine Negative (Negative); Leukocyte Esterase,Urine Negative (Negative); Mucus,Urine Few per lpf (None-Few); Nitrite,Urine Negative (Negative); Protein,Urine Trace mg/dL (Neg-Trace); Specific Gravity,Urine 1.024 (1.010-1.025); Squamous Epithelial Cell,Urine Few per hpf (None-Few); Urobilinogen,Urine Normal (Normal); WBC,Urine 0-3 per hpf (0-3)
[2021-03-25 16:37] LABS: Amphetamine Screen,Urine Negative ng/mL (Cutoff=1000); Barbiturate Screen,Urine Negative ng/mL (Cutoff=200); Benzodiazepines Screen,Urine Negative ng/mL (Cutoff=200); Cannabinoid Screen,Urine Negative ng/mL (Cutoff = 50); Cocaine Screen,Urine Negative ng/mL (Cutoff= 300); Opiate Screen,Urine Negative ng/mL (Cutoff=300); Phencyclidine Screen,Urine Negative ng/mL (Cutoff=25)
[2021-03-25] MEDS ORDERED: Acetaminophen 325 MG TABLET PO PRN (17:18)
[2021-03-25] MEDS ORDERED: Benzonatate 100 MG CAPSULE PO PRN (17:18)
[2021-03-25] MEDS ORDERED: Naloxone 0.4 MG/ML INJ IVP PRN (17:22)
[2021-03-25] MEDS ORDERED: Ondansetron 4 MG/2 ML VIAL IVP PRN (17:22)
[2021-03-25] MEDS ORDERED: *HR* Dextrose 50 % in Water (Syg) 50 ML SYRINGE IVP PRN (17:39)
[2021-03-25] MEDS ORDERED: D5% in Water 1,000 ML IVC PRN (17:39)
[2021-03-25] MEDS ORDERED: Dextrose Gel 15 GM/37.5 ML TUBE PO PRN ×2 (17:39)
[2021-03-25] MEDS: cefTRIAXone 1,000 MG in 0.9 % Sodium Chloride Mini Bag 100 ML IVPB SCH (18:28)
[2021-03-25] MEDS: Azithromycin 500 MG in 0.9 % Sodium Chloride 250 ML IVPB SCH (18:29)
[2021-03-25] MEDS: Insulin LISPRO 300 UNITS/3 ML VIAL SUBQ SCH (20:06)
[2021-03-25] MEDS: Insulin DETEMIR 100 UNIT/ML X5UNITS SUBQ SCH (20:07)
[2021-03-25] MEDS: Latanoprost 2.5 ML BOTTLE BOTH EYES SCH (20:07)
[2021-03-25] MEDS: Ipratropium 1 PUFF INHALER IH SCH (20:59)
[2021-03-26] MEDS: Ipratropium 1 PUFF INHALER IH SCH ×7 (00:27→21:05)
[2021-03-26 03:21] LABS: Basophils % 0.4 %; Hematocrit 35.5 % (35.3-44.9); Hemoglobin 11.3 g/dL (11.5-15.4); Immature Granulocytes % 1.6 % (0-4); Lymphocytes # 0.4 K/mcL (0.6-4.6); Lymphocytes % 16.5 %; Mean Corpuscular HGB Conc 31.8 g/dL (31.6-35.5); Mean Corpuscular Hemoglobin 29.5 pg (28.0-33.3); Mean Corpuscular Volume 92.7 fL (83.0-100.0); Mean Platelet Volume 11.3 fL (9.4-12.4); Monocytes # 0.1 K/mcL (0.0-1.3); Monocytes % 3.2 %; Red Blood Count 3.83 M/mcL (3.82-4.97); Red Cell Distribution Width 16.1 % (11.5-14.5); Segmented Neutrophils % 78.3 %; White Blood Count 2.5 K/mcL (4.3-11.1)
[2021-03-26 03:26] LABS: Platelet Count 77 K/mcL (140-400)
[2021-03-26 03:41] LABS: Troponin I 0.04 ng/mL (< 0.04)
[2021-03-26] MEDS ORDERED: *HR* Enoxaparin 40 MG/0.4 ML SYRINGE SQ SCH (06:00)
[2021-03-26] MEDS ORDERED: NON-FORMULARY MEDICATION 1 EACH EACH (Duloxetine Hcl [Cymbalta] 60 MG Capsule.Dr) PO SCH (09:00)
[2021-03-26] MEDS ORDERED: Metoprolol XL (24 HR) Succ 50 MG TAB.ER.24H PO SCH (09:00)
[2021-03-26] MEDS ORDERED: NON-FORMULARY MEDICATION 1 EACH EACH (Omega-3/Dha/Epa/Fish Oil [Fish Oil 1,000 Mg Softgel] PO SCH (09:00)
[2021-03-26] MEDS: Insulin LISPRO 300 UNITS/3 ML VIAL SUBQ SCH ×4 (09:08→20:56)
[2021-03-26] MEDS ORDERED: *HR* Metoprolol 5 MG/5 ML VIAL IVP PRN (09:55)
[2021-03-26] MEDS: Furosemide 40 MG TABLET PO SCH (11:45)
[2021-03-26] MEDS: Vitamin B Complex/Vit C/Vit E 1 EACH TABLET PO SCH (11:45)
[2021-03-26] MEDS: Aspirin Enteric Coated 81 MG Tablet PO SCH (11:45)
[2021-03-26] MEDS: DilTIAZem CD (24hr) 300 MG CAP.ER.24H PO SCH (11:45)
[2021-03-26] MEDS: Magnesium Oxide 400 MG TABLET PO SCH (11:45)
[2021-03-26] MEDS: *HR* Metoprolol 5 MG/5 ML VIAL IVP SCH ×3 (12:50→23:48)
[2021-03-26] MEDS: cefTRIAXone 1,000 MG in 0.9 % Sodium Chloride Mini Bag 100 ML IVPB SCH (17:41)
[2021-03-26] MEDS: Azithromycin 500 MG in 0.9 % Sodium Chloride 250 ML IVPB SCH (17:49)
[2021-03-26 19:19] LABS: Folate > 22.3 ng/mL (3.0-16.0); Vitamin B12 1313 pg/mL (250-1100)
[2021-03-26] MEDS: Insulin DETEMIR 100 UNIT/ML X5UNITS SUBQ SCH (20:56)
[2021-03-26] MEDS: Latanoprost 2.5 ML BOTTLE BOTH EYES SCH (20:56)
[2021-03-26] MEDS: levETIRAcetam 250 MG in 0.9 % Sodium Chloride 100 ML IVPB SCH (20:57)
[2021-03-27] MEDS: Ipratropium 1 PUFF INHALER IH SCH ×7 (00:27→23:52)
[2021-03-27 05:04] LABS: Basophils % 0.2 %; Hemoglobin 11.5 g/dL (11.5-15.4); Immature Granulocytes % 1.2 % (0-4); Lymphocytes # 0.6 K/mcL (0.6-4.6); Lymphocytes % 11.1 %; Mean Corpuscular HGB Conc 32.9 g/dL (31.6-35.5); Mean Corpuscular Hemoglobin 30.3 pg (28.0-33.3); Mean Corpuscular Volume 92.3 fL (83.0-100.0); Mean Platelet Volume 10.8 fL (9.4-12.4); Monocytes # 0.5 K/mcL (0.0-1.3); Monocytes % 7.9 %; Neutrophils # 4.5 K/mcL (1.6-8.9); Red Blood Count 3.79 M/mcL (3.82-4.97); Red Cell Distribution Width 16.2 % (11.5-14.5); Segmented Neutrophils % 79.6 %
[2021-03-27 05:14] LABS: Albumin 3.2 g/dL (3.5-5.7); Albumin/Globulin Ratio 1.3 (1.1-2.2); Bilirubin,Total 0.4 mg/dL (0.3-1.0); Calcium 8.2 mg/dL (8.6-10.3); Globulin 2.5 g/dL (2.4-3.5); Potassium 4.4 mEq/L (3.5-5.1); Total Protein 5.7 g/dL (6.4-8.9)
[2021-03-27] MEDS: *HR* Enoxaparin 30 MG/0.3 ML SYRINGE SQ SCH (05:26)
[2021-03-27] MEDS: *HR* Metoprolol 5 MG/5 ML VIAL IVP SCH (05:26)
[2021-03-27 07:26] LABS: Platelet Count 94 K/mcL (140-400); White Blood Count 5.7 K/mcL (4.3-11.1)
[2021-03-27 07:28] LABS: Platelet Estimate Decreased (Normal)
[2021-03-27] MEDS ORDERED: Pantoprazole 40 MG VIAL IVP SCH (09:00)
[2021-03-27] MEDS ORDERED: Levothyroxine Sodium 100 MCG VIAL IVP SCH (09:00)
[2021-03-27] MEDS: Vitamin B Complex/Vit C/Vit E 1 EACH TABLET PO SCH (09:59)
[2021-03-27] MEDS: Ascorbic Acid 500 MG TABLET PO SCH (09:59)
[2021-03-27] MEDS: Insulin LISPRO 300 UNITS/3 ML VIAL SUBQ SCH ×4 (09:59→20:33)
[2021-03-27] MEDS: Furosemide 40 MG TABLET PO SCH (09:59)
[2021-03-27] MEDS: Cholecalciferol (D-3) 1,000 UNIT (25MCG) TABLET PO SCH (09:59)
[2021-03-27] MEDS: DilTIAZem CD (24hr) 300 MG CAP.ER.24H PO SCH (09:59)
[2021-03-27] MEDS: Magnesium Oxide 400 MG TABLET PO SCH (10:00)
[2021-03-27] MEDS: Aspirin Enteric Coated 81 MG Tablet PO SCH (10:00)
[2021-03-27] MEDS: levETIRAcetam 250 MG in 0.9 % Sodium Chloride 100 ML IVPB SCH (10:04)
[2021-03-27] MEDS: levETIRAcetam 250 MG TABLET PO SCH ×2 (11:52→20:34)
[2021-03-27] MEDS ORDERED: Metoprolol XL (24 HR) Succ 50 MG TAB.ER.24H PO SCH (12:00)
[2021-03-27] MEDS: cefTRIAXone 1,000 MG in 0.9 % Sodium Chloride Mini Bag 100 ML IVPB SCH (17:08)
[2021-03-27] MEDS ORDERED: *HR* Metoprolol 5 MG/5 ML VIAL IVP ONE (17:28)
[2021-03-27] MEDS: Azithromycin 500 MG in 0.9 % Sodium Chloride 250 ML IVPB SCH (17:54)
[2021-03-27] MEDS: Insulin DETEMIR 100 UNIT/ML X5UNITS SUBQ SCH (20:34)
[2021-03-27] MEDS: Latanoprost 2.5 ML BOTTLE BOTH EYES SCH (20:49)
[2021-03-27] MEDS ORDERED: Acetaminophen 325 MG TABLET PO ONE (21:39)
[2021-03-28 02:20] LABS: Basophils % 0.1 %; Hematocrit 35.1 % (35.3-44.9); Hemoglobin 11.3 g/dL (11.5-15.4); Immature Granulocytes % 1.3 % (0-4); Immature Platelets 9.5 % (1.1-6.1); Lymphocytes # 0.5 K/mcL (0.6-4.6); Lymphocytes % 6.3 %; Mean Corpuscular HGB Conc 32.2 g/dL (31.6-35.5); Mean Corpuscular Hemoglobin 29.9 pg (28.0-33.3); Mean Corpuscular Volume 92.9 fL (83.0-100.0); Monocytes # 0.5 K/mcL (0.0-1.3); Monocytes % 5.9 %; Neutrophils # 6.9 K/mcL (1.6-8.9); Platelet Count 117 K/mcL (140-400); Red Blood Count 3.78 M/mcL (3.82-4.97); Red Cell Distribution Width 16.2 % (11.5-14.5); Segmented Neutrophils % 86.4 %; White Blood Count 7.9 K/mcL (4.3-11.1)
[2021-03-28] MEDS: Ipratropium 1 PUFF INHALER IH SCH ×6 (04:21→23:37)
[2021-03-28 04:22] LABS: Albumin 3.3 g/dL (3.5-5.7); Albumin/Globulin Ratio 1.2 (1.1-2.2); Bilirubin,Total 0.4 mg/dL (0.3-1.0); Calcium 8.4 mg/dL (8.6-10.3); Globulin 2.7 g/dL (2.4-3.5); Potassium 4.2 mEq/L (3.5-5.1)
[2021-03-28] MEDS: *HR* Enoxaparin 30 MG/0.3 ML SYRINGE SQ SCH (05:24)
[2021-03-28] MEDS: Insulin LISPRO 300 UNITS/3 ML VIAL SUBQ SCH ×4 (07:29→20:36)
[2021-03-28] MEDS: DilTIAZem CD (24hr) 300 MG CAP.ER.24H PO SCH (10:01)
[2021-03-28] MEDS: Vitamin B Complex/Vit C/Vit E 1 EACH TABLET PO SCH (10:01)
[2021-03-28] MEDS: Metoprolol XL (24 HR) Succ 50 MG TAB.ER.24H PO SCH (10:01)
[2021-03-28] MEDS: Ascorbic Acid 500 MG TABLET PO SCH (10:01)
[2021-03-28] MEDS: Furosemide 40 MG TABLET PO SCH (10:01)
[2021-03-28] MEDS: Cholecalciferol (D-3) 1,000 UNIT (25MCG) TABLET PO SCH (10:01)
[2021-03-28] MEDS: Aspirin Enteric Coated 81 MG Tablet PO SCH (10:01)
[2021-03-28] MEDS: levETIRAcetam 250 MG TABLET PO SCH ×2 (10:02→20:36)
[2021-03-28] MEDS: Magnesium Oxide 400 MG TABLET PO SCH (10:02)
[2021-03-28] MEDS: cefTRIAXone 1,000 MG in 0.9 % Sodium Chloride Mini Bag 100 ML IVPB SCH (16:42)
[2021-03-28] MEDS: Azithromycin 500 MG in 0.9 % Sodium Chloride 250 ML IVPB SCH (16:42)
[2021-03-28] MEDS: Insulin DETEMIR 100 UNIT/ML X5UNITS SUBQ SCH (20:36)
[2021-03-28] MEDS: Latanoprost 2.5 ML BOTTLE BOTH EYES SCH (20:37)
[2021-03-29 03:45] LABS: Hemoglobin 10.7 g/dL (11.5-15.4); Immature Granulocytes % 2.2 % (0-4); Lymphocytes # 0.5 K/mcL (0.6-4.6); Lymphocytes % 9.1 %; Mean Corpuscular HGB Conc 32.4 g/dL (31.6-35.5); Mean Corpuscular Hemoglobin 30.2 pg (28.0-33.3); Mean Corpuscular Volume 93.2 fL (83.0-100.0); Mean Platelet Volume 11.8 fL (9.4-12.4); Monocytes # 0.4 K/mcL (0.0-1.3); Monocytes % 7.8 %; Neutrophils # 4.4 K/mcL (1.6-8.9); Nucleated Red Blood Cells 0.4 /100 WBC (0); Platelet Count 106 K/mcL (140-400); Red Blood Count 3.54 M/mcL (3.82-4.97); Red Cell Distribution Width 16.2 % (11.5-14.5); Segmented Neutrophils % 80.9 %; White Blood Count 5.5 K/mcL (4.3-11.1)
[2021-03-29 04:02] LABS: Magnesium 2.1 mg/dL (1.6-2.6); Phosphorous 2.8 mg/dL (2.7-4.5)
[2021-03-29 04:08] LABS: Albumin 3.2 g/dL (3.5-5.7); Albumin/Globulin Ratio 1.3 (1.1-2.2); Bilirubin,Total 0.4 mg/dL (0.3-1.0); Calcium 8.3 mg/dL (8.6-10.3); Globulin 2.5 g/dL (2.4-3.5); Potassium 4.2 mEq/L (3.5-5.1); Total Protein 5.7 g/dL (6.4-8.9)
[2021-03-29] MEDS: Ipratropium 1 PUFF INHALER IH SCH ×5 (04:16→20:59)
[2021-03-29] MEDS: *HR* Enoxaparin 30 MG/0.3 ML SYRINGE SQ SCH (05:40)
[2021-03-29] MEDS: Insulin LISPRO 300 UNITS/3 ML VIAL SUBQ SCH ×7 (08:55→20:38)
[2021-03-29] MEDS: Cholecalciferol (D-3) 1,000 UNIT (25MCG) TABLET PO SCH (08:59)
[2021-03-29] MEDS: levETIRAcetam 250 MG TABLET PO SCH ×2 (08:59→20:38)
[2021-03-29] MEDS: DilTIAZem CD (24hr) 300 MG CAP.ER.24H PO SCH (08:59)
[2021-03-29] MEDS: Metoprolol XL (24 HR) Succ 50 MG TAB.ER.24H PO SCH (08:59)
[2021-03-29] MEDS: Furosemide 40 MG TABLET PO SCH (08:59)
[2021-03-29] MEDS: Ascorbic Acid 500 MG TABLET PO SCH (08:59)
[2021-03-29] MEDS: Vitamin B Complex/Vit C/Vit E 1 EACH TABLET PO SCH (08:59)
[2021-03-29] MEDS: Magnesium Oxide 400 MG TABLET PO SCH (09:00)
[2021-03-29] MEDS: Doxycycline 100 MG CAPSULE PO SCH ×2 (09:00→20:38)
[2021-03-29] MEDS: Aspirin Enteric Coated 81 MG Tablet PO SCH (09:00)
[2021-03-29] MEDS: Insulin DETEMIR 100 UNIT/ML X5UNITS SUBQ SCH ×2 (09:02→20:38)
[2021-03-29] MEDS: Latanoprost 2.5 ML BOTTLE BOTH EYES SCH (23:13)
[2021-03-30] MEDS: Ipratropium 1 PUFF INHALER IH SCH ×4 (00:09→11:32)
[2021-03-30 02:06] LABS: Calcium 8.6 mg/dL (8.6-10.3); Potassium 3.8 mEq/L (3.5-5.1)
[2021-03-30] MEDS: *HR* Enoxaparin 30 MG/0.3 ML SYRINGE SQ SCH (05:32)
[2021-03-30 06:56] VITALS: TEMP 97.5
[2021-03-30] MEDS: Insulin LISPRO 300 UNITS/3 ML VIAL SUBQ SCH ×2 (07:19→11:31)
[2021-03-30] MEDS ORDERED: Insulin LISPRO 300 UNITS/3 ML VIAL SUBQ SCH (08:00)
[2021-03-30] MEDS: Cholecalciferol (D-3) 1,000 UNIT (25MCG) TABLET PO SCH (08:37)
[2021-03-30] MEDS: Metoprolol XL (24 HR) Succ 50 MG TAB.ER.24H PO SCH (08:37)
[2021-03-30] MEDS: DilTIAZem CD (24hr) 300 MG CAP.ER.24H PO SCH (08:37)
[2021-03-30] MEDS: Aspirin Enteric Coated 81 MG Tablet PO SCH (08:38)
[2021-03-30] MEDS: Ascorbic Acid 500 MG TABLET PO SCH (08:39)
[2021-03-30] MEDS: Doxycycline 100 MG CAPSULE PO SCH (08:39)
[2021-03-30] MEDS: Magnesium Oxide 400 MG TABLET PO SCH (08:39)
[2021-03-30] MEDS: levETIRAcetam 250 MG TABLET PO SCH (08:39)
[2021-03-30] MEDS: Furosemide 40 MG TABLET PO SCH (08:40)
[2021-03-30] MEDS: Vitamin B Complex/Vit C/Vit E 1 EACH TABLET PO SCH (08:40)
[2021-03-30] MEDS ORDERED: Insulin DETEMIR 100 UNIT/ML X5UNITS SUBQ SCH (09:00)
[2021-03-30 11:24] VITALS: BP 107/68; PULSE 92; O2SAT 91
== END 2021-03-30 13:18 | DRG 177 ==
LOC: EMEROOARM 14:37 → 2ANU 14:37 → SUATTDRO 18:32 → 2ANU 18:45
PROVIDERS: ADMIT Internal Medicine; ATTEND Internal Medicine

== ENCOUNTER 2021-07-17 17:18 | Inpatient (IN) ==
[2021-07-17] MEDS ORDERED: Isovue-370 500 ML BOTTLE IVP ONE (18:26)
[2021-07-17 18:38] LABS: Hematocrit 37.1 % (35.3-44.9); Hemoglobin 11.7 g/dL (11.5-15.4); Mean Corpuscular HGB Conc 31.5 g/dL (31.6-35.5); Mean Corpuscular Volume 92.1 fL (83.0-100.0); Mean Platelet Volume 11.3 fL (9.4-12.4); Platelet Count 154 K/mcL (140-400); Red Blood Count 4.03 M/mcL (3.82-4.97); Red Cell Distribution Width 15.9 % (11.5-14.5); White Blood Count 11.5 K/mcL (4.3-11.1)
[2021-07-17 18:50] LABS: Prothrombin Time 11.5 Seconds (9.4-12.1)
[2021-07-17 18:53] LABS: Activated Partial Thrombo Time 28.3 Seconds (26.0-36.0)
[2021-07-17 19:03] LABS: Albumin 4.1 g/dL (3.5-5.7); Albumin/Globulin Ratio 1.5 (1.1-2.2); Bilirubin,Direct 0.1 mg/dL (0.0-0.2); Bilirubin,Indirect 0.5 mg/dL (0.0-1.0); Bilirubin,Total 0.6 mg/dL (0.3-1.0); Calcium 9.2 mg/dL (8.6-10.3); Globulin 2.8 g/dL (2.4-3.5); Potassium 4.3 mEq/L (3.5-5.1); Total Protein 6.9 g/dL (6.4-8.9); Troponin I 0.03 ng/mL (< 0.04)
[2021-07-17 20:03] LABS: Bilirubin,Urine Negative (Negative); Blood,Urine Negative (Negative); Clarity,Urine Clear (Clear); Color,Urine Light-Yellow (Yellow); Glucose,Urine (UA) Normal (Normal); Hyaline Casts,Urine Few per lpf (None Seen); Ketones,Urine Negative (Negative); Leukocyte Esterase,Urine Moderate (Negative); Mucus,Urine Few per lpf (None-Few); Nitrite,Urine Negative (Negative); PH,Urine 6.5 pH Units (5.0-8.0); Protein,Urine Negative (Neg-Trace); RBC,Urine 0-3 per hpf (0-3); Specific Gravity,Urine > 1.030 (1.010-1.025); Squamous Epithelial Cell,Urine Few per hpf (None-Few); Transitional Epi Cells,Urine Few per hpf (None-Few); Urobilinogen,Urine Normal (Normal); WBC,Urine 30-50 per hpf (0-3)
[2021-07-17 20:50] LABS: Influenza A PCR Negative (Negative); Influenza B PCR Negative (Negative); Resp. Syncytial Virus PCR Negative (Negative)
[2021-07-17 20:51] LABS: SARS-CoV-2 by PCR (In House) Negative (Negative)
[2021-07-17] MEDS ORDERED: Melatonin 3 MG TABLET PO PRN (22:43)
[2021-07-17] MEDS ORDERED: Naloxone 0.4 MG/ML INJ IVP PRN (22:43)
[2021-07-17] MEDS ORDERED: Ondansetron ODT 4 MG TAB.RAPDIS SL PRN (22:43)
[2021-07-17] MEDS ORDERED: Ipratropium/Albuterol Neb 3 ML IH PRN (22:45)
[2021-07-17] MEDS ORDERED: cefTRIAXone 2,000 MG in 0.9 % Sodium Chloride Mini Bag 100 ML IVPB SCH (23:00)
[2021-07-17 23:04] LABS: VBG HCO3 27 mEq/L (21-27); VBG PCO2 37 mmHg (41-51); VBG PH 7.47 pH Units (7.32-7.42); VBG PO2 87 mmHg (25-50)
[2021-07-17] MEDS ORDERED: *HR* Dextrose 50 % in Water (Syg) 50 ML SYRINGE IVP PRN (23:22)
[2021-07-17] MEDS ORDERED: Dextrose 4 GM Chewable Tablets PO PRN ×2 (23:22)
[2021-07-17] MEDS ORDERED: D5% in Water 1,000 ML IVC PRN (23:22)
[2021-07-18] MEDS: Acetaminophen 325 MG TABLET PO PRN ×2 (00:51→18:49)
[2021-07-18] MEDS: Insulin LISPRO 300 UNITS/3 ML VIAL SUBQ SCH ×5 (00:52→22:14)
[2021-07-18 05:35] LABS: Hematocrit 36.3 % (35.3-44.9); Hemoglobin 11.5 g/dL (11.5-15.4); Mean Corpuscular HGB Conc 31.7 g/dL (31.6-35.5); Mean Corpuscular Volume 91.4 fL (83.0-100.0); Mean Platelet Volume 11.1 fL (9.4-12.4); Platelet Count 158 K/mcL (140-400); Red Blood Count 3.97 M/mcL (3.82-4.97); Red Cell Distribution Width 15.9 % (11.5-14.5)
[2021-07-18 05:45] LABS: Estimated Average Glucose 163 mg/dl; Hemoglobin A1C 7.3 %
[2021-07-18 05:56] LABS: Albumin 3.8 g/dL (3.5-5.7); Albumin/Globulin Ratio 1.4 (1.1-2.2); Bilirubin,Total 0.4 mg/dL (0.3-1.0); Calcium 9.1 mg/dL (8.6-10.3); Chol/HDL Ratio 2.6 (0-4.9); Globulin 2.7 g/dL (2.4-3.5); Phosphorous 4.3 mg/dL (2.7-4.5); Potassium 3.7 mEq/L (3.5-5.1); Total Protein 6.5 g/dL (6.4-8.9)
[2021-07-18] MEDS ORDERED: NON-FORMULARY MEDICATION 1 EACH EACH (Diclofenac Sodium [Voltaren] 100 GM Gel..Gram.) TD PRN (11:22)
[2021-07-18] MEDS: DilTIAZem CD (24hr) 300 MG CAP.ER.24H PO SCH (12:15)
[2021-07-18] MEDS: Aspirin Enteric Coated 81 MG Tablet PO SCH (12:15)
[2021-07-18] MEDS: CLOTRIMAZOLE 1% OT SCH ×2 (12:16→22:16)
[2021-07-18] MEDS: Metoprolol XL (24 HR) Succ 50 MG TAB.ER.24H PO SCH (12:16)
[2021-07-18] MEDS ORDERED: Albuterol 2.5 MG/3 ML NEBULIZER ONE (20:03)
[2021-07-18] MEDS: Albuterol 2.5 MG/3 ML NEBULIZER IH SCH (20:05)
[2021-07-19 02:28] LABS: Potassium 4.1 mEq/L (3.5-5.1)
[2021-07-19] MEDS: Albuterol 2.5 MG/3 ML NEBULIZER IH SCH ×2 (07:47→20:28)
[2021-07-19] MEDS ORDERED: 0.9 % Sodium Chloride 1,000 ML IVC SCH (08:00)
[2021-07-19] MEDS: cefTRIAXone 1,000 MG in 0.9 % Sodium Chloride 10 ML IVP SCH (08:50)
[2021-07-19] MEDS: Loratadine 10 MG TABLET PO SCH (08:50)
[2021-07-19] MEDS: predniSONE 5 MG TABLET PO SCH (08:50)
[2021-07-19] MEDS: DilTIAZem CD (24hr) 300 MG CAP.ER.24H PO SCH (08:50)
[2021-07-19] MEDS: Aspirin Enteric Coated 81 MG Tablet PO SCH (08:50)
[2021-07-19] MEDS: Metoprolol XL (24 HR) Succ 50 MG TAB.ER.24H PO SCH (08:50)
[2021-07-19] MEDS: Insulin LISPRO 300 UNITS/3 ML VIAL SUBQ SCH ×4 (08:51→20:57)
[2021-07-19] MEDS: CLOTRIMAZOLE 1% OT SCH ×2 (08:51→20:57)
[2021-07-19] MEDS: 0.9 % Sodium Chloride 1,000 ML IVC SCH ×2 (10:04→22:43)
[2021-07-19] MEDS: Acetaminophen 325 MG TABLET PO PRN (13:45)
[2021-07-19] MEDS: Insulin DETEMIR 100 UNIT/ML X5UNITS SUBQ SCH (20:56)
[2021-07-20 04:32] LABS: Calcium 8.7 mg/dL (8.6-10.3); Potassium 4.1 mEq/L (3.5-5.1)
[2021-07-20] MEDS: predniSONE 5 MG TABLET PO SCH (07:45)
[2021-07-20] MEDS: Aspirin Enteric Coated 81 MG Tablet PO SCH (07:45)
[2021-07-20] MEDS: DilTIAZem CD (24hr) 300 MG CAP.ER.24H PO SCH (07:46)
[2021-07-20] MEDS: Loratadine 10 MG TABLET PO SCH (07:46)
[2021-07-20] MEDS: Metoprolol XL (24 HR) Succ 50 MG TAB.ER.24H PO SCH (07:46)
[2021-07-20] MEDS: Insulin LISPRO 300 UNITS/3 ML VIAL SUBQ SCH ×4 (07:47→20:41)
[2021-07-20] MEDS: cefTRIAXone 1,000 MG in 0.9 % Sodium Chloride 10 ML IVP SCH (07:47)
[2021-07-20] MEDS: CLOTRIMAZOLE 1% OT SCH ×2 (07:49→20:56)
[2021-07-20] MEDS: Acetaminophen 325 MG TABLET PO PRN ×2 (10:42→19:32)
[2021-07-20] MEDS: Albuterol 2.5 MG/3 ML NEBULIZER IH SCH ×2 (10:48→20:28)
[2021-07-20] MEDS: *HR* Heparin 5,000 UNIT/ML VIAL SQ SCH (17:58)
[2021-07-20] MEDS: Insulin DETEMIR 100 UNIT/ML X5UNITS SUBQ SCH (20:40)
[2021-07-21] MEDS: Acetaminophen 325 MG TABLET PO PRN ×2 (01:09→11:21)
[2021-07-21] MEDS: *HR* Heparin 5,000 UNIT/ML VIAL SQ SCH (05:14)
[2021-07-21 05:56] LABS: Calcium 8.9 mg/dL (8.6-10.3); Potassium 3.8 mEq/L (3.5-5.1)
[2021-07-21] MEDS: Albuterol 2.5 MG/3 ML NEBULIZER IH SCH (07:46)
[2021-07-21] MEDS: Loratadine 10 MG TABLET PO SCH (08:02)
[2021-07-21] MEDS: CLOTRIMAZOLE 1% OT SCH (08:03)
[2021-07-21] MEDS: predniSONE 5 MG TABLET PO SCH (08:03)
[2021-07-21] MEDS: DilTIAZem CD (24hr) 300 MG CAP.ER.24H PO SCH (08:03)
[2021-07-21] MEDS: Aspirin Enteric Coated 81 MG Tablet PO SCH (08:03)
[2021-07-21] MEDS: Metoprolol XL (24 HR) Succ 50 MG TAB.ER.24H PO SCH (08:03)
[2021-07-21] MEDS: Insulin LISPRO 300 UNITS/3 ML VIAL SUBQ SCH ×2 (08:04→11:49)
[2021-07-21] MEDS: cefTRIAXone 1,000 MG in 0.9 % Sodium Chloride 10 ML IVP SCH (10:26)
[2021-07-21 10:56] VITALS: PULSE 92; TEMP 97.9; O2SAT 97
[2021-07-21 12:38] LABS: Influenza A PCR Negative (Negative); Influenza B PCR Negative (Negative); Resp. Syncytial Virus PCR Negative (Negative); SARS-CoV-2 by PCR (In House) Negative (Negative)
[2021-07-21 15:30] VITALS: BP 138/84
== END 2021-07-21 15:42 | DRG 689 ==
LOC: 3ANU 17:18 → EMEROOARM 17:18 → SUATTDRO 23:09 → 3ANU 07-18 00:01
PROVIDERS: ADMIT Internal Medicine; ATTEND Nurse Practitioner

== ENCOUNTER 2021-11-03 14:49 | Inpatient (IN) ==
[2021-11-03 16:45] LABS: Basophils % 0.4 %; Red Cell Distribution Width 16.7 % (11.5-14.5)
[2021-11-03 16:47] LABS: Eosinophils # 0.1 K/mcL (0.0-0.6); Eosinophils % 1.1 %; Hematocrit 35.8 % (35.3-44.9); Hemoglobin 11.2 g/dL (11.5-15.4); Immature Granulocytes % 1.5 % (0-4); Immature Platelets 10.6 % (1.1-6.1); Lymphocytes % 10.6 %; Mean Corpuscular HGB Conc 31.3 g/dL (31.6-35.5); Mean Corpuscular Hemoglobin 28.2 pg (28.0-33.3); Mean Corpuscular Volume 90.2 fL (83.0-100.0); Mean Platelet Volume 11.3 fL (9.4-12.4); Monocytes # 0.6 K/mcL (0.0-1.3); Monocytes % 6.5 %; Neutrophils # 7.8 K/mcL (1.6-8.9); Platelet Count 144 K/mcL (140-400); Red Blood Count 3.97 M/mcL (3.82-4.97); Segmented Neutrophils % 79.9 %; White Blood Count 9.7 K/mcL (4.3-11.1)
[2021-11-03 16:58] LABS: Calcium 9.1 mg/dL (8.6-10.3); Potassium 3.8 mEq/L (3.5-5.1)
[2021-11-03 17:15] LABS: Ovalocytes 1+ (Not Present)
[2021-11-03] MEDS ORDERED: Ipratropium/Albuterol Neb 3 ML IH ONE (22:12)
[2021-11-03] MEDS ORDERED: Albuterol 2.5 MG/3 ML NEBULIZER IH ONE (22:12)
[2021-11-03] MEDS ORDERED: methylPREDNISolone 125 MG/2 ML VIAL IVP ONE (22:12)
[2021-11-03 22:52] LABS: ABG Base Excess 0 mEq/L (-2 to 3); ABG HCO3 23 mEq/L (21-27); ABG Oxygen Saturation 98 % (95-98); ABG PCO2 30 mmHg (35-45); ABG PH 7.48 pH Units (7.32-7.45); ABG PO2 88 mmHg (85-104); ABG TCO2 24 mEq/L (20-26)
[2021-11-03 23:11] LABS: Troponin I < 0.03 ng/mL (< 0.04)
[2021-11-03 23:14] LABS: Adenovirus Not Detected (Not Detect); Bordetella Pertussis Not Detected (Not Detect); Chlamydophila pneumoniae Not Detected (Not Detect); Coronavirus 229E Not Detected (Not Detect); Coronavirus HKU1 Not Detected (Not Detect); Coronavirus NL63 Not Detected (Not Detect); Coronavirus OC43 Not Detected (Not Detect); Human Metapneumovirus Not Detected (Not Detect); Human Rhinovirus/Enterovirus Not Detected (Not Detect); Influenza A Subtype 2009 H1 Not Detected (Not Detect); Influenza B Not Detected (Not Detect); Mycoplasma pneumoniae Not Detected (Not Detect); Parainfluenza Virus 1 Not Detected (Not Detect); Parainfluenza Virus 2 Not Detected (Not Detect); Parainfluenza Virus 3 Not Detected (Not Detect); Parainfluenza Virus 4 Not Detected (Not Detect); Respiratory Syncytial Virus Not Detected (Not Detect); SARS-CoV-2 Not Detected (Not Detect)
[2021-11-03 23:57] LABS: Alanine Aminotransferase 12 Units/L (7-52); Albumin 4.1 g/dL (3.5-5.7); Albumin/Globulin Ratio 1.5 (1.1-2.2); Alkaline Phosphatase 56 Units/L (34-104); Aspartate Amino Transferase 15 Units/L (13-39); Bilirubin,Direct 0.1 mg/dL (0.0-0.2); Bilirubin,Indirect 0.5 mg/dL (0.0-1.0); Bilirubin,Total 0.6 mg/dL (0.3-1.0); Globulin 2.7 g/dL (2.4-3.5); Lipase 13 Units/L (11-82); Total Protein 6.8 g/dL (6.4-8.9)
[2021-11-04] MEDS ORDERED: Azithromycin 250 MG TABLET PO ONE (00:24)
[2021-11-04] MEDS ORDERED: cefTRIAXone 1,000 MG in 0.9 % Sodium Chloride Mini Bag 100 ML IVPB ONE (00:24)
[2021-11-04 00:25] LABS: Magnesium 1.9 mg/dL (1.6-2.6)
[2021-11-04 01:16] LABS: Bilirubin,Urine Negative (Negative); Blood,Urine Negative (Negative); Clarity,Urine Clear (Clear); Color,Urine Yellow (Yellow); Glucose,Urine (UA) Normal (Normal); Ketones,Urine Negative (Negative); Leukocyte Esterase,Urine Negative (Negative); Nitrite,Urine Negative (Negative); PH,Urine 5.5 pH Units (5.0-8.0); Protein,Urine Negative (Neg-Trace); Specific Gravity,Urine 1.017 (1.010-1.025); Urobilinogen,Urine Normal (Normal)
[2021-11-04] MEDS ORDERED: Ondansetron ODT 4 MG TAB.RAPDIS SL PRN (02:30)
[2021-11-04] MEDS ORDERED: Naloxone 0.4 MG/ML INJ IVP PRN (02:30)
[2021-11-04] MEDS ORDERED: Melatonin 3 MG TABLET PO PRN (02:30)
[2021-11-04] MEDS ORDERED: *HR* Dextrose 50 % in Water (Syg) 50 ML SYRINGE IVP PRN (02:46)
[2021-11-04] MEDS ORDERED: Dextrose Gel 15 GM/37.5 ML TUBE PO PRN ×2 (02:46)
[2021-11-04] MEDS ORDERED: D5% in Water 1,000 ML IVC PRN (02:46)
[2021-11-04] MEDS ORDERED: Iopamidol - 370 500 ML MLS IVP ONE (04:10)
[2021-11-04] MEDS ORDERED: *HR* Labetalol 20 MG/4 ML SYRINGE IVP PRN (04:15)
[2021-11-04] MEDS: Ipratropium/Albuterol Neb 3 ML IH SCH ×4 (04:34→21:29)
[2021-11-04 08:48] LABS: Mean Platelet Volume 11.1 fL (9.4-12.4)
[2021-11-04 08:49] LABS: Hematocrit 36.7 % (35.3-44.9); Hemoglobin 11.4 g/dL (11.5-15.4); Immature Platelets 10.4 % (1.1-6.1); Mean Corpuscular HGB Conc 31.1 g/dL (31.6-35.5); Mean Corpuscular Hemoglobin 28.2 pg (28.0-33.3); Mean Corpuscular Volume 90.8 fL (83.0-100.0); Red Blood Count 4.04 M/mcL (3.82-4.97); Red Cell Distribution Width 16.6 % (11.5-14.5); White Blood Count 10.5 K/mcL (4.3-11.1)
[2021-11-04] MEDS: Aspirin 81 MG TAB.CHEW PO SCH (08:54)
[2021-11-04] MEDS: Insulin LISPRO 300 UNITS/3 ML VIAL SUBQ SCH ×3 (08:54→17:44)
[2021-11-04] MEDS: MetroNIDAZOLE 500 MG/100 ML 500 MG/100 ML BAG IVPB SCH ×2 (08:54→16:20)
[2021-11-04] MEDS: MethylPREDNISolone 40 MG/ML VIAL IVP SCH ×2 (08:54→16:20)
[2021-11-04] MEDS: Budesonide/Formoterol 160/4.5 1 PUFF INH IH SCH ×2 (09:00→21:30)
[2021-11-04 09:11] LABS: Calcium 8.9 mg/dL (8.6-10.3); Potassium 4.3 mEq/L (3.5-5.1)
[2021-11-04] MEDS ORDERED: Metoprolol XL (24 HR) Succ 50 MG TAB.ER.24H PO SCH (13:15)
[2021-11-04] MEDS: DilTIAZem CD (24hr) 300 MG CAP.ER.24H PO SCH (13:46)
[2021-11-04] MEDS ORDERED: *HR* Metoprolol 5 MG/5 ML VIAL IVP ONE (16:20)
[2021-11-04] MEDS: *HR* Heparin 5,000 UNIT/ML VIAL SQ SCH (17:44)
[2021-11-04] MEDS ORDERED: Insulin LISPRO 300 UNITS/3 ML VIAL SUBQ SCH (21:00)
[2021-11-04] MEDS ORDERED: Insulin DETEMIR 100 UNIT/ML X5UNITS SUBQ SCH (21:00)
[2021-11-05] MEDS: MethylPREDNISolone 40 MG/ML VIAL IVP SCH (00:03)
[2021-11-05] MEDS: MetroNIDAZOLE 500 MG/100 ML 500 MG/100 ML BAG IVPB SCH ×4 (00:03→23:08)
[2021-11-05] MEDS ORDERED: Insulin LISPRO 300 UNITS/3 ML VIAL SUBQ ONE ×2 (00:15→23:54)
[2021-11-05] MEDS ORDERED: Azithromycin 500 MG in 0.9 % Sodium Chloride 250 ML IVPB SCH (01:00)
[2021-11-05] MEDS ORDERED: cefTRIAXone 1,000 MG in 0.9 % Sodium Chloride Mini Bag 100 ML IVPB SCH (01:00)
[2021-11-05 02:55] LABS: Basophils % 0.1 %; Hematocrit 30.5 % (35.3-44.9); Immature Granulocytes % 3.6 % (0-4); Lymphocytes # 0.6 K/mcL (0.6-4.6); Lymphocytes % 7.4 %; Mean Corpuscular HGB Conc 31.8 g/dL (31.6-35.5); Mean Corpuscular Hemoglobin 28.2 pg (28.0-33.3); Mean Corpuscular Volume 88.7 fL (83.0-100.0); Mean Platelet Volume 12.1 fL (9.4-12.4); Monocytes # 0.2 K/mcL (0.0-1.3); Neutrophils # 6.9 K/mcL (1.6-8.9); Platelet Count 144 K/mcL (140-400); Red Blood Count 3.44 M/mcL (3.82-4.97); Red Cell Distribution Width 16.8 % (11.5-14.5); Segmented Neutrophils % 85.9 %; White Blood Count 8.1 K/mcL (4.3-11.1)
[2021-11-05] MEDS ORDERED: 0.9 % Sodium Chloride 500 ML IVC ONE (02:55)
[2021-11-05 02:56] LABS: Hemoglobin 9.7 g/dL (11.5-15.4)
[2021-11-05 03:19] LABS: Calcium 8.2 mg/dL (8.6-10.3); Potassium 4.1 mEq/L (3.5-5.1)
[2021-11-05] MEDS: Ipratropium/Albuterol Neb 3 ML IH SCH (03:34)
[2021-11-05] MEDS: *HR* Heparin 5,000 UNIT/ML VIAL SQ SCH ×2 (05:14→17:17)
[2021-11-05] MEDS ORDERED: Acetaminophen 325 MG TABLET PO PRN ×2 (07:37→13:50)
[2021-11-05] MEDS ORDERED: Sennosides 8.6 MG TABLET PO PRN (07:37)
[2021-11-05] MEDS ORDERED: NON-FORMULARY MEDICATION 1 EACH EACH (Duloxetine Hcl [Cymbalta] 60 MG Capsule.Dr) PO SCH (09:00)
[2021-11-05] MEDS: DilTIAZem CD (24hr) 300 MG CAP.ER.24H PO SCH (09:19)
[2021-11-05] MEDS: Insulin LISPRO 300 UNITS/3 ML VIAL SUBQ SCH ×4 (09:19→21:26)
[2021-11-05] MEDS: Aspirin 81 MG TAB.CHEW PO SCH (09:19)
[2021-11-05] MEDS: Budesonide Neb 0.5 MG/2 ML IH SCH ×2 (10:38→20:19)
[2021-11-05] MEDS: predniSONE 20 MG TABLET PO SCH (10:39)
[2021-11-05] MEDS ORDERED: *HR* Metoprolol 5 MG/5 ML VIAL IVP ONE (11:26)
[2021-11-05] MEDS ORDERED: Furosemide 40 MG/4 ML VIAL IVP SCH (11:30)
[2021-11-05] MEDS ORDERED: Furosemide 40 MG/4 ML VIAL IVP ONE (12:27)
[2021-11-05] MEDS: Albuterol 2.5 MG/3 ML NEBULIZER AER SCH (20:19)
[2021-11-05] MEDS ORDERED: Insulin DETEMIR 100 UNIT/ML X5UNITS SUBQ SCH (21:00)
[2021-11-05] MEDS: cefTRIAXone 1,000 MG in 0.9 % Sodium Chloride Mini Bag 100 ML IVPB SCH (21:26)
[2021-11-05] MEDS: Latanoprost 2.5 ML BOTTLE BOTH EYES SCH (21:27)
[2021-11-06 02:56] LABS: Calcium 8.2 mg/dL (8.6-10.3)
[2021-11-06 03:22] LABS: Red Blood Count 3.46 M/mcL (3.82-4.97)
[2021-11-06 03:24] LABS: Basophils % 0.2 %; Eosinophils % 0.1 %; Hematocrit 31.7 % (35.3-44.9); Immature Granulocytes % 2.2 % (0-4); Immature Platelets 11.9 % (1.1-6.1); Lymphocytes # 0.4 K/mcL (0.6-4.6); Lymphocytes % 3.8 %; Mean Corpuscular HGB Conc 31.5 g/dL (31.6-35.5); Mean Corpuscular Hemoglobin 28.9 pg (28.0-33.3); Mean Corpuscular Volume 91.6 fL (83.0-100.0); Mean Platelet Volume 11.5 fL (9.4-12.4); Monocytes # 0.2 K/mcL (0.0-1.3); Monocytes % 2.2 %; Neutrophils # 10.2 K/mcL (1.6-8.9); Platelet Count 127 K/mcL (140-400); Red Cell Distribution Width 16.9 % (11.5-14.5); Segmented Neutrophils % 91.5 %; White Blood Count 11.1 K/mcL (4.3-11.1)
[2021-11-06] MEDS: *HR* Heparin 5,000 UNIT/ML VIAL SQ SCH ×2 (05:32→18:35)
[2021-11-06] MEDS: Budesonide Neb 0.5 MG/2 ML IH SCH ×2 (07:40→21:46)
[2021-11-06] MEDS: Albuterol 2.5 MG/3 ML NEBULIZER AER SCH ×2 (07:40→21:46)
[2021-11-06] MEDS: predniSONE 20 MG TABLET PO SCH (09:19)
[2021-11-06] MEDS: DilTIAZem CD (24hr) 300 MG CAP.ER.24H PO SCH (09:19)
[2021-11-06] MEDS: Aspirin 81 MG TAB.CHEW PO SCH (09:19)
[2021-11-06] MEDS: Magnesium Oxide 400 MG TABLET PO SCH (09:19)
[2021-11-06] MEDS: Cholecalciferol (D-3) 1,000 UNIT (25MCG) TABLET PO SCH (09:19)
[2021-11-06] MEDS: Ascorbic Acid 500 MG TABLET PO SCH (09:19)
[2021-11-06] MEDS: Furosemide 40 MG/4 ML VIAL IVP SCH (09:20)
[2021-11-06] MEDS: Insulin LISPRO 300 UNITS/3 ML VIAL SUBQ SCH ×4 (09:21→22:40)
[2021-11-06] MEDS: MetroNIDAZOLE 500 MG/100 ML 500 MG/100 ML BAG IVPB SCH ×3 (09:21→23:40)
[2021-11-06] MEDS ORDERED: Metoprolol XL (24 HR) Succ 50 MG TAB.ER.24H PO SCH (09:30)
[2021-11-06] MEDS ORDERED: *HR* Metoprolol 5 MG/5 ML VIAL IVP ONE (10:38)
[2021-11-06] MEDS ORDERED: E-Z-PAQUE (BARIUM SULF) SUSP 1 BOTTLE PO ONE (13:20)
[2021-11-06] MEDS ORDERED: E-Z-HD (BARIUM SULF) SUSPENSION PO ONE (13:20)
[2021-11-06] MEDS ORDERED: Insulin DETEMIR 100 UNIT/ML X5UNITS SUBQ SCH (21:00)
[2021-11-06] MEDS: cefTRIAXone 1,000 MG in 0.9 % Sodium Chloride Mini Bag 100 ML IVPB SCH (21:17)
[2021-11-06] MEDS: Metoprolol XL (24 HR) Succ 50 MG TAB.ER.24H PO SCH (21:17)
[2021-11-06] MEDS: Latanoprost 2.5 ML BOTTLE BOTH EYES SCH (21:17)
[2021-11-07 02:21] LABS: Hemoglobin 10.1 g/dL (11.5-15.4)
[2021-11-07 02:22] LABS: Basophils % 0.1 %; Immature Granulocytes % 1.3 % (0-4)
[2021-11-07 02:23] LABS: Hematocrit 31.6 % (35.3-44.9); Immature Platelets 10.6 % (1.1-6.1); Lymphocytes # 0.8 K/mcL (0.6-4.6); Mean Corpuscular Hemoglobin 28.6 pg (28.0-33.3); Mean Corpuscular Volume 89.5 fL (83.0-100.0); Monocytes # 0.6 K/mcL (0.0-1.3); Monocytes % 6.3 %; Neutrophils # 7.3 K/mcL (1.6-8.9); Platelet Count 123 K/mcL (140-400); Red Blood Count 3.53 M/mcL (3.82-4.97); Red Cell Distribution Width 16.6 % (11.5-14.5); Segmented Neutrophils % 83.3 %; White Blood Count 8.7 K/mcL (4.3-11.1)
[2021-11-07 02:45] LABS: Calcium 7.9 mg/dL (8.6-10.3); Potassium 3.9 mEq/L (3.5-5.1)
[2021-11-07] MEDS: *HR* Heparin 5,000 UNIT/ML VIAL SQ SCH (06:05)
[2021-11-07] MEDS: Budesonide Neb 0.5 MG/2 ML IH SCH (08:29)
[2021-11-07] MEDS: Albuterol 2.5 MG/3 ML NEBULIZER AER SCH (08:30)
[2021-11-07] MEDS: Insulin LISPRO 300 UNITS/3 ML VIAL SUBQ SCH ×2 (08:48→12:24)
[2021-11-07] MEDS: Ascorbic Acid 500 MG TABLET PO SCH (09:00)
[2021-11-07] MEDS: Metoprolol XL (24 HR) Succ 50 MG TAB.ER.24H PO SCH (09:00)
[2021-11-07] MEDS: predniSONE 20 MG TABLET PO SCH (09:00)
[2021-11-07] MEDS: Cholecalciferol (D-3) 1,000 UNIT (25MCG) TABLET PO SCH (09:01)
[2021-11-07] MEDS: Aspirin 81 MG TAB.CHEW PO SCH (09:01)
[2021-11-07] MEDS: DilTIAZem CD (24hr) 300 MG CAP.ER.24H PO SCH (09:01)
[2021-11-07] MEDS: Furosemide 40 MG/4 ML VIAL IVP SCH (09:01)
[2021-11-07] MEDS: Magnesium Oxide 400 MG TABLET PO SCH (09:01)
[2021-11-07] MEDS: MetroNIDAZOLE 500 MG/100 ML 500 MG/100 ML BAG IVPB SCH (09:15)
[2021-11-07 11:48] VITALS: BP 132/86; PULSE 74; TEMP 97.6; O2SAT 95
[2021-11-07 13:06] LABS: Influenza A PCR Negative (Negative); Influenza B PCR Negative (Negative); Resp. Syncytial Virus PCR Negative (Negative); SARS-CoV-2 by PCR (In House) Negative (Negative)
== END 2021-11-07 14:20 | DRG 193 ==
LOC: EMEROOARM 14:49 → 3ANU 14:49 → SUATTDRO 11-04 14:44 → 3ANU 11-04 15:14
PROVIDERS: ADMIT Internal Medicine; ATTEND Internal Medicine